=== PATIENT | female | born 1950 | race Caucasian/White ===

== ENCOUNTER 2016-07-08 08:53 | Emergency (ER) | payer MEDICARE, MEDICAID ==
[~2016-07-08] VITALS: Ht 167.6 cm; Wt 59.0 kg
[~2016-07-08 08:53] MED LIST: *ANUSOI PR; /LABE20TA OR; /LABE20TA PO; ACET65TA OR; ASPI325T OR; Avalide OR; CALCCHW12 OR; CIPR500T4 OR; CLON0.3T OR; COLA100C2 PO; CORICIDIN; CORICIDIN HBP PO; Cranberry PO; Echinacea PO; FISH1000 OR; LOSARTAN/HCTZ PO; MULTIVIT PO; PERC5TAB8 PO; Protonix OR; SENO8.6T5 PO; VERA180T9 OR; [UNRECOGNIZED DRUG - CODE] OR; [UNRECOGNIZED DRUG - OTHER]; metamucil OR
[2016-07-08 09:18] LABS: BASO % 0.6 % (0.0-1.0); EOS # 0.3 K/mm3 (0.0-0.50); LARGE UNSTAINED CELL # 0.2 K/mm3 (0.0-0.4); LARGE UNSTAINED CELL % 3.2 % (0.0-4.0); LYMPH # 1.3 K/mm3 (1.5-4.5); LYMPH % 22.5 % (24.0-44.0); MEAN CORPUSCULAR HEMOGLOBIN 30.1 pg (27.0-33.0); MEAN CORPUSCULAR HGB CONC 33.1 g/dl (32.0-36.5); MONO # 0.3 K/mm3 (0.0-0.8); MONO % 4.7 % (0.0-5.0); NEUTROPHILS # 3.6 K/mm3 (1.8-7.7); PLATELET COUNT, AUTOMATED 176 k/mm3 (150-450); RED CELL DISTRIBUTION WIDTH 12.8 % (11.5-14.5); WHITE BLOOD COUNT 5.7 K/mm3 (4.0-10.0)
[2016-07-08 09:22] LABS: INR 1.09
[2016-07-08] MEDS ORDERED: ONDANSETRON 4MG/2ML VIAL (J2405) As Ordered ONE (09:45)
[2016-07-08] MEDS ORDERED: MORPHINE 2 MG/ML 1ML SYRINGE As Ordered ONE (09:45)
[2016-07-08 09:59] LABS: CALCIUM LEVEL 8.7 MG/DL (8.8-10.2); CREATININE FOR GFR 1.05 MG/DL (0.55-1.02); GLOMERULAR FILTRATION RATE 55.8 (>45); POTASSIUM SERUM 4.5 MEQ/L (3.5-5.1)
[2016-07-08] MEDS ORDERED: ISOVUE-370 76% 100ML VIAL (Q9967) As Ordered ONE (10:10)
[2016-07-08] MEDS ORDERED: VERA180C PO (12:55)
[2016-07-08] MEDS ORDERED: CLON-412 PO (12:55)
[2016-07-08] MEDS ORDERED: LABE20TAB PO (12:55)
[2016-07-08] MEDS ORDERED: LOSA100T37 PO (12:55)
[2016-07-08] MEDS ORDERED: ATOR40TA PO (12:55)
[2016-07-08] MEDS ORDERED: CRAN400T3 PO (12:59)
[2016-07-08] MEDS ORDERED: HAIRTAB5 PO (12:59)
[2016-07-08] MEDS ORDERED: [UNRECOGNIZED DRUG - CODE] PO (12:59)
[2016-07-08] MEDS ORDERED: FISH1000 PO (12:59)
[2016-07-08] MEDS ORDERED: ECHI400C2 PO (12:59)
[2016-07-08] MEDS ORDERED: VITMTA PO (12:59)
[2016-07-08] MEDS ORDERED: FERR325T PO (12:59)
[2016-07-08] MEDS ORDERED: CALC600T10 PO (12:59)
[2016-07-08] MEDS ORDERED: ASPI325T PO (12:59)
[2016-07-08] MEDS ORDERED: DOCU100C PO (12:59)
[2016-07-08] MEDS ORDERED: VITA500046 PO (12:59)
[2016-07-08] MEDS ORDERED: HEPARIN 25,000 UNITS/250 ML D5W BAG (100 UNITS/ML) As Ordered ONE (13:16)
[2016-07-08] MEDS ORDERED: CLOPIDOGREL 300 MG TAB (PLAVIX) As Ordered ONE (13:16)
[2016-07-08] MEDS ORDERED: HEPARIN SOD (PORCINE) 5000 UNITS/ML VIAL As Ordered ONE (13:16)
--- NOTE | 2016-07-08 14:27 | EDDOCDS ---
Nurse's Notes [facility] Name: Cynthia Rebolledo Age: 65 yrs Sex: Female : 1950 Arrival Date: 07/08/2016 Time: 08:53 Bed 4 Private MD: Jayson Cox A. Diagnosis: Unstable angina Presentation: 07/08 08:58 Presenting complaint: Patient states: chest pain began at 0800 radiating down right kpj arm,cardiac history aortic aneurysm in 2004 with repair.2 NTG and 325mg ASA given by EMS enroute. 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 325 mg by EMS. Adult Sepsis Screening: The patient does not have new or worsening altered mentation. Patient's respiratory rate is less than 22. Systolic blood pressure is greater than 100. Patient has a qSOFA score of. Suicide/Homicide risk assessment- the patient denies having any suicidal and/or homicidal ideations and does not present with any other emotional, behavioral or mental health complaints. Status: Patient is not a technical services rep or dependent. Transition of care: patient was not received from another setting of care. Care prior to arrival: See EMS report. Medications administered prior to arrival: ASA, NTG, x2 Saline lock initiated. Glucose check. FSBS 134 mg/dl Oxygen administered by EMS. 20 gauge left hand. 08:58 Acuity: [place] Level 2 [facility] 08:58 Method Of Arrival: Ambulance [facility] Triage Assessment: 09:04 General: Appears comfortable, Behavior is appropriate for age, pleasant. Pain: kpj Location: mid-sternal area Pain currently is 4 out of 10 on a pain scale. Pain radiates to right arm Quality of pain is described as pressure, Pain began 1 hour ago. The patient is triaged at the bedside. See Assessment in Nurses Notes section of ED record. 09:18 Cardiovascular: Capillary refill < 3 seconds in bilateral fingers Edema is absent. kpj Pulses are all present. Rhythm is sinus rhythm No ectopy. Chest pain is described as Pain is 5 out of 10 on a pain scale. quality is pressure, radiates to right arm(s) episodes are continuous began 1 hour prior to arrival. Derm: Skin is dry, Skin is pale, Skin temperature is cool. Historical: - Allergies: Codeine Sulfate (Unknown); orange (Upset stomach); - Home Meds: 1. clonidine HCl 0.1 mg Oral tab 1 tab 3 times per day (Last dose: 07/08/2016 05:30) 2. verapamil 180 mg Oral C24P 1 cap nightly (Last dose: 07/07/2016) 3. labetalol 200 mg Oral tab 1 tab 2 times per day (Last dose: 07/08/2016 05:30) 4. losartan-hydrochlorothiazide 100-25 mg oral tab 1 tab once daily (Last dose: 07/08/2016 05:30) 5. atorvastatin 40 mg oral tab 1 tab every 2 days (Last dose: 07/06/2016) 6. docusate sodium 100 mg Oral cap 1 cap 2 times per day (Last dose: 07/08/2016 05:30) 7. aspirin 325 mg Oral tab 1 tab once daily (Last dose: 07/08/2016 05:30) 8. ferrous sulfate 325 mg (65 mg iron) Oral tab 325 mg daily (Last dose: 07/08/2016 05:30) 9. Vitamin D Oral 5000 unit twice a day (Last dose: 07/07/2016) 10. cranberry 400 mg oral cap daily (Last dose: 07/07/2016) 11. echinacea 400 mg oral cap daily (Last dose: 07/07/2016) 12. Fish Oil 1,000 mg Oral cap daily (Last dose: 07/07/2016) 13. multivitamin Oral tab 1 tablet daily (Last dose: 07/07/2016) 14. Hair,Skin and Nails oral tab daily (Last dose: 07/07/2016) 15. garlic oral cap twice a day (Last dose: 07/07/2016) 16. Calcium Gluconate Oral daily (Last dose: 07/07/2016) - PMHx: Hypertension; Hypercholesterolemia; aortic aneurysm; - PSHx: repair aortic aneurysm; removal tumor ear drum left; right elbow surgery; Tubal ligation; - Social history: Smoking status: Patient states former smoker of tobacco. No barriers to communication noted, The patient speaks fluent [place]alan. - Family history: Not pertinent. - : The pt / caregiver states he / she is not on anticoagulants. Home medication list is obtained from the patient. - Exposure Risk Screening:: None identified. Screenin:56 Screening information is obtained from the patient. Fall risk: No risks identified. dsf Assistance ADL's: requires no assistance with activities of daily living. Abuse/DV Screen: The patient / caregiver reports he/she is: not in a situation that causes fear, pain or injury. Nutritional screening: No deficits noted. Advance Directives: Currently, there is no health care proxy. home support is adequate. Assessment: 09:21 Adult Sepsis Screening: The patient does not have new or worsening altered mentation. dsf Patient's respiratory rate is less than 22. Systolic blood pressure is greater than 100. Patient has a qSOFA score of 0- Negative Sepsis Screen. General: Appears in no apparent distress, Behavior is appropriate for age, cooperative. Pain: Location: mid-sternal area Pain currently is 4 out of 10 on a pain scale. Pain radiates to right arm Quality of pain is described as pressure. Neurological: Level of Consciousness is awake, alert, Oriented to person, place, time. Cardiovascular: Capillary refill < 3 seconds Heart tones S1 S2 present. Respiratory: Airway is patent Respiratory effort is even, unlabored, Respiratory pattern is regular, symmetrical, Breath sounds are clear bilaterally. GI: Abdomen is non- distended Bowel sounds present X 4 quads. Abd is soft and non tender X 4 quads. Derm: Skin is dry, Skin is pale, Skin temperature is warm. 10:26 General: pt returned from CT. Pt reports pain 2/10. Respirations easy and unlabored dsf will continue to monitor . 10:44 General: Appears in no apparent distress, Behavior is appropriate for age, cooperative. dsf Pain: Location: mid-sternal area Pain currently is 1 out of 10 on a pain scale. Neurological: Level of Consciousness is awake, alert. Cardiovascular: Capillary refill < 3 seconds Heart tones S1 S2 present. Respiratory: Airway is patent Respiratory effort is even, unlabored, Respiratory pattern is regular, symmetrical. Derm: Skin is dry, Skin is pale, Skin temperature is warm. 11:15 Adult Sepsis Screening: The patient does not have new or worsening altered mentation. dsf Patient's respiratory rate is less than 22. Systolic blood pressure is greater than 100. Patient has a qSOFA score of 0- Negative Sepsis Screen. General: Appears in no apparent distress, Behavior is appropriate for age, cooperative. Pain: Location: mid-sternal area Pain currently is 1 out of 10 on a pain scale. Pain does not radiate. Neurological: Level of Consciousness is awake, alert, Oriented to person, place, time. Cardiovascular: Capillary refill < 3 seconds Heart tones S1 S2 present Rhythm is sinus rhythm No ectopy. Respiratory: Airway is patent Respiratory effort is even, unlabored, Respiratory pattern is regular, symmetrical, Breath sounds are clear bilaterally. GI: Abdomen is non- distended Bowel sounds present X 4 quads. Abd is soft and non tender X 4 quads. Derm: Skin is dry, Skin is pale, Skin temperature is warm. 12:15 General: Appears in no apparent distress, Behavior is appropriate for age, cooperative. dsf Pain: Denies pain. Neurological: Level of Consciousness is awake, alert, Oriented to person, place, time. Cardiovascular: Capillary refill < 3 seconds Heart tones S1 S2 present Rhythm is sinus rhythm No ectopy. Respiratory: Airway is patent Respiratory effort is even, unlabored, Respiratory pattern is regular, symmetrical, Breath sounds are clear bilaterally. GI: Abdomen is non- distended Bowel sounds present X 4 quads. Abd is soft and non tender X 4 quads. Derm: Skin is dry, Skin is pale, Skin temperature is warm. 13:15 Adult Sepsis Screening: The patient does not have new or worsening altered mentation. dsf Patient's respiratory rate is less than 22. Systolic blood pressure is greater than 100. Patient has a qSOFA score of. General: Appears in no apparent distress, Behavior is appropriate for age, cooperative. Pain: Denies pain. Neurological: Level of Consciousness is awake, alert. Cardiovascular: Capillary refill < 3 seconds Rhythm is sinus rhythm No ectopy. Respiratory: Airway is patent Respiratory effort is even, unlabored, Respiratory pattern is regular, symmetrical. Derm: Skin is dry, Skin is pale, Skin temperature is warm. 14:08 Adult Sepsis Screening: The patient does not have new or worsening altered mentation. dsf Patient's respiratory rate is less than 22. Systolic blood pressure is greater than 100. Patient has a qSOFA score of 0- Negative Sepsis Screen. General: Appears in no apparent distress, Behavior is appropriate for age, cooperative. Neurological: Level of Consciousness is awake, alert. Cardiovascular: Capillary refill < 3 seconds. Cardiovascular: Rhythm is sinus rhythm No ectopy. Respiratory: Airway is patent Respiratory effort is even, unlabored, Respiratory pattern is regular, symmetrical. 14:22 General: Appears in no apparent distress, Behavior is appropriate for age, cooperative. dsf Pain: Location: mid-sternal area Pain currently is 2 out of 10 on a pain scale. Neurological: Level of Consciousness is awake, alert. Cardiovascular: Capillary refill < 3 seconds Heart tones S1 S2 present Rhythm is sinus rhythm No ectopy. Respiratory: Airway is patent Respiratory effort is even, unlabored, Respiratory pattern is regular, symmetrical, Breath sounds are clear bilaterally. GI: Abdomen is non- distended Bowel sounds present X 4 quads. Abd is soft and non tender X 4 quads. Derm: Skin is dry, Skin is pale, Skin temperature is warm. Vital Signs: 09:02 BP 154 / 70 LA (auto/); dsf 09:03 Pulse 82 MON; Pulse Ox 96% ; dsf 09:04 BP 140 / 67 RA (auto/); dsf 09:05 BP 145 / 73 (auto/); dsf 09:05 Pulse 84 MON; Pulse Ox 95% ; dsf 09:06 BP 145 / 73; Pulse 70; Resp 18; Temp 97.1(O); Weight 58.97 kg (R); Height 5 ft. 6 in. ct3 (167.64 cm) (R); Pain 5/10; 09:06 Pulse 84 MON; Pulse Ox 95% ; dsf 09:20 BP 135 / 60 (auto/); dsf 09:21 Pulse 64 MON; Pulse Ox 100% ; dsf 09:35 BP 132 / 61 (auto/); dsf 09:36 Pulse 56 MON; Pulse Ox 100% ; dsf 09:50 BP 126 / 62 (auto/); dsf 09:51 Pulse 70 MON; Pulse Ox 100% ; dsf 10:05 BP 129 / 60 (auto/); dsf 10:06 Pulse 54 MON; Pulse Ox 100% ; dsf 10:25 BP 127 / 60 (auto/); dsf 10:25 Pulse 60 MON; Pulse Ox 98% ; dsf 10:27 Pain 2/10; dsf 10:50 BP 124 / 58 (auto/); dsf 10:51 Pulse 54 MON; Pulse Ox 100% ; dsf 11:05 BP 120 / 58 (auto/); dsf 11:06 Pulse 56 MON; Pulse Ox 100% ; dsf 11:20 BP 121 / 57 (auto/); dsf 11:21 Pulse 58 MON; Pulse Ox 100% ; dsf 11:35 BP 125 / 66 (auto/); dsf 11:36 Pulse 60 MON; Pulse Ox 99% ; dsf 11:50 BP 121 / 64 (auto/); dsf 11:51 Pulse 56 MON; Pulse Ox 100% ; dsf 12:05 BP 122 / 57 (auto/); dsf 12:06 Pulse 56 MON; Pulse Ox 100% ; dsf 12:16 BP 127 / 59 (auto/); dsf 12:17 Temp 97.1(O); ct3 12:17 Pulse 60 MON; Pulse Ox 100% ; dsf 12:20 BP 131 / 61 (auto/); dsf 12:21 Pulse 56 MON; Pulse Ox 100% ; dsf 12:35 BP 130 / 60 (auto/); dsf 12:36 Pulse 86 MON; Pulse Ox 100% ; dsf 12:50 Pulse 62 MON; Pulse Ox 100% ; dsf 12:50 BP 136 / 61 (auto/); dsf 12:51 Pulse 60 MON; Pulse Ox 100% ; dsf 13:05 BP 137 / 64 (auto/); dsf 13:05 Pulse 68 MON; Pulse Ox 99% ; dsf 13:20 BP 116 / 54 (auto/); dsf 13:21 Pulse 68 MON; Pulse Ox 93% ; dsf 13:52 BP 137 / 62 (auto/); dsf 13:52 Pulse 64 MON; Pulse Ox 96% ; dsf 13:57 BP 134 / 57 (auto/); dsf 13:57 Pulse 66 MON; Pulse Ox 96% ; dsf 14:07 BP 131 / 63 (auto/); dsf 14:08 Pulse 66 MON; Pulse Ox 95% ; dsf 14:21 BP 134 / 57; Pulse 67; Resp 18; Temp 98.2(O); Pulse Ox 95% on 4 lpm NC; Pain 2/10; dsf 09:06 Body Mass Index 20.98 (58.97 kg, 167.64 cm) ct3 Vitals: 09:04 Log In Time N/A - ambulance arrival. [facility] ED Course: 08:54 Patient visited by Bianka Baker Float Builder. lbd 08:54 Patient moved to Waiting lbd 08:55 Jayson Cox is Private Physician. lbd 08:55 Patient moved to 4 lbd 08:57 Mariam Barajas MD is Attending Physician. sd1 09:03 Patient visited by Mariam Barajas MD. sd1 09:03 Triage Initiated j 09:05 Patient visited by Vivek Fall. dem1 09:05 EKG done. (by ED staff). Reviewed by Mariam Barajas MD. dem1 09:07 Patient visited by Taya Sebastian PCA. ct3 09:07 Patient has correct armband on for positive identification. Placed in gown. Bed in low ct3 position. Call light in reach. Side rails up X2. physician credentialing specialist on. Pulse ox on. NIBP on. 09:10 Patient visited by Taya Sebastian PCA. ct3 09:22 Patient visited by Viki Mejia RN. dsf 09:22 Maintain field IV. Dressing intact. Good blood return noted. Site clean & dry. Gauge & dsf site: #20 gauge left hand . 09:22 O2 via nasal cannula \T\ 4L/min. dsf 09:57 Patient visited by Taya Sebastian PCA. ct3 10:27 Patient visited by Viki Mejia RN. dsf 10:45 Patient visited by Viki Mejia,MARY JO. dsf 11:16 Patient visited by Viki Mejia RN. dsf 11:41 Urine Culture Sent. dem1 11:41 UA Sent. dem1 12:14 Patient visited by Viki Mejia RN. dsf 12:18 Patient visited by Taya Sebastian PCA. ct3 12:48 Patient visited by Taya Sebastian PCA. ct3 13:56 No procedures done that require assistance. dsf 14:07 The patient / caregiver is instructed regarding the plan of care and ED course. dsf 14:09 Patient visited by Viki Mejia RN. dsf Administered Medications: 09:51 Drug: morphine 2 mg [morphine 2 mg/mL intravenous cartridge (1 mL)] Route: IVP; Site: dsf left hand; 10:27 Follow up: Pain 2/10 Adult; see trend VS dsf 09:51 Drug: Ondansetron 4 mg [ondansetron HCl 2 mg/mL intravenous solution (2 mL)] Route: dsf IVP; Site: left hand; 13:00 Drug: heparin (Thrombolytic Protocol, 60 units/kg)) 3538.2 units [heparin (porcine) dsf 5,000 unit/mL injection solution (0.707 mL)] {Co-Signature: deysi (Jhoana Cardoza RN).} Route: IVP; Site: left hand; 13:20 Drug: Plavix - Clopidogrel 300 mg [clopidogrel 75 mg tablet (4 tabs)] Route: PO; dsf 13:20 Drug: heparin (Thrombolytic Protocol, 12 units/kg/hr)) 73645 units [heparin (porcine) dsf 25,000 unit/250 mL (100 unit/mL) in dextrose 5 % IV] {Co-Signature: deysi (Jhoana Cardoza RN).} Route: IV; Rate: 12 units/kg/hr; Site: left hand; 14:24 Follow up: IV Status: Infusion continued on transport dsf Intake: Order Results: Lab Order: B-Type Natiuretic Peptide; SPEC'M 07/08/16 09:04 Test: BRAIN NATRIURETIC PEPTIDE; Value: 244; Range: <100; Abnormal: Above high normal; Units: PG/ML; Status: F Lab Order: Basic Metabolic Profile; SPEC'M 07/08/16 09:04 Test: GLUCOSE, FASTING; Value: 97; Range: 80-110; Units: MG/DL; Status: F Test: BLOOD UREA NITROGEN; Value: 19; Range: 7-18; Abnormal: Above high normal; Units: MG/DL; Status: F Test: CREATININE FOR GFR; Value: 1.05; Range: 0.55-1.02; Abnormal: Above high normal; Units: MG/DL; Status: F Test: GLOMERULAR FILTRATION RATE; Value: 55.8; Range: >45; Status: F Test: SODIUM LEVEL; Value: 143; Range: 136-145; Units: MEQ/L; Status: F Test: POTASSIUM SERUM; Value: 4.5; Range: 3.5-5.1; Units: MEQ/L; Status: F Test: CHLORIDE LEVEL; Value: 104; Range: 98-107; Units: MEQ/L; Status: F Test: CARBON DIOXIDE LEVEL; Value: 29; Range: 21-32; Units: MEQ/L; Status: F Test: ANION GAP; Value: 10; Range: 8-16; Units: MEQ/L; Status: F Test: CALCIUM LEVEL; Value: 8.7; Range: 8.8-10.2; Abnormal: Below low normal; Units: MG/DL; Status: F Test Note: ; Units are mL/min/1.73 m2 Chronic Kidney Disease Staging per NKF: Stage I & II GFR >=60 Normal to Mildly Decreased Stage III GFR 30-59 Moderately Decreased Stage IV GFR 15-29 Severely Decreased Stage V GFR <15 Very Little GFR Left ESRD GFR <15 on AUDIO VIDEO MECHANIC Lab Order: CBC with Diff; SPEC'M 07/08/16 09:04 Test: WHITE BLOOD COUNT; Value: 5.7; Range: 4.0-10.0; Units: K/mm3; Status: F Test: RED BLOOD COUNT; Value: 3.59; Range: 4.00-5.40; Abnormal: Below low normal; Units: M/mm3; Status: F Test: HEMOGLOBIN; Value: 10.8; Range: 12.0-16.0; Abnormal: Below low normal; Units: g/dl; Status: F Test: HEMATOCRIT; Value: 32.7; Range: 36.0-47.0; Abnormal: Below low normal; Units: %; Status: F Test: MEAN CORPUSCULAR VOLUME; Value: 91.0; Range: 80.0-96.0; Units: fl; Status: F Test: MEAN CORPUSCULAR HEMOGLOBIN; Value: 30.1; Range: 27.0-33.0; Units: pg; Status: F Test: MEAN CORPUSCULAR HGB CONC; Value: 33.1; Range: 32.0-36.5; Units: g/dl; Status: F Test: RED CELL DISTRIBUTION WIDTH; Value: 12.8; Range: 11.5-14.5; Units: %; Status: F Test: PLATELET COUNT, AUTOMATED; Value: 176; Range: 150-450; Units: k/mm3; Status: F Test: NEUTROPHILS %; Value: 63.0; Range: 36.0-66.0; Units: %; Status: F Test: LYMPH %; Value: 22.5; Range: 24.0-44.0; Abnormal: Below low normal; Units: %; Status: F Test: MONO %; Value: 4.7; Range: 0.0-5.0; Units: %; Status: F Test: EOS %; Value: 6.0; Range: 0.0-3.0; Abnormal: Above high normal; Units: %; Status: F Test: BASO %; Value: 0.6; Range: 0.0-1.0; Units: %; Status: F Test: LARGE UNSTAINED CELL %; Value: 3.2; Range: 0.0-4.0; Units: %; Status: F Test: NEUTROPHILS #; Value: 3.6; Range: 1.8-7.7; Units: K/mm3; Status: F Test: LYMPH #; Value: 1.3; Range: 1.5-4.5; Abnormal: Below low normal; Units: K/mm3; Status: F Test: MONO #; Value: 0.3; Range: 0.0-0.8; Units: K/mm3; Status: F Test: EOS #; Value: 0.3; Range: 0.0-0.50; Units: K/mm3; Status: F Test: BASO #; Value: 0.0; Range: 0.0-0.2; Units: K/mm3; Status: F Test: LARGE UNSTAINED CELL #; Value: 0.2; Range: 0.0-0.4; Units: K/mm3; Status: F Lab Order: Cardiac Injury Profile; SPEC'M 07/08/16 09:04 Test: CPK CREATINE PHOSPHOKINASE; Value: 86; Range: 26-192; Units: U/L; Status: F Test: CK-MB VALUE MASS; Value: 1.5; Range: 0.0-3.6; Units: NG/ML; Status: F Test: MB/CK RELATIVE INDEX; Value: 1.74; Range: < OR =4; Status: F Test Note: ; DIAGNOSIS CRITERIA MMB ng/ml Relative Index (RI) NON-AMI < or = 5 N/A BILLY ZONE > 5 < or = 4 AMI > 5 > 4 Lab Order: Prothrombin Time Profile\E\INR; SPEC'M 07/08/16 09:04 Test: PROTHROMBIN TIME; Value: 14.2; Range: 12.3-14.5; Units: SECONDS; Status: F Test: INR; Value: 1.09; Status: F Test Note: ; THERAPUTIC HUMAN INR VALUES INDICATIONS NORMAL RANGES PROPHYLAXIS/TREATMENT OF: VENOUS THROMBOSIS 2.0-3.0 PULMONARY EMBOLISM 2.0-3.0 PREVENTION OF SYSTEMIC EMBOLISM FROM: TISSUE HEART VALVES 2.0-3.0 ACUTE MYOCARDIAL INFARCTION 2.0-3.0 VALVULAR HEART DISEASE 2.0-3.0 ATRIAL FIBRILLATION 2.0-3.0 MECHANICAL VALVES(HIGH RISK) 2.5-3.5 RECURRENT MYOCARDIAL INFARCTION 2.5-3.5 Lab Order: Troponin; SPEC'M 07/08/16 09:04 Test: TROPONIN I; Value: 0.03; Range: < 0.10; Units: NG/ML; Status: F Test Note: ; Troponin I Reference Interval for [place] LOCI: 99th Percentile= 0.00-0.045 ng/ml Risk Stratification: <= 0.10 ng/ml Decreased Risk for Adverse Clinical Events. 0.10-1.50 ng/ml Increased Risk for Adverse Clinical Events. Evaluation of additional criterion and/or repeat testing in 2-6 hours is suggested to rule out myocardial damage. >= 1.50 ng/ml Indicative of Myocardial Injury. Lab Order: CARDIAC MARKER PANEL; SPEC07/08/16 11:28 Test: CPK CREATINE PHOSPHOKINASE; Value: 80; Range: 26-192; Units: U/L; Status: F Test: CK-MB VALUE MASS; Value: 1.7; Range: 0.0-3.6; Units: NG/ML; Status: F Test: MB/CK RELATIVE INDEX; Value: 2.12; Range: < OR =4; Status: F Test: TROPONIN I; Value: 0.25; Range: < 0.10; Abnormal: High; Units: NG/ML; Status: F Test Note: ; DIAGNOSIS CRITERIA MMB ng/ml Relative Index (RI) NON-AMI < or = 5 N/A BILLY ZONE > 5 < or = 4 AMI > 5 > 4 Lab Order: UA; SPEC'07/08/16 11:39 Test: APPEARANCE, URINE; Value: HAZY; Range: CLEAR; Status: F Test: COLOR, URINE; Value: YELLOW; Range: YELLOW; Status: F Test: PH,URINE; Value: 6.0; Range: 5.0-9.0; Units: UNITS; Status: F Test: SPECIFIC GRAVITY URINE AUTO; Value: 1.020; Range: 1.002-1.035; Status: F Test: PROTEIN, URINE AUTO; Value: NEGATIVE; Range: NEGATIVE; Units: mg/dL; Status: F Test: GLUCOSE, URINE (UA) AUTO; Value: NEGATIVE; Range: NEGATIVE; Units: mg/dL; Status: F Test: KETONE, URINE AUTO; Value: NEGATIVE; Range: NEGATIVE; Units: mg/dL; Status: F Test: UROBILINOGEN, URINE AUTO; Value: 0.2; Range: 0.0-2.0; Units: mg/dL; Status: F Test: BILIRUBIN, URINE AUTO; Value: NEGATIVE; Range: NEGATIVE; Status: F Test: NITRITE, URINE AUTO; Value: POSITIVE; Range: NEGATIVE; Status: F Test: LEUKOCYTE ESTERASE, URINE AUTO; Value: 1+; Range: NEGATIVE; Abnormal: Above high normal; Status: F Test: BLOOD, URINE BLOOD; Value: 1+; Range: NEGATIVE; Abnormal: Above high normal; Status: F Test: WBC, URINE AUTO; Value: 4; Range: 0-3; Abnormal: Above high normal; Units: /HPF; Status: F Test: RBC, URINE AUTO; Value: 2; Range: 0-3; Units: /HPF; Status: F Test: BACTERIA, URINE AUTO; Value: NEGATIVE; Range: NEGATIVE; Status: F Test: SQUAMOUS EPITHELIAL CELL UR AU; Value: 0; Range: 0-6; Units: /HPF; Status: F Test: MUCUS, URINE; Value: SMALL; Range: NEGATIVE; Status: F Test: HYALINE CAST, URINE AUTO; Value: 0; Range: 0-1; Units: /LPF; Status: F Outcome: 13:07 ER care complete, transfer ordered by Provider. sd1 13:51 Admission hand-off: Report called to Arturo Park RN. dsf 13:56 CT Study completed. dsf 14:22 Discharge Assessment: Patient awake, alert and oriented x 3. No cognitive and/or dsf functional deficits noted. Patient verbalized understanding of disposition instructions. patient administered narcotics - yes. Patient was admitted to the hospital or transferred to another facility. The following High Risk Discharge criteria are identified: None. Transferred to [facility]. by EMS ground report to accompanying personnel Jorge Huerta AENVP, David Santiago AENVP, Transfer form completed. x-rays sent w/ patient. Condition: stable. Property :Personal belongings accompany Pt. 14:25 Patient left the ED. dsf Signatures: Mariam Barajas MD MD sd1 Bianka Baker, Float Builder Unit lbd Jhoana Cardoza RN RN kpj Taya Sebastian, MONTESSORI PARAPROFESSIONAL MONTESS[place]I PARAPROFESSIONAL ct3 Viki Mejia RN RN dsf Vivek Fall dem1 Jhoana Cardoza RN, kp Corrections: (The following items were deleted from the chart) 09:10 09:06 Temp 97.1F Oral; ct3 ct3 13:57 13:56 No special radiology studies were completed dsf dsf MTDD
--- NOTE | 2016-07-08 14:27 | EDDOCDS ---
Physician Documentation [facility] Name: Cynthia Rebolledo Age: 65 yrs Sex: Female : 1950 Arrival Date: 07/08/2016 Time: 08:53 Bed 4 Private MD: Jayson Cox A. Disposition: 07/08/16 13:07 Transfer ordered to [facility]. Diagnosis is Unstable angina. - Reason for transfer: Higher level of care. - Accepting physician is Dr. Jackson. - Condition is Stable. - Problem is new. - Symptoms have improved. Historical: - Allergies: Codeine Sulfate (Unknown); orange (Upset stomach); - Home Meds: 1. clonidine HCl 0.1 mg Oral tab 1 tab 3 times per day (Last dose: 07/08/2016 05:30) 2. verapamil 180 mg Oral C24P 1 cap nightly (Last dose: 07/07/2016) 3. labetalol 200 mg Oral tab 1 tab 2 times per day (Last dose: 07/08/2016 05:30) 4. losartan-hydrochlorothiazide 100-25 mg oral tab 1 tab once daily (Last dose: 07/08/2016 05:30) 5. atorvastatin 40 mg oral tab 1 tab every 2 days (Last dose: 07/06/2016) 6. docusate sodium 100 mg Oral cap 1 cap 2 times per day (Last dose: 07/08/2016 05:30) 7. aspirin 325 mg Oral tab 1 tab once daily (Last dose: 07/08/2016 05:30) 8. ferrous sulfate 325 mg (65 mg iron) Oral tab 325 mg daily (Last dose: 07/08/2016 05:30) 9. Vitamin D Oral 5000 unit twice a day (Last dose: 07/07/2016) 10. cranberry 400 mg oral cap daily (Last dose: 07/07/2016) 11. echinacea 400 mg oral cap daily (Last dose: 07/07/2016) 12. Fish Oil 1,000 mg Oral cap daily (Last dose: 07/07/2016) 13. multivitamin Oral tab 1 tablet daily (Last dose: 07/07/2016) 14. Hair,Skin and Nails oral tab daily (Last dose: 07/07/2016) 15. garlic oral cap twice a day (Last dose: 07/07/2016) 16. Calcium Gluconate Oral daily (Last dose: 07/07/2016) - PMHx: Hypertension; Hypercholesterolemia; aortic aneurysm; - PSHx: repair aortic aneurysm; removal tumor ear drum left; right elbow surgery; Tubal ligation; - Social history: Smoking status: Patient states former smoker of tobacco. No barriers to communication noted, The patient speaks fluent Greek. - Family history: Not pertinent. - : The pt / caregiver states he / she is not on anticoagulants. Home medication list is obtained from the patient. - Exposure Risk Screening:: None identified. Vital Signs: 07/08 09:02 BP 154 / 70 LA (auto/); dsf 09:03 Pulse 82 MON; Pulse Ox 96% ; dsf 09:04 BP 140 / 67 RA (auto/); dsf 09:05 BP 145 / 73 (auto/); dsf 09:05 Pulse 84 MON; Pulse Ox 95% ; dsf 09:06 BP 145 / 73; Pulse 70; Resp 18; Temp 97.1(O); Weight 58.97 kg / 130.01 lbs (R); Height ct3 5 ft. 6 in. (167.64 cm) (R); Pain 5/10; 09:06 Pulse 84 MON; Pulse Ox 95% ; dsf 09:20 BP 135 / 60 (auto/); dsf 09:21 Pulse 64 MON; Pulse Ox 100% ; dsf 09:35 BP 132 / 61 (auto/); dsf 09:36 Pulse 56 MON; Pulse Ox 100% ; dsf 09:50 BP 126 / 62 (auto/); dsf 09:51 Pulse 70 MON; Pulse Ox 100% ; dsf 10:05 BP 129 / 60 (auto/); dsf 10:06 Pulse 54 MON; Pulse Ox 100% ; dsf 10:25 BP 127 / 60 (auto/); dsf 10:25 Pulse 60 MON; Pulse Ox 98% ; dsf 10:27 Pain 2/10; dsf 10:50 BP 124 / 58 (auto/); dsf 10:51 Pulse 54 MON; Pulse Ox 100% ; dsf 11:05 BP 120 / 58 (auto/); dsf 11:06 Pulse 56 MON; Pulse Ox 100% ; dsf 11:20 BP 121 / 57 (auto/); dsf 11:21 Pulse 58 MON; Pulse Ox 100% ; dsf 11:35 BP 125 / 66 (auto/); dsf 11:36 Pulse 60 MON; Pulse Ox 99% ; dsf 11:50 BP 121 / 64 (auto/); dsf 11:51 Pulse 56 MON; Pulse Ox 100% ; dsf 12:05 BP 122 / 57 (auto/); dsf 12:06 Pulse 56 MON; Pulse Ox 100% ; dsf 12:16 BP 127 / 59 (auto/); dsf 12:17 Temp 97.1(O); ct3 12:17 Pulse 60 MON; Pulse Ox 100% ; dsf 12:20 BP 131 / 61 (auto/); dsf 12:21 Pulse 56 MON; Pulse Ox 100% ; dsf 12:35 BP 130 / 60 (auto/); dsf 12:36 Pulse 86 MON; Pulse Ox 100% ; dsf 12:50 Pulse 62 MON; Pulse Ox 100% ; dsf 12:50 BP 136 / 61 (auto/); dsf 12:51 Pulse 60 MON; Pulse Ox 100% ; dsf 13:05 BP 137 / 64 (auto/); dsf 13:05 Pulse 68 MON; Pulse Ox 99% ; dsf 13:20 BP 116 / 54 (auto/); dsf 13:21 Pulse 68 MON; Pulse Ox 93% ; dsf 13:52 BP 137 / 62 (auto/); dsf 13:52 Pulse 64 MON; Pulse Ox 96% ; dsf 13:57 BP 134 / 57 (auto/); dsf 13:57 Pulse 66 MON; Pulse Ox 96% ; dsf 14:07 BP 131 / 63 (auto/); dsf 14:08 Pulse 66 MON; Pulse Ox 95% ; dsf 14:21 BP 134 / 57; Pulse 67; Resp 18; Temp 98.2(O); Pulse Ox 95% on 4 lpm NC; Pain 2/10; dsf 09:06 Body Mass Index 20.98 (58.97 kg, 167.64 cm) ct3 MDM: 08:57 ECG WITH READING ER PHYS+CARDIAG ordered. 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 sd1 09:09 IV Saline Lock ordered. sd1 09:09 Rhythm Strip to chart ordered. sd1 09:09 Undress patient appropriately for examination ordered. sd1 09:09 Misc. Nursing Order ordered. sd1 09:10 B-Type Natiuretic Peptide Ordered. EDMS 09:10 Basic Metabolic Profile Ordered. EDMS 09:10 CBC with Diff Ordered. EDMS 09:10 Cardiac Injury Profile Ordered. EDMS 09:10 Prothrombin Time Profile\E\INR Ordered. EDMS 09:10 Troponin Ordered. EDMS 09:10 portable chest Ordered. EDMS 09:42 B-Type Natiuretic Peptide Reviewed. sd1 09:42 CBC with Diff Reviewed. sd1 09:42 Prothrombin Time Profile\E\INR Reviewed. sd1 09:44 morphine 2 mg IVP every 15 minutes; Document pain score/vitals after each dose (Hold if sd1 SBP < 90mmHg) x3 ordered. 09:44 Ondansetron 4 mg IVP once ordered. sd1 09:44 CT Chest With Contrast Ordered. EDMS 10:12 Basic Metabolic Profile Reviewed. sd1 10:12 Cardiac Injury Profile Reviewed. sd1 10:12 Troponin Reviewed. sd1 10:13 Redraw CIP &Troponin (put time in details section) ordered. sd1 10:34 Redraw CIP &Troponin (put time in details section) complete. lbd 10:46 CARDIAC MARKER PANEL Ordered. EDMS 11:32 UA Ordered. EDMS 11:32 Urine Culture Ordered. EDMS 12:18 UA Reviewed. sd1 12:21 CARDIAC MARKER PANEL Reviewed. sd1 12:31 BED REQUEST+ADM ordered. EDMS 13:08 Plavix - Clopidogrel 300 mg PO once ordered. sd1 13:08 heparin (Thrombolytic Protocol, 60 units/kg)) 60 units/kg IVP once; 3400 units IV sd1 ordered. 13:08 heparin (Thrombolytic Protocol, 12 units/kg/hr)) 94192 units IV at 12 units/kg/hr once; sd1 690units/hr ordered. 13:41 Financial registration complete. lg Administered Medications: 09:51 Drug: morphine 2 mg [morphine 2 mg/mL intravenous cartridge (1 mL)] Route: IVP; Site: dsf left hand; 10:27 Follow up: Pain 2/10 Adult; see trend VS dsf 09:51 Drug: Ondansetron 4 mg [ondansetron HCl 2 mg/mL intravenous solution (2 mL)] Route: dsf IVP; Site: left hand; 13:00 Drug: heparin (Thrombolytic Protocol, 60 units/kg)) 3538.2 units [heparin (porcine) dsf 5,000 unit/mL injection solution (0.707 mL)] {Co-Signature: deysi (Jhoana Cardoza RN).} Route: IVP; Site: left hand; 13:20 Drug: Plavix - Clopidogrel 300 mg [clopidogrel 75 mg tablet (4 tabs)] Route: PO; dsf 13:20 Drug: heparin (Thrombolytic Protocol, 12 units/kg/hr)) 32703 units [heparin (porcine) dsf 25,000 unit/250 mL (100 unit/mL) in dextrose 5 % IV] {Co-Signature: deysi (Jhoana Cardoza RN).} Route: IV; Rate: 12 units/kg/hr; Site: left hand; 14:24 Follow up: IV Status: Infusion continued on transport dsf Signatures: Dispatcher [employer] Mariam Lazaro MD MD sd1 Bianka Baker, [employer] W[employer] Consultant Unit Jhoana Serna, RN RN kpj Ezequiel Kelly, Seferino Reg Viki Taylor,RN RN dsf Jhoana jo MTDD
--- NOTE | 2016-07-08 15:39 | REP ---
CHEST, ONE VIEW: HISTORY: Chest pain. COMPARISON: 06/13/2011. Increased density is present in the left lower lobe consistent with atelectasis or scar. The right lung is clear. The cardiac silhouette is enlarged. A thoracic aortic aneurysm is present that appears unchanged compared to the previous study. The pulmonary vasculature is normal in appearance. IMPRESSION: 1. Left lower lobe atelectasis or scar. 2. Cardiomegaly. 3. Thoracic aortic aneurysm, unchanged compared to the previous study. Signed by Vitaly Rodríguez MD 07/08/2016 03:39 P
--- NOTE | 2016-07-08 16:23 | REP ---
CT chest with IV contrast, 07/08/2016: Comparison: CT chest without contrast 06/26/2016, CTA chest 08/16/2010. Indication: Exclude aortic dissection. There is bibasilar fibrotic interstitial scarring and The patient has history of type A aortic dissection which is again noted. Dimension of the aortic root is 4.2 cm transverse dimension, distal to aortic valve and not significantly changed from prior studies. Dissection involves proximal aortic arch, distal aortic arch and descending thoracic aorta consistent with type A dissection. Large lateral false lumen is seen within the aortic arch and descending thoracic aorta. The maximal dimension of the aortic arch is 6 cm transverse dimension, previously 5.1 cm transverse dimension on 08/16/2010 and 4.8 cm transverse dimension 06/26/2016. There is no associated mediastinal hematoma external to the thoracic aorta. 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 The descending thoracic aorta measures 4.4 cm AP x 4.0 cm transverse diameter distally, and previously measured 4.0 AP x 4.4 cm transverse on 06/16 16, and measured 3.7 cm AP x 3.9 cm transverse on 08/16/2010. there is a large lateral false lumen. 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 SMA arises from true lumen of aorta. Abdominal aorta measures 3.3 cm AP x 3.2 cm transverse dimension at the origin of the celiac artery, previously 3 cm AP x 3.1 cm transverse dimension on 08/16/2010. There is no retroperitoneal hematoma identified. There are no pathologically enlarged mediastinal nodes. Bullous changes are noted bilaterally. Interstitial fibrotic scarring is seen with lower lobe predominance. Visualized portions of the liver, spleen, and pancreas are unremarkable. There are no visualized gallstones. The adrenals are normal. Moderate atrophic changes are seen within the left kidney with progression. Impression: Type A aortic dissection again identified with a large lateral false lumen. There has been minimal- mild increase in size when compared with prior studies dating back to 2010. Descending thoracic aorta measures 4.4 cm AP x 4.0 cm transverse diameter distally, and previously measured 4.0 AP x 4.4 cm transverse on 06/16 16, and measured 3.7 cm AP x 3.9 cm transverse on 08/16/2010. Dissections are also noted within the aberrant right subclavian artery, the left common carotid and left subclavian arteries. 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 Superior mesenteric artery arises from true lumen. Case discussed with Dr. Lambert in ED on 07/08/16 at 1120 am. Moderate atrophic changes within left kidney. No extraluminal hematoma is identified within the chest. Signed by Geri Merino MD 07/08/2016 08:06 P
--- NOTE | 2016-07-09 19:33 | ECGEPIP ---
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
--- NOTE | 2016-07-10 15:26 | EDDOCDS ---
Physician Documentation [facility] Name: Cynthia Rebolledo Age: 65 yrs Sex: Female : 1950 Arrival Date: 07/08/2016 Time: 08:53 Bed 4 Private MD: Jayson Cox A. Disposition: 07/08/16 13:07 Transfer ordered to [facility]. Diagnosis is Unstable angina. - Reason for transfer: Higher level of care. - Accepting physician is Dr. Jackson. - Condition is Stable. - Problem is new. - Symptoms have improved. Historical: - Allergies: Codeine Sulfate (Unknown); orange (Upset stomach); - Home Meds: 1. clonidine HCl 0.1 mg Oral tab 1 tab 3 times per day (Last dose: 07/08/2016 05:30) 2. verapamil 180 mg Oral C24P 1 cap nightly (Last dose: 07/07/2016) 3. labetalol 200 mg Oral tab 1 tab 2 times per day (Last dose: 07/08/2016 05:30) 4. losartan-hydrochlorothiazide 100-25 mg oral tab 1 tab once daily (Last dose: 07/08/2016 05:30) 5. atorvastatin 40 mg oral tab 1 tab every 2 days (Last dose: 07/06/2016) 6. docusate sodium 100 mg Oral cap 1 cap 2 times per day (Last dose: 07/08/2016 05:30) 7. aspirin 325 mg Oral tab 1 tab once daily (Last dose: 07/08/2016 05:30) 8. ferrous sulfate 325 mg (65 mg iron) Oral tab 325 mg daily (Last dose: 07/08/2016 05:30) 9. Vitamin D Oral 5000 unit twice a day (Last dose: 07/07/2016) 10. cranberry 400 mg oral cap daily (Last dose: 07/07/2016) 11. echinacea 400 mg oral cap daily (Last dose: 07/07/2016) 12. Fish Oil 1,000 mg Oral cap daily (Last dose: 07/07/2016) 13. multivitamin Oral tab 1 tablet daily (Last dose: 07/07/2016) 14. Hair,Skin and Nails oral tab daily (Last dose: 07/07/2016) 15. garlic oral cap twice a day (Last dose: 07/07/2016) 16. Calcium Gluconate Oral daily (Last dose: 07/07/2016) - PMHx: Hypertension; Hypercholesterolemia; aortic aneurysm; - PSHx: repair aortic aneurysm; removal tumor ear drum left; right elbow surgery; Tubal ligation; - Social history: Smoking status: Patient states former smoker of tobacco. No barriers to communication noted, The patient speaks fluent Pashto. - Family history: Not pertinent. - : The pt / caregiver states he / she is not on anticoagulants. Home medication list is obtained from the patient. - Exposure Risk Screening:: None identified. Vital Signs: 07/08 09:02 BP 154 / 70 LA (auto/); dsf 09:03 Pulse 82 MON; Pulse Ox 96% ; dsf 09:04 BP 140 / 67 RA (auto/); dsf 09:05 BP 145 / 73 (auto/); dsf 09:05 Pulse 84 MON; Pulse Ox 95% ; dsf 09:06 BP 145 / 73; Pulse 70; Resp 18; Temp 97.1(O); Weight 58.97 kg / 130.01 lbs (R); Height ct3 5 ft. 6 in. (167.64 cm) (R); Pain 5/10; 09:06 Pulse 84 MON; Pulse Ox 95% ; dsf 09:20 BP 135 / 60 (auto/); dsf 09:21 Pulse 64 MON; Pulse Ox 100% ; dsf 09:35 BP 132 / 61 (auto/); dsf 09:36 Pulse 56 MON; Pulse Ox 100% ; dsf 09:50 BP 126 / 62 (auto/); dsf 09:51 Pulse 70 MON; Pulse Ox 100% ; dsf 10:05 BP 129 / 60 (auto/); dsf 10:06 Pulse 54 MON; Pulse Ox 100% ; dsf 10:25 BP 127 / 60 (auto/); dsf 10:25 Pulse 60 MON; Pulse Ox 98% ; dsf 10:27 Pain 2/10; dsf 10:50 BP 124 / 58 (auto/); dsf 10:51 Pulse 54 MON; Pulse Ox 100% ; dsf 11:05 BP 120 / 58 (auto/); dsf 11:06 Pulse 56 MON; Pulse Ox 100% ; dsf 11:20 BP 121 / 57 (auto/); dsf 11:21 Pulse 58 MON; Pulse Ox 100% ; dsf 11:35 BP 125 / 66 (auto/); dsf 11:36 Pulse 60 MON; Pulse Ox 99% ; dsf 11:50 BP 121 / 64 (auto/); dsf 11:51 Pulse 56 MON; Pulse Ox 100% ; dsf 12:05 BP 122 / 57 (auto/); dsf 12:06 Pulse 56 MON; Pulse Ox 100% ; dsf 12:16 BP 127 / 59 (auto/); dsf 12:17 Temp 97.1(O); ct3 12:17 Pulse 60 MON; Pulse Ox 100% ; dsf 12:20 BP 131 / 61 (auto/); dsf 12:21 Pulse 56 MON; Pulse Ox 100% ; dsf 12:35 BP 130 / 60 (auto/); dsf 12:36 Pulse 86 MON; Pulse Ox 100% ; dsf 12:50 Pulse 62 MON; Pulse Ox 100% ; dsf 12:50 BP 136 / 61 (auto/); dsf 12:51 Pulse 60 MON; Pulse Ox 100% ; dsf 13:05 BP 137 / 64 (auto/); dsf 13:05 Pulse 68 MON; Pulse Ox 99% ; dsf 13:20 BP 116 / 54 (auto/); dsf 13:21 Pulse 68 MON; Pulse Ox 93% ; dsf 13:52 BP 137 / 62 (auto/); dsf 13:52 Pulse 64 MON; Pulse Ox 96% ; dsf 13:57 BP 134 / 57 (auto/); dsf 13:57 Pulse 66 MON; Pulse Ox 96% ; dsf 14:07 BP 131 / 63 (auto/); dsf 14:08 Pulse 66 MON; Pulse Ox 95% ; dsf 14:21 BP 134 / 57; Pulse 67; Resp 18; Temp 98.2(O); Pulse Ox 95% on 4 lpm NC; Pain 2/10; dsf 09:06 Body Mass Index 20.98 (58.97 kg, 167.64 cm) ct3 MDM: 08:57 ECG WITH READING ER PHYS+CARDIAG ordered. 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 sd1 09:09 IV Saline Lock ordered. sd1 09:09 Rhythm Strip to chart ordered. sd1 09:09 Undress patient appropriately for examination ordered. sd1 09:09 Misc. Nursing Order ordered. sd1 09:10 B-Type Natiuretic Peptide Ordered. EDMS 09:10 Basic Metabolic Profile Ordered. EDMS 09:10 CBC with Diff Ordered. EDMS 09:10 Cardiac Injury Profile Ordered. EDMS 09:10 Prothrombin Time Profile\E\INR Ordered. EDMS 09:10 Troponin Ordered. EDMS 09:10 portable chest Ordered. EDMS 09:42 B-Type Natiuretic Peptide Reviewed. sd1 09:42 CBC with Diff Reviewed. sd1 09:42 Prothrombin Time Profile\E\INR Reviewed. sd1 09:44 morphine 2 mg IVP every 15 minutes; Document pain score/vitals after each dose (Hold if sd1 SBP < 90mmHg) x3 ordered. 09:44 Ondansetron 4 mg IVP once ordered. sd1 09:44 CT Chest With Contrast Ordered. EDMS 10:12 Basic Metabolic Profile Reviewed. sd1 10:12 Cardiac Injury Profile Reviewed. sd1 10:12 Troponin Reviewed. sd1 10:13 Redraw CIP &Troponin (put time in details section) ordered. sd1 10:34 Redraw CIP &Troponin (put time in details section) complete. lbd 10:46 CARDIAC MARKER PANEL Ordered. EDMS 11:32 UA Ordered. EDMS 11:32 Urine Culture Ordered. EDMS 12:18 UA Reviewed. sd1 12:21 CARDIAC MARKER PANEL Reviewed. sd1 12:31 BED REQUEST+ADM ordered. EDMS 13:08 Plavix - Clopidogrel 300 mg PO once ordered. sd1 13:08 heparin (Thrombolytic Protocol, 60 units/kg)) 60 units/kg IVP once; 3400 units IV sd1 ordered. 13:08 heparin (Thrombolytic Protocol, 12 units/kg/hr)) 02715 units IV at 12 units/kg/hr once; sd1 690units/hr ordered. 13:41 Financial registration complete. lg 14:39 [facility] Payment Agreement was scanned into [employer] and attached to record. lg 07/09 09:39 T-Sheet-- Draft Copy was scanned into [employer] and attached to record. gb 09:39 ECG/EKG was scanned into [employer] and attached to record. gb 09:39 Radiology Report was scanned into [employer] and attached to record. gb Administered Medications: 07/08 09:51 Drug: morphine 2 mg [morphine 2 mg/mL intravenous cartridge (1 mL)] Route: IVP; Site: dsf left hand; 10:27 Follow up: Pain 2/10 Adult; see trend VS dsf 09:51 Drug: Ondansetron 4 mg [ondansetron HCl 2 mg/mL intravenous solution (2 mL)] Route: dsf IVP; Site: left hand; 13:00 Drug: heparin (Thrombolytic Protocol, 60 units/kg)) 3538.2 units [heparin (porcine) dsf 5,000 unit/mL injection solution (0.707 mL)] {Co-Signature: deysi (Jhoana Cardoza RN).} Route: IVP; Site: left hand; 13:20 Drug: Plavix - Clopidogrel 300 mg [clopidogrel 75 mg tablet (4 tabs)] Route: PO; dsf 13:20 Drug: heparin (Thrombolytic Protocol, 12 units/kg/hr)) 53602 units [heparin (porcine) dsf 25,000 unit/250 mL (100 unit/mL) in dextrose 5 % IV] {Co-Signature: deysi (Jhoana Cardoza RN).} Route: IV; Rate: 12 units/kg/hr; Site: left hand; 14:24 Follow up: IV Status: Infusion continued on transport dsf Signatures: Dispatcher [employer] Mariam Lazaro MD MD sd1 Bianka Baker, Detention Worker Unit lbd Jhoana Cardoza RN RN kpj Gris Oakley, Reg Reg gb Ezequiel Kelly, Reg Reg lg Viki MejiaRN RN dsf Jhoana jo The chart was reviewed and I authenticate all verbal orders and agree with the evaluation and treatment provided.Attachments: 14:39 [facility] Payment Agreement lg 07/09 09:39 T-Sheet-- Draft Copy gb 09:39 ECG/EKG gb Chart Complete MTDD
--- NOTE | 2016-07-10 15:26 | EDDOCDS ---
Nurse's Notes [facility] Name: Julissa Rebolledo Age: 65 yrs Sex: Female : 1950 Arrival Date: 07/08/2016 Time: 08:53 Bed 4 Private MD: Jayson Cox A. Diagnosis: Unstable angina Presentation: 07/08 08:58 Presenting complaint: Patient states: chest pain began at 0800 radiating down right kpj arm,cardiac history aortic aneurysm in 2004 with repair.2 NTG and 325mg ASA given by EMS enroute. Aspirin was taken [employer] G[employer]. 325 mg by EMS. Adult Sepsis Screening: The patient does not have new or worsening altered mentation. Patient's respiratory rate is less than 22. Systolic blood pressure is greater than 100. Patient has a qSOFA score of. Suicide/Homicide risk assessment- the patient denies having any suicidal and/or homicidal ideations and does not present with any other emotional, behavioral or mental health complaints. 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 Transition of care: patient was not received from another setting of care. Care prior to arrival: See EMS report. Medications administered prior to arrival: ASA, NTG, x2 Saline lock initiated. Glucose check. FSBS 134 mg/dl Oxygen administered by EMS. 20 gauge left hand. 08:58 Acuity: [place] Level 2 [facility] 08:58 Method Of Arrival: Ambulance [facility] Triage Assessment: 09:04 General: Appears comfortable, Behavior is appropriate for age, pleasant. Pain: kpj Location: mid-sternal area Pain currently is 4 out of 10 on a pain scale. Pain radiates to right arm Quality of pain is described as pressure, Pain began 1 hour ago. The patient is triaged at the bedside. See Assessment in Nurses Notes section of ED record. 09:18 Cardiovascular: Capillary refill < 3 seconds in bilateral fingers Edema is absent. kpj Pulses are all present. Rhythm is sinus rhythm No ectopy. Chest pain is described as Pain is 5 out of 10 on a pain scale. quality is pressure, radiates to right arm(s) episodes are continuous began 1 hour prior to arrival. Derm: Skin is dry, Skin is pale, Skin temperature is cool. Historical: - Allergies: Codeine Sulfate (Unknown); orange (Upset stomach); - Home Meds: 1. clonidine HCl 0.1 mg Oral tab 1 tab 3 times per day (Last dose: 07/08/2016 05:30) 2. verapamil 180 mg Oral C24P 1 cap nightly (Last dose: 07/07/2016) 3. labetalol 200 mg Oral tab 1 tab 2 times per day (Last dose: 07/08/2016 05:30) 4. losartan-hydrochlorothiazide 100-25 mg oral tab 1 tab once daily (Last dose: 07/08/2016 05:30) 5. atorvastatin 40 mg oral tab 1 tab every 2 days (Last dose: 07/06/2016) 6. docusate sodium 100 mg Oral cap 1 cap 2 times per day (Last dose: 07/08/2016 05:30) 7. aspirin 325 mg Oral tab 1 tab once daily (Last dose: 07/08/2016 05:30) 8. ferrous sulfate 325 mg (65 mg iron) Oral tab 325 mg daily (Last dose: 07/08/2016 05:30) 9. Vitamin D Oral 5000 unit twice a day (Last dose: 07/07/2016) 10. cranberry 400 mg oral cap daily (Last dose: 07/07/2016) 11. echinacea 400 mg oral cap daily (Last dose: 07/07/2016) 12. Fish Oil 1,000 mg Oral cap daily (Last dose: 07/07/2016) 13. multivitamin Oral tab 1 tablet daily (Last dose: 07/07/2016) 14. Hair,Skin and Nails oral tab daily (Last dose: 07/07/2016) 15. garlic oral cap twice a day (Last dose: 07/07/2016) 16. Calcium Gluconate Oral daily (Last dose: 07/07/2016) - PMHx: Hypertension; Hypercholesterolemia; aortic aneurysm; - PSHx: repair aortic aneurysm; removal tumor ear drum left; right elbow surgery; Tubal ligation; - Social history: Smoking status: Patient states former smoker of tobacco. No barriers to communication noted, The patient speaks fluent Macedonian. - Family history: Not pertinent. - : The pt / caregiver states he / she is not on anticoagulants. Home medication list is obtained from the patient. - Exposure Risk Screening:: None identified. Screenin:56 Screening information is obtained from the patient. Fall risk: No risks identified. dsf Assistance ADL's: requires no assistance with activities of daily living. Abuse/DV Screen: The patient / caregiver reports he/she is: not in a situation that causes fear, pain or injury. Nutritional screening: No deficits noted. Advance Directives: Currently, there is no health care proxy. home support is adequate. Assessment: 09:21 Adult Sepsis Screening: The patient does not have new or worsening altered mentation. dsf Patient's respiratory rate is less than 22. Systolic blood pressure is greater than 100. Patient has a qSOFA score of 0- Negative Sepsis Screen. General: Appears in no apparent distress, Behavior is appropriate for age, cooperative. Pain: Location: mid-sternal area Pain currently is 4 out of 10 on a pain scale. Pain radiates to right arm Quality of pain is described as pressure. Neurological: Level of Consciousness is awake, alert, Oriented to person, place, time. Cardiovascular: Capillary refill < 3 seconds Heart tones S1 S2 present. Respiratory: Airway is patent Respiratory effort is even, unlabored, Respiratory pattern is regular, symmetrical, Breath sounds are clear bilaterally. GI: Abdomen is non- distended Bowel sounds present X 4 quads. Abd is soft and non tender X 4 quads. Derm: Skin is dry, Skin is pale, Skin temperature is warm. 10:26 General: pt returned from CT. Pt reports pain 2/10. Respirations easy and unlabored dsf will continue to monitor . 10:44 General: Appears in no apparent distress, Behavior is appropriate for age, cooperative. dsf Pain: Location: mid-sternal area Pain currently is 1 out of 10 on a pain scale. Neurological: Level of Consciousness is awake, alert. Cardiovascular: Capillary refill < 3 seconds Heart tones S1 S2 present. Respiratory: Airway is patent Respiratory effort is even, unlabored, Respiratory pattern is regular, symmetrical. Derm: Skin is dry, Skin is pale, Skin temperature is warm. 11:15 Adult Sepsis Screening: The patient does not have new or worsening altered mentation. dsf Patient's respiratory rate is less than 22. Systolic blood pressure is greater than 100. Patient has a qSOFA score of 0- Negative Sepsis Screen. General: Appears in no apparent distress, Behavior is appropriate for age, cooperative. Pain: Location: mid-sternal area Pain currently is 1 out of 10 on a pain scale. Pain does not radiate. Neurological: Level of Consciousness is awake, alert, Oriented to person, place, time. Cardiovascular: Capillary refill < 3 seconds Heart tones S1 S2 present Rhythm is sinus rhythm No ectopy. Respiratory: Airway is patent Respiratory effort is even, unlabored, Respiratory pattern is regular, symmetrical, Breath sounds are clear bilaterally. GI: Abdomen is non- distended Bowel sounds present X 4 quads. Abd is soft and non tender X 4 quads. Derm: Skin is dry, Skin is pale, Skin temperature is warm. 12:15 General: Appears in no apparent distress, Behavior is appropriate for age, cooperative. dsf Pain: Denies pain. Neurological: Level of Consciousness is awake, alert, Oriented to person, place, time. Cardiovascular: Capillary refill < 3 seconds Heart tones S1 S2 present Rhythm is sinus rhythm No ectopy. Respiratory: Airway is patent Respiratory effort is even, unlabored, Respiratory pattern is regular, symmetrical, Breath sounds are clear bilaterally. GI: Abdomen is non- distended Bowel sounds present X 4 quads. Abd is soft and non tender X 4 quads. Derm: Skin is dry, Skin is pale, Skin temperature is warm. 13:15 Adult Sepsis Screening: The patient does not have new or worsening altered mentation. dsf Patient's respiratory rate is less than 22. Systolic blood pressure is greater than 100. Patient has a qSOFA score of. General: Appears in no apparent distress, Behavior is appropriate for age, cooperative. Pain: Denies pain. Neurological: Level of Consciousness is awake, alert. Cardiovascular: Capillary refill < 3 seconds Rhythm is sinus rhythm No ectopy. Respiratory: Airway is patent Respiratory effort is even, unlabored, Respiratory pattern is regular, symmetrical. Derm: Skin is dry, Skin is pale, Skin temperature is warm. 14:08 Adult Sepsis Screening: The patient does not have new or worsening altered mentation. dsf Patient's respiratory rate is less than 22. Systolic blood pressure is greater than 100. Patient has a qSOFA score of 0- Negative Sepsis Screen. General: Appears in no apparent distress, Behavior is appropriate for age, cooperative. Neurological: Level of Consciousness is awake, alert. Cardiovascular: Capillary refill < 3 seconds. Cardiovascular: Rhythm is sinus rhythm No ectopy. Respiratory: Airway is patent Respiratory effort is even, unlabored, Respiratory pattern is regular, symmetrical. 14:22 General: Appears in no apparent distress, Behavior is appropriate for age, cooperative. dsf Pain: Location: mid-sternal area Pain currently is 2 out of 10 on a pain scale. Neurological: Level of Consciousness is awake, alert. Cardiovascular: Capillary refill < 3 seconds Heart tones S1 S2 present Rhythm is sinus rhythm No ectopy. Respiratory: Airway is patent Respiratory effort is even, unlabored, Respiratory pattern is regular, symmetrical, Breath sounds are clear bilaterally. GI: Abdomen is non- distended Bowel sounds present X 4 quads. Abd is soft and non tender X 4 quads. Derm: Skin is dry, Skin is pale, Skin temperature is warm. Vital Signs: 09:02 BP 154 / 70 LA (auto/); dsf 09:03 Pulse 82 MON; Pulse Ox 96% ; dsf 09:04 BP 140 / 67 RA (auto/); dsf 09:05 BP 145 / 73 (auto/); dsf 09:05 Pulse 84 MON; Pulse Ox 95% ; dsf 09:06 BP 145 / 73; Pulse 70; Resp 18; Temp 97.1(O); Weight 58.97 kg (R); Height 5 ft. 6 in. ct3 (167.64 cm) (R); Pain 5/10; 09:06 Pulse 84 MON; Pulse Ox 95% ; dsf 09:20 BP 135 / 60 (auto/); dsf 09:21 Pulse 64 MON; Pulse Ox 100% ; dsf 09:35 BP 132 / 61 (auto/); dsf 09:36 Pulse 56 MON; Pulse Ox 100% ; dsf 09:50 BP 126 / 62 (auto/); dsf 09:51 Pulse 70 MON; Pulse Ox 100% ; dsf 10:05 BP 129 / 60 (auto/); dsf 10:06 Pulse 54 MON; Pulse Ox 100% ; dsf 10:25 BP 127 / 60 (auto/); dsf 10:25 Pulse 60 MON; Pulse Ox 98% ; dsf 10:27 Pain 2/10; dsf 10:50 BP 124 / 58 (auto/); dsf 10:51 Pulse 54 MON; Pulse Ox 100% ; dsf 11:05 BP 120 / 58 (auto/); dsf 11:06 Pulse 56 MON; Pulse Ox 100% ; dsf 11:20 BP 121 / 57 (auto/); dsf 11:21 Pulse 58 MON; Pulse Ox 100% ; dsf 11:35 BP 125 / 66 (auto/); dsf 11:36 Pulse 60 MON; Pulse Ox 99% ; dsf 11:50 BP 121 / 64 (auto/); dsf 11:51 Pulse 56 MON; Pulse Ox 100% ; dsf 12:05 BP 122 / 57 (auto/); dsf 12:06 Pulse 56 MON; Pulse Ox 100% ; dsf 12:16 BP 127 / 59 (auto/); dsf 12:17 Temp 97.1(O); ct3 12:17 Pulse 60 MON; Pulse Ox 100% ; dsf 12:20 BP 131 / 61 (auto/); dsf 12:21 Pulse 56 MON; Pulse Ox 100% ; dsf 12:35 BP 130 / 60 (auto/); dsf 12:36 Pulse 86 MON; Pulse Ox 100% ; dsf 12:50 Pulse 62 MON; Pulse Ox 100% ; dsf 12:50 BP 136 / 61 (auto/); dsf 12:51 Pulse 60 MON; Pulse Ox 100% ; dsf 13:05 BP 137 / 64 (auto/); dsf 13:05 Pulse 68 MON; Pulse Ox 99% ; dsf 13:20 BP 116 / 54 (auto/); dsf 13:21 Pulse 68 MON; Pulse Ox 93% ; dsf 13:52 BP 137 / 62 (auto/); dsf 13:52 Pulse 64 MON; Pulse Ox 96% ; dsf 13:57 BP 134 / 57 (auto/); dsf 13:57 Pulse 66 MON; Pulse Ox 96% ; dsf 14:07 BP 131 / 63 (auto/); dsf 14:08 Pulse 66 MON; Pulse Ox 95% ; dsf 14:21 BP 134 / 57; Pulse 67; Resp 18; Temp 98.2(O); Pulse Ox 95% on 4 lpm NC; Pain 2/10; dsf 09:06 Body Mass Index 20.98 (58.97 kg, 167.64 cm) ct3 Vitals: 09:04 Log In Time N/A - ambulance arrival. [facility] ED Course: 08:54 Patient visited by Bianka Baker Ironworker Apprentice. lbd 08:54 Patient moved to Waiting lbd 08:55 Jayson Cox is Private Physician. lbd 08:55 Patient moved to 4 lbd 08:57 Mariam Barajas MD is Attending Physician. sd1 09:03 Patient visited by Mariam Barajas MD. sd1 09:03 Triage Initiated kpj 09:05 Patient visited by Vivek Fall. dem1 09:05 EKG done. (by ED staff). Reviewed by Mariam Barajas MD. dem1 09:07 Patient visited by Taay Sebastian PCA. ct3 09:07 Patient has correct armband on for positive identification. Placed in gown. Bed in low ct3 position. Call light in reach. Side rails up X2. machine staker on. Pulse ox on. NIBP on. 09:10 Patient visited by Taya Sebastian PCA. ct3 09:22 Patient visited by Viki Mejia RN. dsf 09:22 Maintain field IV. Dressing intact. Good blood return noted. Site clean & dry. Gauge & dsf site: #20 gauge left hand . 09:22 O2 via nasal cannula \T\ 4L/min. dsf 09:57 Patient visited by Taya Sebastian PCA. ct3 10:27 Patient visited by Viki Mejia RN. dsf 10:45 Patient visited by Viki Mejia,MARY JO. dsf 11:16 Patient visited by Viki Mejia RN. dsf 11:41 Urine Culture Sent. dem1 11:41 UA Sent. dem1 12:14 Patient visited by Viki Mejia RN. dsf 12:18 Patient visited by Taya Sebastian PCA. ct3 12:48 Patient visited by Taya Sebastian PCA. ct3 13:56 No procedures done that require assistance. dsf 14:07 The patient / caregiver is instructed regarding the plan of care and ED course. dsf 14:09 Patient visited by Viki Mejia RN. dsf 14:39 [facility] Payment Agreement was scanned into [employer] and attached to record. lg 15:52 portable chest Returned. EDMS 16:37 CT Chest With Contrast Returned. EDMS 07/09 09:39 T-Sheet-- Draft Copy was scanned into [employer] and attached to record. gb 09:39 ECG/EKG was scanned into [employer] and attached to record. gb 09:39 Radiology Report was scanned into [employer] and attached to record. 20:04 EKG-ADULT Returned. EDMS Administered Medications: 07/08 09:51 Drug: morphine 2 mg [morphine 2 mg/mL intravenous cartridge (1 mL)] Route: IVP; Site: dsf left hand; 10:27 Follow up: Pain 2 Adult; see trend VS dsf 09:51 Drug: Ondansetron 4 mg [ondansetron HCl 2 mg/mL intravenous solution (2 mL)] Route: dsf IVP; Site: left hand; 13:00 Drug: heparin (Thrombolytic Protocol, 60 units/kg)) 3538.2 units [heparin (porcine) dsf 5,000 unit/mL injection solution (0.707 mL)] {Co-Signature: deysi (Jhoana Cardoza RN).} Route: IVP; Site: left hand; 13:20 Drug: Plavix - Clopidogrel 300 mg [clopidogrel 75 mg tablet (4 tabs)] Route: PO; dsf 13:20 Drug: heparin (Thrombolytic Protocol, 12 units/kg/hr)) 54012 units [heparin (porcine) dsf 25,000 unit/250 mL (100 unit/mL) in dextrose 5 % IV] {Co-Signature: deysi (Jhoana Cardoza RN).} Route: IV; Rate: 12 units/kg/hr; Site: left hand; 14:24 Follow up: IV Status: Infusion continued on transport dsf Intake: Order Results: Lab Order: B-Type Natiuretic Peptide; SPEC'M 07/08/16 09:04 Test: BRAIN NATRIURETIC PEPTIDE; Value: 244; Range: <100; Abnormal: Above high normal; Units: PG/ML; Status: F Lab Order: Basic Metabolic Profile; SPEC'M 07/08/16 09:04 Test: GLUCOSE, FASTING; Value: 97; Range: 80-110; Units: MG/DL; Status: F Test: BLOOD UREA NITROGEN; Value: 19; Range: 7-18; Abnormal: Above high normal; Units: MG/DL; Status: F Test: CREATININE FOR GFR; Value: 1.05; Range: 0.55-1.02; Abnormal: Above high normal; Units: MG/DL; Status: F Test: GLOMERULAR FILTRATION RATE; Value: 55.8; Range: >45; Status: F Test: SODIUM LEVEL; Value: 143; Range: 136-145; Units: MEQ/L; Status: F Test: POTASSIUM SERUM; Value: 4.5; Range: 3.5-5.1; Units: MEQ/L; Status: F Test: CHLORIDE LEVEL; Value: 104; Range: 98-107; Units: MEQ/L; Status: F Test: CARBON DIOXIDE LEVEL; Value: 29; Range: 21-32; Units: MEQ/L; Status: F Test: ANION GAP; Value: 10; Range: 8-16; Units: MEQ/L; Status: F Test: CALCIUM LEVEL; Value: 8.7; Range: 8.8-10.2; Abnormal: Below low normal; Units: MG/DL; Status: F Test Note: ; Units are mL/min/1.73 m2 Chronic Kidney Disease Staging per NKF: Stage I & II GFR >=60 Normal to Mildly Decreased Stage III GFR 30-59 Moderately Decreased Stage IV GFR 15-29 Severely Decreased Stage V GFR <15 Very Little GFR Left ESRD GFR <15 on KENNEL WORKER Lab Order: CBC with Diff; SPEC'M 07/08/16 09:04 Test: WHITE BLOOD COUNT; Value: 5.7; Range: 4.0-10.0; Units: K/mm3; Status: F Test: RED BLOOD COUNT; Value: 3.59; Range: 4.00-5.40; Abnormal: Below low normal; Units: M/mm3; Status: F Test: HEMOGLOBIN; Value: 10.8; Range: 12.0-16.0; Abnormal: Below low normal; Units: g/dl; Status: F Test: HEMATOCRIT; Value: 32.7; Range: 36.0-47.0; Abnormal: Below low normal; Units: %; Status: F Test: MEAN CORPUSCULAR VOLUME; Value: 91.0; Range: 80.0-96.0; Units: fl; Status: F Test: MEAN CORPUSCULAR HEMOGLOBIN; Value: 30.1; Range: 27.0-33.0; Units: pg; Status: F Test: MEAN CORPUSCULAR HGB CONC; Value: 33.1; Range: 32.0-36.5; Units: g/dl; Status: F Test: RED CELL DISTRIBUTION WIDTH; Value: 12.8; Range: 11.5-14.5; Units: %; Status: F Test: PLATELET COUNT, AUTOMATED; Value: 176; Range: 150-450; Units: k/mm3; Status: F Test: NEUTROPHILS %; Value: 63.0; Range: 36.0-66.0; Units: %; Status: F Test: LYMPH %; Value: 22.5; Range: 24.0-44.0; Abnormal: Below low normal; Units: %; Status: F Test: MONO %; Value: 4.7; Range: 0.0-5.0; Units: %; Status: F Test: EOS %; Value: 6.0; Range: 0.0-3.0; Abnormal: Above high normal; Units: %; Status: F Test: BASO %; Value: 0.6; Range: 0.0-1.0; Units: %; Status: F Test: LARGE UNSTAINED CELL %; Value: 3.2; Range: 0.0-4.0; Units: %; Status: F Test: NEUTROPHILS #; Value: 3.6; Range: 1.8-7.7; Units: K/mm3; Status: F Test: LYMPH #; Value: 1.3; Range: 1.5-4.5; Abnormal: Below low normal; Units: K/mm3; Status: F Test: MONO #; Value: 0.3; Range: 0.0-0.8; Units: K/mm3; Status: F Test: EOS #; Value: 0.3; Range: 0.0-0.50; Units: K/mm3; Status: F Test: BASO #; Value: 0.0; Range: 0.0-0.2; Units: K/mm3; Status: F Test: LARGE UNSTAINED CELL #; Value: 0.2; Range: 0.0-0.4; Units: K/mm3; Status: F Lab Order: Cardiac Injury Profile; SPEC'M 07/08/16 09:04 Test: CPK CREATINE PHOSPHOKINASE; Value: 86; Range: 26-192; Units: U/L; Status: F Test: CK-MB VALUE MASS; Value: 1.5; Range: 0.0-3.6; Units: NG/ML; Status: F Test: MB/CK RELATIVE INDEX; Value: 1.74; Range: < OR =4; Status: F Test Note: ; DIAGNOSIS CRITERIA MMB ng/ml Relative Index (RI) NON-AMI < or = 5 N/A BILLY ZONE > 5 < or = 4 AMI > 5 > 4 Lab Order: Prothrombin Time Profile\E\INR; SPEC'M 07/08/16 09:04 Test: PROTHROMBIN TIME; Value: 14.2; Range: 12.3-14.5; Units: SECONDS; Status: F Test: INR; Value: 1.09; Status: F Test Note: ; THERAPUTIC HUMAN INR VALUES INDICATIONS NORMAL RANGES PROPHYLAXIS/TREATMENT OF: VENOUS THROMBOSIS 2.0-3.0 PULMONARY EMBOLISM 2.0-3.0 PREVENTION OF SYSTEMIC EMBOLISM FROM: TISSUE HEART VALVES 2.0-3.0 ACUTE MYOCARDIAL INFARCTION 2.0-3.0 VALVULAR HEART DISEASE 2.0-3.0 ATRIAL FIBRILLATION 2.0-3.0 MECHANICAL VALVES(HIGH RISK) 2.5-3.5 RECURRENT MYOCARDIAL INFARCTION 2.5-3.5 Lab Order: Troponin; SPEC' 07/08/16 09:04 Test: TROPONIN I; Value: 0.03; Range: < 0.10; Units: NG/ML; Status: F Test Note: ; Troponin I Reference Interval for [employer] LOCI: 99th Percentile= 0.00-0.045 ng/ml Risk Stratification: <= 0.10 ng/ml Decreased Risk for Adverse Clinical Events. 0.10-1.50 ng/ml Increased Risk for Adverse Clinical Events. Evaluation of additional criterion and/or repeat testing in 2-6 hours is suggested to rule out myocardial damage. >= 1.50 ng/ml Indicative of Myocardial Injury. Lab Order: CARDIAC MARKER PANEL; SPEC'M 07/08/16 11:28 Test: CPK CREATINE PHOSPHOKINASE; Value: 80; Range: 26-192; Units: U/L; Status: F Test: CK-MB VALUE MASS; Value: 1.7; Range: 0.0-3.6; Units: NG/ML; Status: F Test: MB/CK RELATIVE INDEX; Value: 2.12; Range: < OR =4; Status: F Test: TROPONIN I; Value: 0.25; Range: < 0.10; Abnormal: High; Units: NG/ML; Status: F Test Note: ; DIAGNOSIS CRITERIA MMB ng/ml Relative Index (RI) NON-AMI < or = 5 N/A BILLY ZONE > 5 < or = 4 AMI > 5 > 4 Lab Order: UA; SPEC'M 07/08/16 11:39 Test: APPEARANCE, URINE; Value: HAZY; Range: CLEAR; Status: F Test: COLOR, URINE; Value: YELLOW; Range: YELLOW; Status: F Test: PH,URINE; Value: 6.0; Range: 5.0-9.0; Units: UNITS; Status: F Test: SPECIFIC GRAVITY URINE AUTO; Value: 1.020; Range: 1.002-1.035; Status: F Test: PROTEIN, URINE AUTO; Value: NEGATIVE; Range: NEGATIVE; Units: mg/dL; Status: F Test: GLUCOSE, URINE (UA) AUTO; Value: NEGATIVE; Range: NEGATIVE; Units: mg/dL; Status: F Test: KETONE, URINE AUTO; Value: NEGATIVE; Range: NEGATIVE; Units: mg/dL; Status: F Test: UROBILINOGEN, URINE AUTO; Value: 0.2; Range: 0.0-2.0; Units: mg/dL; Status: F Test: BILIRUBIN, URINE AUTO; Value: NEGATIVE; Range: NEGATIVE; Status: F Test: NITRITE, URINE AUTO; Value: POSITIVE; Range: NEGATIVE; Status: F Test: LEUKOCYTE ESTERASE, URINE AUTO; Value: 1+; Range: NEGATIVE; Abnormal: Above high normal; Status: F Test: BLOOD, URINE BLOOD; Value: 1+; Range: NEGATIVE; Abnormal: Above high normal; Status: F Test: WBC, URINE AUTO; Value: 4; Range: 0-3; Abnormal: Above high normal; Units: /HPF; Status: F Test: RBC, URINE AUTO; Value: 2; Range: 0-3; Units: /HPF; Status: F Test: BACTERIA, URINE AUTO; Value: NEGATIVE; Range: NEGATIVE; Status: F Test: SQUAMOUS EPITHELIAL CELL UR AU; Value: 0; Range: 0-6; Units: /HPF; Status: F Test: MUCUS, URINE; Value: SMALL; Range: NEGATIVE; Status: F Test: HYALINE CAST, URINE AUTO; Value: 0; Range: 0-1; Units: /LPF; Status: F Lab Order: Urine Culture; SPEC'M 07/08/16 11:39 Test: URINE CULTURE; Value: ORGANISM 1: KLEBSIELLA PNEUMONIAE; Status: F Test: URINE CULTURE; Value: KLEBSIELLA PNEUMONIAE; Status: F Test: URINE CULTURE; Value: COLONY COUNT CFU/ml >100,000; Status: F Test: URINE CULTURE; Value: GRAM NEG SENSI - VITEK 80; Status: F Test: URINE CULTURE; Value: Method: VIT2; Status: F Test: URINE CULTURE; Value: EXTD BRD SPCTRM BETA LACTAMASE -; Status: F Test: URINE CULTURE; Value: TRIMETHOPRIM/SULFAMETHOXAZOLE <=20 S; Status: F Test: URINE CULTURE; Value: AMPICILLIN 16 R; Status: F Test: URINE CULTURE; Value: GENTAMICIN <=1 S; Status: F Test: URINE CULTURE; Value: NITROFURANTOIN <=16 S; Status: F Test: URINE CULTURE; Value: CEFAZOLIN <=4 S; Status: F Test: URINE CULTURE; Value: LEVOFLOXACIN <=0.12 S; Status: F Test: URINE CULTURE; Value: TOBRAMYCIN <=1 S; Status: F Test: URINE CULTURE; Value: CEFTRIAXONE <=1 S; Status: F Test: URINE CULTURE; Value: CEFTAZIDIME <=1 S; Status: F Test: URINE CULTURE; Value: AMPICILLIN/SULBACTAM <=2 S; Status: F Test: URINE CULTURE; Value: PIPERACILLIN/TAZOBACTAM <=4 S; Status: F Test: URINE CULTURE; Value: AZTREONAM <=1 S; Status: F Test: URINE CULTURE; Value: ERTAPENEM <=0.5 S; Status: F Test: URINE CULTURE; Value: MEROPENEM <=0.25 S; Status: F Test: URINE CULTURE; Value: TIGECYCLINE <=0.5 S; Status: F Test: URINE CULTURE; Value: CEFEPIME <=1 S; Status: F Radiology Order: EKG-ADULT Test: EKG-ADULT REASON FOR EXAMINATION: Chest Pain; Stationary ECG Study; [facility] - ED; ; Test Date: 2016-07-08; Pat Name: JULISSA REBOLLEDO Department:; Room: -; Gender: F Electric Wirer: ct; : 1950 Requested By: Mariam Barajas; Order Number: [id number] Reading MD: Mariam Barajas; Measurements; Intervals [place]; Rate: 77 P: 32; DE: 258 QRS: -34; QRSD: 99 T: 21; QT: 366; QTc: 416; Interpretive Statements; SINUS RHYTHM WITH FIRST DEGREE AV BLOCK; MARKED LEFT AXIS DEVIATION; SEPTAL MYOCARDIAL INFARCTION, OF INDETERMINATE AGE; INFERIOR INFARCT, OLD; INCREASED RATE 07/13/12; Electronically Signed On 07-09-2016 19:33:05 EST by Mariam Barajas; Radiology Order: portable chest Test: portable chest REASON FOR EXAMINATION: Chest Pain; CHEST, ONE VIEW:; ; HISTORY: Chest pain.; ; COMPARISON: 06/13/2011.; ; Increased density is present in the left lower lobe consistent with atelectasis; or scar. The right lung is clear. The cardiac silhouette is enlarged. A thoracic; aortic aneurysm is present that appears unchanged compared to the previous study.; The pulmonary vasculature is normal in appearance.; ; IMPRESSION:; ; 1. Left lower lobe atelectasis or scar.; ; 2. Cardiomegaly.; ; 3. Thoracic aortic aneurysm, unchanged compared to the previous study.; ; ; Signed by; Vitaly Rodríguez MD 07/08/2016 03:39 P; Radiology Order: CT Chest With Contrast Test: CT Chest With Contrast REASON FOR EXAMINATION: R/O dissection; CT chest with IV contrast, 07/08/2016:; ; Comparison: CT chest without contrast 06/26/2016, CTA chest 08/16/2010.; ; Indication: Exclude aortic dissection.; ; There is bibasilar fibrotic interstitial scarring and The patient has history of; type A aortic dissection which is again noted.; ; Dimension of the aortic root is 4.2 cm transverse dimension, distal to aortic; valve and not significantly changed from prior studies.; ; Dissection involves proximal aortic arch, distal aortic arch and descending; thoracic aorta consistent with type A dissection. Large lateral false lumen is; seen within the aortic arch and descending thoracic aorta. 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 there is a large lateral; false lumen. 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 SMA arises from true lumen of aorta. Abdominal aorta; measures 3.3 cm AP x 3.2 cm transverse dimension at the origin of the celiac; artery, previously 3 cm AP x 3.1 cm transverse dimension on 08/16/2010. There is; no retroperitoneal hematoma identified.; ; There are no pathologically enlarged mediastinal nodes. Bullous changes are noted; bilaterally. Interstitial fibrotic scarring is seen with lower lobe; predominance.; ; Visualized portions of the liver, spleen, and pancreas are unremarkable. There; are no visualized gallstones. The adrenals are normal. Moderate atrophic changes; are seen within the left kidney with progression.; ; Impression:; ; Type A aortic dissection again identified with a large lateral false lumen. There; has been minimal- mild increase in size when compared with prior studies dating; back to 2010. 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 Superior mesenteric artery arises from true lumen.; ; Case discussed with Dr. Lambert in ED on 07/08/16 at 1120 am.; ; Moderate atrophic changes within left kidney.; ; No extraluminal hematoma is identified within the chest.; ; ; Signed by; Geri Merino MD 07/08/2016 08:06 P; Outcome: 13:07 ER care complete, transfer ordered by Provider. sd1 13:51 Admission hand-off: Report called to Filitsa Telonis RN. dsf 13:56 CT Study completed. dsf 14:22 Discharge Assessment: Patient awake, alert and oriented x 3. No cognitive and/or dsf functional deficits noted. Patient verbalized understanding of disposition instructions. patient administered narcotics - yes. Patient was admitted to the hospital or transferred to another facility. The following High Risk Discharge criteria are identified: None. Transferred to [facility]. by EMS ground report to accompanying personnel Jorge Huerta AEGAP, David Santiago AEGAP, Transfer form completed. x-rays sent w/ patient. Condition: stable. Property :Personal belongings accompany Pt. 14:25 Patient left the ED. dsf Signatures: Dispatcher [employer] EDMS Mariam Barajas MD MD sd1 Bianka Baker, [employer] lbd Jhoana Cardoza RN RN kpj Adin, Gris, Reg Reg gb Ganter, LoriLee, Reg Reg lg Sebastian, Taya, ACTIVE DIRECTORY ARCHITECT ACTIVE DIRECTORY ARCHITECT ct3 Viki Mejia,RN RN [facility] Vivek Fall dem1 Jhoana Cardoza RN kp Corrections: (The following items were deleted from the chart) 09:10 09:06 Temp 97.1F Oral; ct3 ct3 13:57 13:56 No special radiology studies were completed dsf dsf Chart Complete MTDD
--- NOTE | 2016-07-10 15:26 | EDDOCDS ---
Physician Documentation [facility] Name: Cynthia Rebolledo Age: 65 yrs Sex: Female : 1950 Arrival Date: 07/08/2016 Time: 08:53 Bed 4 Private MD: Jayson Cox A. Disposition: 07/08/16 13:07 Transfer ordered to [facility]. Diagnosis is Unstable angina. - Reason for transfer: Higher level of care. - Accepting physician is Dr. Jackson. - Condition is Stable. - Problem is new. - Symptoms have improved. Historical: - Allergies: Codeine Sulfate (Unknown); orange (Upset stomach); - Home Meds: 1. clonidine HCl 0.1 mg Oral tab 1 tab 3 times per day (Last dose: 07/08/2016 05:30) 2. verapamil 180 mg Oral C24P 1 cap nightly (Last dose: 07/07/2016) 3. labetalol 200 mg Oral tab 1 tab 2 times per day (Last dose: 07/08/2016 05:30) 4. losartan-hydrochlorothiazide 100-25 mg oral tab 1 tab once daily (Last dose: 07/08/2016 05:30) 5. atorvastatin 40 mg oral tab 1 tab every 2 days (Last dose: 07/06/2016) 6. docusate sodium 100 mg Oral cap 1 cap 2 times per day (Last dose: 07/08/2016 05:30) 7. aspirin 325 mg Oral tab 1 tab once daily (Last dose: 07/08/2016 05:30) 8. ferrous sulfate 325 mg (65 mg iron) Oral tab 325 mg daily (Last dose: 07/08/2016 05:30) 9. Vitamin D Oral 5000 unit twice a day (Last dose: 07/07/2016) 10. cranberry 400 mg oral cap daily (Last dose: 07/07/2016) 11. echinacea 400 mg oral cap daily (Last dose: 07/07/2016) 12. Fish Oil 1,000 mg Oral cap daily (Last dose: 07/07/2016) 13. multivitamin Oral tab 1 tablet daily (Last dose: 07/07/2016) 14. Hair,Skin and Nails oral tab daily (Last dose: 07/07/2016) 15. garlic oral cap twice a day (Last dose: 07/07/2016) 16. Calcium Gluconate Oral daily (Last dose: 07/07/2016) - PMHx: Hypertension; Hypercholesterolemia; aortic aneurysm; - PSHx: repair aortic aneurysm; removal tumor ear drum left; right elbow surgery; Tubal ligation; - Social history: Smoking status: Patient states former smoker of tobacco. No barriers to communication noted, The patient speaks fluent Albanian. - Family history: Not pertinent. - : The pt / caregiver states he / she is not on anticoagulants. Home medication list is obtained from the patient. - Exposure Risk Screening:: None identified. Vital Signs: 07/08 09:02 BP 154 / 70 LA (auto/); dsf 09:03 Pulse 82 MON; Pulse Ox 96% ; dsf 09:04 BP 140 / 67 RA (auto/); dsf 09:05 BP 145 / 73 (auto/); dsf 09:05 Pulse 84 MON; Pulse Ox 95% ; dsf 09:06 BP 145 / 73; Pulse 70; Resp 18; Temp 97.1(O); Weight 58.97 kg / 130.01 lbs (R); Height ct3 5 ft. 6 in. (167.64 cm) (R); Pain 5/10; 09:06 Pulse 84 MON; Pulse Ox 95% ; dsf 09:20 BP 135 / 60 (auto/); dsf 09:21 Pulse 64 MON; Pulse Ox 100% ; dsf 09:35 BP 132 / 61 (auto/); dsf 09:36 Pulse 56 MON; Pulse Ox 100% ; dsf 09:50 BP 126 / 62 (auto/); dsf 09:51 Pulse 70 MON; Pulse Ox 100% ; dsf 10:05 BP 129 / 60 (auto/); dsf 10:06 Pulse 54 MON; Pulse Ox 100% ; dsf 10:25 BP 127 / 60 (auto/); dsf 10:25 Pulse 60 MON; Pulse Ox 98% ; dsf 10:27 Pain 2/10; dsf 10:50 BP 124 / 58 (auto/); dsf 10:51 Pulse 54 MON; Pulse Ox 100% ; dsf 11:05 BP 120 / 58 (auto/); dsf 11:06 Pulse 56 MON; Pulse Ox 100% ; dsf 11:20 BP 121 / 57 (auto/); dsf 11:21 Pulse 58 MON; Pulse Ox 100% ; dsf 11:35 BP 125 / 66 (auto/); dsf 11:36 Pulse 60 MON; Pulse Ox 99% ; dsf 11:50 BP 121 / 64 (auto/); dsf 11:51 Pulse 56 MON; Pulse Ox 100% ; dsf 12:05 BP 122 / 57 (auto/); dsf 12:06 Pulse 56 MON; Pulse Ox 100% ; dsf 12:16 BP 127 / 59 (auto/); dsf 12:17 Temp 97.1(O); ct3 12:17 Pulse 60 MON; Pulse Ox 100% ; dsf 12:20 BP 131 / 61 (auto/); dsf 12:21 Pulse 56 MON; Pulse Ox 100% ; dsf 12:35 BP 130 / 60 (auto/); dsf 12:36 Pulse 86 MON; Pulse Ox 100% ; dsf 12:50 Pulse 62 MON; Pulse Ox 100% ; dsf 12:50 BP 136 / 61 (auto/); dsf 12:51 Pulse 60 MON; Pulse Ox 100% ; dsf 13:05 BP 137 / 64 (auto/); dsf 13:05 Pulse 68 MON; Pulse Ox 99% ; dsf 13:20 BP 116 / 54 (auto/); dsf 13:21 Pulse 68 MON; Pulse Ox 93% ; dsf 13:52 BP 137 / 62 (auto/); dsf 13:52 Pulse 64 MON; Pulse Ox 96% ; dsf 13:57 BP 134 / 57 (auto/); dsf 13:57 Pulse 66 MON; Pulse Ox 96% ; dsf 14:07 BP 131 / 63 (auto/); dsf 14:08 Pulse 66 MON; Pulse Ox 95% ; dsf 14:21 BP 134 / 57; Pulse 67; Resp 18; Temp 98.2(O); Pulse Ox 95% on 4 lpm NC; Pain 2/10; dsf 09:06 Body Mass Index 20.98 (58.97 kg, 167.64 cm) ct3 MDM: 08:57 ECG WITH READING ER PHYS+CARDIAG ordered. EDMS 09:09 Back Strip Machine Operator/Pulse Ox/q 30 min VS ordered. sd1 09:09 IV Saline Lock ordered. sd1 09:09 Rhythm Strip to chart ordered. sd1 09:09 Undress patient appropriately for examination ordered. sd1 09:09 Misc. Nursing Order ordered. sd1 09:10 B-Type Natiuretic Peptide Ordered. EDMS 09:10 Basic Metabolic Profile Ordered. EDMS 09:10 CBC with Diff Ordered. EDMS 09:10 Cardiac Injury Profile Ordered. EDMS 09:10 Prothrombin Time Profile\E\INR Ordered. EDMS 09:10 Troponin Ordered. EDMS 09:10 portable chest Ordered. EDMS 09:42 B-Type Natiuretic Peptide Reviewed. sd1 09:42 CBC with Diff Reviewed. sd1 09:42 Prothrombin Time Profile\E\INR Reviewed. sd1 09:44 morphine 2 mg IVP every 15 minutes; Document pain score/vitals after each dose (Hold if sd1 SBP < 90mmHg) x3 ordered. 09:44 Ondansetron 4 mg IVP once ordered. sd1 09:44 CT Chest With Contrast Ordered. EDMS 10:12 Basic Metabolic Profile Reviewed. sd1 10:12 Cardiac Injury Profile Reviewed. sd1 10:12 Troponin Reviewed. sd1 10:13 Redraw CIP &Troponin (put time in details section) ordered. sd1 10:34 Redraw CIP &Troponin (put time in details section) complete. lbd 10:46 CARDIAC MARKER PANEL Ordered. EDMS 11:32 UA Ordered. EDMS 11:32 Urine Culture Ordered. EDMS 12:18 UA Reviewed. sd1 12:21 CARDIAC MARKER PANEL Reviewed. sd1 12:31 BED REQUEST+ADM ordered. EDMS 13:08 Plavix - Clopidogrel 300 mg PO once ordered. sd1 13:08 heparin (Thrombolytic Protocol, 60 units/kg)) 60 units/kg IVP once; 3400 units IV sd1 ordered. 13:08 heparin (Thrombolytic Protocol, 12 units/kg/hr)) 47888 units IV at 12 units/kg/hr once; sd1 690units/hr ordered. 13:41 Financial registration complete. lg 14:39 [facility] [place] was scanned into [employer] and attached to record. lg 07/09 09:39 T-Sheet-- Draft Copy was scanned into [employer] and attached to record. gb 09:39 ECG/EKG was scanned into [employer] and attached to record. gb 09:39 Radiology Report was scanned into [employer] and attached to record. gb Administered Medications: 07/08 09:51 Drug: morphine 2 mg [morphine 2 mg/mL intravenous cartridge (1 mL)] Route: IVP; Site: dsf left hand; 10:27 Follow up: Pain 2/10 Adult; see trend VS dsf 09:51 Drug: Ondansetron 4 mg [ondansetron HCl 2 mg/mL intravenous solution (2 mL)] Route: dsf IVP; Site: left hand; 13:00 Drug: heparin (Thrombolytic Protocol, 60 units/kg)) 3538.2 units [heparin (porcine) dsf 5,000 unit/mL injection solution (0.707 mL)] {Co-Signature: deysi (Jhoana Cardoza RN).} Route: IVP; Site: left hand; 13:20 Drug: Plavix - Clopidogrel 300 mg [clopidogrel 75 mg tablet (4 tabs)] Route: PO; dsf 13:20 Drug: heparin (Thrombolytic Protocol, 12 units/kg/hr)) 94202 units [heparin (porcine) dsf 25,000 unit/250 mL (100 unit/mL) in dextrose 5 % IV] {Co-Signature: deysi (Jhoana Cardoza RN).} Route: IV; Rate: 12 units/kg/hr; Site: left hand; 14:24 Follow up: IV Status: Infusion continued on transport dsf Signatures: Dispatcher [employer] Mariam Lazaro MD MD sd1 Bianka Baker, [employer] lbd Jhoana Cardoza RN RN kpj Gris Oakley, Reg Reg gb Ezequiel Kelly, Reg Reg lg Viki MejiaRN RN dsf Jhoana jo The chart was reviewed and I authenticate all verbal orders and agree with the evaluation and treatment provided.Attachments: 14:39 [facility] Payment Agreement lg 07/09 09:39 T-Sheet-- Draft Copy gb 09:39 ECG/EKG gb Chart Complete MTDD
--- NOTE | 2016-07-10 16:28 | EDDOCDS ---
Nurse's Notes [facility] Name: Julissa Rebolledo Age: 65 yrs Sex: Female : 1950 Arrival Date: 07/08/2016 Time: 08:53 Bed 4 Private MD: Jayson Cox A. Diagnosis: Unstable angina Presentation: 07/08 08:58 Presenting complaint: Patient states: chest pain began at 0800 radiating down right kpj arm,cardiac history aortic aneurysm in 2004 with repair.2 NTG and 325mg ASA given by EMS enroute. 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 Adult Sepsis Screening: The patient does not have new or worsening altered mentation. Patient's respiratory rate is less than 22. Systolic blood pressure is greater than 100. Patient has a qSOFA score of. Suicide/Homicide risk assessment- the patient denies having any suicidal and/or homicidal ideations and does not present with any other emotional, behavioral or mental health complaints. 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 Transition of care: patient was not received from another setting of care. Care prior to arrival: See EMS report. Medications administered prior to arrival: ASA, NTG, x2 Saline lock initiated. Glucose check. FSBS 134 mg/dl Oxygen administered by EMS. 20 gauge left hand. 08:58 Acuity: [place] Level 2 [facility] 08:58 Method Of Arrival: Ambulance [facility] Triage Assessment: 09:04 General: Appears comfortable, Behavior is appropriate for age, pleasant. Pain: kpj Location: mid-sternal area Pain currently is 4 out of 10 on a pain scale. Pain radiates to right arm Quality of pain is described as pressure, Pain began 1 hour ago. The patient is triaged at the bedside. See Assessment in Nurses Notes section of ED record. 09:18 Cardiovascular: Capillary refill < 3 seconds in bilateral fingers Edema is absent. kpj Pulses are all present. Rhythm is sinus rhythm No ectopy. Chest pain is described as Pain is 5 out of 10 on a pain scale. quality is pressure, radiates to right arm(s) episodes are continuous began 1 hour prior to arrival. Derm: Skin is dry, Skin is pale, Skin temperature is cool. Historical: - Allergies: Codeine Sulfate (Unknown); orange (Upset stomach); - Home Meds: 1. clonidine HCl 0.1 mg Oral tab 1 tab 3 times per day (Last dose: 07/08/2016 05:30) 2. verapamil 180 mg Oral C24P 1 cap nightly (Last dose: 07/07/2016) 3. labetalol 200 mg Oral tab 1 tab 2 times per day (Last dose: 07/08/2016 05:30) 4. losartan-hydrochlorothiazide 100-25 mg oral tab 1 tab once daily (Last dose: 07/08/2016 05:30) 5. atorvastatin 40 mg oral tab 1 tab every 2 days (Last dose: 07/06/2016) 6. docusate sodium 100 mg Oral cap 1 cap 2 times per day (Last dose: 07/08/2016 05:30) 7. aspirin 325 mg Oral tab 1 tab once daily (Last dose: 07/08/2016 05:30) 8. ferrous sulfate 325 mg (65 mg iron) Oral tab 325 mg daily (Last dose: 07/08/2016 05:30) 9. Vitamin D Oral 5000 unit twice a day (Last dose: 07/07/2016) 10. cranberry 400 mg oral cap daily (Last dose: 07/07/2016) 11. echinacea 400 mg oral cap daily (Last dose: 07/07/2016) 12. Fish Oil 1,000 mg Oral cap daily (Last dose: 07/07/2016) 13. multivitamin Oral tab 1 tablet daily (Last dose: 07/07/2016) 14. Hair,Skin and Nails oral tab daily (Last dose: 07/07/2016) 15. garlic oral cap twice a day (Last dose: 07/07/2016) 16. Calcium Gluconate Oral daily (Last dose: 07/07/2016) - PMHx: Hypertension; Hypercholesterolemia; aortic aneurysm; - PSHx: repair aortic aneurysm; removal tumor ear drum left; right elbow surgery; Tubal ligation; - Social history: Smoking status: Patient states former smoker of tobacco. No barriers to communication noted, The patient speaks fluent Turkish. - Family history: Not pertinent. - : The pt / caregiver states he / she is not on anticoagulants. Home medication list is obtained from the patient. - Exposure Risk Screening:: None identified. Screenin:56 Screening information is obtained from the patient. Fall risk: No risks identified. dsf Assistance ADL's: requires no assistance with activities of daily living. Abuse/DV Screen: The patient / caregiver reports he/she is: not in a situation that causes fear, pain or injury. Nutritional screening: No deficits noted. Advance Directives: Currently, there is no health care proxy. home support is adequate. Assessment: 09:21 Adult Sepsis Screening: The patient does not have new or worsening altered mentation. dsf Patient's respiratory rate is less than 22. Systolic blood pressure is greater than 100. Patient has a qSOFA score of 0- Negative Sepsis Screen. General: Appears in no apparent distress, Behavior is appropriate for age, cooperative. Pain: Location: mid-sternal area Pain currently is 4 out of 10 on a pain scale. Pain radiates to right arm Quality of pain is described as pressure. Neurological: Level of Consciousness is awake, alert, Oriented to person, place, time. Cardiovascular: Capillary refill < 3 seconds Heart tones S1 S2 present. Respiratory: Airway is patent Respiratory effort is even, unlabored, Respiratory pattern is regular, symmetrical, Breath sounds are clear bilaterally. GI: Abdomen is non- distended Bowel sounds present X 4 quads. Abd is soft and non tender X 4 quads. Derm: Skin is dry, Skin is pale, Skin temperature is warm. 10:26 General: pt returned from CT. Pt reports pain 2/10. Respirations easy and unlabored dsf will continue to monitor . 10:44 General: Appears in no apparent distress, Behavior is appropriate for age, cooperative. dsf Pain: Location: mid-sternal area Pain currently is 1 out of 10 on a pain scale. Neurological: Level of Consciousness is awake, alert. Cardiovascular: Capillary refill < 3 seconds Heart tones S1 S2 present. Respiratory: Airway is patent Respiratory effort is even, unlabored, Respiratory pattern is regular, symmetrical. Derm: Skin is dry, Skin is pale, Skin temperature is warm. 11:15 Adult Sepsis Screening: The patient does not have new or worsening altered mentation. dsf Patient's respiratory rate is less than 22. Systolic blood pressure is greater than 100. Patient has a qSOFA score of 0- Negative Sepsis Screen. General: Appears in no apparent distress, Behavior is appropriate for age, cooperative. Pain: Location: mid-sternal area Pain currently is 1 out of 10 on a pain scale. Pain does not radiate. Neurological: Level of Consciousness is awake, alert, Oriented to person, place, time. Cardiovascular: Capillary refill < 3 seconds Heart tones S1 S2 present Rhythm is sinus rhythm No ectopy. Respiratory: Airway is patent Respiratory effort is even, unlabored, Respiratory pattern is regular, symmetrical, Breath sounds are clear bilaterally. GI: Abdomen is non- distended Bowel sounds present X 4 quads. Abd is soft and non tender X 4 quads. Derm: Skin is dry, Skin is pale, Skin temperature is warm. 12:15 General: Appears in no apparent distress, Behavior is appropriate for age, cooperative. dsf Pain: Denies pain. Neurological: Level of Consciousness is awake, alert, Oriented to person, place, time. Cardiovascular: Capillary refill < 3 seconds Heart tones S1 S2 present Rhythm is sinus rhythm No ectopy. Respiratory: Airway is patent Respiratory effort is even, unlabored, Respiratory pattern is regular, symmetrical, Breath sounds are clear bilaterally. GI: Abdomen is non- distended Bowel sounds present X 4 quads. Abd is soft and non tender X 4 quads. Derm: Skin is dry, Skin is pale, Skin temperature is warm. 13:15 Adult Sepsis Screening: The patient does not have new or worsening altered mentation. dsf Patient's respiratory rate is less than 22. Systolic blood pressure is greater than 100. Patient has a qSOFA score of. General: Appears in no apparent distress, Behavior is appropriate for age, cooperative. Pain: Denies pain. Neurological: Level of Consciousness is awake, alert. Cardiovascular: Capillary refill < 3 seconds Rhythm is sinus rhythm No ectopy. Respiratory: Airway is patent Respiratory effort is even, unlabored, Respiratory pattern is regular, symmetrical. Derm: Skin is dry, Skin is pale, Skin temperature is warm. 14:08 Adult Sepsis Screening: The patient does not have new or worsening altered mentation. dsf Patient's respiratory rate is less than 22. Systolic blood pressure is greater than 100. Patient has a qSOFA score of 0- Negative Sepsis Screen. General: Appears in no apparent distress, Behavior is appropriate for age, cooperative. Neurological: Level of Consciousness is awake, alert. Cardiovascular: Capillary refill < 3 seconds. Cardiovascular: Rhythm is sinus rhythm No ectopy. Respiratory: Airway is patent Respiratory effort is even, unlabored, Respiratory pattern is regular, symmetrical. 14:22 General: Appears in no apparent distress, Behavior is appropriate for age, cooperative. dsf Pain: Location: mid-sternal area Pain currently is 2 out of 10 on a pain scale. Neurological: Level of Consciousness is awake, alert. Cardiovascular: Capillary refill < 3 seconds Heart tones S1 S2 present Rhythm is sinus rhythm No ectopy. Respiratory: Airway is patent Respiratory effort is even, unlabored, Respiratory pattern is regular, symmetrical, Breath sounds are clear bilaterally. GI: Abdomen is non- distended Bowel sounds present X 4 quads. Abd is soft and non tender X 4 quads. Derm: Skin is dry, Skin is pale, Skin temperature is warm. Vital Signs: 09:02 BP 154 / 70 LA (auto/); dsf 09:03 Pulse 82 MON; Pulse Ox 96% ; dsf 09:04 BP 140 / 67 RA (auto/); dsf 09:05 BP 145 / 73 (auto/); dsf 09:05 Pulse 84 MON; Pulse Ox 95% ; dsf 09:06 BP 145 / 73; Pulse 70; Resp 18; Temp 97.1(O); Weight 58.97 kg (R); Height 5 ft. 6 in. ct3 (167.64 cm) (R); Pain 5/10; 09:06 Pulse 84 MON; Pulse Ox 95% ; dsf 09:20 BP 135 / 60 (auto/); dsf 09:21 Pulse 64 MON; Pulse Ox 100% ; dsf 09:35 BP 132 / 61 (auto/); dsf 09:36 Pulse 56 MON; Pulse Ox 100% ; dsf 09:50 BP 126 / 62 (auto/); dsf 09:51 Pulse 70 MON; Pulse Ox 100% ; dsf 10:05 BP 129 / 60 (auto/); dsf 10:06 Pulse 54 MON; Pulse Ox 100% ; dsf 10:25 BP 127 / 60 (auto/); dsf 10:25 Pulse 60 MON; Pulse Ox 98% ; dsf 10:27 Pain 2/10; dsf 10:50 BP 124 / 58 (auto/); dsf 10:51 Pulse 54 MON; Pulse Ox 100% ; dsf 11:05 BP 120 / 58 (auto/); dsf 11:06 Pulse 56 MON; Pulse Ox 100% ; dsf 11:20 BP 121 / 57 (auto/); dsf 11:21 Pulse 58 MON; Pulse Ox 100% ; dsf 11:35 BP 125 / 66 (auto/); dsf 11:36 Pulse 60 MON; Pulse Ox 99% ; dsf 11:50 BP 121 / 64 (auto/); dsf 11:51 Pulse 56 MON; Pulse Ox 100% ; dsf 12:05 BP 122 / 57 (auto/); dsf 12:06 Pulse 56 MON; Pulse Ox 100% ; dsf 12:16 BP 127 / 59 (auto/); dsf 12:17 Temp 97.1(O); ct3 12:17 Pulse 60 MON; Pulse Ox 100% ; dsf 12:20 BP 131 / 61 (auto/); dsf 12:21 Pulse 56 MON; Pulse Ox 100% ; dsf 12:35 BP 130 / 60 (auto/); dsf 12:36 Pulse 86 MON; Pulse Ox 100% ; dsf 12:50 Pulse 62 MON; Pulse Ox 100% ; dsf 12:50 BP 136 / 61 (auto/); dsf 12:51 Pulse 60 MON; Pulse Ox 100% ; dsf 13:05 BP 137 / 64 (auto/); dsf 13:05 Pulse 68 MON; Pulse Ox 99% ; dsf 13:20 BP 116 / 54 (auto/); dsf 13:21 Pulse 68 MON; Pulse Ox 93% ; dsf 13:52 BP 137 / 62 (auto/); dsf 13:52 Pulse 64 MON; Pulse Ox 96% ; dsf 13:57 BP 134 / 57 (auto/); dsf 13:57 Pulse 66 MON; Pulse Ox 96% ; dsf 14:07 BP 131 / 63 (auto/); dsf 14:08 Pulse 66 MON; Pulse Ox 95% ; dsf 14:21 BP 134 / 57; Pulse 67; Resp 18; Temp 98.2(O); Pulse Ox 95% on 4 lpm NC; Pain 2/10; dsf 09:06 Body Mass Index 20.98 (58.97 kg, 167.64 cm) ct3 Vitals: 09:04 Log In Time N/A - ambulance arrival. [facility] ED Course: 08:54 Patient visited by Bianka Baker Animal Shelter Manager. lbd 08:54 Patient moved to Waiting lbd 08:55 Jayson Cox is Private Physician. lbd 08:55 Patient moved to 4 lbd 08:57 Mariam Barajas MD is Attending Physician. sd1 09:03 Patient visited by Mariam Barajas MD. sd1 09:03 Triage Initiated kpj 09:05 Patient visited by Vivek Fall. dem1 09:05 EKG done. (by ED staff). Reviewed by Mariam Barajas MD. dem1 09:07 Patient visited by Taya Sebastian PCA. ct3 09:07 Patient has correct armband on for positive identification. Placed in gown. Bed in low ct3 position. Call light in reach. Side rails up X2. secured entrance monitor on. Pulse ox on. NIBP on. 09:10 Patient visited by Taya Sebastian PCA. ct3 09:22 Patient visited by Viki Mejia RN. dsf 09:22 Maintain field IV. Dressing intact. Good blood return noted. Site clean & dry. Gauge & dsf site: #20 gauge left hand . 09:22 O2 via nasal cannula \T\ 4L/min. dsf 09:57 Patient visited by Taya Sebastian PCA. ct3 10:27 Patient visited by Viki Mejia RN. dsf 10:45 Patient visited by Viki Mejia,MARY JO. dsf 11:16 Patient visited by Viki Mejia RN. dsf 11:41 Urine Culture Sent. dem1 11:41 UA Sent. dem1 12:14 Patient visited by Viki Mejia RN. dsf 12:18 Patient visited by Taya Sebastian PCA. ct3 12:48 Patient visited by Taya Sebastian PCA. ct3 13:56 No procedures done that require assistance. dsf 14:07 The patient / caregiver is instructed regarding the plan of care and ED course. dsf 14:09 Patient visited by Viki Mejia RN. dsf 14:39 [facility] [place] Payment Agreement was scanned into [employer] and attached to record. lg 15:52 portable chest Returned. EDMS 16:37 CT Chest With Contrast Returned. EDMS 07/09 09:39 T-Sheet-- Draft Copy was scanned into [employer] and attached to record. gb 09:39 ECG/EKG was scanned into [employer] and attached to record. gb 09:39 Radiology Report was scanned into [employer] and attached to record. 20:04 EKG-ADULT Returned. EDMS Administered Medications: 07/08 09:51 Drug: morphine 2 mg [morphine 2 mg/mL intravenous cartridge (1 mL)] Route: IVP; Site: dsf left hand; 10:27 Follow up: Pain 2 Adult; see trend VS dsf 09:51 Drug: Ondansetron 4 mg [ondansetron HCl 2 mg/mL intravenous solution (2 mL)] Route: dsf IVP; Site: left hand; 13:00 Drug: heparin (Thrombolytic Protocol, 60 units/kg)) 3538.2 units [heparin (porcine) dsf 5,000 unit/mL injection solution (0.707 mL)] {Co-Signature: deysi (Jhoana Cardoza RN).} Route: IVP; Site: left hand; 13:20 Drug: Plavix - Clopidogrel 300 mg [clopidogrel 75 mg tablet (4 tabs)] Route: PO; dsf 13:20 Drug: heparin (Thrombolytic Protocol, 12 units/kg/hr)) 56340 units [heparin (porcine) dsf 25,000 unit/250 mL (100 unit/mL) in dextrose 5 % IV] {Co-Signature: deysi (Jhoana Cardoza RN).} Route: IV; Rate: 12 units/kg/hr; Site: left hand; 14:24 Follow up: IV Status: Infusion continued on transport dsf Intake: Order Results: Lab Order: B-Type Natiuretic Peptide; SPEC'M 07/08/16 09:04 Test: BRAIN NATRIURETIC PEPTIDE; Value: 244; Range: <100; Abnormal: Above high normal; Units: PG/ML; Status: F Lab Order: Basic Metabolic Profile; SPEC'M 07/08/16 09:04 Test: GLUCOSE, FASTING; Value: 97; Range: 80-110; Units: MG/DL; Status: F Test: BLOOD UREA NITROGEN; Value: 19; Range: 7-18; Abnormal: Above high normal; Units: MG/DL; Status: F Test: CREATININE FOR GFR; Value: 1.05; Range: 0.55-1.02; Abnormal: Above high normal; Units: MG/DL; Status: F Test: GLOMERULAR FILTRATION RATE; Value: 55.8; Range: >45; Status: F Test: SODIUM LEVEL; Value: 143; Range: 136-145; Units: MEQ/L; Status: F Test: POTASSIUM SERUM; Value: 4.5; Range: 3.5-5.1; Units: MEQ/L; Status: F Test: CHLORIDE LEVEL; Value: 104; Range: 98-107; Units: MEQ/L; Status: F Test: CARBON DIOXIDE LEVEL; Value: 29; Range: 21-32; Units: MEQ/L; Status: F Test: ANION GAP; Value: 10; Range: 8-16; Units: MEQ/L; Status: F Test: CALCIUM LEVEL; Value: 8.7; Range: 8.8-10.2; Abnormal: Below low normal; Units: MG/DL; Status: F Test Note: ; Units are mL/min/1.73 m2 Chronic Kidney Disease Staging per NKF: Stage I & II GFR >=60 Normal to Mildly Decreased Stage III GFR 30-59 Moderately Decreased Stage IV GFR 15-29 Severely Decreased Stage V GFR <15 Very Little GFR Left ESRD GFR <15 on HEARINGS REPORTER Lab Order: CBC with Diff; SPEC'M 07/08/16 09:04 Test: WHITE BLOOD COUNT; Value: 5.7; Range: 4.0-10.0; Units: K/mm3; Status: F Test: RED BLOOD COUNT; Value: 3.59; Range: 4.00-5.40; Abnormal: Below low normal; Units: M/mm3; Status: F Test: HEMOGLOBIN; Value: 10.8; Range: 12.0-16.0; Abnormal: Below low normal; Units: g/dl; Status: F Test: HEMATOCRIT; Value: 32.7; Range: 36.0-47.0; Abnormal: Below low normal; Units: %; Status: F Test: MEAN CORPUSCULAR VOLUME; Value: 91.0; Range: 80.0-96.0; Units: fl; Status: F Test: MEAN CORPUSCULAR HEMOGLOBIN; Value: 30.1; Range: 27.0-33.0; Units: pg; Status: F Test: MEAN CORPUSCULAR HGB CONC; Value: 33.1; Range: 32.0-36.5; Units: g/dl; Status: F Test: RED CELL DISTRIBUTION WIDTH; Value: 12.8; Range: 11.5-14.5; Units: %; Status: F Test: PLATELET COUNT, AUTOMATED; Value: 176; Range: 150-450; Units: k/mm3; Status: F Test: NEUTROPHILS %; Value: 63.0; Range: 36.0-66.0; Units: %; Status: F Test: LYMPH %; Value: 22.5; Range: 24.0-44.0; Abnormal: Below low normal; Units: %; Status: F Test: MONO %; Value: 4.7; Range: 0.0-5.0; Units: %; Status: F Test: EOS %; Value: 6.0; Range: 0.0-3.0; Abnormal: Above high normal; Units: %; Status: F Test: BASO %; Value: 0.6; Range: 0.0-1.0; Units: %; Status: F Test: LARGE UNSTAINED CELL %; Value: 3.2; Range: 0.0-4.0; Units: %; Status: F Test: NEUTROPHILS #; Value: 3.6; Range: 1.8-7.7; Units: K/mm3; Status: F Test: LYMPH #; Value: 1.3; Range: 1.5-4.5; Abnormal: Below low normal; Units: K/mm3; Status: F Test: MONO #; Value: 0.3; Range: 0.0-0.8; Units: K/mm3; Status: F Test: EOS #; Value: 0.3; Range: 0.0-0.50; Units: K/mm3; Status: F Test: BASO #; Value: 0.0; Range: 0.0-0.2; Units: K/mm3; Status: F Test: LARGE UNSTAINED CELL #; Value: 0.2; Range: 0.0-0.4; Units: K/mm3; Status: F Lab Order: Cardiac Injury Profile; SPEC'M 07/08/16 09:04 Test: CPK CREATINE PHOSPHOKINASE; Value: 86; Range: 26-192; Units: U/L; Status: F Test: CK-MB VALUE MASS; Value: 1.5; Range: 0.0-3.6; Units: NG/ML; Status: F Test: MB/CK RELATIVE INDEX; Value: 1.74; Range: < OR =4; Status: F Test Note: ; DIAGNOSIS CRITERIA MMB ng/ml Relative Index (RI) NON-AMI < or = 5 N/A BILLY ZONE > 5 < or = 4 AMI > 5 > 4 Lab Order: Prothrombin Time Profile\E\INR; SPEC'M 07/08/16 09:04 Test: PROTHROMBIN TIME; Value: 14.2; Range: 12.3-14.5; Units: SECONDS; Status: F Test: INR; Value: 1.09; Status: F Test Note: ; THERAPUTIC HUMAN INR VALUES INDICATIONS NORMAL RANGES PROPHYLAXIS/TREATMENT OF: VENOUS THROMBOSIS 2.0-3.0 PULMONARY EMBOLISM 2.0-3.0 PREVENTION OF SYSTEMIC EMBOLISM FROM: TISSUE HEART VALVES 2.0-3.0 ACUTE MYOCARDIAL INFARCTION 2.0-3.0 VALVULAR HEART DISEASE 2.0-3.0 ATRIAL FIBRILLATION 2.0-3.0 MECHANICAL VALVES(HIGH RISK) 2.5-3.5 RECURRENT MYOCARDIAL INFARCTION 2.5-3.5 Lab Order: Troponin; SPEC' 07/08/16 09:04 Test: TROPONIN I; Value: 0.03; Range: < 0.10; Units: NG/ML; Status: F Test Note: ; Troponin I Reference Interval for [employer] LOCI: 99th Percentile= 0.00-0.045 ng/ml Risk Stratification: <= 0.10 ng/ml Decreased Risk for Adverse Clinical Events. 0.10-1.50 ng/ml Increased Risk for Adverse Clinical Events. Evaluation of additional criterion and/or repeat testing in 2-6 hours is suggested to rule out myocardial damage. >= 1.50 ng/ml Indicative of Myocardial Injury. Lab Order: CARDIAC MARKER PANEL; SPEC'M 07/08/16 11:28 Test: CPK CREATINE PHOSPHOKINASE; Value: 80; Range: 26-192; Units: U/L; Status: F Test: CK-MB VALUE MASS; Value: 1.7; Range: 0.0-3.6; Units: NG/ML; Status: F Test: MB/CK RELATIVE INDEX; Value: 2.12; Range: < OR =4; Status: F Test: TROPONIN I; Value: 0.25; Range: < 0.10; Abnormal: High; Units: NG/ML; Status: F Test Note: ; DIAGNOSIS CRITERIA MMB ng/ml Relative Index (RI) NON-AMI < or = 5 N/A BILLY ZONE > 5 < or = 4 AMI > 5 > 4 Lab Order: UA; SPEC'M 07/08/16 11:39 Test: APPEARANCE, URINE; Value: HAZY; Range: CLEAR; Status: F Test: COLOR, URINE; Value: YELLOW; Range: YELLOW; Status: F Test: PH,URINE; Value: 6.0; Range: 5.0-9.0; Units: UNITS; Status: F Test: SPECIFIC GRAVITY URINE AUTO; Value: 1.020; Range: 1.002-1.035; Status: F Test: PROTEIN, URINE AUTO; Value: NEGATIVE; Range: NEGATIVE; Units: mg/dL; Status: F Test: GLUCOSE, URINE (UA) AUTO; Value: NEGATIVE; Range: NEGATIVE; Units: mg/dL; Status: F Test: KETONE, URINE AUTO; Value: NEGATIVE; Range: NEGATIVE; Units: mg/dL; Status: F Test: UROBILINOGEN, URINE AUTO; Value: 0.2; Range: 0.0-2.0; Units: mg/dL; Status: F Test: BILIRUBIN, URINE AUTO; Value: NEGATIVE; Range: NEGATIVE; Status: F Test: NITRITE, URINE AUTO; Value: POSITIVE; Range: NEGATIVE; Status: F Test: LEUKOCYTE ESTERASE, URINE AUTO; Value: 1+; Range: NEGATIVE; Abnormal: Above high normal; Status: F Test: BLOOD, URINE BLOOD; Value: 1+; Range: NEGATIVE; Abnormal: Above high normal; Status: F Test: WBC, URINE AUTO; Value: 4; Range: 0-3; Abnormal: Above high normal; Units: /HPF; Status: F Test: RBC, URINE AUTO; Value: 2; Range: 0-3; Units: /HPF; Status: F Test: BACTERIA, URINE AUTO; Value: NEGATIVE; Range: NEGATIVE; Status: F Test: SQUAMOUS EPITHELIAL CELL UR AU; Value: 0; Range: 0-6; Units: /HPF; Status: F Test: MUCUS, URINE; Value: SMALL; Range: NEGATIVE; Status: F Test: HYALINE CAST, URINE AUTO; Value: 0; Range: 0-1; Units: /LPF; Status: F Lab Order: Urine Culture; SPEC'M 07/08/16 11:39 Test: URINE CULTURE; Value: ORGANISM 1: KLEBSIELLA PNEUMONIAE; Status: F Test: URINE CULTURE; Value: KLEBSIELLA PNEUMONIAE; Status: F Test: URINE CULTURE; Value: COLONY COUNT CFU/ml >100,000; Status: F Test: URINE CULTURE; Value: GRAM NEG SENSI - VITEK 80; Status: F Test: URINE CULTURE; Value: Method: VIT2; Status: F Test: URINE CULTURE; Value: EXTD BRD SPCTRM BETA LACTAMASE -; Status: F Test: URINE CULTURE; Value: TRIMETHOPRIM/SULFAMETHOXAZOLE <=20 S; Status: F Test: URINE CULTURE; Value: AMPICILLIN 16 R; Status: F Test: URINE CULTURE; Value: GENTAMICIN <=1 S; Status: F Test: URINE CULTURE; Value: NITROFURANTOIN <=16 S; Status: F Test: URINE CULTURE; Value: CEFAZOLIN <=4 S; Status: F Test: URINE CULTURE; Value: LEVOFLOXACIN <=0.12 S; Status: F Test: URINE CULTURE; Value: TOBRAMYCIN <=1 S; Status: F Test: URINE CULTURE; Value: CEFTRIAXONE <=1 S; Status: F Test: URINE CULTURE; Value: CEFTAZIDIME <=1 S; Status: F Test: URINE CULTURE; Value: AMPICILLIN/SULBACTAM <=2 S; Status: F Test: URINE CULTURE; Value: PIPERACILLIN/TAZOBACTAM <=4 S; Status: F Test: URINE CULTURE; Value: AZTREONAM <=1 S; Status: F Test: URINE CULTURE; Value: ERTAPENEM <=0.5 S; Status: F Test: URINE CULTURE; Value: MEROPENEM <=0.25 S; Status: F Test: URINE CULTURE; Value: TIGECYCLINE <=0.5 S; Status: F Test: URINE CULTURE; Value: CEFEPIME <=1 S; Status: F Radiology Order: EKG-ADULT Test: EKG-ADULT REASON FOR EXAMINATION: Chest Pain; Stationary ECG Study; [facility] - ED; ; Test Date: 2016-07-08; Pat Name: JULISSA REBOLLEDO Department:; Room: -; Gender: F 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: ct; : 1950 Requested By: Mariam Barajas; Order Number: [id number] Reading MD: Mariam Barajas; Measurements; Intervals [place]; Rate: 77 P: 32; NV: 258 QRS: -34; QRSD: 99 T: 21; QT: 366; QTc: 416; Interpretive Statements; SINUS RHYTHM WITH FIRST DEGREE AV BLOCK; MARKED LEFT AXIS DEVIATION; SEPTAL MYOCARDIAL INFARCTION, OF INDETERMINATE AGE; INFERIOR INFARCT, OLD; INCREASED RATE 07/13/12; Electronically Signed On 07-09-2016 19:33:05 EST by Mariam Barajas; Radiology Order: portable chest Test: portable chest REASON FOR EXAMINATION: Chest Pain; CHEST, ONE VIEW:; ; HISTORY: Chest pain.; ; COMPARISON: 06/13/2011.; ; Increased density is present in the left lower lobe consistent with atelectasis; or scar. The right lung is clear. The cardiac silhouette is enlarged. A thoracic; aortic aneurysm is present that appears unchanged compared to the previous study.; The pulmonary vasculature is normal in appearance.; ; IMPRESSION:; ; 1. Left lower lobe atelectasis or scar.; ; 2. Cardiomegaly.; ; 3. Thoracic aortic aneurysm, unchanged compared to the previous study.; ; ; Signed by; Vitaly Rodríguez MD 07/08/2016 03:39 P; Radiology Order: CT Chest With Contrast Test: CT Chest With Contrast REASON FOR EXAMINATION: R/O dissection; CT chest with IV contrast, 07/08/2016:; ; Comparison: CT chest without contrast 06/26/2016, CTA chest 08/16/2010.; ; Indication: Exclude aortic dissection.; ; There is bibasilar fibrotic interstitial scarring and The patient has history of; type A aortic dissection which is again noted.; ; Dimension of the aortic root is 4.2 cm transverse dimension, distal to aortic; valve and not significantly changed from prior studies.; ; Dissection involves proximal aortic arch, distal aortic arch and descending; thoracic aorta consistent with type A dissection. Large lateral false lumen is; seen within the aortic arch and descending thoracic aorta. 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 there is a large lateral; false lumen. 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 SMA arises from true lumen of aorta. Abdominal aorta; measures 3.3 cm AP x 3.2 cm transverse dimension at the origin of the celiac; artery, previously 3 cm AP x 3.1 cm transverse dimension on 08/16/2010. There is; no retroperitoneal hematoma identified.; ; There are no pathologically enlarged mediastinal nodes. Bullous changes are noted; bilaterally. Interstitial fibrotic scarring is seen with lower lobe; predominance.; ; Visualized portions of the liver, spleen, and pancreas are unremarkable. There; are no visualized gallstones. The adrenals are normal. Moderate atrophic changes; are seen within the left kidney with progression.; ; Impression:; ; Type A aortic dissection again identified with a large lateral false lumen. There; has been minimal- mild increase in size when compared with prior studies dating; back to 2010. 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 Superior mesenteric artery arises from true lumen.; ; Case discussed with Dr. Lambert in ED on 07/08/16 at 1120 am.; ; Moderate atrophic changes within left kidney.; ; No extraluminal hematoma is identified within the chest.; ; ; Signed by; Geri Merino MD 07/08/2016 08:06 P; Outcome: 13:07 ER care complete, transfer ordered by Provider. sd1 13:51 Admission hand-off: Report called to Filitsa Telonis RN. dsf 13:56 CT Study completed. dsf 14:22 Discharge Assessment: Patient awake, alert and oriented x 3. No cognitive and/or dsf functional deficits noted. Patient verbalized understanding of disposition instructions. patient administered narcotics - yes. Patient was admitted to the hospital or transferred to another facility. The following High Risk Discharge criteria are identified: None. Transferred to [facility]. by EMS ground report to accompanying personnel Jorge Huerta AEKYP, David Santiago AEKYP, Transfer form completed. x-rays sent w/ patient. Condition: stable. Property :Personal belongings accompany Pt. 14:25 Patient left the ED. dsf Addendum: 07/10/2016 16:27 Narrative: Urine culture results faxed to [facility] where pt was transferred.[facility] Signatures: Dispatcher [employer] EDMS Mariam Barajas MD MD sd1 Bianka Baker, Animal Shelter Manager Unit lbd Jhoana Cardoza RN RN Skylar Law RN RN [facility] Gris Oakley, Reg Reg gb Ganter, LoriLee, Reg Reg lg Sebastian, Taya, SALON COORDINATOR SALON COORDINATOR ct3 Viki MejiaRN RN [facility] Vivek Fall1 Jhoana Cardoza RN [facility] Corrections: (The following items were deleted from the chart) 07/08 09:10 09:06 Temp 97.1F Oral; ct3 ct3 13:57 13:56 No special radiology studies were completed dsf dsf MTDD
--- NOTE | 2016-07-10 16:28 | EDDOCDS ---
Physician Documentation [facility] Name: Cynthia Rebolledo Age: 65 yrs Sex: Female : 1950 Arrival Date: 07/08/2016 Time: 08:53 Bed 4 Private MD: Jayson Cox A. Disposition: 07/08/16 13:07 Transfer ordered to [facility]. Diagnosis is Unstable angina. - Reason for transfer: Higher level of care. - Accepting physician is Dr. Jackson. - Condition is Stable. - Problem is new. - Symptoms have improved. Historical: - Allergies: Codeine Sulfate (Unknown); orange (Upset stomach); - Home Meds: 1. clonidine HCl 0.1 mg Oral tab 1 tab 3 times per day (Last dose: 07/08/2016 05:30) 2. verapamil 180 mg Oral C24P 1 cap nightly (Last dose: 07/07/2016) 3. labetalol 200 mg Oral tab 1 tab 2 times per day (Last dose: 07/08/2016 05:30) 4. losartan-hydrochlorothiazide 100-25 mg oral tab 1 tab once daily (Last dose: 07/08/2016 05:30) 5. atorvastatin 40 mg oral tab 1 tab every 2 days (Last dose: 07/06/2016) 6. docusate sodium 100 mg Oral cap 1 cap 2 times per day (Last dose: 07/08/2016 05:30) 7. aspirin 325 mg Oral tab 1 tab once daily (Last dose: 07/08/2016 05:30) 8. ferrous sulfate 325 mg (65 mg iron) Oral tab 325 mg daily (Last dose: 07/08/2016 05:30) 9. Vitamin D Oral 5000 unit twice a day (Last dose: 07/07/2016) 10. cranberry 400 mg oral cap daily (Last dose: 07/07/2016) 11. echinacea 400 mg oral cap daily (Last dose: 07/07/2016) 12. Fish Oil 1,000 mg Oral cap daily (Last dose: 07/07/2016) 13. multivitamin Oral tab 1 tablet daily (Last dose: 07/07/2016) 14. Hair,Skin and Nails oral tab daily (Last dose: 07/07/2016) 15. garlic oral cap twice a day (Last dose: 07/07/2016) 16. Calcium Gluconate Oral daily (Last dose: 07/07/2016) - PMHx: Hypertension; Hypercholesterolemia; aortic aneurysm; - PSHx: repair aortic aneurysm; removal tumor ear drum left; right elbow surgery; Tubal ligation; - Social history: Smoking status: Patient states former smoker of tobacco. No barriers to communication noted, The patient speaks fluent Mohawk. - Family history: Not pertinent. - : The pt / caregiver states he / she is not on anticoagulants. Home medication list is obtained from the patient. - Exposure Risk Screening:: None identified. Vital Signs: 07/08 09:02 BP 154 / 70 LA (auto/); dsf 09:03 Pulse 82 MON; Pulse Ox 96% ; dsf 09:04 BP 140 / 67 RA (auto/); dsf 09:05 BP 145 / 73 (auto/); dsf 09:05 Pulse 84 MON; Pulse Ox 95% ; dsf 09:06 BP 145 / 73; Pulse 70; Resp 18; Temp 97.1(O); Weight 58.97 kg / 130.01 lbs (R); Height ct3 5 ft. 6 in. (167.64 cm) (R); Pain 5/10; 09:06 Pulse 84 MON; Pulse Ox 95% ; dsf 09:20 BP 135 / 60 (auto/); dsf 09:21 Pulse 64 MON; Pulse Ox 100% ; dsf 09:35 BP 132 / 61 (auto/); dsf 09:36 Pulse 56 MON; Pulse Ox 100% ; dsf 09:50 BP 126 / 62 (auto/); dsf 09:51 Pulse 70 MON; Pulse Ox 100% ; dsf 10:05 BP 129 / 60 (auto/); dsf 10:06 Pulse 54 MON; Pulse Ox 100% ; dsf 10:25 BP 127 / 60 (auto/); dsf 10:25 Pulse 60 MON; Pulse Ox 98% ; dsf 10:27 Pain 2/10; dsf 10:50 BP 124 / 58 (auto/); dsf 10:51 Pulse 54 MON; Pulse Ox 100% ; dsf 11:05 BP 120 / 58 (auto/); dsf 11:06 Pulse 56 MON; Pulse Ox 100% ; dsf 11:20 BP 121 / 57 (auto/); dsf 11:21 Pulse 58 MON; Pulse Ox 100% ; dsf 11:35 BP 125 / 66 (auto/); dsf 11:36 Pulse 60 MON; Pulse Ox 99% ; dsf 11:50 BP 121 / 64 (auto/); dsf 11:51 Pulse 56 MON; Pulse Ox 100% ; dsf 12:05 BP 122 / 57 (auto/); dsf 12:06 Pulse 56 MON; Pulse Ox 100% ; dsf 12:16 BP 127 / 59 (auto/); dsf 12:17 Temp 97.1(O); ct3 12:17 Pulse 60 MON; Pulse Ox 100% ; dsf 12:20 BP 131 / 61 (auto/); dsf 12:21 Pulse 56 MON; Pulse Ox 100% ; dsf 12:35 BP 130 / 60 (auto/); dsf 12:36 Pulse 86 MON; Pulse Ox 100% ; dsf 12:50 Pulse 62 MON; Pulse Ox 100% ; dsf 12:50 BP 136 / 61 (auto/); dsf 12:51 Pulse 60 MON; Pulse Ox 100% ; dsf 13:05 BP 137 / 64 (auto/); dsf 13:05 Pulse 68 MON; Pulse Ox 99% ; dsf 13:20 BP 116 / 54 (auto/); dsf 13:21 Pulse 68 MON; Pulse Ox 93% ; dsf 13:52 BP 137 / 62 (auto/); dsf 13:52 Pulse 64 MON; Pulse Ox 96% ; dsf 13:57 BP 134 / 57 (auto/); dsf 13:57 Pulse 66 MON; Pulse Ox 96% ; dsf 14:07 BP 131 / 63 (auto/); dsf 14:08 Pulse 66 MON; Pulse Ox 95% ; dsf 14:21 BP 134 / 57; Pulse 67; Resp 18; Temp 98.2(O); Pulse Ox 95% on 4 lpm NC; Pain 2/10; dsf 09:06 Body Mass Index 20.98 (58.97 kg, 167.64 cm) ct3 MDM: 08:57 ECG WITH READING ER PHYS+CARDIAG ordered. EDMS 09:09 Lactation Coordinator/Pulse Ox/q 30 min VS ordered. sd1 09:09 IV Saline Lock ordered. sd1 09:09 Rhythm Strip to chart ordered. sd1 09:09 Undress patient appropriately for examination ordered. sd1 09:09 Misc. Nursing Order ordered. sd1 09:10 B-Type Natiuretic Peptide Ordered. EDMS 09:10 Basic Metabolic Profile Ordered. EDMS 09:10 CBC with Diff Ordered. EDMS 09:10 Cardiac Injury Profile Ordered. EDMS 09:10 Prothrombin Time Profile\E\INR Ordered. EDMS 09:10 Troponin Ordered. EDMS 09:10 portable chest Ordered. EDMS 09:42 B-Type Natiuretic Peptide Reviewed. sd1 09:42 CBC with Diff Reviewed. sd1 09:42 Prothrombin Time Profile\E\INR Reviewed. sd1 09:44 morphine 2 mg IVP every 15 minutes; Document pain score/vitals after each dose (Hold if sd1 SBP < 90mmHg) x3 ordered. 09:44 Ondansetron 4 mg IVP once ordered. sd1 09:44 CT Chest With Contrast Ordered. EDMS 10:12 Basic Metabolic Profile Reviewed. sd1 10:12 Cardiac Injury Profile Reviewed. sd1 10:12 Troponin Reviewed. sd1 10:13 Redraw CIP &Troponin (put time in details section) ordered. sd1 10:34 Redraw CIP &Troponin (put time in details section) complete. lbd 10:46 CARDIAC MARKER PANEL Ordered. EDMS 11:32 UA Ordered. EDMS 11:32 Urine Culture Ordered. EDMS 12:18 UA Reviewed. sd1 12:21 CARDIAC MARKER PANEL Reviewed. sd1 12:31 BED REQUEST+ADM ordered. EDMS 13:08 Plavix - Clopidogrel 300 mg PO once ordered. sd1 13:08 heparin (Thrombolytic Protocol, 60 units/kg)) 60 units/kg IVP once; 3400 units IV sd1 ordered. 13:08 heparin (Thrombolytic Protocol, 12 units/kg/hr)) 39179 units IV at 12 units/kg/hr once; sd1 690units/hr ordered. 13:41 Financial registration complete. lg 14:39 [facility] [place] Agreement was scanned into [employer] and attached to record. lg 07/09 09:39 T-Sheet-- Draft Copy was scanned into [employer] and attached to record. gb 09:39 ECG/EKG was scanned into [employer] and attached to record. gb 09:39 Radiology Report was scanned into [employer] and attached to record. gb Administered Medications: 07/08 09:51 Drug: morphine 2 mg [morphine 2 mg/mL intravenous cartridge (1 mL)] Route: IVP; Site: dsf left hand; 10:27 Follow up: Pain 2/10 Adult; see trend VS dsf 09:51 Drug: Ondansetron 4 mg [ondansetron HCl 2 mg/mL intravenous solution (2 mL)] Route: dsf IVP; Site: left hand; 13:00 Drug: heparin (Thrombolytic Protocol, 60 units/kg)) 3538.2 units [heparin (porcine) dsf 5,000 unit/mL injection solution (0.707 mL)] {Co-Signature: deysi (Jhoana Cardoza RN).} Route: IVP; Site: left hand; 13:20 Drug: Plavix - Clopidogrel 300 mg [clopidogrel 75 mg tablet (4 tabs)] Route: PO; dsf 13:20 Drug: heparin (Thrombolytic Protocol, 12 units/kg/hr)) 75626 units [heparin (porcine) dsf 25,000 unit/250 mL (100 unit/mL) in dextrose 5 % IV] {Co-Signature: deysi (Jhoana Cardoza RN).} Route: IV; Rate: 12 units/kg/hr; Site: left hand; 14:24 Follow up: IV Status: Infusion continued on transport dsf Signatures: Dispatcher [employer] Mariam Lazaro MD MD sd1 Bianka Baker, Ironworker Foreman Unit lbd Jhoana Cardoza RN RN kpj Gris Oakley, Reg Reg gb Ezequiel Kelly, Reg Reg lg Viki MejiaRN RN dsf Jhoana jo The chart was reviewed and I authenticate all verbal orders and agree with the evaluation and treatment provided.Attachments: 14:39 [facility] Payment Agreement lg 07/09 09:39 T-Sheet-- Draft Copy gb 09:39 ECG/EKG gb MTDD
--- NOTE | 2016-07-10 16:28 | EDDOCDS ---
Physician Documentation [facility] Name: Cynthia Rebolledo Age: 65 yrs Sex: Female : 1950 Arrival Date: 07/08/2016 Time: 08:53 Bed 4 Private MD: Jayson Cox A. Disposition: 07/08/16 13:07 Transfer ordered to [facility]. Diagnosis is Unstable angina. - Reason for transfer: Higher level of care. - Accepting physician is Dr. Jackson. - Condition is Stable. - Problem is new. - Symptoms have improved. Historical: - Allergies: Codeine Sulfate (Unknown); orange (Upset stomach); - Home Meds: 1. clonidine HCl 0.1 mg Oral tab 1 tab 3 times per day (Last dose: 07/08/2016 05:30) 2. verapamil 180 mg Oral C24P 1 cap nightly (Last dose: 07/07/2016) 3. labetalol 200 mg Oral tab 1 tab 2 times per day (Last dose: 07/08/2016 05:30) 4. losartan-hydrochlorothiazide 100-25 mg oral tab 1 tab once daily (Last dose: 07/08/2016 05:30) 5. atorvastatin 40 mg oral tab 1 tab every 2 days (Last dose: 07/06/2016) 6. docusate sodium 100 mg Oral cap 1 cap 2 times per day (Last dose: 07/08/2016 05:30) 7. aspirin 325 mg Oral tab 1 tab once daily (Last dose: 07/08/2016 05:30) 8. ferrous sulfate 325 mg (65 mg iron) Oral tab 325 mg daily (Last dose: 07/08/2016 05:30) 9. Vitamin D Oral 5000 unit twice a day (Last dose: 07/07/2016) 10. cranberry 400 mg oral cap daily (Last dose: 07/07/2016) 11. echinacea 400 mg oral cap daily (Last dose: 07/07/2016) 12. Fish Oil 1,000 mg Oral cap daily (Last dose: 07/07/2016) 13. multivitamin Oral tab 1 tablet daily (Last dose: 07/07/2016) 14. Hair,Skin and Nails oral tab daily (Last dose: 07/07/2016) 15. garlic oral cap twice a day (Last dose: 07/07/2016) 16. Calcium Gluconate Oral daily (Last dose: 07/07/2016) - PMHx: Hypertension; Hypercholesterolemia; aortic aneurysm; - PSHx: repair aortic aneurysm; removal tumor ear drum left; right elbow surgery; Tubal ligation; - Social history: Smoking status: Patient states former smoker of tobacco. No barriers to communication noted, The patient speaks fluent Telugu. - Family history: Not pertinent. - : The pt / caregiver states he / she is not on anticoagulants. Home medication list is obtained from the patient. - Exposure Risk Screening:: None identified. Vital Signs: 07/08 09:02 BP 154 / 70 LA (auto/); dsf 09:03 Pulse 82 MON; Pulse Ox 96% ; dsf 09:04 BP 140 / 67 RA (auto/); dsf 09:05 BP 145 / 73 (auto/); dsf 09:05 Pulse 84 MON; Pulse Ox 95% ; dsf 09:06 BP 145 / 73; Pulse 70; Resp 18; Temp 97.1(O); Weight 58.97 kg / 130.01 lbs (R); Height ct3 5 ft. 6 in. (167.64 cm) (R); Pain 5/10; 09:06 Pulse 84 MON; Pulse Ox 95% ; dsf 09:20 BP 135 / 60 (auto/); dsf 09:21 Pulse 64 MON; Pulse Ox 100% ; dsf 09:35 BP 132 / 61 (auto/); dsf 09:36 Pulse 56 MON; Pulse Ox 100% ; dsf 09:50 BP 126 / 62 (auto/); dsf 09:51 Pulse 70 MON; Pulse Ox 100% ; dsf 10:05 BP 129 / 60 (auto/); dsf 10:06 Pulse 54 MON; Pulse Ox 100% ; dsf 10:25 BP 127 / 60 (auto/); dsf 10:25 Pulse 60 MON; Pulse Ox 98% ; dsf 10:27 Pain 2/10; dsf 10:50 BP 124 / 58 (auto/); dsf 10:51 Pulse 54 MON; Pulse Ox 100% ; dsf 11:05 BP 120 / 58 (auto/); dsf 11:06 Pulse 56 MON; Pulse Ox 100% ; dsf 11:20 BP 121 / 57 (auto/); dsf 11:21 Pulse 58 MON; Pulse Ox 100% ; dsf 11:35 BP 125 / 66 (auto/); dsf 11:36 Pulse 60 MON; Pulse Ox 99% ; dsf 11:50 BP 121 / 64 (auto/); dsf 11:51 Pulse 56 MON; Pulse Ox 100% ; dsf 12:05 BP 122 / 57 (auto/); dsf 12:06 Pulse 56 MON; Pulse Ox 100% ; dsf 12:16 BP 127 / 59 (auto/); dsf 12:17 Temp 97.1(O); ct3 12:17 Pulse 60 MON; Pulse Ox 100% ; dsf 12:20 BP 131 / 61 (auto/); dsf 12:21 Pulse 56 MON; Pulse Ox 100% ; dsf 12:35 BP 130 / 60 (auto/); dsf 12:36 Pulse 86 MON; Pulse Ox 100% ; dsf 12:50 Pulse 62 MON; Pulse Ox 100% ; dsf 12:50 BP 136 / 61 (auto/); dsf 12:51 Pulse 60 MON; Pulse Ox 100% ; dsf 13:05 BP 137 / 64 (auto/); dsf 13:05 Pulse 68 MON; Pulse Ox 99% ; dsf 13:20 BP 116 / 54 (auto/); dsf 13:21 Pulse 68 MON; Pulse Ox 93% ; dsf 13:52 BP 137 / 62 (auto/); dsf 13:52 Pulse 64 MON; Pulse Ox 96% ; dsf 13:57 BP 134 / 57 (auto/); dsf 13:57 Pulse 66 MON; Pulse Ox 96% ; dsf 14:07 BP 131 / 63 (auto/); dsf 14:08 Pulse 66 MON; Pulse Ox 95% ; dsf 14:21 BP 134 / 57; Pulse 67; Resp 18; Temp 98.2(O); Pulse Ox 95% on 4 lpm NC; Pain 2/10; dsf 09:06 Body Mass Index 20.98 (58.97 kg, 167.64 cm) ct3 MDM: 08:57 ECG WITH READING ER PHYS+CARDIAG ordered. EDMS 09:09 Welding Machine Feeder/Pulse Ox/q 30 min VS ordered. sd1 09:09 IV Saline Lock ordered. sd1 09:09 Rhythm Strip to chart ordered. sd1 09:09 Undress patient appropriately for examination ordered. sd1 09:09 Misc. Nursing Order ordered. sd1 09:10 B-Type Natiuretic Peptide Ordered. EDMS 09:10 Basic Metabolic Profile Ordered. EDMS 09:10 CBC with Diff Ordered. EDMS 09:10 Cardiac Injury Profile Ordered. EDMS 09:10 Prothrombin Time Profile\E\INR Ordered. EDMS 09:10 Troponin Ordered. EDMS 09:10 portable chest Ordered. EDMS 09:42 B-Type Natiuretic Peptide Reviewed. sd1 09:42 CBC with Diff Reviewed. sd1 09:42 Prothrombin Time Profile\E\INR Reviewed. sd1 09:44 morphine 2 mg IVP every 15 minutes; Document pain score/vitals after each dose (Hold if sd1 SBP < 90mmHg) x3 ordered. 09:44 Ondansetron 4 mg IVP once ordered. sd1 09:44 CT Chest With Contrast Ordered. EDMS 10:12 Basic Metabolic Profile Reviewed. sd1 10:12 Cardiac Injury Profile Reviewed. sd1 10:12 Troponin Reviewed. sd1 10:13 Redraw CIP &Troponin (put time in details section) ordered. sd1 10:34 Redraw CIP &Troponin (put time in details section) complete. lbd 10:46 CARDIAC MARKER PANEL Ordered. EDMS 11:32 UA Ordered. EDMS 11:32 Urine Culture Ordered. EDMS 12:18 UA Reviewed. sd1 12:21 CARDIAC MARKER PANEL Reviewed. sd1 12:31 BED REQUEST+ADM ordered. EDMS 13:08 Plavix - Clopidogrel 300 mg PO once ordered. sd1 13:08 heparin (Thrombolytic Protocol, 60 units/kg)) 60 units/kg IVP once; 3400 units IV sd1 ordered. 13:08 heparin (Thrombolytic Protocol, 12 units/kg/hr)) 48143 units IV at 12 units/kg/hr once; sd1 690units/hr ordered. 13:41 Financial registration complete. lg 14:39 [facility] [place] was scanned into [employer] and attached to record. lg 07/09 09:39 T-Sheet-- Draft Copy was scanned into [employer] and attached to record. gb 09:39 ECG/EKG was scanned into [employer] and attached to record. gb 09:39 Radiology Report was scanned into [employer] and attached to record. gb Administered Medications: 07/08 09:51 Drug: morphine 2 mg [morphine 2 mg/mL intravenous cartridge (1 mL)] Route: IVP; Site: dsf left hand; 10:27 Follow up: Pain 2/10 Adult; see trend VS dsf 09:51 Drug: Ondansetron 4 mg [ondansetron HCl 2 mg/mL intravenous solution (2 mL)] Route: dsf IVP; Site: left hand; 13:00 Drug: heparin (Thrombolytic Protocol, 60 units/kg)) 3538.2 units [heparin (porcine) dsf 5,000 unit/mL injection solution (0.707 mL)] {Co-Signature: deysi (Jhoana Cardoza RN).} Route: IVP; Site: left hand; 13:20 Drug: Plavix - Clopidogrel 300 mg [clopidogrel 75 mg tablet (4 tabs)] Route: PO; dsf 13:20 Drug: heparin (Thrombolytic Protocol, 12 units/kg/hr)) 59556 units [heparin (porcine) dsf 25,000 unit/250 mL (100 unit/mL) in dextrose 5 % IV] {Co-Signature: deysi (Jhoana Cardoza RN).} Route: IV; Rate: 12 units/kg/hr; Site: left hand; 14:24 Follow up: IV Status: Infusion continued on transport dsf Signatures: Dispatcher [employer] Mariam Lazaro MD MD sd1 Bianka Baker, Care Center Manager Unit lbd Jhoana Cardoza RN RN kpj Gris Oakley, Reg Reg gb Ezequiel Kelly, Reg Reg lg Viki MejiaRN RN dsf Jhoana jo The chart was reviewed and I authenticate all verbal orders and agree with the evaluation and treatment provided.Attachments: 14:39 [facility] Payment Agreement lg 07/09 09:39 T-Sheet-- Draft Copy gb 09:39 ECG/EKG gb MTDD
--- NOTE | 2016-07-10 16:30 | EDDOCDS ---
Physician Documentation [facility] Name: Cynthia Rebolledo Age: 65 yrs Sex: Female : 1950 Arrival Date: 07/08/2016 Time: 08:53 Bed 4 Private MD: Jayson Cox A. Disposition: 07/08/16 13:07 Transfer ordered to [facility]. Diagnosis is Unstable angina. - Reason for transfer: Higher level of care. - Accepting physician is Dr. Jackson. - Condition is Stable. - Problem is new. - Symptoms have improved. Historical: - Allergies: Codeine Sulfate (Unknown); orange (Upset stomach); - Home Meds: 1. clonidine HCl 0.1 mg Oral tab 1 tab 3 times per day (Last dose: 07/08/2016 05:30) 2. verapamil 180 mg Oral C24P 1 cap nightly (Last dose: 07/07/2016) 3. labetalol 200 mg Oral tab 1 tab 2 times per day (Last dose: 07/08/2016 05:30) 4. losartan-hydrochlorothiazide 100-25 mg oral tab 1 tab once daily (Last dose: 07/08/2016 05:30) 5. atorvastatin 40 mg oral tab 1 tab every 2 days (Last dose: 07/06/2016) 6. docusate sodium 100 mg Oral cap 1 cap 2 times per day (Last dose: 07/08/2016 05:30) 7. aspirin 325 mg Oral tab 1 tab once daily (Last dose: 07/08/2016 05:30) 8. ferrous sulfate 325 mg (65 mg iron) Oral tab 325 mg daily (Last dose: 07/08/2016 05:30) 9. Vitamin D Oral 5000 unit twice a day (Last dose: 07/07/2016) 10. cranberry 400 mg oral cap daily (Last dose: 07/07/2016) 11. echinacea 400 mg oral cap daily (Last dose: 07/07/2016) 12. Fish Oil 1,000 mg Oral cap daily (Last dose: 07/07/2016) 13. multivitamin Oral tab 1 tablet daily (Last dose: 07/07/2016) 14. Hair,Skin and Nails oral tab daily (Last dose: 07/07/2016) 15. garlic oral cap twice a day (Last dose: 07/07/2016) 16. Calcium Gluconate Oral daily (Last dose: 07/07/2016) - PMHx: Hypertension; Hypercholesterolemia; aortic aneurysm; - PSHx: repair aortic aneurysm; removal tumor ear drum left; right elbow surgery; Tubal ligation; - Social history: Smoking status: Patient states former smoker of tobacco. No barriers to communication noted, The patient speaks fluent Syriac. - Family history: Not pertinent. - : The pt / caregiver states he / she is not on anticoagulants. Home medication list is obtained from the patient. - Exposure Risk Screening:: None identified. Vital Signs: 07/08 09:02 BP 154 / 70 LA (auto/); dsf 09:03 Pulse 82 MON; Pulse Ox 96% ; dsf 09:04 BP 140 / 67 RA (auto/); dsf 09:05 BP 145 / 73 (auto/); dsf 09:05 Pulse 84 MON; Pulse Ox 95% ; dsf 09:06 BP 145 / 73; Pulse 70; Resp 18; Temp 97.1(O); Weight 58.97 kg / 130.01 lbs (R); Height ct3 5 ft. 6 in. (167.64 cm) (R); Pain 5/10; 09:06 Pulse 84 MON; Pulse Ox 95% ; dsf 09:20 BP 135 / 60 (auto/); dsf 09:21 Pulse 64 MON; Pulse Ox 100% ; dsf 09:35 BP 132 / 61 (auto/); dsf 09:36 Pulse 56 MON; Pulse Ox 100% ; dsf 09:50 BP 126 / 62 (auto/); dsf 09:51 Pulse 70 MON; Pulse Ox 100% ; dsf 10:05 BP 129 / 60 (auto/); dsf 10:06 Pulse 54 MON; Pulse Ox 100% ; dsf 10:25 BP 127 / 60 (auto/); dsf 10:25 Pulse 60 MON; Pulse Ox 98% ; dsf 10:27 Pain 2/10; dsf 10:50 BP 124 / 58 (auto/); dsf 10:51 Pulse 54 MON; Pulse Ox 100% ; dsf 11:05 BP 120 / 58 (auto/); dsf 11:06 Pulse 56 MON; Pulse Ox 100% ; dsf 11:20 BP 121 / 57 (auto/); dsf 11:21 Pulse 58 MON; Pulse Ox 100% ; dsf 11:35 BP 125 / 66 (auto/); dsf 11:36 Pulse 60 MON; Pulse Ox 99% ; dsf 11:50 BP 121 / 64 (auto/); dsf 11:51 Pulse 56 MON; Pulse Ox 100% ; dsf 12:05 BP 122 / 57 (auto/); dsf 12:06 Pulse 56 MON; Pulse Ox 100% ; dsf 12:16 BP 127 / 59 (auto/); dsf 12:17 Temp 97.1(O); ct3 12:17 Pulse 60 MON; Pulse Ox 100% ; dsf 12:20 BP 131 / 61 (auto/); dsf 12:21 Pulse 56 MON; Pulse Ox 100% ; dsf 12:35 BP 130 / 60 (auto/); dsf 12:36 Pulse 86 MON; Pulse Ox 100% ; dsf 12:50 Pulse 62 MON; Pulse Ox 100% ; dsf 12:50 BP 136 / 61 (auto/); dsf 12:51 Pulse 60 MON; Pulse Ox 100% ; dsf 13:05 BP 137 / 64 (auto/); dsf 13:05 Pulse 68 MON; Pulse Ox 99% ; dsf 13:20 BP 116 / 54 (auto/); dsf 13:21 Pulse 68 MON; Pulse Ox 93% ; dsf 13:52 BP 137 / 62 (auto/); dsf 13:52 Pulse 64 MON; Pulse Ox 96% ; dsf 13:57 BP 134 / 57 (auto/); dsf 13:57 Pulse 66 MON; Pulse Ox 96% ; dsf 14:07 BP 131 / 63 (auto/); dsf 14:08 Pulse 66 MON; Pulse Ox 95% ; dsf 14:21 BP 134 / 57; Pulse 67; Resp 18; Temp 98.2(O); Pulse Ox 95% on 4 lpm NC; Pain 2/10; dsf 09:06 Body Mass Index 20.98 (58.97 kg, 167.64 cm) ct3 MDM: 08:57 ECG WITH READING ER PHYS+CARDIAG ordered. EDMS 09:09 Payroll Professional/Pulse Ox/q 30 min VS ordered. sd1 09:09 IV Saline Lock ordered. sd1 09:09 Rhythm Strip to chart ordered. sd1 09:09 Undress patient appropriately for examination ordered. sd1 09:09 Misc. Nursing Order ordered. sd1 09:10 B-Type Natiuretic Peptide Ordered. EDMS 09:10 Basic Metabolic Profile Ordered. EDMS 09:10 CBC with Diff Ordered. EDMS 09:10 Cardiac Injury Profile Ordered. EDMS 09:10 Prothrombin Time Profile\E\INR Ordered. EDMS 09:10 Troponin Ordered. EDMS 09:10 portable chest Ordered. EDMS 09:42 B-Type Natiuretic Peptide Reviewed. sd1 09:42 CBC with Diff Reviewed. sd1 09:42 Prothrombin Time Profile\E\INR Reviewed. sd1 09:44 morphine 2 mg IVP every 15 minutes; Document pain score/vitals after each dose (Hold if sd1 SBP < 90mmHg) x3 ordered. 09:44 Ondansetron 4 mg IVP once ordered. sd1 09:44 CT Chest With Contrast Ordered. EDMS 10:12 Basic Metabolic Profile Reviewed. sd1 10:12 Cardiac Injury Profile Reviewed. sd1 10:12 Troponin Reviewed. sd1 10:13 Redraw CIP &Troponin (put time in details section) ordered. sd1 10:34 Redraw CIP &Troponin (put time in details section) complete. lbd 10:46 CARDIAC MARKER PANEL Ordered. EDMS 11:32 UA Ordered. EDMS 11:32 Urine Culture Ordered. EDMS 12:18 UA Reviewed. sd1 12:21 CARDIAC MARKER PANEL Reviewed. sd1 12:31 BED REQUEST+ADM ordered. EDMS 13:08 Plavix - Clopidogrel 300 mg PO once ordered. sd1 13:08 heparin (Thrombolytic Protocol, 60 units/kg)) 60 units/kg IVP once; 3400 units IV sd1 ordered. 13:08 heparin (Thrombolytic Protocol, 12 units/kg/hr)) 68623 units IV at 12 units/kg/hr once; sd1 690units/hr ordered. 13:41 Financial registration complete. lg 14:39 [facility] Payment Agreement was scanned into cashcloud and attached to record. lg 07/09 09:39 T-Sheet-- Draft Copy was scanned into cashcloud and attached to record. gb 09:39 ECG/EKG was scanned into cashcloud and attached to record. gb 09:39 Radiology Report was scanned into cashcloud and attached to record. gb Administered Medications: 07/08 09:51 Drug: morphine 2 mg [morphine 2 mg/mL intravenous cartridge (1 mL)] Route: IVP; Site: dsf left hand; 10:27 Follow up: Pain 2/10 Adult; see trend VS dsf 09:51 Drug: Ondansetron 4 mg [ondansetron HCl 2 mg/mL intravenous solution (2 mL)] Route: dsf IVP; Site: left hand; 13:00 Drug: heparin (Thrombolytic Protocol, 60 units/kg)) 3538.2 units [heparin (porcine) dsf 5,000 unit/mL injection solution (0.707 mL)] {Co-Signature: deysi (Jhoana Cardoza RN).} Route: IVP; Site: left hand; 13:20 Drug: Plavix - Clopidogrel 300 mg [clopidogrel 75 mg tablet (4 tabs)] Route: PO; dsf 13:20 Drug: heparin (Thrombolytic Protocol, 12 units/kg/hr)) 18401 units [heparin (porcine) dsf 25,000 unit/250 mL (100 unit/mL) in dextrose 5 % IV] {Co-Signature: deysi (Jhoana Cardoza RN).} Route: IV; Rate: 12 units/kg/hr; Site: left hand; 14:24 Follow up: IV Status: Infusion continued on transport dsf Signatures: Dispatcher [employer] Mariam Lazaro MD MD sd1 Bianka Baker, Grinding [employer] Unit lbd Jhoana Cardoza RN RN kpj Gris Oakley, Reg Reg gb Ezequiel Kelly, Reg Reg lg Viki MejiaRN RN dsf Jhoana jo The chart was reviewed and I authenticate all verbal orders and agree with the evaluation and treatment provided.Attachments: 14:39 [facility] Payment Agreement lg 07/09 09:39 T-Sheet-- Draft Copy gb 09:39 ECG/EKG gb Chart Complete MTDD
--- NOTE | 2016-07-10 16:30 | EDDOCDS ---
Nurse's Notes [facility] Name: Julissa Rebolledo Age: 65 yrs Sex: Female : 1950 Arrival Date: 07/08/2016 Time: 08:53 Bed 4 Private MD: Jayson Cox A. Diagnosis: Unstable angina Presentation: 07/08 08:58 Presenting complaint: Patient states: chest pain began at 0800 radiating down right kpj arm,cardiac history aortic aneurysm in 2004 with repair.2 NTG and 325mg ASA given by EMS enroute. 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 325 mg by EMS. Adult Sepsis Screening: The patient does not have new or worsening altered mentation. Patient's respiratory rate is less than 22. Systolic blood pressure is greater than 100. Patient has a qSOFA score of. Suicide/Homicide risk assessment- the patient denies having any suicidal and/or homicidal ideations and does not present with any other emotional, behavioral or mental health complaints. 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 Transition of care: patient was not received from another setting of care. Care prior to arrival: See EMS report. Medications administered prior to arrival: ASA, NTG, x2 Saline lock initiated. Glucose check. FSBS 134 mg/dl Oxygen administered by EMS. 20 gauge left hand. 08:58 Acuity: [place] Level 2 [facility] 08:58 Method Of Arrival: Ambulance [facility] Triage Assessment: 09:04 General: Appears comfortable, Behavior is appropriate for age, pleasant. Pain: kpj Location: mid-sternal area Pain currently is 4 out of 10 on a pain scale. Pain radiates to right arm Quality of pain is described as pressure, Pain began 1 hour ago. The patient is triaged at the bedside. See Assessment in Nurses Notes section of ED record. 09:18 Cardiovascular: Capillary refill < 3 seconds in bilateral fingers Edema is absent. kpj Pulses are all present. Rhythm is sinus rhythm No ectopy. Chest pain is described as Pain is 5 out of 10 on a pain scale. quality is pressure, radiates to right arm(s) episodes are continuous began 1 hour prior to arrival. Derm: Skin is dry, Skin is pale, Skin temperature is cool. Historical: - Allergies: Codeine Sulfate (Unknown); orange (Upset stomach); - Home Meds: 1. clonidine HCl 0.1 mg Oral tab 1 tab 3 times per day (Last dose: 07/08/2016 05:30) 2. verapamil 180 mg Oral C24P 1 cap nightly (Last dose: 07/07/2016) 3. labetalol 200 mg Oral tab 1 tab 2 times per day (Last dose: 07/08/2016 05:30) 4. losartan-hydrochlorothiazide 100-25 mg oral tab 1 tab once daily (Last dose: 07/08/2016 05:30) 5. atorvastatin 40 mg oral tab 1 tab every 2 days (Last dose: 07/06/2016) 6. docusate sodium 100 mg Oral cap 1 cap 2 times per day (Last dose: 07/08/2016 05:30) 7. aspirin 325 mg Oral tab 1 tab once daily (Last dose: 07/08/2016 05:30) 8. ferrous sulfate 325 mg (65 mg iron) Oral tab 325 mg daily (Last dose: 07/08/2016 05:30) 9. Vitamin D Oral 5000 unit twice a day (Last dose: 07/07/2016) 10. cranberry 400 mg oral cap daily (Last dose: 07/07/2016) 11. echinacea 400 mg oral cap daily (Last dose: 07/07/2016) 12. Fish Oil 1,000 mg Oral cap daily (Last dose: 07/07/2016) 13. multivitamin Oral tab 1 tablet daily (Last dose: 07/07/2016) 14. Hair,Skin and Nails oral tab daily (Last dose: 07/07/2016) 15. garlic oral cap twice a day (Last dose: 07/07/2016) 16. Calcium Gluconate Oral daily (Last dose: 07/07/2016) - PMHx: Hypertension; Hypercholesterolemia; aortic aneurysm; - PSHx: repair aortic aneurysm; removal tumor ear drum left; right elbow surgery; Tubal ligation; - Social history: Smoking status: Patient states former smoker of tobacco. No barriers to communication noted, The patient speaks fluent Occitan. - Family history: Not pertinent. - : The pt / caregiver states he / she is not on anticoagulants. Home medication list is obtained from the patient. - Exposure Risk Screening:: None identified. Screenin:56 Screening information is obtained from the patient. Fall risk: No risks identified. dsf Assistance ADL's: requires no assistance with activities of daily living. Abuse/DV Screen: The patient / caregiver reports he/she is: not in a situation that causes fear, pain or injury. Nutritional screening: No deficits noted. Advance Directives: Currently, there is no health care proxy. home support is adequate. Assessment: 09:21 Adult Sepsis Screening: The patient does not have new or worsening altered mentation. dsf Patient's respiratory rate is less than 22. Systolic blood pressure is greater than 100. Patient has a qSOFA score of 0- Negative Sepsis Screen. General: Appears in no apparent distress, Behavior is appropriate for age, cooperative. Pain: Location: mid-sternal area Pain currently is 4 out of 10 on a pain scale. Pain radiates to right arm Quality of pain is described as pressure. Neurological: Level of Consciousness is awake, alert, Oriented to person, place, time. Cardiovascular: Capillary refill < 3 seconds Heart tones S1 S2 present. Respiratory: Airway is patent Respiratory effort is even, unlabored, Respiratory pattern is regular, symmetrical, Breath sounds are clear bilaterally. GI: Abdomen is non- distended Bowel sounds present X 4 quads. Abd is soft and non tender X 4 quads. Derm: Skin is dry, Skin is pale, Skin temperature is warm. 10:26 General: pt returned from CT. Pt reports pain 2/10. Respirations easy and unlabored dsf will continue to monitor . 10:44 General: Appears in no apparent distress, Behavior is appropriate for age, cooperative. dsf Pain: Location: mid-sternal area Pain currently is 1 out of 10 on a pain scale. Neurological: Level of Consciousness is awake, alert. Cardiovascular: Capillary refill < 3 seconds Heart tones S1 S2 present. Respiratory: Airway is patent Respiratory effort is even, unlabored, Respiratory pattern is regular, symmetrical. Derm: Skin is dry, Skin is pale, Skin temperature is warm. 11:15 Adult Sepsis Screening: The patient does not have new or worsening altered mentation. dsf Patient's respiratory rate is less than 22. Systolic blood pressure is greater than 100. Patient has a qSOFA score of 0- Negative Sepsis Screen. General: Appears in no apparent distress, Behavior is appropriate for age, cooperative. Pain: Location: mid-sternal area Pain currently is 1 out of 10 on a pain scale. Pain does not radiate. Neurological: Level of Consciousness is awake, alert, Oriented to person, place, time. Cardiovascular: Capillary refill < 3 seconds Heart tones S1 S2 present Rhythm is sinus rhythm No ectopy. Respiratory: Airway is patent Respiratory effort is even, unlabored, Respiratory pattern is regular, symmetrical, Breath sounds are clear bilaterally. GI: Abdomen is non- distended Bowel sounds present X 4 quads. Abd is soft and non tender X 4 quads. Derm: Skin is dry, Skin is pale, Skin temperature is warm. 12:15 General: Appears in no apparent distress, Behavior is appropriate for age, cooperative. dsf Pain: Denies pain. Neurological: Level of Consciousness is awake, alert, Oriented to person, place, time. Cardiovascular: Capillary refill < 3 seconds Heart tones S1 S2 present Rhythm is sinus rhythm No ectopy. Respiratory: Airway is patent Respiratory effort is even, unlabored, Respiratory pattern is regular, symmetrical, Breath sounds are clear bilaterally. GI: Abdomen is non- distended Bowel sounds present X 4 quads. Abd is soft and non tender X 4 quads. Derm: Skin is dry, Skin is pale, Skin temperature is warm. 13:15 Adult Sepsis Screening: The patient does not have new or worsening altered mentation. dsf Patient's respiratory rate is less than 22. Systolic blood pressure is greater than 100. Patient has a qSOFA score of. General: Appears in no apparent distress, Behavior is appropriate for age, cooperative. Pain: Denies pain. Neurological: Level of Consciousness is awake, alert. Cardiovascular: Capillary refill < 3 seconds Rhythm is sinus rhythm No ectopy. Respiratory: Airway is patent Respiratory effort is even, unlabored, Respiratory pattern is regular, symmetrical. Derm: Skin is dry, Skin is pale, Skin temperature is warm. 14:08 Adult Sepsis Screening: The patient does not have new or worsening altered mentation. dsf Patient's respiratory rate is less than 22. Systolic blood pressure is greater than 100. Patient has a qSOFA score of 0- Negative Sepsis Screen. General: Appears in no apparent distress, Behavior is appropriate for age, cooperative. Neurological: Level of Consciousness is awake, alert. Cardiovascular: Capillary refill < 3 seconds. Cardiovascular: Rhythm is sinus rhythm No ectopy. Respiratory: Airway is patent Respiratory effort is even, unlabored, Respiratory pattern is regular, symmetrical. 14:22 General: Appears in no apparent distress, Behavior is appropriate for age, cooperative. dsf Pain: Location: mid-sternal area Pain currently is 2 out of 10 on a pain scale. Neurological: Level of Consciousness is awake, alert. Cardiovascular: Capillary refill < 3 seconds Heart tones S1 S2 present Rhythm is sinus rhythm No ectopy. Respiratory: Airway is patent Respiratory effort is even, unlabored, Respiratory pattern is regular, symmetrical, Breath sounds are clear bilaterally. GI: Abdomen is non- distended Bowel sounds present X 4 quads. Abd is soft and non tender X 4 quads. Derm: Skin is dry, Skin is pale, Skin temperature is warm. Vital Signs: 09:02 BP 154 / 70 LA (auto/); dsf 09:03 Pulse 82 MON; Pulse Ox 96% ; dsf 09:04 BP 140 / 67 RA (auto/); dsf 09:05 BP 145 / 73 (auto/); dsf 09:05 Pulse 84 MON; Pulse Ox 95% ; dsf 09:06 BP 145 / 73; Pulse 70; Resp 18; Temp 97.1(O); Weight 58.97 kg (R); Height 5 ft. 6 in. ct3 (167.64 cm) (R); Pain 5/10; 09:06 Pulse 84 MON; Pulse Ox 95% ; dsf 09:20 BP 135 / 60 (auto/); dsf 09:21 Pulse 64 MON; Pulse Ox 100% ; dsf 09:35 BP 132 / 61 (auto/); dsf 09:36 Pulse 56 MON; Pulse Ox 100% ; dsf 09:50 BP 126 / 62 (auto/); dsf 09:51 Pulse 70 MON; Pulse Ox 100% ; dsf 10:05 BP 129 / 60 (auto/); dsf 10:06 Pulse 54 MON; Pulse Ox 100% ; dsf 10:25 BP 127 / 60 (auto/); dsf 10:25 Pulse 60 MON; Pulse Ox 98% ; dsf 10:27 Pain 2/10; dsf 10:50 BP 124 / 58 (auto/); dsf 10:51 Pulse 54 MON; Pulse Ox 100% ; dsf 11:05 BP 120 / 58 (auto/); dsf 11:06 Pulse 56 MON; Pulse Ox 100% ; dsf 11:20 BP 121 / 57 (auto/); dsf 11:21 Pulse 58 MON; Pulse Ox 100% ; dsf 11:35 BP 125 / 66 (auto/); dsf 11:36 Pulse 60 MON; Pulse Ox 99% ; dsf 11:50 BP 121 / 64 (auto/); dsf 11:51 Pulse 56 MON; Pulse Ox 100% ; dsf 12:05 BP 122 / 57 (auto/); dsf 12:06 Pulse 56 MON; Pulse Ox 100% ; dsf 12:16 BP 127 / 59 (auto/); dsf 12:17 Temp 97.1(O); ct3 12:17 Pulse 60 MON; Pulse Ox 100% ; dsf 12:20 BP 131 / 61 (auto/); dsf 12:21 Pulse 56 MON; Pulse Ox 100% ; dsf 12:35 BP 130 / 60 (auto/); dsf 12:36 Pulse 86 MON; Pulse Ox 100% ; dsf 12:50 Pulse 62 MON; Pulse Ox 100% ; dsf 12:50 BP 136 / 61 (auto/); dsf 12:51 Pulse 60 MON; Pulse Ox 100% ; dsf 13:05 BP 137 / 64 (auto/); dsf 13:05 Pulse 68 MON; Pulse Ox 99% ; dsf 13:20 BP 116 / 54 (auto/); dsf 13:21 Pulse 68 MON; Pulse Ox 93% ; dsf 13:52 BP 137 / 62 (auto/); dsf 13:52 Pulse 64 MON; Pulse Ox 96% ; dsf 13:57 BP 134 / 57 (auto/); dsf 13:57 Pulse 66 MON; Pulse Ox 96% ; dsf 14:07 BP 131 / 63 (auto/); dsf 14:08 Pulse 66 MON; Pulse Ox 95% ; dsf 14:21 BP 134 / 57; Pulse 67; Resp 18; Temp 98.2(O); Pulse Ox 95% on 4 lpm NC; Pain 2/10; dsf 09:06 Body Mass Index 20.98 (58.97 kg, 167.64 cm) ct3 Vitals: 09:04 Log In Time N/A - ambulance arrival. [facility] ED Course: 08:54 Patient visited by Bianka Baker Motor And Generator Assembler. lbd 08:54 Patient moved to Waiting lbd 08:55 Jayson Cox is Private Physician. lbd 08:55 Patient moved to 4 lbd 08:57 Mariam Barajas MD is Attending Physician. sd1 09:03 Patient visited by Mariam Barajas MD. sd1 09:03 Triage Initiated kpj 09:05 Patient visited by Vivek Fall. dem1 09:05 EKG done. (by ED staff). Reviewed by Mariam Barajas MD. dem1 09:07 Patient visited by Taya Sebastian PCA. ct3 09:07 Patient has correct armband on for positive identification. Placed in gown. Bed in low ct3 position. Call light in reach. Side rails up X2. gandy dancer on. Pulse ox on. NIBP on. 09:10 Patient visited by Taya Sebastian PCA. ct3 09:22 Patient visited by Viki Mejia RN. dsf 09:22 Maintain field IV. Dressing intact. Good blood return noted. Site clean & dry. Gauge & dsf site: #20 gauge left hand . 09:22 O2 via nasal cannula \T\ 4L/min. dsf 09:57 Patient visited by Taya Sebastian PCA. ct3 10:27 Patient visited by Viki Mejia RN. dsf 10:45 Patient visited by Viki Mejia,MARY JO. dsf 11:16 Patient visited by Viki Mejia RN. dsf 11:41 Urine Culture Sent. dem1 11:41 UA Sent. dem1 12:14 Patient visited by Viki Mejia RN. dsf 12:18 Patient visited by Taya Sebastian PCA. ct3 12:48 Patient visited by Taya Sebastian PCA. ct3 13:56 No procedures done that require assistance. dsf 14:07 The patient / caregiver is instructed regarding the plan of care and ED course. dsf 14:09 Patient visited by Viki Mejia RN. dsf 14:39 [facility] [place] was scanned into [employer] and attached to record. lg 15:52 portable chest Returned. EDMS 16:37 CT Chest With Contrast Returned. EDMS 07/09 09:39 T-Sheet-- Draft Copy was scanned into [employer] and attached to record. gb 09:39 ECG/EKG was scanned into [employer] and attached to record. gb 09:39 Radiology Report was scanned into [employer] and attached to record. 20:04 EKG-ADULT Returned. EDMS Administered Medications: 07/08 09:51 Drug: morphine 2 mg [morphine 2 mg/mL intravenous cartridge (1 mL)] Route: IVP; Site: dsf left hand; 10:27 Follow up: Pain 2 Adult; see trend VS dsf 09:51 Drug: Ondansetron 4 mg [ondansetron HCl 2 mg/mL intravenous solution (2 mL)] Route: dsf IVP; Site: left hand; 13:00 Drug: heparin (Thrombolytic Protocol, 60 units/kg)) 3538.2 units [heparin (porcine) dsf 5,000 unit/mL injection solution (0.707 mL)] {Co-Signature: deysi (Jhoana Cardoza RN).} Route: IVP; Site: left hand; 13:20 Drug: Plavix - Clopidogrel 300 mg [clopidogrel 75 mg tablet (4 tabs)] Route: PO; dsf 13:20 Drug: heparin (Thrombolytic Protocol, 12 units/kg/hr)) 52443 units [heparin (porcine) dsf 25,000 unit/250 mL (100 unit/mL) in dextrose 5 % IV] {Co-Signature: deysi (Jhoana Cardoza RN).} Route: IV; Rate: 12 units/kg/hr; Site: left hand; 14:24 Follow up: IV Status: Infusion continued on transport dsf Intake: Order Results: Lab Order: B-Type Natiuretic Peptide; SPEC'M 07/08/16 09:04 Test: BRAIN NATRIURETIC PEPTIDE; Value: 244; Range: <100; Abnormal: Above high normal; Units: PG/ML; Status: F Lab Order: Basic Metabolic Profile; SPEC'M 07/08/16 09:04 Test: GLUCOSE, FASTING; Value: 97; Range: 80-110; Units: MG/DL; Status: F Test: BLOOD UREA NITROGEN; Value: 19; Range: 7-18; Abnormal: Above high normal; Units: MG/DL; Status: F Test: CREATININE FOR GFR; Value: 1.05; Range: 0.55-1.02; Abnormal: Above high normal; Units: MG/DL; Status: F Test: GLOMERULAR FILTRATION RATE; Value: 55.8; Range: >45; Status: F Test: SODIUM LEVEL; Value: 143; Range: 136-145; Units: MEQ/L; Status: F Test: POTASSIUM SERUM; Value: 4.5; Range: 3.5-5.1; Units: MEQ/L; Status: F Test: CHLORIDE LEVEL; Value: 104; Range: 98-107; Units: MEQ/L; Status: F Test: CARBON DIOXIDE LEVEL; Value: 29; Range: 21-32; Units: MEQ/L; Status: F Test: ANION GAP; Value: 10; Range: 8-16; Units: MEQ/L; Status: F Test: CALCIUM LEVEL; Value: 8.7; Range: 8.8-10.2; Abnormal: Below low normal; Units: MG/DL; Status: F Test Note: ; Units are mL/min/1.73 m2 Chronic Kidney Disease Staging per NKF: Stage I & II GFR >=60 Normal to Mildly Decreased Stage III GFR 30-59 Moderately Decreased Stage IV GFR 15-29 Severely Decreased Stage V GFR <15 Very Little GFR Left ESRD GFR <15 on GAS DESULFURIZER Lab Order: CBC with Diff; SPEC'M 07/08/16 09:04 Test: WHITE BLOOD COUNT; Value: 5.7; Range: 4.0-10.0; Units: K/mm3; Status: F Test: RED BLOOD COUNT; Value: 3.59; Range: 4.00-5.40; Abnormal: Below low normal; Units: M/mm3; Status: F Test: HEMOGLOBIN; Value: 10.8; Range: 12.0-16.0; Abnormal: Below low normal; Units: g/dl; Status: F Test: HEMATOCRIT; Value: 32.7; Range: 36.0-47.0; Abnormal: Below low normal; Units: %; Status: F Test: MEAN CORPUSCULAR VOLUME; Value: 91.0; Range: 80.0-96.0; Units: fl; Status: F Test: MEAN CORPUSCULAR HEMOGLOBIN; Value: 30.1; Range: 27.0-33.0; Units: pg; Status: F Test: MEAN CORPUSCULAR HGB CONC; Value: 33.1; Range: 32.0-36.5; Units: g/dl; Status: F Test: RED CELL DISTRIBUTION WIDTH; Value: 12.8; Range: 11.5-14.5; Units: %; Status: F Test: PLATELET COUNT, AUTOMATED; Value: 176; Range: 150-450; Units: k/mm3; Status: F Test: NEUTROPHILS %; Value: 63.0; Range: 36.0-66.0; Units: %; Status: F Test: LYMPH %; Value: 22.5; Range: 24.0-44.0; Abnormal: Below low normal; Units: %; Status: F Test: MONO %; Value: 4.7; Range: 0.0-5.0; Units: %; Status: F Test: EOS %; Value: 6.0; Range: 0.0-3.0; Abnormal: Above high normal; Units: %; Status: F Test: BASO %; Value: 0.6; Range: 0.0-1.0; Units: %; Status: F Test: LARGE UNSTAINED CELL %; Value: 3.2; Range: 0.0-4.0; Units: %; Status: F Test: NEUTROPHILS #; Value: 3.6; Range: 1.8-7.7; Units: K/mm3; Status: F Test: LYMPH #; Value: 1.3; Range: 1.5-4.5; Abnormal: Below low normal; Units: K/mm3; Status: F Test: MONO #; Value: 0.3; Range: 0.0-0.8; Units: K/mm3; Status: F Test: EOS #; Value: 0.3; Range: 0.0-0.50; Units: K/mm3; Status: F Test: BASO #; Value: 0.0; Range: 0.0-0.2; Units: K/mm3; Status: F Test: LARGE UNSTAINED CELL #; Value: 0.2; Range: 0.0-0.4; Units: K/mm3; Status: F Lab Order: Cardiac Injury Profile; SPEC'M 07/08/16 09:04 Test: CPK CREATINE PHOSPHOKINASE; Value: 86; Range: 26-192; Units: U/L; Status: F Test: CK-MB VALUE MASS; Value: 1.5; Range: 0.0-3.6; Units: NG/ML; Status: F Test: MB/CK RELATIVE INDEX; Value: 1.74; Range: < OR =4; Status: F Test Note: ; DIAGNOSIS CRITERIA MMB ng/ml Relative Index (RI) NON-AMI < or = 5 N/A BILLY ZONE > 5 < or = 4 AMI > 5 > 4 Lab Order: Prothrombin Time Profile\E\INR; SPEC'M 07/08/16 09:04 Test: PROTHROMBIN TIME; Value: 14.2; Range: 12.3-14.5; Units: SECONDS; Status: F Test: INR; Value: 1.09; Status: F Test Note: ; THERAPUTIC HUMAN INR VALUES INDICATIONS NORMAL RANGES PROPHYLAXIS/TREATMENT OF: VENOUS THROMBOSIS 2.0-3.0 PULMONARY EMBOLISM 2.0-3.0 PREVENTION OF SYSTEMIC EMBOLISM FROM: TISSUE HEART VALVES 2.0-3.0 ACUTE MYOCARDIAL INFARCTION 2.0-3.0 VALVULAR HEART DISEASE 2.0-3.0 ATRIAL FIBRILLATION 2.0-3.0 MECHANICAL VALVES(HIGH RISK) 2.5-3.5 RECURRENT MYOCARDIAL INFARCTION 2.5-3.5 Lab Order: Troponin; SPEC' 07/08/16 09:04 Test: TROPONIN I; Value: 0.03; Range: < 0.10; Units: NG/ML; Status: F Test Note: ; Troponin I Reference Interval for [employer] LOCI: 99th Percentile= 0.00-0.045 ng/ml Risk Stratification: <= 0.10 ng/ml Decreased Risk for Adverse Clinical Events. 0.10-1.50 ng/ml Increased Risk for Adverse Clinical Events. Evaluation of additional criterion and/or repeat testing in 2-6 hours is suggested to rule out myocardial damage. >= 1.50 ng/ml Indicative of Myocardial Injury. Lab Order: CARDIAC MARKER PANEL; SPEC'M 07/08/16 11:28 Test: CPK CREATINE PHOSPHOKINASE; Value: 80; Range: 26-192; Units: U/L; Status: F Test: CK-MB VALUE MASS; Value: 1.7; Range: 0.0-3.6; Units: NG/ML; Status: F Test: MB/CK RELATIVE INDEX; Value: 2.12; Range: < OR =4; Status: F Test: TROPONIN I; Value: 0.25; Range: < 0.10; Abnormal: High; Units: NG/ML; Status: F Test Note: ; DIAGNOSIS CRITERIA MMB ng/ml Relative Index (RI) NON-AMI < or = 5 N/A BILLY ZONE > 5 < or = 4 AMI > 5 > 4 Lab Order: UA; SPEC'M 07/08/16 11:39 Test: APPEARANCE, URINE; Value: HAZY; Range: CLEAR; Status: F Test: COLOR, URINE; Value: YELLOW; Range: YELLOW; Status: F Test: PH,URINE; Value: 6.0; Range: 5.0-9.0; Units: UNITS; Status: F Test: SPECIFIC GRAVITY URINE AUTO; Value: 1.020; Range: 1.002-1.035; Status: F Test: PROTEIN, URINE AUTO; Value: NEGATIVE; Range: NEGATIVE; Units: mg/dL; Status: F Test: GLUCOSE, URINE (UA) AUTO; Value: NEGATIVE; Range: NEGATIVE; Units: mg/dL; Status: F Test: KETONE, URINE AUTO; Value: NEGATIVE; Range: NEGATIVE; Units: mg/dL; Status: F Test: UROBILINOGEN, URINE AUTO; Value: 0.2; Range: 0.0-2.0; Units: mg/dL; Status: F Test: BILIRUBIN, URINE AUTO; Value: NEGATIVE; Range: NEGATIVE; Status: F Test: NITRITE, URINE AUTO; Value: POSITIVE; Range: NEGATIVE; Status: F Test: LEUKOCYTE ESTERASE, URINE AUTO; Value: 1+; Range: NEGATIVE; Abnormal: Above high normal; Status: F Test: BLOOD, URINE BLOOD; Value: 1+; Range: NEGATIVE; Abnormal: Above high normal; Status: F Test: WBC, URINE AUTO; Value: 4; Range: 0-3; Abnormal: Above high normal; Units: /HPF; Status: F Test: RBC, URINE AUTO; Value: 2; Range: 0-3; Units: /HPF; Status: F Test: BACTERIA, URINE AUTO; Value: NEGATIVE; Range: NEGATIVE; Status: F Test: SQUAMOUS EPITHELIAL CELL UR AU; Value: 0; Range: 0-6; Units: /HPF; Status: F Test: MUCUS, URINE; Value: SMALL; Range: NEGATIVE; Status: F Test: HYALINE CAST, URINE AUTO; Value: 0; Range: 0-1; Units: /LPF; Status: F Lab Order: Urine Culture; SPEC'M 07/08/16 11:39 Test: URINE CULTURE; Value: ORGANISM 1: KLEBSIELLA PNEUMONIAE; Status: F Test: URINE CULTURE; Value: KLEBSIELLA PNEUMONIAE; Status: F Test: URINE CULTURE; Value: COLONY COUNT CFU/ml >100,000; Status: F Test: URINE CULTURE; Value: GRAM NEG SENSI - VITEK 80; Status: F Test: URINE CULTURE; Value: Method: VIT2; Status: F Test: URINE CULTURE; Value: EXTD BRD SPCTRM BETA LACTAMASE -; Status: F Test: URINE CULTURE; Value: TRIMETHOPRIM/SULFAMETHOXAZOLE <=20 S; Status: F Test: URINE CULTURE; Value: AMPICILLIN 16 R; Status: F Test: URINE CULTURE; Value: GENTAMICIN <=1 S; Status: F Test: URINE CULTURE; Value: NITROFURANTOIN <=16 S; Status: F Test: URINE CULTURE; Value: CEFAZOLIN <=4 S; Status: F Test: URINE CULTURE; Value: LEVOFLOXACIN <=0.12 S; Status: F Test: URINE CULTURE; Value: TOBRAMYCIN <=1 S; Status: F Test: URINE CULTURE; Value: CEFTRIAXONE <=1 S; Status: F Test: URINE CULTURE; Value: CEFTAZIDIME <=1 S; Status: F Test: URINE CULTURE; Value: AMPICILLIN/SULBACTAM <=2 S; Status: F Test: URINE CULTURE; Value: PIPERACILLIN/TAZOBACTAM <=4 S; Status: F Test: URINE CULTURE; Value: AZTREONAM <=1 S; Status: F Test: URINE CULTURE; Value: ERTAPENEM <=0.5 S; Status: F Test: URINE CULTURE; Value: MEROPENEM <=0.25 S; Status: F Test: URINE CULTURE; Value: TIGECYCLINE <=0.5 S; Status: F Test: URINE CULTURE; Value: CEFEPIME <=1 S; Status: F Radiology Order: EKG-ADULT Test: EKG-ADULT REASON FOR EXAMINATION: Chest Pain; Stationary ECG Study; [facility] - ED; ; Test Date: 2016-07-08; Pat Name: JULISSA REBOLLEDO Department:; Room: -; Gender: F Locate Technician: ct; : 1950 Requested By: Mariam Barajas; Order Number: [id number] Reading MD: Mariam Barajas; Measurements; Intervals [place]; Rate: 77 P: 32; NH: 258 QRS: -34; QRSD: 99 T: 21; QT: 366; QTc: 416; Interpretive Statements; SINUS RHYTHM WITH FIRST DEGREE AV BLOCK; MARKED LEFT AXIS DEVIATION; SEPTAL MYOCARDIAL INFARCTION, OF INDETERMINATE AGE; INFERIOR INFARCT, OLD; INCREASED RATE 07/13/12; Electronically Signed On 07-09-2016 19:33:05 EST by Mariam Barajas; Radiology Order: portable chest Test: portable chest REASON FOR EXAMINATION: Chest Pain; CHEST, ONE VIEW:; ; HISTORY: Chest pain.; ; COMPARISON: 06/13/2011.; ; Increased density is present in the left lower lobe consistent with atelectasis; or scar. The right lung is clear. The cardiac silhouette is enlarged. A thoracic; aortic aneurysm is present that appears unchanged compared to the previous study.; The pulmonary vasculature is normal in appearance.; ; IMPRESSION:; ; 1. Left lower lobe atelectasis or scar.; ; 2. Cardiomegaly.; ; 3. Thoracic aortic aneurysm, unchanged compared to the previous study.; ; ; Signed by; Vitaly Rodríguez MD 07/08/2016 03:39 P; Radiology Order: CT Chest With Contrast Test: CT Chest With Contrast REASON FOR EXAMINATION: R/O dissection; CT chest with IV contrast, 07/08/2016:; ; Comparison: CT chest without contrast 06/26/2016, CTA chest 08/16/2010.; ; Indication: Exclude aortic dissection.; ; There is bibasilar fibrotic interstitial scarring and The patient has history of; type A aortic dissection which is again noted.; ; Dimension of the aortic root is 4.2 cm transverse dimension, distal to aortic; valve and not significantly changed from prior studies.; ; Dissection involves proximal aortic arch, distal aortic arch and descending; thoracic aorta consistent with type A dissection. Large lateral false lumen is; seen within the aortic arch and descending thoracic aorta. 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 there is a large lateral; false lumen. 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 SMA arises from true lumen of aorta. Abdominal aorta; measures 3.3 cm AP x 3.2 cm transverse dimension at the origin of the celiac; artery, previously 3 cm AP x 3.1 cm transverse dimension on 08/16/2010. There is; no retroperitoneal hematoma identified.; ; There are no pathologically enlarged mediastinal nodes. Bullous changes are noted; bilaterally. Interstitial fibrotic scarring is seen with lower lobe; predominance.; ; Visualized portions of the liver, spleen, and pancreas are unremarkable. There; are no visualized gallstones. The adrenals are normal. Moderate atrophic changes; are seen within the left kidney with progression.; ; Impression:; ; Type A aortic dissection again identified with a large lateral false lumen. There; has been minimal- mild increase in size when compared with prior studies dating; back to 2010. 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 Superior mesenteric artery arises from true lumen.; ; Case discussed with Dr. Lambert in ED on 07/08/16 at 1120 am.; ; Moderate atrophic changes within left kidney.; ; No extraluminal hematoma is identified within the chest.; ; ; Signed by; Geri Merino MD 07/08/2016 08:06 P; Outcome: 13:07 ER care complete, transfer ordered by Provider. sd1 13:51 Admission hand-off: Report called to Filitsa Telonis RN. dsf 13:56 CT Study completed. dsf 14:22 Discharge Assessment: Patient awake, alert and oriented x 3. No cognitive and/or dsf functional deficits noted. Patient verbalized understanding of disposition instructions. patient administered narcotics - yes. Patient was admitted to the hospital or transferred to another facility. The following High Risk Discharge criteria are identified: None. Transferred to [facility]. by EMS ground report to accompanying personnel Jorge Huerta AEMAP, David Santiago AEMAP, Transfer form completed. x-rays sent w/ patient. Condition: stable. Property :Personal belongings accompany Pt. 14:25 Patient left the ED. dsf Addendum: 07/10/2016 16:27 Narrative: Urine culture results faxed to [facility] where pt was transferred.[facility] Signatures: Dispatcher [employer] EDMS Mariam Barajas MD MD sd1 Bianka Baker, Motor And Generator Assembler Unit lbd Jhoana Cardoza RN RN Skylar Law RN RN [facility] Gris Oakley, Reg Reg gb Ganter, LoriLee, Reg Reg lg Sebastian, Taya, BRINE PLANT OPERATOR BRINE PLANT OPERATOR ct3 Viki MejiaRN RN [facility] Vivek Fall1 Jhoana Cardoza RN [facility] Corrections: (The following items were deleted from the chart) 07/08 09:10 09:06 Temp 97.1F Oral; ct3 ct3 13:57 13:56 No special radiology studies were completed dsf dsf Chart Complete MTDD
--- NOTE | 2016-07-10 16:30 | EDDOCDS ---
Physician Documentation [facility] Name: Cynthia Rebolledo Age: 65 yrs Sex: Female : 1950 Arrival Date: 07/08/2016 Time: 08:53 Bed 4 Private MD: Jayson Cox A. Disposition: 07/08/16 13:07 Transfer ordered to [facility]. Diagnosis is Unstable angina. - Reason for transfer: Higher level of care. - Accepting physician is Dr. Jackson. - Condition is Stable. - Problem is new. - Symptoms have improved. Historical: - Allergies: Codeine Sulfate (Unknown); orange (Upset stomach); - Home Meds: 1. clonidine HCl 0.1 mg Oral tab 1 tab 3 times per day (Last dose: 07/08/2016 05:30) 2. verapamil 180 mg Oral C24P 1 cap nightly (Last dose: 07/07/2016) 3. labetalol 200 mg Oral tab 1 tab 2 times per day (Last dose: 07/08/2016 05:30) 4. losartan-hydrochlorothiazide 100-25 mg oral tab 1 tab once daily (Last dose: 07/08/2016 05:30) 5. atorvastatin 40 mg oral tab 1 tab every 2 days (Last dose: 07/06/2016) 6. docusate sodium 100 mg Oral cap 1 cap 2 times per day (Last dose: 07/08/2016 05:30) 7. aspirin 325 mg Oral tab 1 tab once daily (Last dose: 07/08/2016 05:30) 8. ferrous sulfate 325 mg (65 mg iron) Oral tab 325 mg daily (Last dose: 07/08/2016 05:30) 9. Vitamin D Oral 5000 unit twice a day (Last dose: 07/07/2016) 10. cranberry 400 mg oral cap daily (Last dose: 07/07/2016) 11. echinacea 400 mg oral cap daily (Last dose: 07/07/2016) 12. Fish Oil 1,000 mg Oral cap daily (Last dose: 07/07/2016) 13. multivitamin Oral tab 1 tablet daily (Last dose: 07/07/2016) 14. Hair,Skin and Nails oral tab daily (Last dose: 07/07/2016) 15. garlic oral cap twice a day (Last dose: 07/07/2016) 16. Calcium Gluconate Oral daily (Last dose: 07/07/2016) - PMHx: Hypertension; Hypercholesterolemia; aortic aneurysm; - PSHx: repair aortic aneurysm; removal tumor ear drum left; right elbow surgery; Tubal ligation; - Social history: Smoking status: Patient states former smoker of tobacco. No barriers to communication noted, The patient speaks fluent Amharic. - Family history: Not pertinent. - : The pt / caregiver states he / she is not on anticoagulants. Home medication list is obtained from the patient. - Exposure Risk Screening:: None identified. Vital Signs: 07/08 09:02 BP 154 / 70 LA (auto/); dsf 09:03 Pulse 82 MON; Pulse Ox 96% ; dsf 09:04 BP 140 / 67 RA (auto/); dsf 09:05 BP 145 / 73 (auto/); dsf 09:05 Pulse 84 MON; Pulse Ox 95% ; dsf 09:06 BP 145 / 73; Pulse 70; Resp 18; Temp 97.1(O); Weight 58.97 kg / 130.01 lbs (R); Height ct3 5 ft. 6 in. (167.64 cm) (R); Pain 5/10; 09:06 Pulse 84 MON; Pulse Ox 95% ; dsf 09:20 BP 135 / 60 (auto/); dsf 09:21 Pulse 64 MON; Pulse Ox 100% ; dsf 09:35 BP 132 / 61 (auto/); dsf 09:36 Pulse 56 MON; Pulse Ox 100% ; dsf 09:50 BP 126 / 62 (auto/); dsf 09:51 Pulse 70 MON; Pulse Ox 100% ; dsf 10:05 BP 129 / 60 (auto/); dsf 10:06 Pulse 54 MON; Pulse Ox 100% ; dsf 10:25 BP 127 / 60 (auto/); dsf 10:25 Pulse 60 MON; Pulse Ox 98% ; dsf 10:27 Pain 2/10; dsf 10:50 BP 124 / 58 (auto/); dsf 10:51 Pulse 54 MON; Pulse Ox 100% ; dsf 11:05 BP 120 / 58 (auto/); dsf 11:06 Pulse 56 MON; Pulse Ox 100% ; dsf 11:20 BP 121 / 57 (auto/); dsf 11:21 Pulse 58 MON; Pulse Ox 100% ; dsf 11:35 BP 125 / 66 (auto/); dsf 11:36 Pulse 60 MON; Pulse Ox 99% ; dsf 11:50 BP 121 / 64 (auto/); dsf 11:51 Pulse 56 MON; Pulse Ox 100% ; dsf 12:05 BP 122 / 57 (auto/); dsf 12:06 Pulse 56 MON; Pulse Ox 100% ; dsf 12:16 BP 127 / 59 (auto/); dsf 12:17 Temp 97.1(O); ct3 12:17 Pulse 60 MON; Pulse Ox 100% ; dsf 12:20 BP 131 / 61 (auto/); dsf 12:21 Pulse 56 MON; Pulse Ox 100% ; dsf 12:35 BP 130 / 60 (auto/); dsf 12:36 Pulse 86 MON; Pulse Ox 100% ; dsf 12:50 Pulse 62 MON; Pulse Ox 100% ; dsf 12:50 BP 136 / 61 (auto/); dsf 12:51 Pulse 60 MON; Pulse Ox 100% ; dsf 13:05 BP 137 / 64 (auto/); dsf 13:05 Pulse 68 MON; Pulse Ox 99% ; dsf 13:20 BP 116 / 54 (auto/); dsf 13:21 Pulse 68 MON; Pulse Ox 93% ; dsf 13:52 BP 137 / 62 (auto/); dsf 13:52 Pulse 64 MON; Pulse Ox 96% ; dsf 13:57 BP 134 / 57 (auto/); dsf 13:57 Pulse 66 MON; Pulse Ox 96% ; dsf 14:07 BP 131 / 63 (auto/); dsf 14:08 Pulse 66 MON; Pulse Ox 95% ; dsf 14:21 BP 134 / 57; Pulse 67; Resp 18; Temp 98.2(O); Pulse Ox 95% on 4 lpm NC; Pain 2/10; dsf 09:06 Body Mass Index 20.98 (58.97 kg, 167.64 cm) ct3 MDM: 08:57 ECG WITH READING ER PHYS+CARDIAG ordered. EDMS 09:09 Catalytic Converter Operator/Pulse Ox/q 30 min VS ordered. sd1 09:09 IV Saline Lock ordered. sd1 09:09 Rhythm Strip to chart ordered. sd1 09:09 Undress patient appropriately for examination ordered. sd1 09:09 Misc. Nursing Order ordered. sd1 09:10 B-Type Natiuretic Peptide Ordered. EDMS 09:10 Basic Metabolic Profile Ordered. EDMS 09:10 CBC with Diff Ordered. EDMS 09:10 Cardiac Injury Profile Ordered. EDMS 09:10 Prothrombin Time Profile\E\INR Ordered. EDMS 09:10 Troponin Ordered. EDMS 09:10 portable chest Ordered. EDMS 09:42 B-Type Natiuretic Peptide Reviewed. sd1 09:42 CBC with Diff Reviewed. sd1 09:42 Prothrombin Time Profile\E\INR Reviewed. sd1 09:44 morphine 2 mg IVP every 15 minutes; Document pain score/vitals after each dose (Hold if sd1 SBP < 90mmHg) x3 ordered. 09:44 Ondansetron 4 mg IVP once ordered. sd1 09:44 CT Chest With Contrast Ordered. EDMS 10:12 Basic Metabolic Profile Reviewed. sd1 10:12 Cardiac Injury Profile Reviewed. sd1 10:12 Troponin Reviewed. sd1 10:13 Redraw CIP &Troponin (put time in details section) ordered. sd1 10:34 Redraw CIP &Troponin (put time in details section) complete. lbd 10:46 CARDIAC MARKER PANEL Ordered. EDMS 11:32 UA Ordered. EDMS 11:32 Urine Culture Ordered. EDMS 12:18 UA Reviewed. sd1 12:21 CARDIAC MARKER PANEL Reviewed. sd1 12:31 BED REQUEST+ADM ordered. EDMS 13:08 Plavix - Clopidogrel 300 mg PO once ordered. sd1 13:08 heparin (Thrombolytic Protocol, 60 units/kg)) 60 units/kg IVP once; 3400 units IV sd1 ordered. 13:08 heparin (Thrombolytic Protocol, 12 units/kg/hr)) 39646 units IV at 12 units/kg/hr once; sd1 690units/hr ordered. 13:41 Financial registration complete. lg 14:39 [facility] Payment Agreement was scanned into [employer] and attached to record. lg 07/09 09:39 T-Sheet-- Draft Copy was scanned into [employer] and attached to record. gb 09:39 ECG/EKG was scanned into [employer] and attached to record. gb 09:39 Radiology Report was scanned into [employer] and attached to record. gb Administered Medications: 07/08 09:51 Drug: morphine 2 mg [morphine 2 mg/mL intravenous cartridge (1 mL)] Route: IVP; Site: dsf left hand; 10:27 Follow up: Pain 2/10 Adult; see trend VS dsf 09:51 Drug: Ondansetron 4 mg [ondansetron HCl 2 mg/mL intravenous solution (2 mL)] Route: dsf IVP; Site: left hand; 13:00 Drug: heparin (Thrombolytic Protocol, 60 units/kg)) 3538.2 units [heparin (porcine) dsf 5,000 unit/mL injection solution (0.707 mL)] {Co-Signature: deysi (Jhoana Cardoza RN).} Route: IVP; Site: left hand; 13:20 Drug: Plavix - Clopidogrel 300 mg [clopidogrel 75 mg tablet (4 tabs)] Route: PO; dsf 13:20 Drug: heparin (Thrombolytic Protocol, 12 units/kg/hr)) 20925 units [heparin (porcine) dsf 25,000 unit/250 mL (100 unit/mL) in dextrose 5 % IV] {Co-Signature: deysi (Jhoana Cardoza RN).} Route: IV; Rate: 12 units/kg/hr; Site: left hand; 14:24 Follow up: IV Status: Infusion continued on transport dsf Signatures: Dispatcher [employer] Mariam Lazaro MD MD sd1 Bianka Baker, Salesperson Handbags Unit lbd Jhoana Cardoza RN RN kpj Gris Oakley, Reg Reg gb Ezequiel Kelly, Reg Reg lg Viki MejiaRN RN dsf Jhoana jo The chart was reviewed and I authenticate all verbal orders and agree with the evaluation and treatment provided.Attachments: 14:39 [facility] Payment Agreement lg 07/09 09:39 T-Sheet-- Draft Copy gb 09:39 ECG/EKG gb Chart Complete MTDD
--- NOTE | 2016-07-10 16:36 | EDDOCDS ---
Physician Documentation [facility] Name: Cynthia Rebolledo Age: 65 yrs Sex: Female : 1950 Arrival Date: 07/08/2016 Time: 08:53 Bed 4 Private MD: Jayson Cox A. Disposition: 07/08/16 13:07 Transfer ordered to [facility]. Diagnosis is Unstable angina. - Reason for transfer: Higher level of care. - Accepting physician is Dr. Jackson. - Condition is Stable. - Problem is new. - Symptoms have improved. Historical: - Allergies: Codeine Sulfate (Unknown); orange (Upset stomach); - Home Meds: 1. clonidine HCl 0.1 mg Oral tab 1 tab 3 times per day (Last dose: 07/08/2016 05:30) 2. verapamil 180 mg Oral C24P 1 cap nightly (Last dose: 07/07/2016) 3. labetalol 200 mg Oral tab 1 tab 2 times per day (Last dose: 07/08/2016 05:30) 4. losartan-hydrochlorothiazide 100-25 mg oral tab 1 tab once daily (Last dose: 07/08/2016 05:30) 5. atorvastatin 40 mg oral tab 1 tab every 2 days (Last dose: 07/06/2016) 6. docusate sodium 100 mg Oral cap 1 cap 2 times per day (Last dose: 07/08/2016 05:30) 7. aspirin 325 mg Oral tab 1 tab once daily (Last dose: 07/08/2016 05:30) 8. ferrous sulfate 325 mg (65 mg iron) Oral tab 325 mg daily (Last dose: 07/08/2016 05:30) 9. Vitamin D Oral 5000 unit twice a day (Last dose: 07/07/2016) 10. cranberry 400 mg oral cap daily (Last dose: 07/07/2016) 11. echinacea 400 mg oral cap daily (Last dose: 07/07/2016) 12. Fish Oil 1,000 mg Oral cap daily (Last dose: 07/07/2016) 13. multivitamin Oral tab 1 tablet daily (Last dose: 07/07/2016) 14. Hair,Skin and Nails oral tab daily (Last dose: 07/07/2016) 15. garlic oral cap twice a day (Last dose: 07/07/2016) 16. Calcium Gluconate Oral daily (Last dose: 07/07/2016) - PMHx: Hypertension; Hypercholesterolemia; aortic aneurysm; - PSHx: repair aortic aneurysm; removal tumor ear drum left; right elbow surgery; Tubal ligation; - Social history: Smoking status: Patient states former smoker of tobacco. No barriers to communication noted, The patient speaks fluent French. - Family history: Not pertinent. - : The pt / caregiver states he / she is not on anticoagulants. Home medication list is obtained from the patient. - Exposure Risk Screening:: None identified. Vital Signs: 07/08 09:02 BP 154 / 70 LA (auto/); dsf 09:03 Pulse 82 MON; Pulse Ox 96% ; dsf 09:04 BP 140 / 67 RA (auto/); dsf 09:05 BP 145 / 73 (auto/); dsf 09:05 Pulse 84 MON; Pulse Ox 95% ; dsf 09:06 BP 145 / 73; Pulse 70; Resp 18; Temp 97.1(O); Weight 58.97 kg / 130.01 lbs (R); Height ct3 5 ft. 6 in. (167.64 cm) (R); Pain 5/10; 09:06 Pulse 84 MON; Pulse Ox 95% ; dsf 09:20 BP 135 / 60 (auto/); dsf 09:21 Pulse 64 MON; Pulse Ox 100% ; dsf 09:35 BP 132 / 61 (auto/); dsf 09:36 Pulse 56 MON; Pulse Ox 100% ; dsf 09:50 BP 126 / 62 (auto/); dsf 09:51 Pulse 70 MON; Pulse Ox 100% ; dsf 10:05 BP 129 / 60 (auto/); dsf 10:06 Pulse 54 MON; Pulse Ox 100% ; dsf 10:25 BP 127 / 60 (auto/); dsf 10:25 Pulse 60 MON; Pulse Ox 98% ; dsf 10:27 Pain 2/10; dsf 10:50 BP 124 / 58 (auto/); dsf 10:51 Pulse 54 MON; Pulse Ox 100% ; dsf 11:05 BP 120 / 58 (auto/); dsf 11:06 Pulse 56 MON; Pulse Ox 100% ; dsf 11:20 BP 121 / 57 (auto/); dsf 11:21 Pulse 58 MON; Pulse Ox 100% ; dsf 11:35 BP 125 / 66 (auto/); dsf 11:36 Pulse 60 MON; Pulse Ox 99% ; dsf 11:50 BP 121 / 64 (auto/); dsf 11:51 Pulse 56 MON; Pulse Ox 100% ; dsf 12:05 BP 122 / 57 (auto/); dsf 12:06 Pulse 56 MON; Pulse Ox 100% ; dsf 12:16 BP 127 / 59 (auto/); dsf 12:17 Temp 97.1(O); ct3 12:17 Pulse 60 MON; Pulse Ox 100% ; dsf 12:20 BP 131 / 61 (auto/); dsf 12:21 Pulse 56 MON; Pulse Ox 100% ; dsf 12:35 BP 130 / 60 (auto/); dsf 12:36 Pulse 86 MON; Pulse Ox 100% ; dsf 12:50 Pulse 62 MON; Pulse Ox 100% ; dsf 12:50 BP 136 / 61 (auto/); dsf 12:51 Pulse 60 MON; Pulse Ox 100% ; dsf 13:05 BP 137 / 64 (auto/); dsf 13:05 Pulse 68 MON; Pulse Ox 99% ; dsf 13:20 BP 116 / 54 (auto/); dsf 13:21 Pulse 68 MON; Pulse Ox 93% ; dsf 13:52 BP 137 / 62 (auto/); dsf 13:52 Pulse 64 MON; Pulse Ox 96% ; dsf 13:57 BP 134 / 57 (auto/); dsf 13:57 Pulse 66 MON; Pulse Ox 96% ; dsf 14:07 BP 131 / 63 (auto/); dsf 14:08 Pulse 66 MON; Pulse Ox 95% ; dsf 14:21 BP 134 / 57; Pulse 67; Resp 18; Temp 98.2(O); Pulse Ox 95% on 4 lpm NC; Pain 2/10; dsf 09:06 Body Mass Index 20.98 (58.97 kg, 167.64 cm) ct3 MDM: 08:57 ECG WITH READING ER PHYS+CARDIAG ordered. EDMS 09:09 Retail Merchandising Coordinator/Pulse Ox/q 30 min VS ordered. sd1 09:09 IV Saline Lock ordered. sd1 09:09 Rhythm Strip to chart ordered. sd1 09:09 Undress patient appropriately for examination ordered. sd1 09:09 Misc. Nursing Order ordered. sd1 09:10 B-Type Natiuretic Peptide Ordered. EDMS 09:10 Basic Metabolic Profile Ordered. EDMS 09:10 CBC with Diff Ordered. EDMS 09:10 Cardiac Injury Profile Ordered. EDMS 09:10 Prothrombin Time Profile\E\INR Ordered. EDMS 09:10 Troponin Ordered. EDMS 09:10 portable chest Ordered. EDMS 09:42 B-Type Natiuretic Peptide Reviewed. sd1 09:42 CBC with Diff Reviewed. sd1 09:42 Prothrombin Time Profile\E\INR Reviewed. sd1 09:44 morphine 2 mg IVP every 15 minutes; Document pain score/vitals after each dose (Hold if sd1 SBP < 90mmHg) x3 ordered. 09:44 Ondansetron 4 mg IVP once ordered. sd1 09:44 CT Chest With Contrast Ordered. EDMS 10:12 Basic Metabolic Profile Reviewed. sd1 10:12 Cardiac Injury Profile Reviewed. sd1 10:12 Troponin Reviewed. sd1 10:13 Redraw CIP &Troponin (put time in details section) ordered. sd1 10:34 Redraw CIP &Troponin (put time in details section) complete. lbd 10:46 CARDIAC MARKER PANEL Ordered. EDMS 11:32 UA Ordered. EDMS 11:32 Urine Culture Ordered. EDMS 12:18 UA Reviewed. sd1 12:21 CARDIAC MARKER PANEL Reviewed. sd1 12:31 BED REQUEST+ADM ordered. EDMS 13:08 Plavix - Clopidogrel 300 mg PO once ordered. sd1 13:08 heparin (Thrombolytic Protocol, 60 units/kg)) 60 units/kg IVP once; 3400 units IV sd1 ordered. 13:08 heparin (Thrombolytic Protocol, 12 units/kg/hr)) 74561 units IV at 12 units/kg/hr once; sd1 690units/hr ordered. 13:41 Financial registration complete. lg 14:39 [facility] [place] Agreement was scanned into [employer] and attached to record. lg 07/09 09:39 T-Sheet-- Draft Copy was scanned into [employer] and attached to record. gb 09:39 ECG/EKG was scanned into [employer] and attached to record. gb 09:39 Radiology Report was scanned into [employer] and attached to record. gb Administered Medications: 07/08 09:51 Drug: morphine 2 mg [morphine 2 mg/mL intravenous cartridge (1 mL)] Route: IVP; Site: dsf left hand; 10:27 Follow up: Pain 2/10 Adult; see trend VS dsf 09:51 Drug: Ondansetron 4 mg [ondansetron HCl 2 mg/mL intravenous solution (2 mL)] Route: dsf IVP; Site: left hand; 13:00 Drug: heparin (Thrombolytic Protocol, 60 units/kg)) 3538.2 units [heparin (porcine) dsf 5,000 unit/mL injection solution (0.707 mL)] {Co-Signature: deysi (Jhoana Cardoza RN).} Route: IVP; Site: left hand; 13:20 Drug: Plavix - Clopidogrel 300 mg [clopidogrel 75 mg tablet (4 tabs)] Route: PO; dsf 13:20 Drug: heparin (Thrombolytic Protocol, 12 units/kg/hr)) 42024 units [heparin (porcine) dsf 25,000 unit/250 mL (100 unit/mL) in dextrose 5 % IV] {Co-Signature: deysi (Jhoana Cardoza RN).} Route: IV; Rate: 12 units/kg/hr; Site: left hand; 14:24 Follow up: IV Status: Infusion continued on transport dsf Signatures: Dispatcher [employer] Mariam Lazaro MD MD sd1 Bianka Baker, Equity Director Unit lbd Jhoana Cardoza RN RN kpj Gris Oakley, Reg Reg gb Ezequiel Kelly, Reg Reg lg Viki MejiaRN RN dsf Jhoana jo The chart was reviewed and I authenticate all verbal orders and agree with the evaluation and treatment provided.Attachments: 14:39 [facility] Payment Agreement lg 07/09 09:39 T-Sheet-- Draft Copy gb 09:39 ECG/EKG gb Chart Complete MTDD
--- NOTE | 2016-07-10 16:36 | EDDOCDS ---
Physician Documentation [facility] Name: Cynthia Rebolledo Age: 65 yrs Sex: Female : 1950 Arrival Date: 07/08/2016 Time: 08:53 Bed 4 Private MD: Jayson Cox A. Disposition: 07/08/16 13:07 Transfer ordered to [facility]. Diagnosis is Unstable angina. - Reason for transfer: Higher level of care. - Accepting physician is Dr. Jackson. - Condition is Stable. - Problem is new. - Symptoms have improved. Historical: - Allergies: Codeine Sulfate (Unknown); orange (Upset stomach); - Home Meds: 1. clonidine HCl 0.1 mg Oral tab 1 tab 3 times per day (Last dose: 07/08/2016 05:30) 2. verapamil 180 mg Oral C24P 1 cap nightly (Last dose: 07/07/2016) 3. labetalol 200 mg Oral tab 1 tab 2 times per day (Last dose: 07/08/2016 05:30) 4. losartan-hydrochlorothiazide 100-25 mg oral tab 1 tab once daily (Last dose: 07/08/2016 05:30) 5. atorvastatin 40 mg oral tab 1 tab every 2 days (Last dose: 07/06/2016) 6. docusate sodium 100 mg Oral cap 1 cap 2 times per day (Last dose: 07/08/2016 05:30) 7. aspirin 325 mg Oral tab 1 tab once daily (Last dose: 07/08/2016 05:30) 8. ferrous sulfate 325 mg (65 mg iron) Oral tab 325 mg daily (Last dose: 07/08/2016 05:30) 9. Vitamin D Oral 5000 unit twice a day (Last dose: 07/07/2016) 10. cranberry 400 mg oral cap daily (Last dose: 07/07/2016) 11. echinacea 400 mg oral cap daily (Last dose: 07/07/2016) 12. Fish Oil 1,000 mg Oral cap daily (Last dose: 07/07/2016) 13. multivitamin Oral tab 1 tablet daily (Last dose: 07/07/2016) 14. Hair,Skin and Nails oral tab daily (Last dose: 07/07/2016) 15. garlic oral cap twice a day (Last dose: 07/07/2016) 16. Calcium Gluconate Oral daily (Last dose: 07/07/2016) - PMHx: Hypertension; Hypercholesterolemia; aortic aneurysm; - PSHx: repair aortic aneurysm; removal tumor ear drum left; right elbow surgery; Tubal ligation; - Social history: Smoking status: Patient states former smoker of tobacco. No barriers to communication noted, The patient speaks fluent Estonian. - Family history: Not pertinent. - : The pt / caregiver states he / she is not on anticoagulants. Home medication list is obtained from the patient. - Exposure Risk Screening:: None identified. Vital Signs: 07/08 09:02 BP 154 / 70 LA (auto/); dsf 09:03 Pulse 82 MON; Pulse Ox 96% ; dsf 09:04 BP 140 / 67 RA (auto/); dsf 09:05 BP 145 / 73 (auto/); dsf 09:05 Pulse 84 MON; Pulse Ox 95% ; dsf 09:06 BP 145 / 73; Pulse 70; Resp 18; Temp 97.1(O); Weight 58.97 kg / 130.01 lbs (R); Height ct3 5 ft. 6 in. (167.64 cm) (R); Pain 5/10; 09:06 Pulse 84 MON; Pulse Ox 95% ; dsf 09:20 BP 135 / 60 (auto/); dsf 09:21 Pulse 64 MON; Pulse Ox 100% ; dsf 09:35 BP 132 / 61 (auto/); dsf 09:36 Pulse 56 MON; Pulse Ox 100% ; dsf 09:50 BP 126 / 62 (auto/); dsf 09:51 Pulse 70 MON; Pulse Ox 100% ; dsf 10:05 BP 129 / 60 (auto/); dsf 10:06 Pulse 54 MON; Pulse Ox 100% ; dsf 10:25 BP 127 / 60 (auto/); dsf 10:25 Pulse 60 MON; Pulse Ox 98% ; dsf 10:27 Pain 2/10; dsf 10:50 BP 124 / 58 (auto/); dsf 10:51 Pulse 54 MON; Pulse Ox 100% ; dsf 11:05 BP 120 / 58 (auto/); dsf 11:06 Pulse 56 MON; Pulse Ox 100% ; dsf 11:20 BP 121 / 57 (auto/); dsf 11:21 Pulse 58 MON; Pulse Ox 100% ; dsf 11:35 BP 125 / 66 (auto/); dsf 11:36 Pulse 60 MON; Pulse Ox 99% ; dsf 11:50 BP 121 / 64 (auto/); dsf 11:51 Pulse 56 MON; Pulse Ox 100% ; dsf 12:05 BP 122 / 57 (auto/); dsf 12:06 Pulse 56 MON; Pulse Ox 100% ; dsf 12:16 BP 127 / 59 (auto/); dsf 12:17 Temp 97.1(O); ct3 12:17 Pulse 60 MON; Pulse Ox 100% ; dsf 12:20 BP 131 / 61 (auto/); dsf 12:21 Pulse 56 MON; Pulse Ox 100% ; dsf 12:35 BP 130 / 60 (auto/); dsf 12:36 Pulse 86 MON; Pulse Ox 100% ; dsf 12:50 Pulse 62 MON; Pulse Ox 100% ; dsf 12:50 BP 136 / 61 (auto/); dsf 12:51 Pulse 60 MON; Pulse Ox 100% ; dsf 13:05 BP 137 / 64 (auto/); dsf 13:05 Pulse 68 MON; Pulse Ox 99% ; dsf 13:20 BP 116 / 54 (auto/); dsf 13:21 Pulse 68 MON; Pulse Ox 93% ; dsf 13:52 BP 137 / 62 (auto/); dsf 13:52 Pulse 64 MON; Pulse Ox 96% ; dsf 13:57 BP 134 / 57 (auto/); dsf 13:57 Pulse 66 MON; Pulse Ox 96% ; dsf 14:07 BP 131 / 63 (auto/); dsf 14:08 Pulse 66 MON; Pulse Ox 95% ; dsf 14:21 BP 134 / 57; Pulse 67; Resp 18; Temp 98.2(O); Pulse Ox 95% on 4 lpm NC; Pain 2/10; dsf 09:06 Body Mass Index 20.98 (58.97 kg, 167.64 cm) ct3 MDM: 08:57 ECG WITH READING ER PHYS+CARDIAG ordered. EDMS 09:09 Finished Yarn Examiner/Pulse Ox/q 30 min VS ordered. sd1 09:09 IV Saline Lock ordered. sd1 09:09 Rhythm Strip to chart ordered. sd1 09:09 Undress patient appropriately for examination ordered. sd1 09:09 Misc. Nursing Order ordered. sd1 09:10 B-Type Natiuretic Peptide Ordered. EDMS 09:10 Basic Metabolic Profile Ordered. EDMS 09:10 CBC with Diff Ordered. EDMS 09:10 Cardiac Injury Profile Ordered. EDMS 09:10 Prothrombin Time Profile\E\INR Ordered. EDMS 09:10 Troponin Ordered. EDMS 09:10 portable chest Ordered. EDMS 09:42 B-Type Natiuretic Peptide Reviewed. sd1 09:42 CBC with Diff Reviewed. sd1 09:42 Prothrombin Time Profile\E\INR Reviewed. sd1 09:44 morphine 2 mg IVP every 15 minutes; Document pain score/vitals after each dose (Hold if sd1 SBP < 90mmHg) x3 ordered. 09:44 Ondansetron 4 mg IVP once ordered. sd1 09:44 CT Chest With Contrast Ordered. EDMS 10:12 Basic Metabolic Profile Reviewed. sd1 10:12 Cardiac Injury Profile Reviewed. sd1 10:12 Troponin Reviewed. sd1 10:13 Redraw CIP &Troponin (put time in details section) ordered. sd1 10:34 Redraw CIP &Troponin (put time in details section) complete. lbd 10:46 CARDIAC MARKER PANEL Ordered. EDMS 11:32 UA Ordered. EDMS 11:32 Urine Culture Ordered. EDMS 12:18 UA Reviewed. sd1 12:21 CARDIAC MARKER PANEL Reviewed. sd1 12:31 BED REQUEST+ADM ordered. EDMS 13:08 Plavix - Clopidogrel 300 mg PO once ordered. sd1 13:08 heparin (Thrombolytic Protocol, 60 units/kg)) 60 units/kg IVP once; 3400 units IV sd1 ordered. 13:08 heparin (Thrombolytic Protocol, 12 units/kg/hr)) 71058 units IV at 12 units/kg/hr once; sd1 690units/hr ordered. 13:41 Financial registration complete. lg 14:39 [facility] [place] into [employer] and attached to record. lg 07/09 09:39 T-Sheet-- Draft Copy was scanned into [employer] and attached to record. gb 09:39 ECG/EKG was scanned into [employer] and attached to record. gb 09:39 Radiology Report was scanned into [employer] and attached to record. gb Administered Medications: 07/08 09:51 Drug: morphine 2 mg [morphine 2 mg/mL intravenous cartridge (1 mL)] Route: IVP; Site: dsf left hand; 10:27 Follow up: Pain 2/10 Adult; see trend VS dsf 09:51 Drug: Ondansetron 4 mg [ondansetron HCl 2 mg/mL intravenous solution (2 mL)] Route: dsf IVP; Site: left hand; 13:00 Drug: heparin (Thrombolytic Protocol, 60 units/kg)) 3538.2 units [heparin (porcine) dsf 5,000 unit/mL injection solution (0.707 mL)] {Co-Signature: deysi (Jhoana Cardoza RN).} Route: IVP; Site: left hand; 13:20 Drug: Plavix - Clopidogrel 300 mg [clopidogrel 75 mg tablet (4 tabs)] Route: PO; dsf 13:20 Drug: heparin (Thrombolytic Protocol, 12 units/kg/hr)) 97280 units [heparin (porcine) dsf 25,000 unit/250 mL (100 unit/mL) in dextrose 5 % IV] {Co-Signature: deysi (Jhoana Cardoza RN).} Route: IV; Rate: 12 units/kg/hr; Site: left hand; 14:24 Follow up: IV Status: Infusion continued on transport dsf Signatures: Dispatcher [employer] Mariam Lazaro MD MD sd1 Bianka Baker, Supervisor Costuming Unit lbd Jhoana Cardoza RN RN kpj Gris Oakley, Reg Reg gb Ezequiel Kelly, Reg Reg lg Viki MejiaRN RN dsf Jhoana jo The chart was reviewed and I authenticate all verbal orders and agree with the evaluation and treatment provided.Attachments: 14:39 [facility] Payment Agreement lg 07/09 09:39 T-Sheet-- Draft Copy gb 09:39 ECG/EKG gb Chart Complete MTDD
--- NOTE | 2016-07-10 16:36 | EDDOCDS ---
Nurse's Notes [facility] Name: Julissa Rebolledo Age: 65 yrs Sex: Female : 1950 Arrival Date: 07/08/2016 Time: 08:53 Bed 4 Private MD: Jayson Cox A. Diagnosis: Unstable angina Presentation: 07/08 08:58 Presenting complaint: Patient states: chest pain began at 0800 radiating down right kpj arm,cardiac history aortic aneurysm in 2004 with repair.2 NTG and 325mg ASA given by EMS enroute. 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 325 mg by EMS. Adult Sepsis Screening: The patient does not have new or worsening altered mentation. Patient's respiratory rate is less than 22. Systolic blood pressure is greater than 100. Patient has a qSOFA score of. Suicide/Homicide risk assessment- the patient denies having any suicidal and/or homicidal ideations and does not present with any other emotional, behavioral or mental health complaints. 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 Transition of care: patient was not received from another setting of care. Care prior to arrival: See EMS report. Medications administered prior to arrival: ASA, NTG, x2 Saline lock initiated. Glucose check. FSBS 134 mg/dl Oxygen administered by EMS. 20 gauge left hand. 08:58 Acuity: [place] Level 2 [facility] 08:58 Method Of Arrival: Ambulance [facility] Triage Assessment: 09:04 General: Appears comfortable, Behavior is appropriate for age, pleasant. Pain: kpj Location: mid-sternal area Pain currently is 4 out of 10 on a pain scale. Pain radiates to right arm Quality of pain is described as pressure, Pain began 1 hour ago. The patient is triaged at the bedside. See Assessment in Nurses Notes section of ED record. 09:18 Cardiovascular: Capillary refill < 3 seconds in bilateral fingers Edema is absent. kpj Pulses are all present. Rhythm is sinus rhythm No ectopy. Chest pain is described as Pain is 5 out of 10 on a pain scale. quality is pressure, radiates to right arm(s) episodes are continuous began 1 hour prior to arrival. Derm: Skin is dry, Skin is pale, Skin temperature is cool. Historical: - Allergies: Codeine Sulfate (Unknown); orange (Upset stomach); - Home Meds: 1. clonidine HCl 0.1 mg Oral tab 1 tab 3 times per day (Last dose: 07/08/2016 05:30) 2. verapamil 180 mg Oral C24P 1 cap nightly (Last dose: 07/07/2016) 3. labetalol 200 mg Oral tab 1 tab 2 times per day (Last dose: 07/08/2016 05:30) 4. losartan-hydrochlorothiazide 100-25 mg oral tab 1 tab once daily (Last dose: 07/08/2016 05:30) 5. atorvastatin 40 mg oral tab 1 tab every 2 days (Last dose: 07/06/2016) 6. docusate sodium 100 mg Oral cap 1 cap 2 times per day (Last dose: 07/08/2016 05:30) 7. aspirin 325 mg Oral tab 1 tab once daily (Last dose: 07/08/2016 05:30) 8. ferrous sulfate 325 mg (65 mg iron) Oral tab 325 mg daily (Last dose: 07/08/2016 05:30) 9. Vitamin D Oral 5000 unit twice a day (Last dose: 07/07/2016) 10. cranberry 400 mg oral cap daily (Last dose: 07/07/2016) 11. echinacea 400 mg oral cap daily (Last dose: 07/07/2016) 12. Fish Oil 1,000 mg Oral cap daily (Last dose: 07/07/2016) 13. multivitamin Oral tab 1 tablet daily (Last dose: 07/07/2016) 14. Hair,Skin and Nails oral tab daily (Last dose: 07/07/2016) 15. garlic oral cap twice a day (Last dose: 07/07/2016) 16. Calcium Gluconate Oral daily (Last dose: 07/07/2016) - PMHx: Hypertension; Hypercholesterolemia; aortic aneurysm; - PSHx: repair aortic aneurysm; removal tumor ear drum left; right elbow surgery; Tubal ligation; - Social history: Smoking status: Patient states former smoker of tobacco. No barriers to communication noted, The patient speaks fluent Yakut. - Family history: Not pertinent. - : The pt / caregiver states he / she is not on anticoagulants. Home medication list is obtained from the patient. - Exposure Risk Screening:: None identified. Screenin:56 Screening information is obtained from the patient. Fall risk: No risks identified. dsf Assistance ADL's: requires no assistance with activities of daily living. Abuse/DV Screen: The patient / caregiver reports he/she is: not in a situation that causes fear, pain or injury. Nutritional screening: No deficits noted. Advance Directives: Currently, there is no health care proxy. home support is adequate. Assessment: 09:21 Adult Sepsis Screening: The patient does not have new or worsening altered mentation. dsf Patient's respiratory rate is less than 22. Systolic blood pressure is greater than 100. Patient has a qSOFA score of 0- Negative Sepsis Screen. General: Appears in no apparent distress, Behavior is appropriate for age, cooperative. Pain: Location: mid-sternal area Pain currently is 4 out of 10 on a pain scale. Pain radiates to right arm Quality of pain is described as pressure. Neurological: Level of Consciousness is awake, alert, Oriented to person, place, time. Cardiovascular: Capillary refill < 3 seconds Heart tones S1 S2 present. Respiratory: Airway is patent Respiratory effort is even, unlabored, Respiratory pattern is regular, symmetrical, Breath sounds are clear bilaterally. GI: Abdomen is non- distended Bowel sounds present X 4 quads. Abd is soft and non tender X 4 quads. Derm: Skin is dry, Skin is pale, Skin temperature is warm. 10:26 General: pt returned from CT. Pt reports pain 2/10. Respirations easy and unlabored dsf will continue to monitor . 10:44 General: Appears in no apparent distress, Behavior is appropriate for age, cooperative. dsf Pain: Location: mid-sternal area Pain currently is 1 out of 10 on a pain scale. Neurological: Level of Consciousness is awake, alert. Cardiovascular: Capillary refill < 3 seconds Heart tones S1 S2 present. Respiratory: Airway is patent Respiratory effort is even, unlabored, Respiratory pattern is regular, symmetrical. Derm: Skin is dry, Skin is pale, Skin temperature is warm. 11:15 Adult Sepsis Screening: The patient does not have new or worsening altered mentation. dsf Patient's respiratory rate is less than 22. Systolic blood pressure is greater than 100. Patient has a qSOFA score of 0- Negative Sepsis Screen. General: Appears in no apparent distress, Behavior is appropriate for age, cooperative. Pain: Location: mid-sternal area Pain currently is 1 out of 10 on a pain scale. Pain does not radiate. Neurological: Level of Consciousness is awake, alert, Oriented to person, place, time. Cardiovascular: Capillary refill < 3 seconds Heart tones S1 S2 present Rhythm is sinus rhythm No ectopy. Respiratory: Airway is patent Respiratory effort is even, unlabored, Respiratory pattern is regular, symmetrical, Breath sounds are clear bilaterally. GI: Abdomen is non- distended Bowel sounds present X 4 quads. Abd is soft and non tender X 4 quads. Derm: Skin is dry, Skin is pale, Skin temperature is warm. 12:15 General: Appears in no apparent distress, Behavior is appropriate for age, cooperative. dsf Pain: Denies pain. Neurological: Level of Consciousness is awake, alert, Oriented to person, place, time. Cardiovascular: Capillary refill < 3 seconds Heart tones S1 S2 present Rhythm is sinus rhythm No ectopy. Respiratory: Airway is patent Respiratory effort is even, unlabored, Respiratory pattern is regular, symmetrical, Breath sounds are clear bilaterally. GI: Abdomen is non- distended Bowel sounds present X 4 quads. Abd is soft and non tender X 4 quads. Derm: Skin is dry, Skin is pale, Skin temperature is warm. 13:15 Adult Sepsis Screening: The patient does not have new or worsening altered mentation. dsf Patient's respiratory rate is less than 22. Systolic blood pressure is greater than 100. Patient has a qSOFA score of. General: Appears in no apparent distress, Behavior is appropriate for age, cooperative. Pain: Denies pain. Neurological: Level of Consciousness is awake, alert. Cardiovascular: Capillary refill < 3 seconds Rhythm is sinus rhythm No ectopy. Respiratory: Airway is patent Respiratory effort is even, unlabored, Respiratory pattern is regular, symmetrical. Derm: Skin is dry, Skin is pale, Skin temperature is warm. 14:08 Adult Sepsis Screening: The patient does not have new or worsening altered mentation. dsf Patient's respiratory rate is less than 22. Systolic blood pressure is greater than 100. Patient has a qSOFA score of 0- Negative Sepsis Screen. General: Appears in no apparent distress, Behavior is appropriate for age, cooperative. Neurological: Level of Consciousness is awake, alert. Cardiovascular: Capillary refill < 3 seconds. Cardiovascular: Rhythm is sinus rhythm No ectopy. Respiratory: Airway is patent Respiratory effort is even, unlabored, Respiratory pattern is regular, symmetrical. 14:22 General: Appears in no apparent distress, Behavior is appropriate for age, cooperative. dsf Pain: Location: mid-sternal area Pain currently is 2 out of 10 on a pain scale. Neurological: Level of Consciousness is awake, alert. Cardiovascular: Capillary refill < 3 seconds Heart tones S1 S2 present Rhythm is sinus rhythm No ectopy. Respiratory: Airway is patent Respiratory effort is even, unlabored, Respiratory pattern is regular, symmetrical, Breath sounds are clear bilaterally. GI: Abdomen is non- distended Bowel sounds present X 4 quads. Abd is soft and non tender X 4 quads. Derm: Skin is dry, Skin is pale, Skin temperature is warm. Vital Signs: 09:02 BP 154 / 70 LA (auto/); dsf 09:03 Pulse 82 MON; Pulse Ox 96% ; dsf 09:04 BP 140 / 67 RA (auto/); dsf 09:05 BP 145 / 73 (auto/); dsf 09:05 Pulse 84 MON; Pulse Ox 95% ; dsf 09:06 BP 145 / 73; Pulse 70; Resp 18; Temp 97.1(O); Weight 58.97 kg (R); Height 5 ft. 6 in. ct3 (167.64 cm) (R); Pain 5/10; 09:06 Pulse 84 MON; Pulse Ox 95% ; dsf 09:20 BP 135 / 60 (auto/); dsf 09:21 Pulse 64 MON; Pulse Ox 100% ; dsf 09:35 BP 132 / 61 (auto/); dsf 09:36 Pulse 56 MON; Pulse Ox 100% ; dsf 09:50 BP 126 / 62 (auto/); dsf 09:51 Pulse 70 MON; Pulse Ox 100% ; dsf 10:05 BP 129 / 60 (auto/); dsf 10:06 Pulse 54 MON; Pulse Ox 100% ; dsf 10:25 BP 127 / 60 (auto/); dsf 10:25 Pulse 60 MON; Pulse Ox 98% ; dsf 10:27 Pain 2/10; dsf 10:50 BP 124 / 58 (auto/); dsf 10:51 Pulse 54 MON; Pulse Ox 100% ; dsf 11:05 BP 120 / 58 (auto/); dsf 11:06 Pulse 56 MON; Pulse Ox 100% ; dsf 11:20 BP 121 / 57 (auto/); dsf 11:21 Pulse 58 MON; Pulse Ox 100% ; dsf 11:35 BP 125 / 66 (auto/); dsf 11:36 Pulse 60 MON; Pulse Ox 99% ; dsf 11:50 BP 121 / 64 (auto/); dsf 11:51 Pulse 56 MON; Pulse Ox 100% ; dsf 12:05 BP 122 / 57 (auto/); dsf 12:06 Pulse 56 MON; Pulse Ox 100% ; dsf 12:16 BP 127 / 59 (auto/); dsf 12:17 Temp 97.1(O); ct3 12:17 Pulse 60 MON; Pulse Ox 100% ; dsf 12:20 BP 131 / 61 (auto/); dsf 12:21 Pulse 56 MON; Pulse Ox 100% ; dsf 12:35 BP 130 / 60 (auto/); dsf 12:36 Pulse 86 MON; Pulse Ox 100% ; dsf 12:50 Pulse 62 MON; Pulse Ox 100% ; dsf 12:50 BP 136 / 61 (auto/); dsf 12:51 Pulse 60 MON; Pulse Ox 100% ; dsf 13:05 BP 137 / 64 (auto/); dsf 13:05 Pulse 68 MON; Pulse Ox 99% ; dsf 13:20 BP 116 / 54 (auto/); dsf 13:21 Pulse 68 MON; Pulse Ox 93% ; dsf 13:52 BP 137 / 62 (auto/); dsf 13:52 Pulse 64 MON; Pulse Ox 96% ; dsf 13:57 BP 134 / 57 (auto/); dsf 13:57 Pulse 66 MON; Pulse Ox 96% ; dsf 14:07 BP 131 / 63 (auto/); dsf 14:08 Pulse 66 MON; Pulse Ox 95% ; dsf 14:21 BP 134 / 57; Pulse 67; Resp 18; Temp 98.2(O); Pulse Ox 95% on 4 lpm NC; Pain 2/10; dsf 09:06 Body Mass Index 20.98 (58.97 kg, 167.64 cm) ct3 Vitals: 09:04 Log In Time N/A - ambulance arrival. [facility] ED Course: 08:54 Patient visited by Bianka Baker Supervisor Power Reactor. lbd 08:54 Patient moved to Waiting lbd 08:55 Jayson Cox is Private Physician. lbd 08:55 Patient moved to 4 lbd 08:57 Mariam Barajas MD is Attending Physician. sd1 09:03 Patient visited by Mariam Barajas MD. sd1 09:03 Triage Initiated kpj 09:05 Patient visited by Vivek Fall. dem1 09:05 EKG done. (by ED staff). Reviewed by Mariam Barajas MD. dem1 09:07 Patient visited by Taya Sebastian PCA. ct3 09:07 Patient has correct armband on for positive identification. Placed in gown. Bed in low ct3 position. Call light in reach. Side rails up X2. monitoring engineer on. Pulse ox on. NIBP on. 09:10 Patient visited by Taya Sebastian PCA. ct3 09:22 Patient visited by Viki Mejia RN. dsf 09:22 Maintain field IV. Dressing intact. Good blood return noted. Site clean & dry. Gauge & dsf site: #20 gauge left hand . 09:22 O2 via nasal cannula \T\ 4L/min. dsf 09:57 Patient visited by Taya Sebastian PCA. ct3 10:27 Patient visited by Viki Mejia RN. dsf 10:45 Patient visited by Viki Mejia,MARY JO. dsf 11:16 Patient visited by Viki Mejia RN. dsf 11:41 Urine Culture Sent. dem1 11:41 UA Sent. dem1 12:14 Patient visited by Viki Mejia RN. dsf 12:18 Patient visited by Taya Sebastian PCA. ct3 12:48 Patient visited by Taya Sebastian PCA. ct3 13:56 No procedures done that require assistance. dsf 14:07 The patient / caregiver is instructed regarding the plan of care and ED course. dsf 14:09 Patient visited by Viki Mejia RN. dsf 14:39 [facility] Payment Agreement was scanned into [employer] and attached to record. lg 15:52 portable chest Returned. EDMS 16:37 CT Chest With Contrast Returned. EDMS 07/09 09:39 T-Sheet-- Draft Copy was scanned into [employer] and attached to record. gb 09:39 ECG/EKG was scanned into [employer] and attached to record. gb 09:39 Radiology Report was scanned into [employer] and attached to record. 20:04 EKG-ADULT Returned. EDMS Administered Medications: 07/08 09:51 Drug: morphine 2 mg [morphine 2 mg/mL intravenous cartridge (1 mL)] Route: IVP; Site: dsf left hand; 10:27 Follow up: Pain 2 Adult; see trend VS dsf 09:51 Drug: Ondansetron 4 mg [ondansetron HCl 2 mg/mL intravenous solution (2 mL)] Route: dsf IVP; Site: left hand; 13:00 Drug: heparin (Thrombolytic Protocol, 60 units/kg)) 3538.2 units [heparin (porcine) dsf 5,000 unit/mL injection solution (0.707 mL)] {Co-Signature: deysi (Jhoana Cardoza RN).} Route: IVP; Site: left hand; 13:20 Drug: Plavix - Clopidogrel 300 mg [clopidogrel 75 mg tablet (4 tabs)] Route: PO; dsf 13:20 Drug: heparin (Thrombolytic Protocol, 12 units/kg/hr)) 77548 units [heparin (porcine) dsf 25,000 unit/250 mL (100 unit/mL) in dextrose 5 % IV] {Co-Signature: deysi (Jhoana Cardoza RN).} Route: IV; Rate: 12 units/kg/hr; Site: left hand; 14:24 Follow up: IV Status: Infusion continued on transport dsf Intake: Order Results: Lab Order: B-Type Natiuretic Peptide; SPEC'M 07/08/16 09:04 Test: BRAIN NATRIURETIC PEPTIDE; Value: 244; Range: <100; Abnormal: Above high normal; Units: PG/ML; Status: F Lab Order: Basic Metabolic Profile; SPEC'M 07/08/16 09:04 Test: GLUCOSE, FASTING; Value: 97; Range: 80-110; Units: MG/DL; Status: F Test: BLOOD UREA NITROGEN; Value: 19; Range: 7-18; Abnormal: Above high normal; Units: MG/DL; Status: F Test: CREATININE FOR GFR; Value: 1.05; Range: 0.55-1.02; Abnormal: Above high normal; Units: MG/DL; Status: F Test: GLOMERULAR FILTRATION RATE; Value: 55.8; Range: >45; Status: F Test: SODIUM LEVEL; Value: 143; Range: 136-145; Units: MEQ/L; Status: F Test: POTASSIUM SERUM; Value: 4.5; Range: 3.5-5.1; Units: MEQ/L; Status: F Test: CHLORIDE LEVEL; Value: 104; Range: 98-107; Units: MEQ/L; Status: F Test: CARBON DIOXIDE LEVEL; Value: 29; Range: 21-32; Units: MEQ/L; Status: F Test: ANION GAP; Value: 10; Range: 8-16; Units: MEQ/L; Status: F Test: CALCIUM LEVEL; Value: 8.7; Range: 8.8-10.2; Abnormal: Below low normal; Units: MG/DL; Status: F Test Note: ; Units are mL/min/1.73 m2 Chronic Kidney Disease Staging per NKF: Stage I & II GFR >=60 Normal to Mildly Decreased Stage III GFR 30-59 Moderately Decreased Stage IV GFR 15-29 Severely Decreased Stage V GFR <15 Very Little GFR Left ESRD GFR <15 on MACHINE COIL ASSEMBLER Lab Order: CBC with Diff; SPEC'M 07/08/16 09:04 Test: WHITE BLOOD COUNT; Value: 5.7; Range: 4.0-10.0; Units: K/mm3; Status: F Test: RED BLOOD COUNT; Value: 3.59; Range: 4.00-5.40; Abnormal: Below low normal; Units: M/mm3; Status: F Test: HEMOGLOBIN; Value: 10.8; Range: 12.0-16.0; Abnormal: Below low normal; Units: g/dl; Status: F Test: HEMATOCRIT; Value: 32.7; Range: 36.0-47.0; Abnormal: Below low normal; Units: %; Status: F Test: MEAN CORPUSCULAR VOLUME; Value: 91.0; Range: 80.0-96.0; Units: fl; Status: F Test: MEAN CORPUSCULAR HEMOGLOBIN; Value: 30.1; Range: 27.0-33.0; Units: pg; Status: F Test: MEAN CORPUSCULAR HGB CONC; Value: 33.1; Range: 32.0-36.5; Units: g/dl; Status: F Test: RED CELL DISTRIBUTION WIDTH; Value: 12.8; Range: 11.5-14.5; Units: %; Status: F Test: PLATELET COUNT, AUTOMATED; Value: 176; Range: 150-450; Units: k/mm3; Status: F Test: NEUTROPHILS %; Value: 63.0; Range: 36.0-66.0; Units: %; Status: F Test: LYMPH %; Value: 22.5; Range: 24.0-44.0; Abnormal: Below low normal; Units: %; Status: F Test: MONO %; Value: 4.7; Range: 0.0-5.0; Units: %; Status: F Test: EOS %; Value: 6.0; Range: 0.0-3.0; Abnormal: Above high normal; Units: %; Status: F Test: BASO %; Value: 0.6; Range: 0.0-1.0; Units: %; Status: F Test: LARGE UNSTAINED CELL %; Value: 3.2; Range: 0.0-4.0; Units: %; Status: F Test: NEUTROPHILS #; Value: 3.6; Range: 1.8-7.7; Units: K/mm3; Status: F Test: LYMPH #; Value: 1.3; Range: 1.5-4.5; Abnormal: Below low normal; Units: K/mm3; Status: F Test: MONO #; Value: 0.3; Range: 0.0-0.8; Units: K/mm3; Status: F Test: EOS #; Value: 0.3; Range: 0.0-0.50; Units: K/mm3; Status: F Test: BASO #; Value: 0.0; Range: 0.0-0.2; Units: K/mm3; Status: F Test: LARGE UNSTAINED CELL #; Value: 0.2; Range: 0.0-0.4; Units: K/mm3; Status: F Lab Order: Cardiac Injury Profile; SPEC'M 07/08/16 09:04 Test: CPK CREATINE PHOSPHOKINASE; Value: 86; Range: 26-192; Units: U/L; Status: F Test: CK-MB VALUE MASS; Value: 1.5; Range: 0.0-3.6; Units: NG/ML; Status: F Test: MB/CK RELATIVE INDEX; Value: 1.74; Range: < OR =4; Status: F Test Note: ; DIAGNOSIS CRITERIA MMB ng/ml Relative Index (RI) NON-AMI < or = 5 N/A BILLY ZONE > 5 < or = 4 AMI > 5 > 4 Lab Order: Prothrombin Time Profile\E\INR; SPEC'M 07/08/16 09:04 Test: PROTHROMBIN TIME; Value: 14.2; Range: 12.3-14.5; Units: SECONDS; Status: F Test: INR; Value: 1.09; Status: F Test Note: ; THERAPUTIC HUMAN INR VALUES INDICATIONS NORMAL RANGES PROPHYLAXIS/TREATMENT OF: VENOUS THROMBOSIS 2.0-3.0 PULMONARY EMBOLISM 2.0-3.0 PREVENTION OF SYSTEMIC EMBOLISM FROM: TISSUE HEART VALVES 2.0-3.0 ACUTE MYOCARDIAL INFARCTION 2.0-3.0 VALVULAR HEART DISEASE 2.0-3.0 ATRIAL FIBRILLATION 2.0-3.0 MECHANICAL VALVES(HIGH RISK) 2.5-3.5 RECURRENT MYOCARDIAL INFARCTION 2.5-3.5 Lab Order: Troponin; SPEC' 07/08/16 09:04 Test: TROPONIN I; Value: 0.03; Range: < 0.10; Units: NG/ML; Status: F Test Note: ; Troponin I Reference Interval for [employer] LOCI: 99th Percentile= 0.00-0.045 ng/ml Risk Stratification: <= 0.10 ng/ml Decreased Risk for Adverse Clinical Events. 0.10-1.50 ng/ml Increased Risk for Adverse Clinical Events. Evaluation of additional criterion and/or repeat testing in 2-6 hours is suggested to rule out myocardial damage. >= 1.50 ng/ml Indicative of Myocardial Injury. Lab Order: CARDIAC MARKER PANEL; SPEC'M 07/08/16 11:28 Test: CPK CREATINE PHOSPHOKINASE; Value: 80; Range: 26-192; Units: U/L; Status: F Test: CK-MB VALUE MASS; Value: 1.7; Range: 0.0-3.6; Units: NG/ML; Status: F Test: MB/CK RELATIVE INDEX; Value: 2.12; Range: < OR =4; Status: F Test: TROPONIN I; Value: 0.25; Range: < 0.10; Abnormal: High; Units: NG/ML; Status: F Test Note: ; DIAGNOSIS CRITERIA MMB ng/ml Relative Index (RI) NON-AMI < or = 5 N/A BILLY ZONE > 5 < or = 4 AMI > 5 > 4 Lab Order: UA; SPEC'M 07/08/16 11:39 Test: APPEARANCE, URINE; Value: HAZY; Range: CLEAR; Status: F Test: COLOR, URINE; Value: YELLOW; Range: YELLOW; Status: F Test: PH,URINE; Value: 6.0; Range: 5.0-9.0; Units: UNITS; Status: F Test: SPECIFIC GRAVITY URINE AUTO; Value: 1.020; Range: 1.002-1.035; Status: F Test: PROTEIN, URINE AUTO; Value: NEGATIVE; Range: NEGATIVE; Units: mg/dL; Status: F Test: GLUCOSE, URINE (UA) AUTO; Value: NEGATIVE; Range: NEGATIVE; Units: mg/dL; Status: F Test: KETONE, URINE AUTO; Value: NEGATIVE; Range: NEGATIVE; Units: mg/dL; Status: F Test: UROBILINOGEN, URINE AUTO; Value: 0.2; Range: 0.0-2.0; Units: mg/dL; Status: F Test: BILIRUBIN, URINE AUTO; Value: NEGATIVE; Range: NEGATIVE; Status: F Test: NITRITE, URINE AUTO; Value: POSITIVE; Range: NEGATIVE; Status: F Test: LEUKOCYTE ESTERASE, URINE AUTO; Value: 1+; Range: NEGATIVE; Abnormal: Above high normal; Status: F Test: BLOOD, URINE BLOOD; Value: 1+; Range: NEGATIVE; Abnormal: Above high normal; Status: F Test: WBC, URINE AUTO; Value: 4; Range: 0-3; Abnormal: Above high normal; Units: /HPF; Status: F Test: RBC, URINE AUTO; Value: 2; Range: 0-3; Units: /HPF; Status: F Test: BACTERIA, URINE AUTO; Value: NEGATIVE; Range: NEGATIVE; Status: F Test: SQUAMOUS EPITHELIAL CELL UR AU; Value: 0; Range: 0-6; Units: /HPF; Status: F Test: MUCUS, URINE; Value: SMALL; Range: NEGATIVE; Status: F Test: HYALINE CAST, URINE AUTO; Value: 0; Range: 0-1; Units: /LPF; Status: F Lab Order: Urine Culture; SPEC'M 07/08/16 11:39 Test: URINE CULTURE; Value: ORGANISM 1: KLEBSIELLA PNEUMONIAE; Status: F Test: URINE CULTURE; Value: KLEBSIELLA PNEUMONIAE; Status: F Test: URINE CULTURE; Value: COLONY COUNT CFU/ml >100,000; Status: F Test: URINE CULTURE; Value: GRAM NEG SENSI - VITEK 80; Status: F Test: URINE CULTURE; Value: Method: VIT2; Status: F Test: URINE CULTURE; Value: EXTD BRD SPCTRM BETA LACTAMASE -; Status: F Test: URINE CULTURE; Value: TRIMETHOPRIM/SULFAMETHOXAZOLE <=20 S; Status: F Test: URINE CULTURE; Value: AMPICILLIN 16 R; Status: F Test: URINE CULTURE; Value: GENTAMICIN <=1 S; Status: F Test: URINE CULTURE; Value: NITROFURANTOIN <=16 S; Status: F Test: URINE CULTURE; Value: CEFAZOLIN <=4 S; Status: F Test: URINE CULTURE; Value: LEVOFLOXACIN <=0.12 S; Status: F Test: URINE CULTURE; Value: TOBRAMYCIN <=1 S; Status: F Test: URINE CULTURE; Value: CEFTRIAXONE <=1 S; Status: F Test: URINE CULTURE; Value: CEFTAZIDIME <=1 S; Status: F Test: URINE CULTURE; Value: AMPICILLIN/SULBACTAM <=2 S; Status: F Test: URINE CULTURE; Value: PIPERACILLIN/TAZOBACTAM <=4 S; Status: F Test: URINE CULTURE; Value: AZTREONAM <=1 S; Status: F Test: URINE CULTURE; Value: ERTAPENEM <=0.5 S; Status: F Test: URINE CULTURE; Value: MEROPENEM <=0.25 S; Status: F Test: URINE CULTURE; Value: TIGECYCLINE <=0.5 S; Status: F Test: URINE CULTURE; Value: CEFEPIME <=1 S; Status: F Radiology Order: EKG-ADULT Test: EKG-ADULT REASON FOR EXAMINATION: Chest Pain; Stationary ECG Study; [facility] - ED; ; Test Date: 2016-07-08; Pat Name: JULISSA REBOLLEDO Department:; Room: -; Gender: F 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; : 1950 Requested By: Mariam Barajas; Order Number: [id number] Reading MD: Mariam Barajas; Measurements; Intervals [place]; Rate: 77 P: 32; AL: 258 QRS: -34; QRSD: 99 T: 21; QT: 366; QTc: 416; Interpretive Statements; SINUS RHYTHM WITH FIRST DEGREE AV BLOCK; MARKED LEFT AXIS DEVIATION; SEPTAL MYOCARDIAL INFARCTION, OF INDETERMINATE AGE; INFERIOR INFARCT, OLD; INCREASED RATE 07/13/12; Electronically Signed On 07-09-2016 19:33:05 EST by Mariam Barajas; Radiology Order: portable chest Test: portable chest REASON FOR EXAMINATION: Chest Pain; CHEST, ONE VIEW:; ; HISTORY: Chest pain.; ; COMPARISON: 06/13/2011.; ; Increased density is present in the left lower lobe consistent with atelectasis; or scar. The right lung is clear. The cardiac silhouette is enlarged. A thoracic; aortic aneurysm is present that appears unchanged compared to the previous study.; The pulmonary vasculature is normal in appearance.; ; IMPRESSION:; ; 1. Left lower lobe atelectasis or scar.; ; 2. Cardiomegaly.; ; 3. Thoracic aortic aneurysm, unchanged compared to the previous study.; ; ; Signed by; Vitaly Rodríguez MD 07/08/2016 03:39 P; Radiology Order: CT Chest With Contrast Test: CT Chest With Contrast REASON FOR EXAMINATION: R/O dissection; CT chest with IV contrast, 07/08/2016:; ; Comparison: CT chest without contrast 06/26/2016, CTA chest 08/16/2010.; ; Indication: Exclude aortic dissection.; ; There is bibasilar fibrotic interstitial scarring and The patient has history of; type A aortic dissection which is again noted.; ; Dimension of the aortic root is 4.2 cm transverse dimension, distal to aortic; valve and not significantly changed from prior studies.; ; Dissection involves proximal aortic arch, distal aortic arch and descending; thoracic aorta consistent with type A dissection. Large lateral false lumen is; seen within the aortic arch and descending thoracic aorta. 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 there is a large lateral; false lumen. 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 SMA arises from true lumen of aorta. Abdominal aorta; measures 3.3 cm AP x 3.2 cm transverse dimension at the origin of the celiac; artery, previously 3 cm AP x 3.1 cm transverse dimension on 08/16/2010. There is; no retroperitoneal hematoma identified.; ; There are no pathologically enlarged mediastinal nodes. Bullous changes are noted; bilaterally. Interstitial fibrotic scarring is seen with lower lobe; predominance.; ; Visualized portions of the liver, spleen, and pancreas are unremarkable. There; are no visualized gallstones. The adrenals are normal. Moderate atrophic changes; are seen within the left kidney with progression.; ; Impression:; ; Type A aortic dissection again identified with a large lateral false lumen. There; has been minimal- mild increase in size when compared with prior studies dating; back to 2010. 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 Superior mesenteric artery arises from true lumen.; ; Case discussed with Dr. Lambert in ED on 07/08/16 at 1120 am.; ; Moderate atrophic changes within left kidney.; ; No extraluminal hematoma is identified within the chest.; ; ; Signed by; Geri Merino MD 07/08/2016 08:06 P; Outcome: 13:07 ER care complete, transfer ordered by Provider. sd1 13:51 Admission hand-off: Report called to Filitsa Telonis RN. dsf 13:56 CT Study completed. dsf 14:22 Discharge Assessment: Patient awake, alert and oriented x 3. No cognitive and/or dsf functional deficits noted. Patient verbalized understanding of disposition instructions. patient administered narcotics - yes. Patient was admitted to the hospital or transferred to another facility. The following High Risk Discharge criteria are identified: None. Transferred to [facility]. by EMS ground report to accompanying personnel Jorge Huerta AEIAP, David Santiago AEIAP, Transfer form completed. x-rays sent w/ patient. Condition: stable. Property :Personal belongings accompany Pt. 14:25 Patient left the ED. dsf Addendum: 07/10/2016 16:27 Narrative: Urine culture results faxed to [facility] where pt was transferred.[facility] Signatures: Dispatcher MedHost EDMS Mariam Barajas MD MD sd1 Bianka Baker, Supervisor Power Reactor Unit lbd Jhoana Cardoza RN RN Skylar Law RN RN [facility] Gris Oakley, Reg Reg gb Ganter, LoriLee, Reg Reg lg Sebastian, Taya, TEACHER AIDE TEACHER AIDE ct3 Viki MejiaRN RN [facility] Vivek Fall1 Jhoana Cardoza RN [facility] Corrections: (The following items were deleted from the chart) 07/08 09:10 09:06 Temp 97.1F Oral; ct3 ct3 13:57 13:56 No special radiology studies were completed dsf dsf Chart Complete MTDD
== END 2016-07-08 14:25 | disposition short-term general hospital (02) ==
LOC: M ED 08:53
DX: I20.0 Unstable angina (principal); I10 Essential (primary) hypertension; E78.00 Pure hypercholesterolemia, unspecified; I71.4 Abdominal aortic aneurysm, without rupture; Z87.891 Personal history of nicotine dependence; Z79.82 Long term (current) use of aspirin; Z79.899 Other long term (current) drug therapy; Z88.8 Allergy status to other drugs, medicaments and biological substances; Z91.018 Allergy to other foods
CPT/HCPCS: 71010; 71260; 80048; 81001; 82550; 82553; 83880; 84484; 85025; 85610; 87088; 87186; 93005; 93041; 96365; 96375; 96376; 99285; J2405; Q9967

== ENCOUNTER 2016-08-15 18:11 | Emergency (ER) | payer MEDICARE, MEDICAID ==
[~2016-08-15 18:11] MED LIST changes: +ASPI325T PO; +ATOR40TA PO; +CALC600T10 PO; +CLON-412 PO; +CRAN400T3 PO; +DOCU100C PO; +ECHI400C2 PO; +FERR325T PO; +FISH1000 PO; +HAIRTAB5 PO; +LABE20TAB PO; +LOSA100T37 PO; +VERA180C PO; +VITA500046 PO; +VITMTA PO; +[UNRECOGNIZED DRUG - CODE] PO
[2016-08-15] MEDS ORDERED: ACETAMINOPHEN 325 MG TAB As Ordered ONE (18:46)
[2016-08-15] MEDS ORDERED: IPRATROPIUM 0.5MG/ALBUTEROL 2.5MG INH SOL UD 3ML (DUONEB)(J7620) As Ordered ONE (18:47)
[2016-08-15] MEDS ORDERED: ALBUTEROL SULFATE 2.5 MG/0.5 ML INH NEB SOLN As Ordered ONE (18:47)
[2016-08-15 19:06] LABS: BASO % 0.2 % (0.0-1.0); EOS # 0.1 K/mm3 (0.0-0.50); EOS % 1.6 % (0.0-3.0); LARGE UNSTAINED CELL # 0.2 K/mm3 (0.0-0.4); LYMPH % 9.8 % (24.0-44.0); MEAN CORPUSCULAR HEMOGLOBIN 29.9 pg (27.0-33.0); MEAN CORPUSCULAR HGB CONC 32.9 g/dl (32.0-36.5); MEAN CORPUSCULAR VOLUME 90.8 fl (80.0-96.0); MONO # 0.5 K/mm3 (0.0-0.8); MONO % 6.2 % (0.0-5.0); NEUTROPHILS # 6.7 K/mm3 (1.8-7.7); NEUTROPHILS % 80.3 % (36.0-66.0); PLATELET COUNT, AUTOMATED 187 k/mm3 (150-450); RED CELL DISTRIBUTION WIDTH 13.1 % (11.5-14.5); WHITE BLOOD COUNT 8.3 K/mm3 (4.0-10.0)
[2016-08-15 19:29] LABS: ANION GAP 8 MEQ/L (8-16); BLOOD UREA NITROGEN 19 MG/DL (7-18); CALCIUM LEVEL 8.6 MG/DL (8.8-10.2); CARBON DIOXIDE LEVEL 28 MEQ/L (21-32); CHLORIDE LEVEL 103 MEQ/L (98-107); CREATININE FOR GFR 0.93 MG/DL (0.55-1.02); GLOMERULAR FILTRATION RATE > 60.0 (>45); GLUCOSE, FASTING 98 MG/DL (80-110); SODIUM LEVEL 139 MEQ/L (136-145)
[2016-08-15] MEDS ORDERED: AZITHROMYCIN 250 MG TAB As Ordered ONE (21:39)
--- NOTE | 2016-08-15 21:40 | ECGEPIP ---
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
[2016-08-15] MEDS ORDERED: BENZONATATE 100 MG CAP As Ordered ONE (21:42)
--- NOTE | 2016-08-15 22:02 | EDDOCDS ---
Physician Documentation [facility] Name: Cynthia Rebolledo Age: 65 yrs Sex: Female : 1950 Arrival Date: 08/15/2016 Time: 18:11 Bed 19 Private MD: Jayson Cox A. Disposition: 08/15/16 20:51 Discharged to Home/Self Care. Impression: Acute bronchitis. - Condition is Stable. - Discharge Instructions: Acute Bronchitis. - Prescriptions for Zithromax Z- Nasir 250 mg Oral Tablet - take 1 tablet by ORAL route as directed for 5 days Day 1- take two tablets once. Day 2, 3, 4 , 5 take one tablet once daily.; 6 tablet. benzonatate 200 mg Oral Capsule - take 1 capsule by ORAL route 3 times per day As needed; 30 capsule. Albuterol Sulfate 90 mcg/actuation Inhalation HFA Aerosol Inhaler - inhale 2 puff by INHALATION route every 4 hours As needed; 1 Inhaler. - Medication Reconciliation, Local Pharmacy Hours form. - Follow up: Jayson Cox; When: 2 - 3 days; Reason: Recheck today's complaints, Continuance of care. - Problem is an ongoing problem. - Symptoms are unchanged. Historical: - Allergies: Codeine Sulfate (Unknown); orange (Upset stomach); - Home Meds: 1. Plavix 75 mg Oral tab 1 tab once daily 2. aspirin 325 mg Oral tab 1 tab once daily 3. nitroglycerin 0.4 mg SL subl 4. atorvastatin 40 mg oral tab 1 tab every 2 days 5. labetalol 200 mg Oral tab 1 tab 2 times per day 6. clonidine HCl 0.1 mg Oral tab 1 tab 3 times per day 7. cranberry 400 mg oral cap daily 8. docusate sodium 100 mg Oral cap 1 cap 2 times per day 9. echinacea 400 mg oral cap daily 10. Fish Oil 1,000 mg Oral cap daily 11. garlic oral oral 2 mg 12. losartan-hydrochlorothiazide 100-25 mg oral tab 1 tab once daily 13. multivitamin Oral tab 1 tab daily 14. verapamil 180 mg Oral C24P 1 cap nightly 15. ferrous sulfate 325 mg (65 mg iron) Oral tab 325 mg daily 16. Vitamin D Oral 5000 unit twice a day - PMHx: Aortic Aneurysm; Hypercholesterolemia; Hypertension; nstemi; afib; - PSHx: repair aortic aneurysm; removal tumor ear drum left; right elbow surgery; Tubal ligation; - Social history: No barriers to communication noted, The patient speaks fluent Georgian, Smoking status: Patient states former smoker of tobacco. - Family history: No immediate family members are acutely ill. - : The pt / caregiver states he / she is on anticoagulants: Plavix. Home medication list is obtained from the patient. - Exposure Risk Screening:: None identified. Vital Signs: 08/15 18:26 BP 199 / 76; Pulse 83; Resp 18; Temp 99.9(TE); Pulse Ox 96% on 2 lpm NC; Weight 57.15 ct3 kg / 125.99 lbs (R); Height 5 ft. 6 in. (167.64 cm) (R); 18:29 BP 153 / 70 (auto/); mb9 18:29 BP 156 / 78; Pulse 85; Resp 17; Pulse Ox 95% on R/A; mb9 18:30 Pulse 84 MON; Pulse Ox 97% ; mb9 21:29 BP 149 / 66 (auto/); mb9 21:29 Pulse 74 MON; Resp 18; Temp 96.4(O); Pulse Ox 97% ; mb9 18:26 Body Mass Index 20.34 (57.15 kg, 167.64 cm) ct3 MDM: 18:42 -Blood Culture (Adults Only), peripheral from different site, or from device/port/PICC ke etc. if present ordered. 18:42 Tailings Man/Pulse Ox/q 15 min VS ordered. ke 18:42 IV Saline Lock ordered. ke 18:42 Oxygen at 4L/Min NC or Home dosage ordered. ke 18:42 Rhythm Strip to chart ordered. ke 18:42 Acetaminophen Tablet 975 mg PO once ordered. ke 18:42 Albuterol 5 mg Nebulizer once ordered. ke 18:42 Albuterol-Ipratropium 3 ml Inhalation once ordered. ke 18:42 Call Respiratory ordered. ke 18:43 B-Type Natiuretic Peptide Ordered. EDMS 18:43 Basic Metabolic Profile Ordered. EDMS 18:43 CBC with Diff Ordered. EDMS 18:43 -Blood Culture Ordered. EDMS 18:43 Call Respiratory complete. mb9 18:44 Chest, 2 View (pa\E\lat) Ordered. EDMS 18:44 ECG WITH READING ER PHYS+CARDIAG ordered. EDMS 18:51 -Blood Culture (Adults Only), peripheral from different site, or from device/port/PICC jlm etc. if present complete. 18:53 BLOOD CULTURES Ordered. EDMS 19:48 Financial registration complete. zo 20:28 B-Type Natiuretic Peptide Reviewed. ke 20:28 Basic Metabolic Profile Reviewed. ke 20:28 CBC with Diff Reviewed. ke 20:34 [facility] Payment Agreement was scanned into Dreamscape [employer] and attached to record. zo 20:49 Tessalon 200 mg PO once ordered. ke 20:49 azithromycin 500 mg PO once ordered. ke Administered Medications: 18:52 Drug: Albuterol 5 mg [albuterol sulfate 2.5 mg/0.5 mL solution for nebulization (1 mL)] cs15 Route: Nebulizer; 18:52 Drug: Albuterol-Ipratropium 3 ml [ipratropium-albuterol 0.5 mg-3 mg(2.5 mg base)/3 mL cs15 nebulization soln (3 mL)] Route: Inhalation; 18:56 Drug: Acetaminophen 975 mg [acetaminophen 325 mg tablet (3 tabs)] Route: PO; mb9 21:56 Drug: Tessalon 200 mg Route: PO; mb9 21:56 Drug: azithromycin 500 mg [azithromycin 250 mg tablet (2 tabs)] Route: PO; mb9 Signatures: Dispatcher MedHost EDMS Dajuan Hernandez, RANDY AIRLINE MECHANICXin Harvey Jessie, Outdoor Adventure Instructor Unit jlScott Richards RN RN mb9 Chung Aranda RT cs15 The chart was reviewed and I authenticate all verbal orders and agree with the evaluation and treatment provided.Attachments: 20:34 [facility] Payment Agreement zo MTDD
--- NOTE | 2016-08-15 22:02 | EDDOCDS ---
Nurse's Notes [facility] Name: Cynthia Rebolledo Age: 65 yrs Sex: Female : 1950 Arrival Date: 08/15/2016 Time: 18:11 Bed 19 Private MD: Jayson Cox A. Diagnosis: Acute bronchitis Presentation: 08/15 18:19 Presenting complaint:. mb9 18:22 Presenting complaint: Patient states: "My sinuses have been bothering me and my throat mb9 has been bothering. Then the nurse from [facility] came and checked my temperature and listened to my heart and she didn't like what she heard". Suicide/Homicide risk assessment- the patient denies having any suicidal and/or homicidal ideations and does not present with any other emotional, behavioral or mental health complaints. Status: Patient is not a card services specialist or dependent. Transition of care: patient was not received from another setting of care. Care prior to arrival: See EMS report. 18:22 Acuity: RICHMOND Level 3 9 18:22 Method Of Arrival: Ambulance [facility] 18:33 Adult Sepsis Screening: The patient does not have new or worsening altered mentation. mb9 Patient's respiratory rate is less than 22. Systolic blood pressure is greater than 100. Patient has a qSOFA score of 0- Negative Sepsis Screen. Triage Assessment: 18:33 General: Appears in no apparent distress. Pain: Denies pain. The patient is triaged at 9 the bedside. See Assessment in Nurses Notes section of ED record. Neurological: Level of Consciousness is awake, alert, Oriented to person, place. Cardiovascular: Heart tones S1 S2 present Rhythm is sinus rhythm with unifocal PVCs Chest pain is denied. Respiratory: Airway is patent Respiratory effort is even, unlabored, Breath sounds are clear bilaterally. Reports cough that is non-productive. Historical: - Allergies: Codeine Sulfate (Unknown); orange (Upset stomach); - Home Meds: 1. Plavix 75 mg Oral tab 1 tab once daily 2. aspirin 325 mg Oral tab 1 tab once daily 3. nitroglycerin 0.4 mg SL subl 4. atorvastatin 40 mg oral tab 1 tab every 2 days 5. labetalol 200 mg Oral tab 1 tab 2 times per day 6. clonidine HCl 0.1 mg Oral tab 1 tab 3 times per day 7. cranberry 400 mg oral cap daily 8. docusate sodium 100 mg Oral cap 1 cap 2 times per day 9. echinacea 400 mg oral cap daily 10. Fish Oil 1,000 mg Oral cap daily 11. garlic oral oral 2 mg 12. losartan-hydrochlorothiazide 100-25 mg oral tab 1 tab once daily 13. multivitamin Oral tab 1 tab daily 14. verapamil 180 mg Oral C24P 1 cap nightly 15. ferrous sulfate 325 mg (65 mg iron) Oral tab 325 mg daily 16. Vitamin D Oral 5000 unit twice a day - PMHx: Aortic Aneurysm; Hypercholesterolemia; Hypertension; nstemi; afib; - PSHx: repair aortic aneurysm; removal tumor ear drum left; right elbow surgery; Tubal ligation; - Social history: No barriers to communication noted, The patient speaks fluent Botswanan, Smoking status: Patient states former smoker of tobacco. - Family history: No immediate family members are acutely ill. - : The pt / caregiver states he / she is on anticoagulants: Plavix. Home medication list is obtained from the patient. - Exposure Risk Screening:: None identified. Screenin:29 Screening information is obtained from the patient. Fall risk: No risks identified. mb9 Assistance ADL's: requires no assistance with activities of daily living. Abuse/DV Screen: The patient / caregiver reports he/she is: not in a situation that causes fear, pain or injury. Nutritional screening: No deficits noted. Advance Directives: There is no active DNR order. home support is adequate. Assessment: 20:01 Reassessment: Patient appears in no apparent distress at this time. Patient states mb9 feeling better. Patient states symptoms have improved. Adult Sepsis Screening: The patient does not have new or worsening altered mentation. Patient's respiratory rate is less than 22. Systolic blood pressure is greater than 100. Patient has a qSOFA score of 0- Negative Sepsis Screen. General: Appears in no apparent distress, Behavior is appropriate for age, cooperative. Respiratory: Airway is patent Respiratory effort is even, unlabored, Breath sounds are clear bilaterally. Reports cough that is. 21:58 Reassessment: Patient appears in no apparent distress at this time. Adult Sepsis mb9 Screening: The patient does not have new or worsening altered mentation. Patient's respiratory rate is less than 22. Systolic blood pressure is greater than 100. Patient has a qSOFA score of 0- Negative Sepsis Screen. General: Appears in no apparent distress, Behavior is appropriate for age, cooperative. Respiratory: Airway is patent Respiratory effort is even, unlabored. Vital Signs: 18:26 BP 199 / 76; Pulse 83; Resp 18; Temp 99.9(TE); Pulse Ox 96% on 2 lpm NC; Weight 57.15 ct3 kg (R); Height 5 ft. 6 in. (167.64 cm) (R); 18:29 BP 153 / 70 (auto/); mb9 18:29 BP 156 / 78; Pulse 85; Resp 17; Pulse Ox 95% on R/A; mb9 18:30 Pulse 84 MON; Pulse Ox 97% ; mb9 21:29 BP 149 / 66 (auto/); mb9 21:29 Pulse 74 MON; Resp 18; Temp 96.4(O); Pulse Ox 97% ; mb9 18:26 Body Mass Index 20.34 (57.15 kg, 167.64 cm) ct3 Vitals: 18:26 Log In Time N/A - ambulance arrival. ct3 ED Course: 18:13 Patient visited by Bianka Baker, Environmental Engineering Professor. lbd 18:13 Jayson Cox is Private Physician. lbd 18:13 Patient moved to Waiting lbd 18:13 Patient moved to 19 lbd 18:25 Triage Initiated mb9 18:27 Patient visited by Taya Sebastian PCA. ct3 18:28 Dajuan Hernandez FNP is [facility]. ke 18:28 Patient visited by Dajuan Hernandez FNP. ke 18:28 Patient visited by Dajuan Hernandez FNP. ke 18:56 -Blood Culture Sent. mb9 18:56 B-Type Natiuretic Peptide Sent. mb9 18:56 Basic Metabolic Profile Sent. mb9 18:56 CBC with Diff Sent. mb9 18:57 Maintain field IV. Dressing intact. Good blood return noted. Site clean & dry. Gauge & mb9 site: 18 gauge left hand. 18:59 Patient visited by Dajuan Hernandez FNP. ke 19:20 EKG done. (by ED staff). Reviewed by Dajuan PADILLA. jmv 19:21 Patient visited by Parth Olvera PCA. jmv 19:44 Patient visited by Dajuan Hernandez FNP. ke 20:13 Patient visited by Dajuan Hernandez FNP. ke 20:34 [facility] Payment Agreement was scanned into Astrid and attached to record. zo 20:42 Patient visited by Dajuan Hernandez FNP. ke 20:50 Jayson Cox is Referral Physician. ke 21:29 The patient / caregiver is instructed regarding the plan of care and ED course. mb9 21:29 Discontinued IV lock intact, bleeding controlled, pressure dressing applied, No mb9 redness/swelling at site. No procedures done that require assistance. Administered Medications: 18:52 Drug: Albuterol 5 mg [albuterol sulfate 2.5 mg/0.5 mL solution for nebulization (1 mL)] cs15 Route: Nebulizer; 18:52 Drug: Albuterol-Ipratropium 3 ml [ipratropium-albuterol 0.5 mg-3 mg(2.5 mg base)/3 mL cs15 nebulization soln (3 mL)] Route: Inhalation; 18:56 Drug: Acetaminophen 975 mg [acetaminophen 325 mg tablet (3 tabs)] Route: PO; mb9 21:56 Drug: Tessalon 200 mg Route: PO; mb9 21:56 Drug: azithromycin 500 mg [azithromycin 250 mg tablet (2 tabs)] Route: PO; mb9 RT: 18:52 Initial Med Neb Given as ordered. O2 via nasal cannula \\T\\ 2L/min. Respiratory: cs15 Respiratory effort is unlabored, Respiratory pattern is regular Breath sounds are coarse bilaterally. 19:06 Respiratory: Breath sounds with crackles bilaterally. in left posterior lower lobe and cs15 right posterior lower lobe. Order Results: Lab Order: B-Type Natiuretic Peptide; SPEC'M 08/15/16 18:53 Test: BRAIN NATRIURETIC PEPTIDE; Value: 221; Range: <100; Abnormal: Above high normal; Units: PG/ML; Status: F Lab Order: Basic Metabolic Profile; SPEC'M 08/15/16 18:53 Test: GLUCOSE, FASTING; Value: 98; Range: 80-110; Units: MG/DL; Status: F Test: BLOOD UREA NITROGEN; Value: 19; Range: 7-18; Abnormal: Above high normal; Units: MG/DL; Status: F Test: CREATININE FOR GFR; Value: 0.93; Range: 0.55-1.02; Units: MG/DL; Status: F Test: GLOMERULAR FILTRATION RATE; Value: > 60.0; Range: >45; Status: F Test: SODIUM LEVEL; Value: 139; Range: 136-145; Units: MEQ/L; Status: F Test: POTASSIUM SERUM; Value: 4.0; Range: 3.5-5.1; Units: MEQ/L; Status: F Test: CHLORIDE LEVEL; Value: 103; Range: 98-107; Units: MEQ/L; Status: F Test: CARBON DIOXIDE LEVEL; Value: 28; Range: 21-32; Units: MEQ/L; Status: F Test: ANION GAP; Value: 8; Range: 8-16; Units: MEQ/L; Status: F Test: CALCIUM LEVEL; Value: 8.6; Range: 8.8-10.2; Abnormal: Below low normal; Units: MG/DL; Status: F Test Note: ; Units are mL/min/1.73 m2 Chronic Kidney Disease Staging per NKF: Stage I & II GFR >=60 Normal to Mildly Decreased Stage III GFR 30-59 Moderately Decreased Stage IV GFR 15-29 Severely Decreased Stage V GFR <15 Very Little GFR Left ESRD GFR <15 on SEMICONDUCTOR PROCESSOR Lab Order: CBC with Diff; SPEC'M 08/15/16 18:53 Test: WHITE BLOOD COUNT; Value: 8.3; Range: 4.0-10.0; Units: K/mm3; Status: F Test: RED BLOOD COUNT; Value: 3.38; Range: 4.00-5.40; Abnormal: Below low normal; Units: M/mm3; Status: F Test: HEMOGLOBIN; Value: 10.1; Range: 12.0-16.0; Abnormal: Below low normal; Units: g/dl; Status: F Test: HEMATOCRIT; Value: 30.7; Range: 36.0-47.0; Abnormal: Below low normal; Units: %; Status: F Test: MEAN CORPUSCULAR VOLUME; Value: 90.8; Range: 80.0-96.0; Units: fl; Status: F Test: MEAN CORPUSCULAR HEMOGLOBIN; Value: 29.9; Range: 27.0-33.0; Units: pg; Status: F Test: MEAN CORPUSCULAR HGB CONC; Value: 32.9; Range: 32.0-36.5; Units: g/dl; Status: F Test: RED CELL DISTRIBUTION WIDTH; Value: 13.1; Range: 11.5-14.5; Units: %; Status: F Test: PLATELET COUNT, AUTOMATED; Value: 187; Range: 150-450; Units: k/mm3; Status: F Test: NEUTROPHILS %; Value: 80.3; Range: 36.0-66.0; Abnormal: Above high normal; Units: %; Status: F Test: LYMPH %; Value: 9.8; Range: 24.0-44.0; Abnormal: Below low normal; Units: %; Status: F Test: MONO %; Value: 6.2; Range: 0.0-5.0; Abnormal: Above high normal; Units: %; Status: F Test: EOS %; Value: 1.6; Range: 0.0-3.0; Units: %; Status: F Test: BASO %; Value: 0.2; Range: 0.0-1.0; Units: %; Status: F Test: LARGE UNSTAINED CELL %; Value: 2.0; Range: 0.0-4.0; Units: %; Status: F Test: NEUTROPHILS #; Value: 6.7; Range: 1.8-7.7; Units: K/mm3; Status: F Test: LYMPH #; Value: 1.0; Range: 1.5-4.5; Abnormal: Below low normal; Units: K/mm3; Status: F Test: MONO #; Value: 0.5; Range: 0.0-0.8; Units: K/mm3; Status: F Test: EOS #; Value: 0.1; Range: 0.0-0.50; Units: K/mm3; Status: F Test: BASO #; Value: 0.0; Range: 0.0-0.2; Units: K/mm3; Status: F Test: LARGE UNSTAINED CELL #; Value: 0.2; Range: 0.0-0.4; Units: K/mm3; Status: F Outcome: 20:51 Discharge ordered by Provider. ke 21:29 Discharge Assessment: Patient awake, alert and oriented x 3. No cognitive and/or mb9 functional deficits noted. Patient verbalized understanding of disposition instructions. patient administered narcotics - no. The following High Risk Discharge criteria are identified: None. Discharged to home ambulatory. Condition: good Condition: stable Condition: improved. Discharge instructions given to patient, Instructed on discharge instructions, follow up and referral plans. medication usage, Demonstrated understanding of instructions, medications, Pt was receptive of discharge instructions/ teaching. Prescriptions given X 3. No special radiology studies were completed. Property :Personal belongings accompany Pt. 22:00 Patient left the ED. mb9 Signatures: Bianka Baker, Environmental Engineering Professor Unit lbd Dajuan Hernandez FNP FNP ke Olin, Zoeann zo Taveras, Consuelo, LIBERAL ARTS TEACHER LIBERAL ARTS TEACHER ct3 Scott Crain,RN RN mb9 Chung Aranda,RT RT cs15 Parth Olvera, LIBERAL ARTS TEACHER LIBERAL ARTS TEACHER jmv MTDD
--- NOTE | 2016-08-16 09:40 | REP ---
CHEST PA AND LATERAL: 08/15/2016. Comparison CT chest 07/08/2016, portable chest 07/08/2016. Sternotomy wires and clips from CABG again seen. There are is an aortic aneurysm with prominent aneurysmal dilatation at the aortic arch and unchanged from previous study. There is basilar fibrotic changes. There is no effusion, acute infiltrate, atelectasis or mass. Heart mildly prominent. There is no vascular redistribution or edema. Airway intact bony thorax shows demineralization without acute compression deformity. Impression: 1. Thoracic aortic aneurysm with most prominent rounded aneurysmal dilatation of the saccular variety is in the arch. Appearance unchanged from the portable chest last month. No effusion or acute infiltrate, but some bibasilar fibrotic change, appears stable. Signed by Owen Jeronimo MD 08/16/2016 07:26 P
--- NOTE | 2016-08-17 23:02 | EDDOCDS ---
Nurse's Notes [facility] Name: Julissa Rebolledo Age: 65 yrs Sex: Female : 1950 Arrival Date: 08/15/2016 Time: 18:11 Bed 19 Private MD: Jayson Cox A. Diagnosis: Acute bronchitis Presentation: 08/15 18:19 Presenting complaint:. mb9 18:22 Presenting complaint: Patient states: "My sinuses have been bothering me and my throat mb9 has been bothering. Then the nurse from [facility] came and checked my temperature and listened to my heart and she didn't like what she heard". Suicide/Homicide risk assessment- the patient denies having any suicidal and/or homicidal ideations and does not present with any other emotional, behavioral or mental health complaints. Status: Patient is not a private branch exchange service adviser or dependent. Transition of care: patient was not received from another setting of care. Care prior to arrival: See EMS report. 18:22 Acuity: RICHMOND Level 3 9 18:22 Method Of Arrival: Ambulance [facility] 18:33 Adult Sepsis Screening: The patient does not have new or worsening altered mentation. mb9 Patient's respiratory rate is less than 22. Systolic blood pressure is greater than 100. Patient has a qSOFA score of 0- Negative Sepsis Screen. Triage Assessment: 18:33 General: Appears in no apparent distress. Pain: Denies pain. The patient is triaged at 9 the bedside. See Assessment in Nurses Notes section of ED record. Neurological: Level of Consciousness is awake, alert, Oriented to person, place. Cardiovascular: Heart tones S1 S2 present Rhythm is sinus rhythm with unifocal PVCs Chest pain is denied. Respiratory: Airway is patent Respiratory effort is even, unlabored, Breath sounds are clear bilaterally. Reports cough that is non-productive. Historical: - Allergies: Codeine Sulfate (Unknown); orange (Upset stomach); - Home Meds: 1. Plavix 75 mg Oral tab 1 tab once daily 2. aspirin 325 mg Oral tab 1 tab once daily 3. nitroglycerin 0.4 mg SL subl 4. atorvastatin 40 mg oral tab 1 tab every 2 days 5. labetalol 200 mg Oral tab 1 tab 2 times per day 6. clonidine HCl 0.1 mg Oral tab 1 tab 3 times per day 7. cranberry 400 mg oral cap daily 8. docusate sodium 100 mg Oral cap 1 cap 2 times per day 9. echinacea 400 mg oral cap daily 10. Fish Oil 1,000 mg Oral cap daily 11. garlic oral oral 2 mg 12. losartan-hydrochlorothiazide 100-25 mg oral tab 1 tab once daily 13. multivitamin Oral tab 1 tab daily 14. verapamil 180 mg Oral C24P 1 cap nightly 15. ferrous sulfate 325 mg (65 mg iron) Oral tab 325 mg daily 16. Vitamin D Oral 5000 unit twice a day - PMHx: Aortic Aneurysm; Hypercholesterolemia; Hypertension; nstemi; afib; - PSHx: repair aortic aneurysm; removal tumor ear drum left; right elbow surgery; Tubal ligation; - Social history: No barriers to communication noted, The patient speaks fluent Bolivian, Smoking status: Patient states former smoker of tobacco. - Family history: No immediate family members are acutely ill. - : The pt / caregiver states he / she is on anticoagulants: Plavix. Home medication list is obtained from the patient. - Exposure Risk Screening:: None identified. Screenin:29 Screening information is obtained from the patient. Fall risk: No risks identified. mb9 Assistance ADL's: requires no assistance with activities of daily living. Abuse/DV Screen: The patient / caregiver reports he/she is: not in a situation that causes fear, pain or injury. Nutritional screening: No deficits noted. Advance Directives: There is no active DNR order. home support is adequate. Assessment: 20:01 Reassessment: Patient appears in no apparent distress at this time. Patient states mb9 feeling better. Patient states symptoms have improved. Adult Sepsis Screening: The patient does not have new or worsening altered mentation. Patient's respiratory rate is less than 22. Systolic blood pressure is greater than 100. Patient has a qSOFA score of 0- Negative Sepsis Screen. General: Appears in no apparent distress, Behavior is appropriate for age, cooperative. Respiratory: Airway is patent Respiratory effort is even, unlabored, Breath sounds are clear bilaterally. Reports cough that is. 21:58 Reassessment: Patient appears in no apparent distress at this time. Adult Sepsis mb9 Screening: The patient does not have new or worsening altered mentation. Patient's respiratory rate is less than 22. Systolic blood pressure is greater than 100. Patient has a qSOFA score of 0- Negative Sepsis Screen. General: Appears in no apparent distress, Behavior is appropriate for age, cooperative. Respiratory: Airway is patent Respiratory effort is even, unlabored. Vital Signs: 18:26 BP 199 / 76; Pulse 83; Resp 18; Temp 99.9(TE); Pulse Ox 96% on 2 lpm NC; Weight 57.15 ct3 kg (R); Height 5 ft. 6 in. (167.64 cm) (R); 18:29 BP 153 / 70 (auto/); mb9 18:29 BP 156 / 78; Pulse 85; Resp 17; Pulse Ox 95% on R/A; mb9 18:30 Pulse 84 MON; Pulse Ox 97% ; mb9 21:29 BP 149 / 66 (auto/); mb9 21:29 Pulse 74 MON; Resp 18; Temp 96.4(O); Pulse Ox 97% ; mb9 18:26 Body Mass Index 20.34 (57.15 kg, 167.64 cm) ct3 Vitals: 18:26 Log In Time N/A - ambulance arrival. ct3 ED Course: 18:13 Patient visited by Bianka Baker, Binding End Stitcher. lbd 18:13 Jayson Cox is Private Physician. lbd 18:13 Patient moved to Waiting lbd 18:13 Patient moved to 19 lbd 18:25 Triage Initiated mb9 18:27 Patient visited by Taya Sebastian PCA. ct3 18:28 [facility] ke 18:28 Patient visited by Dajuan Hernandez FNP. ke 18:28 Patient visited by Dajuan Hernandez FNP. ke 18:56 -Blood Culture Sent. mb9 18:56 B-Type Natiuretic Peptide Sent. mb9 18:56 Basic Metabolic Profile Sent. mb9 18:56 CBC with Diff Sent. mb9 18:57 Maintain field IV. Dressing intact. Good blood return noted. Site clean & dry. Gauge & mb9 site: 18 gauge left hand. 18:59 Patient visited by Dajuan Hernandez FNP. ke 19:20 EKG done. (by ED staff). Reviewed by Dajuan PADILLA. jmv 19:21 Patient visited by Parth Olvera PCA. jmv 19:44 Patient visited by Dajuan Hernandez FNP. ke 20:13 Patient visited by Dajuan Hernandez FNP. ke 20:34 [facility] Payment Agreement was scanned into [employer] and attached to record. zo 20:42 Patient visited by Dajuan Hernandez FNP. ke 20:50 Jayson Cox is Referral Physician. ke 21:29 The patient / caregiver is instructed regarding the plan of care and ED course. mb9 21:29 Discontinued IV lock intact, bleeding controlled, pressure dressing applied, No mb9 redness/swelling at site. No procedures done that require assistance. 22:17 EKG-ADULT Returned. EDMS 02 10:01 Chest, 2 View (pa\\E\\lat) Returned. EDMS 10:28 T-Sheet-- Draft Copy was scanned into [employer] and attached to record. gb 15:38 T-Sheet-- Draft Copy was scanned into [employer] and attached to record. gb Administered Medications: 08/15 18:52 Drug: Albuterol 5 mg [albuterol sulfate 2.5 mg/0.5 mL solution for nebulization (1 mL)] cs15 Route: Nebulizer; 18:52 Drug: Albuterol-Ipratropium 3 ml [ipratropium-albuterol 0.5 mg-3 mg(2.5 mg base)/3 mL cs15 nebulization soln (3 mL)] Route: Inhalation; 18:56 Drug: Acetaminophen 975 mg [acetaminophen 325 mg tablet (3 tabs)] Route: PO; mb9 21:56 Drug: Tessalon 200 mg Route: PO; mb9 21:56 Drug: azithromycin 500 mg [azithromycin 250 mg tablet (2 tabs)] Route: PO; mb9 RT: 18:52 Initial Med Neb Given as ordered. O2 via nasal cannula \\T\\ 2L/min. Respiratory: cs15 Respiratory effort is unlabored, Respiratory pattern is regular Breath sounds are coarse bilaterally. 19:06 Respiratory: Breath sounds with crackles bilaterally. in left posterior lower lobe and cs15 right posterior lower lobe. Order Results: Lab Order: -Blood Culture; SPEC'M 08/15/16 18:53 Test: BLOOD CULTURE; Value: DATE POSITIVE DETECTED 08/17/16; Status: F Test: BLOOD CULTURE; Value: EXTERNAL GS (REQUIRED!!!) GRAM POSITIVE COCCI IN CLUSTERS; Status: F Test: BLOOD CULTURE; Value: GRAM STAIN CALLED BY PEGGY; Status: F Test: BLOOD CULTURE; Value: GRAM STAIN CALLED TO RB; Status: F Test: BLOOD CULTURE; Value: DATE GRAM STAIN CALLED 08/17/16; Status: F Test: BLOOD CULTURE; Value: TIME GRAM STAIN CALLED 05; Status: F Lab Order: B-Type Natiuretic Peptide; [facility] 08/15/16 18:53 Test: BRAIN NATRIURETIC PEPTIDE; Value: 221; Range: <100; Abnormal: Above high normal; Units: PG/ML; Status: F Lab Order: Basic Metabolic Profile; [facility] 08/15/16 18:53 Test: GLUCOSE, FASTING; Value: 98; Range: 80-110; Units: MG/DL; Status: F Test: BLOOD UREA NITROGEN; Value: 19; Range: 7-18; Abnormal: Above high normal; Units: MG/DL; Status: F Test: CREATININE FOR GFR; Value: 0.93; Range: 0.55-1.02; Units: MG/DL; Status: F Test: GLOMERULAR FILTRATION RATE; Value: > 60.0; Range: >45; Status: F Test: SODIUM LEVEL; Value: 139; Range: 136-145; Units: MEQ/L; Status: F Test: POTASSIUM SERUM; Value: 4.0; Range: 3.5-5.1; Units: MEQ/L; Status: F Test: CHLORIDE LEVEL; Value: 103; Range: 98-107; Units: MEQ/L; Status: F Test: CARBON DIOXIDE LEVEL; Value: 28; Range: 21-32; Units: MEQ/L; Status: F Test: ANION GAP; Value: 8; Range: 8-16; Units: MEQ/L; Status: F Test: CALCIUM LEVEL; Value: 8.6; Range: 8.8-10.2; Abnormal: Below low normal; Units: MG/DL; Status: F Test Note: ; Units are mL/min/1.73 m2 Chronic Kidney Disease Staging per NKF: Stage I & II GFR >=60 Normal to Mildly Decreased Stage III GFR 30-59 Moderately Decreased Stage IV GFR 15-29 Severely Decreased Stage V GFR <15 Very Little GFR Left ESRD GFR <15 on ORNAMENTAL PLASTERER HELPER Lab Order: CBC with Diff; SPEC' 08/15/16 18:53 Test: WHITE BLOOD COUNT; Value: 8.3; Range: 4.0-10.0; Units: K/mm3; Status: F Test: RED BLOOD COUNT; Value: 3.38; Range: 4.00-5.40; Abnormal: Below low normal; Units: M/mm3; Status: F Test: HEMOGLOBIN; Value: 10.1; Range: 12.0-16.0; Abnormal: Below low normal; Units: g/dl; Status: F Test: HEMATOCRIT; Value: 30.7; Range: 36.0-47.0; Abnormal: Below low normal; Units: %; Status: F Test: MEAN CORPUSCULAR VOLUME; Value: 90.8; Range: 80.0-96.0; Units: fl; Status: F Test: MEAN CORPUSCULAR HEMOGLOBIN; Value: 29.9; Range: 27.0-33.0; Units: pg; Status: F Test: MEAN CORPUSCULAR HGB CONC; Value: 32.9; Range: 32.0-36.5; Units: g/dl; Status: F Test: RED CELL DISTRIBUTION WIDTH; Value: 13.1; Range: 11.5-14.5; Units: %; Status: F Test: PLATELET COUNT, AUTOMATED; Value: 187; Range: 150-450; Units: k/mm3; Status: F Test: NEUTROPHILS %; Value: 80.3; Range: 36.0-66.0; Abnormal: Above high normal; Units: %; Status: F Test: LYMPH %; Value: 9.8; Range: 24.0-44.0; Abnormal: Below low normal; Units: %; Status: F Test: MONO %; Value: 6.2; Range: 0.0-5.0; Abnormal: Above high normal; Units: %; Status: F Test: EOS %; Value: 1.6; Range: 0.0-3.0; Units: %; Status: F Test: BASO %; Value: 0.2; Range: 0.0-1.0; Units: %; Status: F Test: LARGE UNSTAINED CELL %; Value: 2.0; Range: 0.0-4.0; Units: %; Status: F Test: NEUTROPHILS #; Value: 6.7; Range: 1.8-7.7; Units: K/mm3; Status: F Test: LYMPH #; Value: 1.0; Range: 1.5-4.5; Abnormal: Below low normal; Units: K/mm3; Status: F Test: MONO #; Value: 0.5; Range: 0.0-0.8; Units: K/mm3; Status: F Test: EOS #; Value: 0.1; Range: 0.0-0.50; Units: K/mm3; Status: F Test: BASO #; Value: 0.0; Range: 0.0-0.2; Units: K/mm3; Status: F Test: LARGE UNSTAINED CELL #; Value: 0.2; Range: 0.0-0.4; Units: K/mm3; Status: F Lab Order: BLOOD CULTURES; SPEC'M 08/15/16 19:01 Test: BLOOD CULTURE; Value: No growth after 24 hours . All specimens observed; Status: F Test: BLOOD CULTURE; Value: for 5 days. Results final at that time.; Status: F Test: BLOOD CULTURE; Value: No Growth after 48 hours. All Specimens observed; Status: F Test: BLOOD CULTURE; Value: for 7 days. Results final at that time.; Status: F Radiology Order: Chest, 2 View (pa\\E\\lat) Test: Chest, 2 View (pa\\E\\lat) REASON FOR EXAMINATION: Cough; CHEST PA AND LATERAL: 08/15/2016.; ; Comparison CT chest 07/08/2016, portable chest 07/08/2016.; ; Sternotomy wires and clips from CABG again seen. There are is an aortic; aneurysm with prominent aneurysmal dilatation at the aortic arch and unchanged; from previous study. There is basilar fibrotic changes. There is no effusion,; acute infiltrate, atelectasis or mass. Heart mildly prominent. There is no; vascular redistribution or edema. Airway intact bony thorax shows; demineralization without acute compression deformity.; ; Impression:; ; 1. Thoracic aortic aneurysm with most prominent rounded aneurysmal dilatation of; the saccular variety is in the arch. Appearance unchanged from the portable; chest last month. 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 ke 21:29 Discharge Assessment: Patient awake, alert and oriented x 3. No cognitive and/or mb9 functional deficits noted. Patient verbalized understanding of disposition instructions. patient administered narcotics - no. The following High Risk Discharge criteria are identified: None. Discharged to home ambulatory. Condition: good Condition: stable Condition: improved. Discharge instructions given to patient, Instructed on discharge instructions, follow up and referral plans. medication usage, Demonstrated understanding of instructions, medications, Pt was receptive of discharge instructions/ teaching. Prescriptions given X 3. No special radiology studies were completed. Property :Personal belongings accompany Pt. 22:00 Patient left the ED. [email or web address] Signatures: Dispatcher [employer] EDMS Bianka Baker, Binding End Stitcher Unit lbd Gris Oakley, Reg Reg Dajuan Sewell, Xin Breen Consuelo, ROUTING EQUIPMENT TENDER ROUTING EQUIPMENT TENDER ct3 Scott Crain,RN RN mb9 Chung Aranda,RT RT cs15 Parth Olvera, ROUTING EQUIPMENT TENDER ROUTING EQUIPMENT TENDER jmv Chart Complete MTDD
--- NOTE | 2016-08-17 23:02 | EDDOCDS ---
Physician Documentation [facility] Name: Cynthia Rebolledo Age: 65 yrs Sex: Female : 1950 Arrival Date: 08/15/2016 Time: 18:11 Bed 19 Private MD: Jayson Wolf A. Disposition: 08/15/16 20:51 Discharged to Home/Self Care. Impression: Acute bronchitis. - Condition is Stable. - Discharge Instructions: Acute Bronchitis. - Prescriptions for Zithromax Z- Nasir 250 mg Oral Tablet - take 1 tablet by ORAL route as directed for 5 days Day 1- take two tablets once. Day 2, 3, 4 , 5 take one tablet once daily.; 6 tablet. benzonatate 200 mg Oral Capsule - take 1 capsule by ORAL route 3 times per day As needed; 30 capsule. Albuterol Sulfate 90 mcg/actuation Inhalation HFA Aerosol Inhaler - inhale 2 puff by INHALATION route every 4 hours As needed; 1 Inhaler. - Medication Reconciliation, Local Pharmacy Hours form. - Follow up: Jayson Wolf; When: 2 - 3 days; Reason: Recheck today's complaints, Continuance of care. - Problem is an ongoing problem. - Symptoms are unchanged. Historical: - Allergies: Codeine Sulfate (Unknown); orange (Upset stomach); - Home Meds: 1. Plavix 75 mg Oral tab 1 tab once daily 2. aspirin 325 mg Oral tab 1 tab once daily 3. nitroglycerin 0.4 mg SL subl 4. atorvastatin 40 mg oral tab 1 tab every 2 days 5. labetalol 200 mg Oral tab 1 tab 2 times per day 6. clonidine HCl 0.1 mg Oral tab 1 tab 3 times per day 7. cranberry 400 mg oral cap daily 8. docusate sodium 100 mg Oral cap 1 cap 2 times per day 9. echinacea 400 mg oral cap daily 10. Fish Oil 1,000 mg Oral cap daily 11. garlic oral oral 2 mg 12. losartan-hydrochlorothiazide 100-25 mg oral tab 1 tab once daily 13. multivitamin Oral tab 1 tab daily 14. verapamil 180 mg Oral C24P 1 cap nightly 15. ferrous sulfate 325 mg (65 mg iron) Oral tab 325 mg daily 16. Vitamin D Oral 5000 unit twice a day - PMHx: Aortic Aneurysm; Hypercholesterolemia; Hypertension; nstemi; afib; - PSHx: repair aortic aneurysm; removal tumor ear drum left; right elbow surgery; Tubal ligation; - Social history: No barriers to communication noted, The patient speaks fluent Czech, Smoking status: Patient states former smoker of tobacco. - Family history: No immediate family members are acutely ill. - : The pt / caregiver states he / she is on anticoagulants: Plavix. Home medication list is obtained from the patient. - Exposure Risk Screening:: None identified. Vital Signs: 08/15 18:26 BP 199 / 76; Pulse 83; Resp 18; Temp 99.9(TE); Pulse Ox 96% on 2 lpm NC; Weight 57.15 ct3 kg / 125.99 lbs (R); Height 5 ft. 6 in. (167.64 cm) (R); 18:29 BP 153 / 70 (auto/); mb9 18:29 BP 156 / 78; Pulse 85; Resp 17; Pulse Ox 95% on R/A; mb9 18:30 Pulse 84 MON; Pulse Ox 97% ; mb9 21:29 BP 149 / 66 (auto/); mb9 21:29 Pulse 74 MON; Resp 18; Temp 96.4(O); Pulse Ox 97% ; mb9 18:26 Body Mass Index 20.34 (57.15 kg, 167.64 cm) ct3 MDM: 18:42 -Blood Culture (Adults Only), peripheral from different site, or from device/port/PICC ke etc. if present ordered. 18:42 Public Speaking Coach/Pulse Ox/q 15 min VS ordered. ke 18:42 IV Saline Lock ordered. ke 18:42 Oxygen at 4L/Min NC or Home dosage ordered. ke 18:42 Rhythm Strip to chart ordered. ke 18:42 Acetaminophen Tablet 975 mg PO once ordered. ke 18:42 Albuterol 5 mg Nebulizer once ordered. ke 18:42 Albuterol-Ipratropium 3 ml Inhalation once ordered. ke 18:42 Call Respiratory ordered. ke 18:43 B-Type Natiuretic Peptide Ordered. EDMS 18:43 Basic Metabolic Profile Ordered. EDMS 18:43 CBC with Diff Ordered. EDMS 18:43 -Blood Culture Ordered. EDMS 18:43 Call Respiratory complete. mb9 18:44 Chest, 2 View (pa\E\lat) Ordered. EDMS 18:44 ECG WITH READING ER PHYS+CARDIAG ordered. EDMS 18:51 -Blood Culture (Adults Only), peripheral from different site, or from device/port/PICC jlm etc. if present complete. 18:53 BLOOD CULTURES Ordered. EDMS 19:48 Financial registration complete. zo 20:28 B-Type Natiuretic Peptide Reviewed. ke 20:28 Basic Metabolic Profile Reviewed. ke 20:28 CBC with Diff Reviewed. ke 20:34 [facility] Payment Agreement was scanned into [employer] and attached to record. zo 20:49 Tessalon 200 mg PO once ordered. ke 20:49 azithromycin 500 mg PO once ordered. ke 08/16 10:28 T-Sheet-- Draft Copy was scanned into [employer] and attached to record. gb 15:38 T-Sheet-- Draft Copy was scanned into [employer] and attached to record. gb 08/17 08:10 ED course: dr wolf faxed formal report of cxr for fu mlg. ml Administered Medications: 08/15 18:52 Drug: Albuterol 5 mg [albuterol sulfate 2.5 mg/0.5 mL solution for nebulization (1 mL)] cs15 Route: Nebulizer; 18:52 Drug: Albuterol-Ipratropium 3 ml [ipratropium-albuterol 0.5 mg-3 mg(2.5 mg base)/3 mL cs15 nebulization soln (3 mL)] Route: Inhalation; 18:56 Drug: Acetaminophen 975 mg [acetaminophen 325 mg tablet (3 tabs)] Route: PO; mb9 21:56 Drug: Tessalon 200 mg Route: PO; mb9 21:56 Drug: azithromycin 500 mg [azithromycin 250 mg tablet (2 tabs)] Route: PO; mb9 Signatures: Dispatcher [employer] EDMS Scotty Meadows MD MD ml Gris Oakley, Reg Reg gb Dajuan Hernandez, SALES RECRUITMENT SPECIALIST SALES RECRUITMENT SPECIALIST Xin Mcdonnell Jessie, Teacher Resource Unit jlm Scott Crain RN RN mb9 Chung Aranda RT cs15 The chart was reviewed and I authenticate all verbal orders and agree with the evaluation and treatment provided.Attachments: 20:34 [facility] Payment Agreement zo 08/16 10:28 T-Sheet-- Draft Copy gb 15:38 T-Sheet-- Draft Copy gb Chart Complete MTDD
--- NOTE | 2016-08-17 23:02 | EDDOCDS ---
Physician Documentation [facility] Name: Cynthia Rebolledo Age: 65 yrs Sex: Female : 1950 Arrival Date: 08/15/2016 Time: 18:11 Bed 19 Private MD: Jayson Wolf A. Disposition: 08/15/16 20:51 Discharged to Home/Self Care. Impression: Acute bronchitis. - Condition is Stable. - Discharge Instructions: Acute Bronchitis. - Prescriptions for Zithromax Z- Nasir 250 mg Oral Tablet - take 1 tablet by ORAL route as directed for 5 days Day 1- take two tablets once. Day 2, 3, 4 , 5 take one tablet once daily.; 6 tablet. benzonatate 200 mg Oral Capsule - take 1 capsule by ORAL route 3 times per day As needed; 30 capsule. Albuterol Sulfate 90 mcg/actuation Inhalation HFA Aerosol Inhaler - inhale 2 puff by INHALATION route every 4 hours As needed; 1 Inhaler. - Medication Reconciliation, Local Pharmacy Hours form. - Follow up: Jayson Wolf; When: 2 - 3 days; Reason: Recheck today's complaints, Continuance of care. - Problem is an ongoing problem. - Symptoms are unchanged. Historical: - Allergies: Codeine Sulfate (Unknown); orange (Upset stomach); - Home Meds: 1. Plavix 75 mg Oral tab 1 tab once daily 2. aspirin 325 mg Oral tab 1 tab once daily 3. nitroglycerin 0.4 mg SL subl 4. atorvastatin 40 mg oral tab 1 tab every 2 days 5. labetalol 200 mg Oral tab 1 tab 2 times per day 6. clonidine HCl 0.1 mg Oral tab 1 tab 3 times per day 7. cranberry 400 mg oral cap daily 8. docusate sodium 100 mg Oral cap 1 cap 2 times per day 9. echinacea 400 mg oral cap daily 10. Fish Oil 1,000 mg Oral cap daily 11. garlic oral oral 2 mg 12. losartan-hydrochlorothiazide 100-25 mg oral tab 1 tab once daily 13. multivitamin Oral tab 1 tab daily 14. verapamil 180 mg Oral C24P 1 cap nightly 15. ferrous sulfate 325 mg (65 mg iron) Oral tab 325 mg daily 16. Vitamin D Oral 5000 unit twice a day - PMHx: Aortic Aneurysm; Hypercholesterolemia; Hypertension; nstemi; afib; - PSHx: repair aortic aneurysm; removal tumor ear drum left; right elbow surgery; Tubal ligation; - Social history: No barriers to communication noted, The patient speaks fluent Portuguese, Smoking status: Patient states former smoker of tobacco. - Family history: No immediate family members are acutely ill. - : The pt / caregiver states he / she is on anticoagulants: Plavix. Home medication list is obtained from the patient. - Exposure Risk Screening:: None identified. Vital Signs: 08/15 18:26 BP 199 / 76; Pulse 83; Resp 18; Temp 99.9(TE); Pulse Ox 96% on 2 lpm NC; Weight 57.15 ct3 kg / 125.99 lbs (R); Height 5 ft. 6 in. (167.64 cm) (R); 18:29 BP 153 / 70 (auto/); mb9 18:29 BP 156 / 78; Pulse 85; Resp 17; Pulse Ox 95% on R/A; mb9 18:30 Pulse 84 MON; Pulse Ox 97% ; mb9 21:29 BP 149 / 66 (auto/); mb9 21:29 Pulse 74 MON; Resp 18; Temp 96.4(O); Pulse Ox 97% ; mb9 18:26 Body Mass Index 20.34 (57.15 kg, 167.64 cm) ct3 MDM: 18:42 -Blood Culture (Adults Only), peripheral from different site, or from device/port/PICC ke etc. if present ordered. 18:42 Edge Glue Machine Tender/Pulse Ox/q 15 min VS ordered. ke 18:42 IV Saline Lock ordered. ke 18:42 Oxygen at 4L/Min NC or Home dosage ordered. ke 18:42 Rhythm Strip to chart ordered. ke 18:42 Acetaminophen Tablet 975 mg PO once ordered. ke 18:42 Albuterol 5 mg Nebulizer once ordered. ke 18:42 Albuterol-Ipratropium 3 ml Inhalation once ordered. ke 18:42 Call Respiratory ordered. ke 18:43 B-Type Natiuretic Peptide Ordered. EDMS 18:43 Basic Metabolic Profile Ordered. EDMS 18:43 CBC with Diff Ordered. EDMS 18:43 -Blood Culture Ordered. EDMS 18:43 Call Respiratory complete. mb9 18:44 Chest, 2 View (pa\E\lat) Ordered. EDMS 18:44 ECG WITH READING ER PHYS+CARDIAG ordered. EDMS 18:51 -Blood Culture (Adults Only), peripheral from different site, or from device/port/PICC jlm etc. if present complete. 18:53 BLOOD CULTURES Ordered. EDMS 19:48 Financial registration complete. zo 20:28 B-Type Natiuretic Peptide Reviewed. ke 20:28 Basic Metabolic Profile Reviewed. ke 20:28 CBC with Diff Reviewed. ke 20:34 [facility] Payment Agreement was scanned into [employer] and attached to record. zo 20:49 Tessalon 200 mg PO once ordered. ke 20:49 azithromycin 500 mg PO once ordered. ke 08/16 10:28 T-Sheet-- Draft Copy was scanned into [employer] and attached to record. gb 15:38 T-Sheet-- Draft Copy was scanned into [employer] and attached to record. gb 08/17 08:10 ED course: dr wolf faxed formal report of cxr for fu mlg. ml Administered Medications: 08/15 18:52 Drug: Albuterol 5 mg [albuterol sulfate 2.5 mg/0.5 mL solution for nebulization (1 mL)] cs15 Route: Nebulizer; 18:52 Drug: Albuterol-Ipratropium 3 ml [ipratropium-albuterol 0.5 mg-3 mg(2.5 mg base)/3 mL cs15 nebulization soln (3 mL)] Route: Inhalation; 18:56 Drug: Acetaminophen 975 mg [acetaminophen 325 mg tablet (3 tabs)] Route: PO; mb9 21:56 Drug: Tessalon 200 mg Route: PO; mb9 21:56 Drug: azithromycin 500 mg [azithromycin 250 mg tablet (2 tabs)] Route: PO; mb9 Signatures: Dispatcher [employer] EDMS Scotty Meadows MD MD ml Gris Oakley, Reg Reg gb Dajuan Hernandez, [facility] Xin Mcdonnell Jessie, Emergency Services Dispatcher Unit jlm Scott Crain RN RN mb9 Chung Aranda RT cs15 The chart was reviewed and I authenticate all verbal orders and agree with the evaluation and treatment provided.Attachments: 20:34 [facility] Payment Agreement zo 08/16 10:28 T-Sheet-- Draft Copy gb 15:38 T-Sheet-- Draft Copy gb Chart Complete MTDD
--- NOTE | 2016-08-22 16:33 | EDDOCDS ---
Physician Documentation [facility] Name: Cynthia Rebolledo Age: 65 yrs Sex: Female : 1950 Arrival Date: 08/15/2016 Time: 18:11 Bed 19 Private MD: Jayson Wolf A. Disposition: 08/15/16 20:51 Discharged to Home/Self Care. Impression: Acute bronchitis. - Condition is Stable. - Discharge Instructions: Acute Bronchitis. - Prescriptions for Zithromax Z- Nasir 250 mg Oral Tablet - take 1 tablet by ORAL route as directed for 5 days Day 1- take two tablets once. Day 2, 3, 4 , 5 take one tablet once daily.; 6 tablet. benzonatate 200 mg Oral Capsule - take 1 capsule by ORAL route 3 times per day As needed; 30 capsule. Albuterol Sulfate 90 mcg/actuation Inhalation HFA Aerosol Inhaler - inhale 2 puff by INHALATION route every 4 hours As needed; 1 Inhaler. - Medication Reconciliation, Local Pharmacy Hours form. - Follow up: Jayson Wolf; When: 2 - 3 days; Reason: Recheck today's complaints, Continuance of care. - Problem is an ongoing problem. - Symptoms are unchanged. Historical: - Allergies: Codeine Sulfate (Unknown); orange (Upset stomach); - Home Meds: 1. Plavix 75 mg Oral tab 1 tab once daily 2. aspirin 325 mg Oral tab 1 tab once daily 3. nitroglycerin 0.4 mg SL subl 4. atorvastatin 40 mg oral tab 1 tab every 2 days 5. labetalol 200 mg Oral tab 1 tab 2 times per day 6. clonidine HCl 0.1 mg Oral tab 1 tab 3 times per day 7. cranberry 400 mg oral cap daily 8. docusate sodium 100 mg Oral cap 1 cap 2 times per day 9. echinacea 400 mg oral cap daily 10. Fish Oil 1,000 mg Oral cap daily 11. garlic oral oral 2 mg 12. losartan-hydrochlorothiazide 100-25 mg oral tab 1 tab once daily 13. multivitamin Oral tab 1 tab daily 14. verapamil 180 mg Oral C24P 1 cap nightly 15. ferrous sulfate 325 mg (65 mg iron) Oral tab 325 mg daily 16. Vitamin D Oral 5000 unit twice a day - PMHx: Aortic Aneurysm; Hypercholesterolemia; Hypertension; nstemi; afib; - PSHx: repair aortic aneurysm; removal tumor ear drum left; right elbow surgery; Tubal ligation; - Social history: No barriers to communication noted, The patient speaks fluent Syriac, Smoking status: Patient states former smoker of tobacco. - Family history: No immediate family members are acutely ill. - : The pt / caregiver states he / she is on anticoagulants: Plavix. Home medication list is obtained from the patient. - Exposure Risk Screening:: None identified. Vital Signs: 08/15 18:26 BP 199 / 76; Pulse 83; Resp 18; Temp 99.9(TE); Pulse Ox 96% on 2 lpm NC; Weight 57.15 ct3 kg / 125.99 lbs (R); Height 5 ft. 6 in. (167.64 cm) (R); 18:29 BP 153 / 70 (auto/); mb9 18:29 BP 156 / 78; Pulse 85; Resp 17; Pulse Ox 95% on R/A; mb9 18:30 Pulse 84 MON; Pulse Ox 97% ; mb9 21:29 BP 149 / 66 (auto/); mb9 21:29 Pulse 74 MON; Resp 18; Temp 96.4(O); Pulse Ox 97% ; mb9 18:26 Body Mass Index 20.34 (57.15 kg, 167.64 cm) ct3 MDM: 18:42 -Blood Culture (Adults Only), peripheral from different site, or from device/port/PICC ke etc. if present ordered. 18:42 Boat Canvas Maker And Installer/Pulse Ox/q 15 min VS ordered. ke 18:42 IV Saline Lock ordered. ke 18:42 Oxygen at 4L/Min NC or Home dosage ordered. ke 18:42 Rhythm Strip to chart ordered. ke 18:42 Acetaminophen Tablet 975 mg PO once ordered. ke 18:42 Albuterol 5 mg Nebulizer once ordered. ke 18:42 Albuterol-Ipratropium 3 ml Inhalation once ordered. ke 18:42 Call Respiratory ordered. ke 18:43 B-Type Natiuretic Peptide Ordered. EDMS 18:43 Basic Metabolic Profile Ordered. EDMS 18:43 CBC with Diff Ordered. EDMS 18:43 -Blood Culture Ordered. EDMS 18:43 Call Respiratory complete. mb9 18:44 Chest, 2 View (pa\E\lat) Ordered. EDMS 18:44 ECG WITH READING ER PHYS+CARDIAG ordered. EDMS 18:51 -Blood Culture (Adults Only), peripheral from different site, or from device/port/PICC jlm etc. if present complete. 18:53 BLOOD CULTURES Ordered. EDMS 19:48 Financial registration complete. zo 20:28 B-Type Natiuretic Peptide Reviewed. ke 20:28 Basic Metabolic Profile Reviewed. ke 20:28 CBC with Diff Reviewed. ke 20:34 [facility] Payment Agreement was scanned into [employer] and attached to record. zo 20:49 Tessalon 200 mg PO once ordered. ke 20:49 azithromycin 500 mg PO once ordered. ke 08/16 10:28 T-Sheet-- Draft Copy was scanned into [employer] and attached to record. gb 15:38 T-Sheet-- Draft Copy was scanned into [employer] and attached to record. gb 08/17 08:10 ED course: dr wolf faxed formal report of cxr for fu mlg. ml Administered Medications: 08/15 18:52 Drug: Albuterol 5 mg [albuterol sulfate 2.5 mg/0.5 mL solution for nebulization (1 mL)] cs15 Route: Nebulizer; 18:52 Drug: Albuterol-Ipratropium 3 ml [ipratropium-albuterol 0.5 mg-3 mg(2.5 mg base)/3 mL cs15 nebulization soln (3 mL)] Route: Inhalation; 18:56 Drug: Acetaminophen 975 mg [acetaminophen 325 mg tablet (3 tabs)] Route: PO; mb9 21:56 Drug: Tessalon 200 mg Route: PO; mb9 21:56 Drug: azithromycin 500 mg [azithromycin 250 mg tablet (2 tabs)] Route: PO; mb9 Signatures: Dispatcher [employer] EDMS Scotty Meadows MD MD ml Gris Oakley, Reg Reg gb Dajuan Hernandez, PROPERTY MANAGEMENT COORDINATOR PROPERTY MANAGEMENT COORDINATOR Xin Mcdonnell Jessie, Gasoline Engine Assembler Unit jlm Scott Crain RN RN mb9 Chung Aranda RT cs15 The chart was reviewed and I authenticate all verbal orders and agree with the evaluation and treatment provided.Attachments: 20:34 [facility] Payment Agreement zo 08/16 10:28 T-Sheet-- Draft Copy gb 15:38 T-Sheet-- Draft Copy gb Chart Complete MTDD
--- NOTE | 2016-08-22 16:33 | EDDOCDS ---
Nurse's Notes [facility] Name: Julissa Rebolledo Age: 65 yrs Sex: Female : 1950 Arrival Date: 08/15/2016 Time: 18:11 Bed 19 Private MD: Jayson Cox A. Diagnosis: Acute bronchitis Presentation: 08/15 18:19 Presenting complaint:. mb9 18:22 Presenting complaint: Patient states: "My sinuses have been bothering me and my throat mb9 has been bothering. Then the nurse from [facility] came and checked my temperature and listened to my heart and she didn't like what she heard". Suicide/Homicide risk assessment- the patient denies having any suicidal and/or homicidal ideations and does not present with any other emotional, behavioral or mental health complaints. Status: Patient is not a litigation services manager or dependent. Transition of care: patient was not received from another setting of care. Care prior to arrival: See EMS report. 18:22 Acuity: RICHMOND Level 3 9 18:22 Method Of Arrival: Ambulance [facility] 18:33 Adult Sepsis Screening: The patient does not have new or worsening altered mentation. mb9 Patient's respiratory rate is less than 22. Systolic blood pressure is greater than 100. Patient has a qSOFA score of 0- Negative Sepsis Screen. Triage Assessment: 18:33 General: Appears in no apparent distress. Pain: Denies pain. The patient is triaged at 9 the bedside. See Assessment in Nurses Notes section of ED record. Neurological: Level of Consciousness is awake, alert, Oriented to person, place. Cardiovascular: Heart tones S1 S2 present Rhythm is sinus rhythm with unifocal PVCs Chest pain is denied. Respiratory: Airway is patent Respiratory effort is even, unlabored, Breath sounds are clear bilaterally. Reports cough that is non-productive. Historical: - Allergies: Codeine Sulfate (Unknown); orange (Upset stomach); - Home Meds: 1. Plavix 75 mg Oral tab 1 tab once daily 2. aspirin 325 mg Oral tab 1 tab once daily 3. nitroglycerin 0.4 mg SL subl 4. atorvastatin 40 mg oral tab 1 tab every 2 days 5. labetalol 200 mg Oral tab 1 tab 2 times per day 6. clonidine HCl 0.1 mg Oral tab 1 tab 3 times per day 7. cranberry 400 mg oral cap daily 8. docusate sodium 100 mg Oral cap 1 cap 2 times per day 9. echinacea 400 mg oral cap daily 10. Fish Oil 1,000 mg Oral cap daily 11. garlic oral oral 2 mg 12. losartan-hydrochlorothiazide 100-25 mg oral tab 1 tab once daily 13. multivitamin Oral tab 1 tab daily 14. verapamil 180 mg Oral C24P 1 cap nightly 15. ferrous sulfate 325 mg (65 mg iron) Oral tab 325 mg daily 16. Vitamin D Oral 5000 unit twice a day - PMHx: Aortic Aneurysm; Hypercholesterolemia; Hypertension; nstemi; afib; - PSHx: repair aortic aneurysm; removal tumor ear drum left; right elbow surgery; Tubal ligation; - Social history: No barriers to communication noted, The patient speaks fluent [place], Smoking status: Patient states former smoker of tobacco. - Family history: No immediate family members are acutely ill. - : The pt / caregiver states he / she is on anticoagulants: Plavix. Home medication list is obtained from the patient. - Exposure Risk Screening:: None identified. Screenin:29 Screening information is obtained from the patient. Fall risk: No risks identified. mb9 Assistance ADL's: requires no assistance with activities of daily living. Abuse/DV Screen: The patient / caregiver reports he/she is: not in a situation that causes fear, pain or injury. Nutritional screening: No deficits noted. Advance Directives: There is no active DNR order. home support is adequate. Assessment: 20:01 Reassessment: Patient appears in no apparent distress at this time. Patient states mb9 feeling better. Patient states symptoms have improved. Adult Sepsis Screening: The patient does not have new or worsening altered mentation. Patient's respiratory rate is less than 22. Systolic blood pressure is greater than 100. Patient has a qSOFA score of 0- Negative Sepsis Screen. General: Appears in no apparent distress, Behavior is appropriate for age, cooperative. Respiratory: Airway is patent Respiratory effort is even, unlabored, Breath sounds are clear bilaterally. Reports cough that is. 21:58 Reassessment: Patient appears in no apparent distress at this time. Adult Sepsis mb9 Screening: The patient does not have new or worsening altered mentation. Patient's respiratory rate is less than 22. Systolic blood pressure is greater than 100. Patient has a qSOFA score of 0- Negative Sepsis Screen. General: Appears in no apparent distress, Behavior is appropriate for age, cooperative. Respiratory: Airway is patent Respiratory effort is even, unlabored. Vital Signs: 18:26 BP 199 / 76; Pulse 83; Resp 18; Temp 99.9(TE); Pulse Ox 96% on 2 lpm NC; Weight 57.15 ct3 kg (R); Height 5 ft. 6 in. (167.64 cm) (R); 18:29 BP 153 / 70 (auto/); mb9 18:29 BP 156 / 78; Pulse 85; Resp 17; Pulse Ox 95% on R/A; mb9 18:30 Pulse 84 MON; Pulse Ox 97% ; mb9 21:29 BP 149 / 66 (auto/); mb9 21:29 Pulse 74 MON; Resp 18; Temp 96.4(O); Pulse Ox 97% ; mb9 18:26 Body Mass Index 20.34 (57.15 kg, 167.64 cm) ct3 Vitals: 18:26 Log In Time N/A - ambulance arrival. ct3 ED Course: 18:13 Patient visited by Bianka Baker, Catalyst Recovery Operator. lbd 18:13 Jayson Cox is Private Physician. lbd 18:13 Patient moved to Waiting lbd 18:13 Patient moved to 19 lbd 18:25 Triage Initiated mb9 18:27 Patient visited by Taya Sebastian PCA. ct3 18:28 [facility] ke 18:28 Patient visited by Dajuan Hernandez FNP. ke 18:28 Patient visited by Dajuan Hernandez FNP. ke 18:56 -Blood Culture Sent. mb9 18:56 B-Type Natiuretic Peptide Sent. mb9 18:56 Basic Metabolic Profile Sent. mb9 18:56 CBC with Diff Sent. mb9 18:57 Maintain field IV. Dressing intact. Good blood return noted. Site clean & dry. Gauge & mb9 site: 18 gauge left hand. 18:59 Patient visited by Dajuan Hernandez FNP. ke 19:20 EKG done. (by ED staff). Reviewed by Dajuan PADILLA. jmv 19:21 Patient visited by Parth Olvera PCA. jmv 19:44 Patient visited by Dajuan Hernandez FNP. ke 20:13 Patient visited by Dajuan Hernandez FNP. ke 20:34 [facility] Payment Agreement was scanned into [employer] and attached to record. zo 20:42 Patient visited by Dajuan Hernandez FNP. ke 20:50 Jayson Cox is Referral Physician. ke 21:29 The patient / caregiver is instructed regarding the plan of care and ED course. mb9 21:29 Discontinued IV lock intact, bleeding controlled, pressure dressing applied, No mb9 redness/swelling at site. No procedures done that require assistance. 22:17 EKG-ADULT Returned. EDMS 02 10:01 Chest, 2 View (pa\\E\\lat) Returned. EDMS 10:28 T-Sheet-- Draft Copy was scanned into [employer] and attached to record. gb 15:38 T-Sheet-- Draft Copy was scanned into [employer] and attached to record. gb Administered Medications: 08/15 18:52 Drug: Albuterol 5 mg [albuterol sulfate 2.5 mg/0.5 mL solution for nebulization (1 mL)] cs15 Route: Nebulizer; 18:52 Drug: Albuterol-Ipratropium 3 ml [ipratropium-albuterol 0.5 mg-3 mg(2.5 mg base)/3 mL cs15 nebulization soln (3 mL)] Route: Inhalation; 18:56 Drug: Acetaminophen 975 mg [acetaminophen 325 mg tablet (3 tabs)] Route: PO; mb9 21:56 Drug: Tessalon 200 mg Route: PO; mb9 21:56 Drug: azithromycin 500 mg [azithromycin 250 mg tablet (2 tabs)] Route: PO; mb9 RT: 18:52 Initial Med Neb Given as ordered. O2 via nasal cannula \\T\\ 2L/min. Respiratory: cs15 Respiratory effort is unlabored, Respiratory pattern is regular Breath sounds are coarse bilaterally. 19:06 Respiratory: Breath sounds with crackles bilaterally. in left posterior lower lobe and cs15 right posterior lower lobe. Order Results: Lab Order: -Blood Culture; SPEC'M 08/15/16 18:53 Test: BLOOD CULTURE; Value: DATE POSITIVE DETECTED 08/17/16; Status: F Test: BLOOD CULTURE; Value: EXTERNAL GS (REQUIRED!!!) GRAM POSITIVE COCCI IN CLUSTERS; Status: F Test: BLOOD CULTURE; Value: GRAM STAIN CALLED BY PEGGY; Status: F Test: BLOOD CULTURE; Value: GRAM STAIN CALLED TO RB; Status: F Test: BLOOD CULTURE; Value: DATE GRAM STAIN CALLED 08/17/16; Status: F Test: BLOOD CULTURE; Value: TIME GRAM STAIN CALLED 0541; Status: F Test: BLOOD CULTURE; Value: ORGANISM 1: MICROCOCCUS LUTEUS; Status: F Test: BLOOD CULTURE; Value: MICROCOCCUS LUTEUS; Status: F Test: BLOOD CULTURE; Value: Micrococcus line 1 Micrococci are widespread in nature and; Status: F Test: BLOOD CULTURE; Value: Micrococcus line 2 commonly found on the skin. Micrococci appear to be; Status: F Test: BLOOD CULTURE; Value: Micrococcus line 3 susceptible to most antibiotics. Successful treatment; Status: F Test: BLOOD CULTURE; Value: Micrococcus line 4 has occurred with the use of vancomycin, penicillin,; Status: F Test: BLOOD CULTURE; Value: Micrococcus line 5 gentamicin, clindamycin or a combination of these; Status: F Test: BLOOD CULTURE; Value: Micrococcus line 6 antibiotics.; Status: F Lab Order: B-Type Natiuretic Peptide; SPEC'M 08/15/16 18:53 Test: BRAIN NATRIURETIC PEPTIDE; Value: 221; Range: <100; Abnormal: Above high normal; Units: PG/ML; Status: F Lab Order: Basic Metabolic Profile; SPEC'M 08/15/16 18:53 Test: GLUCOSE, FASTING; Value: 98; Range: 80-110; Units: MG/DL; Status: F Test: BLOOD UREA NITROGEN; Value: 19; Range: 7-18; Abnormal: Above high normal; Units: MG/DL; Status: F Test: CREATININE FOR GFR; Value: 0.93; Range: 0.55-1.02; Units: MG/DL; Status: F Test: GLOMERULAR FILTRATION RATE; Value: > 60.0; Range: >45; Status: F Test: SODIUM LEVEL; Value: 139; Range: 136-145; Units: MEQ/L; Status: F Test: POTASSIUM SERUM; Value: 4.0; Range: 3.5-5.1; Units: MEQ/L; Status: F Test: CHLORIDE LEVEL; Value: 103; Range: 98-107; Units: MEQ/L; Status: F Test: CARBON DIOXIDE LEVEL; Value: 28; Range: 21-32; Units: MEQ/L; Status: F Test: ANION GAP; Value: 8; Range: 8-16; Units: MEQ/L; Status: F Test: CALCIUM LEVEL; Value: 8.6; Range: 8.8-10.2; Abnormal: Below low normal; Units: MG/DL; Status: F Test Note: ; Units are mL/min/1.73 m2 Chronic Kidney Disease Staging per NKF: Stage I & II GFR >=60 Normal to Mildly Decreased Stage III GFR 30-59 Moderately Decreased Stage IV GFR 15-29 Severely Decreased Stage V GFR <15 Very Little GFR Left ESRD GFR <15 on WEATHER TEACHER Lab Order: CBC with Diff; SPEC'M 08/15/16 18:53 Test: WHITE BLOOD COUNT; Value: 8.3; Range: 4.0-10.0; Units: K/mm3; Status: F Test: RED BLOOD COUNT; Value: 3.38; Range: 4.00-5.40; Abnormal: Below low normal; Units: M/mm3; Status: F Test: HEMOGLOBIN; Value: 10.1; Range: 12.0-16.0; Abnormal: Below low normal; Units: g/dl; Status: F Test: HEMATOCRIT; Value: 30.7; Range: 36.0-47.0; Abnormal: Below low normal; Units: %; Status: F Test: MEAN CORPUSCULAR VOLUME; Value: 90.8; Range: 80.0-96.0; Units: fl; Status: F Test: MEAN CORPUSCULAR HEMOGLOBIN; Value: 29.9; Range: 27.0-33.0; Units: pg; Status: F Test: MEAN CORPUSCULAR HGB CONC; Value: 32.9; Range: 32.0-36.5; Units: g/dl; Status: F Test: RED CELL DISTRIBUTION WIDTH; Value: 13.1; Range: 11.5-14.5; Units: %; Status: F Test: PLATELET COUNT, AUTOMATED; Value: 187; Range: 150-450; Units: k/mm3; Status: F Test: NEUTROPHILS %; Value: 80.3; Range: 36.0-66.0; Abnormal: Above high normal; Units: %; Status: F Test: LYMPH %; Value: 9.8; Range: 24.0-44.0; Abnormal: Below low normal; Units: %; Status: F Test: MONO %; Value: 6.2; Range: 0.0-5.0; Abnormal: Above high normal; Units: %; Status: F Test: EOS %; Value: 1.6; Range: 0.0-3.0; Units: %; Status: F Test: BASO %; Value: 0.2; Range: 0.0-1.0; Units: %; Status: F Test: LARGE UNSTAINED CELL %; Value: 2.0; Range: 0.0-4.0; Units: %; Status: F Test: NEUTROPHILS #; Value: 6.7; Range: 1.8-7.7; Units: K/mm3; Status: F Test: LYMPH #; Value: 1.0; Range: 1.5-4.5; Abnormal: Below low normal; Units: K/mm3; Status: F Test: MONO #; Value: 0.5; Range: 0.0-0.8; Units: K/mm3; Status: F Test: EOS #; Value: 0.1; Range: 0.0-0.50; Units: K/mm3; Status: F Test: BASO #; Value: 0.0; Range: 0.0-0.2; Units: K/mm3; Status: F Test: LARGE UNSTAINED CELL #; Value: 0.2; Range: 0.0-0.4; Units: K/mm3; Status: F Lab Order: BLOOD CULTURES; SPEC'M 08/15/16 19:01 Test: BLOOD CULTURE; Value: No growth after 72 hours . All specimens observed; Status: F Test: BLOOD CULTURE; Value: for 5 days. Results final at that time.; Status: F Test: BLOOD CULTURE; Status: F Test: BLOOD CULTURE; Value: No growth after 48 hours . All specimens observed; Status: F Test: BLOOD CULTURE; Value: for 5 days. Results final at that time.; Status: F Test: BLOOD CULTURE; Status: F Test: BLOOD CULTURE; Value: No growth after 24 hours . All specimens observed; Status: F Test: BLOOD CULTURE; Value: for 5 days. Results final at that time.; Status: F Test: BLOOD CULTURE; Value: NO GROWTH AFTER 5 DAYS; Status: F Radiology Order: Chest, 2 View (pa\\E\\lat) Test: Chest, 2 View (pa\\E\\lat) REASON FOR EXAMINATION: Cough; CHEST PA AND LATERAL: 08/15/2016.; ; Comparison CT chest 07/08/2016, portable chest 07/08/2016.; ; Sternotomy wires and clips from CABG again seen. There are is an aortic; aneurysm with prominent aneurysmal dilatation at the aortic arch and unchanged; from previous study. There is basilar fibrotic changes. There is no effusion,; acute infiltrate, atelectasis or mass. Heart mildly prominent. There is no; vascular redistribution or edema. Airway intact bony thorax shows; demineralization without acute compression deformity.; ; Impression:; ; 1. Thoracic aortic aneurysm with most prominent rounded aneurysmal dilatation of; the saccular variety is in the arch. Appearance unchanged from the portable; chest last month. No effusion or acute infiltrate, but some bibasilar fibrotic; change, appears stable.; ; ; Signed by; Owen Jeronimo MD 08/16/2016 07:26 P; Radiology Order: EKG-ADULT Test: EKG-ADULT REASON FOR EXAMINATION: Shortness of Breath; Stationary ECG Study; [facility] - ED; ; Test Date: 2016-08-15; Pat Name: JULISSA REBOLLEDO Department:; Room: -; Gender: F Qa Test Analyst: mick; : 1950 Requested By: DAJUAN PADILLA; Order Number: [id number] Reading MD: Mariam Barajas; Measurements; Intervals [place]; Rate: 90 P: 9; LA: 185 QRS: -31; QRSD: 93 T: 59; QT: 352; QTc: 432; Interpretive Statements; SINUS RHYTHM; MARKED LEFT AXIS DEVIATION; LEFT VENTRICULAR HYPERTROPHY AND ST-T CHANGE VS ISCHEMIA; POSSIBLE SEPTAL MYOCARDIAL INFARCTION, OF INDETERMINATE AGE; INCREASED RATE 07/08/16; Electronically Signed On 08-15-2016 21:39:58 EST by Mariam Barajas; Outcome: 20:51 Discharge ordered by Provider. ke 21:29 Discharge Assessment: Patient awake, alert and oriented x 3. No cognitive and/or mb9 functional deficits noted. Patient verbalized understanding of disposition instructions. patient administered narcotics - no. The following High Risk Discharge criteria are identified: None. Discharged to home ambulatory. Condition: good Condition: stable Condition: improved. Discharge instructions given to patient, Instructed on discharge instructions, follow up and referral plans. medication usage, Demonstrated understanding of instructions, medications, Pt was receptive of discharge instructions/ teaching. Prescriptions given X 3. No special radiology studies were completed. Property :Personal belongings accompany Pt. 22:00 Patient left the ED. mb9 Signatures: Dispatcher [employer] EDMS Bianka Baker, Catalyst Recovery Operator Unit lbd Gris Oakley, Reg Reg gb Daujan Hernandez, SAP FICO BUSINESS ANALYST SAP [employer]ICO BUSINESS ANALYST Xin Mcdonnell Consuelo, PACKAGE CENTER SUPERVISOR PACKAGE CENTER SUPERVISOR ct3 Scott Crain,RN RN mb9 Chung Aranda,RT RT cs15 Parth Olvera, PACKAGE CENTER SUPERVISOR PACKAGE CENTER SUPERVISOR jmv Chart Complete MTDAndrea
--- NOTE | 2016-08-22 16:33 | EDDOCDS ---
Physician Documentation [facility] Name: Cynthia Rebolledo Age: 65 yrs Sex: Female : 1950 Arrival Date: 08/15/2016 Time: 18:11 Bed 19 Private MD: Jayson Wolf A. Disposition: 08/15/16 20:51 Discharged to Home/Self Care. Impression: Acute bronchitis. - Condition is Stable. - Discharge Instructions: Acute Bronchitis. - Prescriptions for Zithromax Z- Nasir 250 mg Oral Tablet - take 1 tablet by ORAL route as directed for 5 days Day 1- take two tablets once. Day 2, 3, 4 , 5 take one tablet once daily.; 6 tablet. benzonatate 200 mg Oral Capsule - take 1 capsule by ORAL route 3 times per day As needed; 30 capsule. Albuterol Sulfate 90 mcg/actuation Inhalation HFA Aerosol Inhaler - inhale 2 puff by INHALATION route every 4 hours As needed; 1 Inhaler. - Medication Reconciliation, Local Pharmacy Hours form. - Follow up: Jayson Wolf; When: 2 - 3 days; Reason: Recheck today's complaints, Continuance of care. - Problem is an ongoing problem. - Symptoms are unchanged. Historical: - Allergies: Codeine Sulfate (Unknown); orange (Upset stomach); - Home Meds: 1. Plavix 75 mg Oral tab 1 tab once daily 2. aspirin 325 mg Oral tab 1 tab once daily 3. nitroglycerin 0.4 mg SL subl 4. atorvastatin 40 mg oral tab 1 tab every 2 days 5. labetalol 200 mg Oral tab 1 tab 2 times per day 6. clonidine HCl 0.1 mg Oral tab 1 tab 3 times per day 7. cranberry 400 mg oral cap daily 8. docusate sodium 100 mg Oral cap 1 cap 2 times per day 9. echinacea 400 mg oral cap daily 10. Fish Oil 1,000 mg Oral cap daily 11. garlic oral oral 2 mg 12. losartan-hydrochlorothiazide 100-25 mg oral tab 1 tab once daily 13. multivitamin Oral tab 1 tab daily 14. verapamil 180 mg Oral C24P 1 cap nightly 15. ferrous sulfate 325 mg (65 mg iron) Oral tab 325 mg daily 16. Vitamin D Oral 5000 unit twice a day - PMHx: Aortic Aneurysm; Hypercholesterolemia; Hypertension; nstemi; afib; - PSHx: repair aortic aneurysm; removal tumor ear drum left; right elbow surgery; Tubal ligation; - Social history: No barriers to communication noted, The patient speaks fluent Occitan, Smoking status: Patient states former smoker of tobacco. - Family history: No immediate family members are acutely ill. - : The pt / caregiver states he / she is on anticoagulants: Plavix. Home medication list is obtained from the patient. - Exposure Risk Screening:: None identified. Vital Signs: 08/15 18:26 BP 199 / 76; Pulse 83; Resp 18; Temp 99.9(TE); Pulse Ox 96% on 2 lpm NC; Weight 57.15 ct3 kg / 125.99 lbs (R); Height 5 ft. 6 in. (167.64 cm) (R); 18:29 BP 153 / 70 (auto/); mb9 18:29 BP 156 / 78; Pulse 85; Resp 17; Pulse Ox 95% on R/A; mb9 18:30 Pulse 84 MON; Pulse Ox 97% ; mb9 21:29 BP 149 / 66 (auto/); mb9 21:29 Pulse 74 MON; Resp 18; Temp 96.4(O); Pulse Ox 97% ; mb9 18:26 Body Mass Index 20.34 (57.15 kg, 167.64 cm) ct3 MDM: 18:42 -Blood Culture (Adults Only), peripheral from different site, or from device/port/PICC ke etc. if present ordered. 18:42 Anodizer/Pulse Ox/q 15 min VS ordered. ke 18:42 IV Saline Lock ordered. ke 18:42 Oxygen at 4L/Min NC or Home dosage ordered. ke 18:42 Rhythm Strip to chart ordered. ke 18:42 Acetaminophen Tablet 975 mg PO once ordered. ke 18:42 Albuterol 5 mg Nebulizer once ordered. ke 18:42 Albuterol-Ipratropium 3 ml Inhalation once ordered. ke 18:42 Call Respiratory ordered. ke 18:43 B-Type Natiuretic Peptide Ordered. EDMS 18:43 Basic Metabolic Profile Ordered. EDMS 18:43 CBC with Diff Ordered. EDMS 18:43 -Blood Culture Ordered. EDMS 18:43 Call Respiratory complete. mb9 18:44 Chest, 2 View (pa\E\lat) Ordered. EDMS 18:44 ECG WITH READING ER PHYS+CARDIAG ordered. EDMS 18:51 -Blood Culture (Adults Only), peripheral from different site, or from device/port/PICC jlm etc. if present complete. 18:53 BLOOD CULTURES Ordered. EDMS 19:48 Financial registration complete. zo 20:28 B-Type Natiuretic Peptide Reviewed. ke 20:28 Basic Metabolic Profile Reviewed. ke 20:28 CBC with Diff Reviewed. ke 20:34 [facility] Payment Agreement was scanned into [employer] and attached to record. zo 20:49 Tessalon 200 mg PO once ordered. ke 20:49 azithromycin 500 mg PO once ordered. ke 08/16 10:28 T-Sheet-- Draft Copy was scanned into [employer] and attached to record. gb 15:38 T-Sheet-- Draft Copy was scanned into [employer] and attached to record. gb 08/17 08:10 ED course: dr wolf faxed formal report of cxr for fu mlg. ml Administered Medications: 08/15 18:52 Drug: Albuterol 5 mg [albuterol sulfate 2.5 mg/0.5 mL solution for nebulization (1 mL)] cs15 Route: Nebulizer; 18:52 Drug: Albuterol-Ipratropium 3 ml [ipratropium-albuterol 0.5 mg-3 mg(2.5 mg base)/3 mL cs15 nebulization soln (3 mL)] Route: Inhalation; 18:56 Drug: Acetaminophen 975 mg [acetaminophen 325 mg tablet (3 tabs)] Route: PO; mb9 21:56 Drug: Tessalon 200 mg Route: PO; mb9 21:56 Drug: azithromycin 500 mg [azithromycin 250 mg tablet (2 tabs)] Route: PO; mb9 Signatures: Dispatcher [employer] EDMS Scotty Meadows MD MD ml Gris Oakley, Reg Reg gb Dajuan Hernandez, DIRECTOR BIOSTATISTICS DIRECTOR BIOSTATISTICS Xin Mcdonnell Jessie, Corrections Cadet Unit jlm Scott Crain RN RN mb9 Chung Aranda RT cs15 The chart was reviewed and I authenticate all verbal orders and agree with the evaluation and treatment provided.Attachments: 20:34 [facility] Payment Agreement zo 08/16 10:28 T-Sheet-- Draft Copy gb 15:38 T-Sheet-- Draft Copy gb Chart Complete MTDD
== END 2016-08-15 22:00 | disposition home or self-care (01) ==
LOC: M ED 18:11
DX: J20.9 Acute bronchitis, unspecified (principal); E78.00 Pure hypercholesterolemia, unspecified; I10 Essential (primary) hypertension; I48.91 Unspecified atrial fibrillation; I25.2 Old myocardial infarction; Z87.891 Personal history of nicotine dependence; Z79.02 Long term (current) use of antithrombotics/antiplatelets; Z79.82 Long term (current) use of aspirin; Z79.899 Other long term (current) drug therapy; Z88.5 Allergy status to narcotic agent; Z91.018 Allergy to other foods

== ENCOUNTER → 2017-08-04 | Outpatient (CLI) | payer MEDICARE, MEDICAID | LOC: M RAD 12:23 | DX: I71.01 Dissection of thoracic aorta (principal) | CPT/HCPCS: 71250 ==

== ENCOUNTER 2017-08-12 20:10 | Inpatient (IN) | payer MEDICARE, MEDICAID ==
[2017-08-12] MEDS: NS 500 ML IV (20:54)
[2017-08-12 20:59] LABS: BASO % 0.1 % (0.0-1.0); EOS # 0.2 10^3/uL (0.0-0.50); EOS % 2.2 % (0.0-3.0); HEMATOCRIT 14.2 % (36.0-47.0); IMMATURE GRANULOCYTE % 0.2 % (0-3.0); LYMPH # 1.8 10^3/uL (1.5-4.5); LYMPH % 19.8 % (24.0-44.0); MEAN CORPUSCULAR HEMOGLOBIN 30.6 pg (27.0-33.0); MEAN CORPUSCULAR HGB CONC 31.7 g/dl (32.0-36.5); MEAN CORPUSCULAR VOLUME 96.6 fl (80.0-96.0); MONO # 0.6 10^3/uL (0.0-0.8); MONO % 6.8 % (0.0-5.0); NEUTROPHILS # 6.4 10^3/uL (1.8-7.7); NEUTROPHILS % 70.9 % (36.0-66.0); PLATELET COUNT, AUTOMATED 166 10^3/uL (150-450); RED BLOOD COUNT 1.47 10^6/uL (4.00-5.40); RED CELL DISTRIBUTION WIDTH 15.5 % (11.5-14.5); WHITE BLOOD COUNT 9.1 10^3/uL (4.0-10.0)
[2017-08-12 21:10] LABS: HEMOGLOBIN 4.5 g/dl (12.0-16.0)
[2017-08-12 21:12] LABS: VENOUS BASE EXCESS -5.6 (-2.0-2.0); VENOUS HCO3 19.8 MEQ/L (23.0-27.0); VENOUS O2 SATURATION 70.3 % (60.0-80.0); VENOUS PARTIAL PRESSURE CO2 38.6 mmHg (38.0-50.0); VENOUS PARTIAL PRESSURE O2 40.8 mmHg (30.0-50.0); VENOUS PH 7.328 UNITS (7.330-7.430); VENOUS STANDARD HCO3 19.5 MEQ/L
[2017-08-12 21:24] LABS: ANION GAP 11 MEQ/L (8-16); BLOOD UREA NITROGEN 69 MG/DL (7-18); CALCIUM LEVEL 8.3 MG/DL (8.8-10.2); CARBON DIOXIDE LEVEL 23 MEQ/L (21-32); CHLORIDE LEVEL 112 MEQ/L (98-107); CK-MB VALUE MASS 1.9 NG/ML (0.0-3.6); CPK CREATINE PHOSPHOKINASE 54 U/L (26-192); CREATININE FOR GFR 1.23 MG/DL (0.55-1.30); GLOMERULAR FILTRATION RATE 46.4 (>45); GLUCOSE, FASTING 101 MG/DL (70-100); MB/CK RELATIVE INDEX 3.51 (< OR =4); POTASSIUM SERUM 3.4 MEQ/L (3.5-5.1); SODIUM LEVEL 146 MEQ/L (136-145); TROPONIN I < 0.02 NG/ML (< 0.10)
[2017-08-12 21:26] LABS: INFLUENZA A AMPLIFICATION NEGATIVE (NEGATIVE); INFLUENZA B AMPLIFICATION NEGATIVE (NEGATIVE)
[2017-08-12 21:31] LABS: ALBUMIN 3.1 GM/DL (3.2-5.2); ALBUMIN/GLOBULIN RATIO 1.24 (1.00-1.93); ALKALINE PHOSPHATASE 62 U/L (45-117); ALT/SGPT 16 U/L (12-78); AST/SGOT 13 U/L (7-37); BILIRUBIN,DIRECT < 0.1 MG/DL (0.0-0.2); BILIRUBIN,TOTAL 0.2 MG/DL (0.2-1.0); TOTAL PROTEIN 5.6 GM/DL (6.4-8.2)
[2017-08-12 22:22] LABS: FERRITIN 152 NG/ML (8-252); IRON (FE) 36 UG/DL (50-170); PERCENT SATURATION 17.1 % (13.2-45.0); TOTAL IRON BINDING CAPACITY 210 UG/DL (250-450)
[2017-08-12 22:25] LABS: VITAMIN B12 LEVEL 417 PG/ML (247-911)
[2017-08-12 22:26] LABS: FOLATE > 24.0 NG/ML (>5.4)
[2017-08-12] MEDS: POTASSIUM CHLORIDE 10 MEQ SR TABLET PO (22:29)
[2017-08-12 23:27] LABS: RETIC HEMOGLOBIN EQUIVALENT 33.9 pg (24-36); RETICULOCYTE # 93.3 10^9/L (17-77); RETICULOCYTE % 6.3 % (0.5-1.5)
[2017-08-13 01:44] LABS: IMMEDIATE SPIN CROSSMATCH 1 2
[2017-08-13] MEDS: NS 1,000 ML IV ×2 (05:12→08:32)
[2017-08-13 05:35] LABS: HEMATOCRIT 22.8 % (36.0-47.0)
[2017-08-13 05:58] LABS: TROPONIN I 0.02 NG/ML (< 0.10)
[2017-08-13] MEDS ORDERED: HEPARIN SOD (PORCINE) 5000 UNITS/ML VIAL SC (06:00)
[2017-08-13] MEDS: LABETALOL 200 MG TAB PO ×2 (08:59→20:44)
[2017-08-13] MEDS: POLYVINYL ALCOHOL OPHTH SOLN 15 ML(LIQUITEARS) OU ×4 (08:59→21:00)
[2017-08-13] MEDS: FERROUS SULFATE 325MG TAB PO (09:00)
[2017-08-13] MEDS: PANTOPRAZOLE 40MG INJ (PROTONIX) (C9113) IV ×2 (09:00→20:44)
[2017-08-13 09:22] LABS: MEAN CORPUSCULAR HEMOGLOBIN 28.9 pg (27.0-33.0); MEAN CORPUSCULAR HGB CONC 31.7 g/dl (32.0-36.5); MEAN CORPUSCULAR VOLUME 90.9 fl (80.0-96.0); PLATELET COUNT, AUTOMATED 151 10^3/uL (150-450); RED BLOOD COUNT 2.53 10^6/uL (4.00-5.40); WHITE BLOOD COUNT 7.9 10^3/uL (4.0-10.0)
[2017-08-13 09:26] LABS: ANION GAP 9 MEQ/L (8-16); BLOOD UREA NITROGEN 59 MG/DL (7-18); CARBON DIOXIDE LEVEL 22 MEQ/L (21-32); CHLORIDE LEVEL 116 MEQ/L (98-107); CREATININE FOR GFR 1.05 MG/DL (0.55-1.30); GLOMERULAR FILTRATION RATE 55.7 (>45); GLUCOSE, FASTING 86 MG/DL (70-100); POTASSIUM SERUM 3.6 MEQ/L (3.5-5.1); SODIUM LEVEL 147 MEQ/L (136-145)
[2017-08-13 09:41] LABS: HEMOGLOBIN 7.3 g/dl (12.0-16.0)
[2017-08-13 10:08] LABS: HEMATOCRIT 21.3 % (36.0-47.0)
[2017-08-13 14:40] LABS: TROPONIN I 0.03 NG/ML (< 0.10)
[2017-08-13] MEDS: ATORVASTATIN 20 MG TAB PO (17:14)
[2017-08-13] MEDS: cloNIDine 0.1 MG TAB PO ×3 (17:14→20:45)
[2017-08-13 17:52] LABS: FERRITIN 141 NG/ML (8-252); IRON (FE) 85 UG/DL (50-170); PERCENT SATURATION 42.3 % (13.2-45.0); TOTAL IRON BINDING CAPACITY 201 UG/DL (250-450); TOTAL PROTEIN 5.2 GM/DL (6.4-8.2)
[2017-08-13 18:22] LABS: IMMEDIATE SPIN CROSSMATCH 1 2
[2017-08-13 22:39] LABS: HEMATOCRIT 26.1 % (36.0-47.0); HEMOGLOBIN 8.5 g/dl (12.0-16.0); MEAN CORPUSCULAR HEMOGLOBIN 29.6 pg (27.0-33.0); MEAN CORPUSCULAR HGB CONC 32.6 g/dl (32.0-36.5); MEAN CORPUSCULAR VOLUME 90.9 fl (80.0-96.0); PLATELET COUNT, AUTOMATED 115 10^3/uL (150-450); RED BLOOD COUNT 2.87 10^6/uL (4.00-5.40); RED CELL DISTRIBUTION WIDTH 16.4 % (11.5-14.5); WHITE BLOOD COUNT 8.1 10^3/uL (4.0-10.0)
[2017-08-14 06:32] LABS: BASO % 0.1 % (0.0-1.0); EOS # 0.4 10^3/uL (0.0-0.50); EOS % 5.3 % (0.0-3.0); HEMATOCRIT 26.4 % (36.0-47.0); HEMOGLOBIN 8.7 g/dl (12.0-16.0); IMMATURE GRANULOCYTE % 0.4 % (0-3.0); LYMPH # 1.4 10^3/uL (1.5-4.5); LYMPH % 17.6 % (24.0-44.0); MONO # 0.6 10^3/uL (0.0-0.8); MONO % 7.9 % (0.0-5.0); NEUTROPHILS # 5.5 10^3/uL (1.8-7.7); NEUTROPHILS % 68.7 % (36.0-66.0); PLATELET COUNT, AUTOMATED 120 10^3/uL (150-450); RED CELL DISTRIBUTION WIDTH 16.6 % (11.5-14.5); WHITE BLOOD COUNT 8.1 10^3/uL (4.0-10.0)
[2017-08-14 06:56] LABS: ANION GAP 7 MEQ/L (8-16); BLOOD UREA NITROGEN 50 MG/DL (7-18); CALCIUM LEVEL 7.9 MG/DL (8.8-10.2); CARBON DIOXIDE LEVEL 22 MEQ/L (21-32); CHLORIDE LEVEL 119 MEQ/L (98-107); CREATININE FOR GFR 0.96 MG/DL (0.55-1.30); GLOMERULAR FILTRATION RATE > 60.0 (>45); GLUCOSE, FASTING 89 MG/DL (70-100); POTASSIUM SERUM 3.9 MEQ/L (3.5-5.1); SODIUM LEVEL 148 MEQ/L (136-145)
[2017-08-14] MEDS: PANTOPRAZOLE 40MG INJ (PROTONIX) (C9113) IV ×2 (08:06→21:22)
[2017-08-14] MEDS: cloNIDine 0.1 MG TAB PO ×3 (08:07→21:24)
[2017-08-14] MEDS: ATORVASTATIN 20 MG TAB PO (08:07)
[2017-08-14] MEDS: FERROUS SULFATE 325MG TAB PO (08:07)
[2017-08-14] MEDS: LABETALOL 200 MG TAB PO ×2 (08:08→21:24)
[2017-08-14] MEDS: POLYVINYL ALCOHOL OPHTH SOLN 15 ML(LIQUITEARS) OU ×4 (08:09→21:00)
[2017-08-14] MEDS: GASTROGRAFIN SOLUTION 30ML PO ×2 (09:24)
[2017-08-14] MEDS: D5W IV (09:24)
[2017-08-14] MEDS: SODIUM CHLORIDE IV (09:24)
[2017-08-14 17:49] LABS: HEMOGLOBIN 9.1 g/dl (12.0-16.0)
[2017-08-15 05:58] LABS: BASO % 0.2 % (0.0-1.0); EOS # 0.5 10^3/uL (0.0-0.50); HEMATOCRIT 24.7 % (36.0-47.0); IMMATURE GRANULOCYTE % 0.3 % (0-3.0); LYMPH # 1.5 10^3/uL (1.5-4.5); LYMPH % 15.4 % (24.0-44.0); MEAN CORPUSCULAR HEMOGLOBIN 29.4 pg (27.0-33.0); MEAN CORPUSCULAR HGB CONC 32.4 g/dl (32.0-36.5); MEAN CORPUSCULAR VOLUME 90.8 fl (80.0-96.0); MONO # 0.7 10^3/uL (0.0-0.8); MONO % 6.9 % (0.0-5.0); NEUTROPHILS # 6.9 10^3/uL (1.8-7.7); NEUTROPHILS % 72.2 % (36.0-66.0); PLATELET COUNT, AUTOMATED 133 10^3/uL (150-450); RED BLOOD COUNT 2.72 10^6/uL (4.00-5.40); RED CELL DISTRIBUTION WIDTH 17.3 % (11.5-14.5); WHITE BLOOD COUNT 9.6 10^3/uL (4.0-10.0)
[2017-08-15 06:17] LABS: ANION GAP 6 MEQ/L (8-16); BLOOD UREA NITROGEN 45 MG/DL (7-18); CALCIUM LEVEL 8.2 MG/DL (8.8-10.2); CARBON DIOXIDE LEVEL 22 MEQ/L (21-32); CHLORIDE LEVEL 118 MEQ/L (98-107); CREATININE FOR GFR 0.84 MG/DL (0.55-1.30); GLOMERULAR FILTRATION RATE > 60.0 (>45); GLUCOSE, FASTING 89 MG/DL (70-100); POTASSIUM SERUM 3.6 MEQ/L (3.5-5.1); SODIUM LEVEL 146 MEQ/L (136-145)
[2017-08-15] MEDS: POLYVINYL ALCOHOL OPHTH SOLN 15 ML(LIQUITEARS) OU ×4 (09:00→20:58)
[2017-08-15] MEDS: PANTOPRAZOLE 40MG INJ (PROTONIX) (C9113) IV ×2 (11:01→20:57)
[2017-08-15] MEDS: ACETAMINOPHEN TAB 650MG DOSE (2X325MG) PO (11:02)
[2017-08-15] MEDS: ASPIRIN 81 MG ENTERIC TAB PO (11:02)
[2017-08-15] MEDS: ATORVASTATIN 20 MG TAB PO (11:02)
[2017-08-15] MEDS: cloNIDine 0.1 MG TAB PO ×3 (11:03→20:57)
[2017-08-15] MEDS: LABETALOL 200 MG TAB PO ×2 (11:04→20:57)
[2017-08-15 12:53] LABS: HEMOGLOBIN 7.5 g/dl (12.0-16.0)
[2017-08-15 16:57] LABS: IMMEDIATE SPIN CROSSMATCH 1 1
[2017-08-15 23:13] LABS: HEMATOCRIT 24.8 % (36.0-47.0)
[2017-08-16 06:08] LABS: BASO % 0.1 % (0.0-1.0); EOS # 0.5 10^3/uL (0.0-0.50); EOS % 5.4 % (0.0-3.0); HEMATOCRIT 24.8 % (36.0-47.0); HEMOGLOBIN 8.1 g/dl (12.0-16.0); IMMATURE GRANULOCYTE % 0.3 % (0-3.0); LYMPH # 1.3 10^3/uL (1.5-4.5); LYMPH % 14.9 % (24.0-44.0); MEAN CORPUSCULAR HGB CONC 32.7 g/dl (32.0-36.5); MEAN CORPUSCULAR VOLUME 91.9 fl (80.0-96.0); MONO # 0.6 10^3/uL (0.0-0.8); MONO % 6.8 % (0.0-5.0); NEUTROPHILS # 6.2 10^3/uL (1.8-7.7); NEUTROPHILS % 72.5 % (36.0-66.0); PLATELET COUNT, AUTOMATED 124 10^3/uL (150-450); RED CELL DISTRIBUTION WIDTH 17.1 % (11.5-14.5); WHITE BLOOD COUNT 8.6 10^3/uL (4.0-10.0)
[2017-08-16 06:22] LABS: ANION GAP 7 MEQ/L (8-16); BLOOD UREA NITROGEN 43 MG/DL (7-18); CALCIUM LEVEL 7.8 MG/DL (8.8-10.2); CARBON DIOXIDE LEVEL 21 MEQ/L (21-32); CHLORIDE LEVEL 119 MEQ/L (98-107); CREATININE FOR GFR 0.81 MG/DL (0.55-1.30); GLOMERULAR FILTRATION RATE > 60.0 (>45); GLUCOSE, FASTING 88 MG/DL (70-100); POTASSIUM SERUM 3.6 MEQ/L (3.5-5.1); SODIUM LEVEL 147 MEQ/L (136-145)
[2017-08-16] MEDS: PANTOPRAZOLE 40MG INJ (PROTONIX) (C9113) IV ×3 (09:00→20:55)
[2017-08-16] MEDS: ATORVASTATIN 20 MG TAB PO (10:02)
[2017-08-16] MEDS: ASPIRIN 81 MG ENTERIC TAB PO (10:02)
[2017-08-16] MEDS: LABETALOL 200 MG TAB PO ×2 (10:03→20:56)
[2017-08-16] MEDS: cloNIDine 0.1 MG TAB PO ×3 (10:03→20:56)
[2017-08-16] MEDS: POLYVINYL ALCOHOL OPHTH SOLN 15 ML(LIQUITEARS) OU ×4 (10:04→20:57)
[2017-08-16] MEDS: MOM 30ML SUSPENSION UDC PO (10:04)
[2017-08-16 12:47] LABS: HEMATOCRIT 24.1 % (36.0-47.0); HEMOGLOBIN 7.9 g/dl (12.0-16.0)
[2017-08-16 15:38] LABS: IMMEDIATE SPIN CROSSMATCH 1 1
[2017-08-16] MEDS: ACETAMINOPHEN TAB 650MG DOSE (2X325MG) PO (20:56)
[2017-08-17 05:50] LABS: BASO % 0.1 % (0.0-1.0); EOS # 0.5 10^3/uL (0.0-0.50); EOS % 4.7 % (0.0-3.0); HEMOGLOBIN 8.1 g/dl (12.0-16.0); IMMATURE GRANULOCYTE % 0.5 % (0-3.0); LYMPH # 1.5 10^3/uL (1.5-4.5); LYMPH % 14.4 % (24.0-44.0); MEAN CORPUSCULAR HEMOGLOBIN 30.7 pg (27.0-33.0); MEAN CORPUSCULAR HGB CONC 32.4 g/dl (32.0-36.5); MEAN CORPUSCULAR VOLUME 94.7 fl (80.0-96.0); MONO # 0.7 10^3/uL (0.0-0.8); MONO % 6.8 % (0.0-5.0); NEUTROPHILS # 7.6 10^3/uL (1.8-7.7); NEUTROPHILS % 73.5 % (36.0-66.0); PLATELET COUNT, AUTOMATED 131 10^3/uL (150-450); RED BLOOD COUNT 2.64 10^6/uL (4.00-5.40); RED CELL DISTRIBUTION WIDTH 17.2 % (11.5-14.5); WHITE BLOOD COUNT 10.3 10^3/uL (4.0-10.0)
[2017-08-17 06:22] LABS: ANION GAP 8 MEQ/L (8-16); BLOOD UREA NITROGEN 44 MG/DL (7-18); CALCIUM LEVEL 7.9 MG/DL (8.8-10.2); CARBON DIOXIDE LEVEL 21 MEQ/L (21-32); CHLORIDE LEVEL 118 MEQ/L (98-107); CREATININE FOR GFR 0.92 MG/DL (0.55-1.30); GLOMERULAR FILTRATION RATE > 60.0 (>45); GLUCOSE, FASTING 96 MG/DL (70-100); POTASSIUM SERUM 3.4 MEQ/L (3.5-5.1); SODIUM LEVEL 147 MEQ/L (136-145)
[2017-08-17] MEDS: POTASSIUM CHLORIDE 10 MEQ SR TABLET PO ×2 (08:00→16:39)
[2017-08-17] MEDS: PANTOPRAZOLE 40MG INJ (PROTONIX) (C9113) IV ×2 (08:00→21:37)
[2017-08-17] MEDS: LABETALOL 200 MG TAB PO ×2 (08:01→21:37)
[2017-08-17] MEDS: ATORVASTATIN 20 MG TAB PO (08:01)
[2017-08-17] MEDS: cloNIDine 0.1 MG TAB PO ×3 (08:01→21:00)
[2017-08-17] MEDS: ASPIRIN 81 MG ENTERIC TAB PO (08:01)
[2017-08-17] MEDS: POLYVINYL ALCOHOL OPHTH SOLN 15 ML(LIQUITEARS) OU ×4 (08:01→21:37)
[2017-08-17] MEDS ORDERED: LIDOCAINE 2% INJ 100 MG/5 ML SDV (FOR ANES.) As Ordered (13:57)
[2017-08-17] MEDS ORDERED: PROPOFOL 200 MG/20 ML VIAL As Ordered (13:57)
[2017-08-17 16:00] LABS: MAGNESIUM LEVEL 2.2 MG/DL (1.8-2.4)
[2017-08-17 16:13] LABS: IMMEDIATE SPIN CROSSMATCH 1 1
[2017-08-17] MEDS: GOLYTELY SOLN 4000 ML BTL PO (16:39)
[2017-08-17 19:06] LABS: HEMATOCRIT 27.9 % (36.0-47.0); HEMOGLOBIN 8.9 g/dl (12.0-16.0)
[2017-08-18] MEDS: GOLYTELY SOLN 4000 ML BTL PO (05:01)
[2017-08-18 06:39] LABS: BASO % 0.3 % (0.0-1.0); EOS # 0.5 10^3/uL (0.0-0.50); EOS % 6.8 % (0.0-3.0); HEMATOCRIT 28.3 % (36.0-47.0); HEMOGLOBIN 9.1 g/dl (12.0-16.0); IMMATURE GRANULOCYTE % 0.4 % (0-3.0); LYMPH # 1.5 10^3/uL (1.5-4.5); LYMPH % 20.1 % (24.0-44.0); MEAN CORPUSCULAR HEMOGLOBIN 30.2 pg (27.0-33.0); MEAN CORPUSCULAR HGB CONC 32.2 g/dl (32.0-36.5); MONO # 0.6 10^3/uL (0.0-0.8); MONO % 7.8 % (0.0-5.0); NEUTROPHILS # 4.7 10^3/uL (1.8-7.7); NEUTROPHILS % 64.6 % (36.0-66.0); PLATELET COUNT, AUTOMATED 137 10^3/uL (150-450); RED BLOOD COUNT 3.01 10^6/uL (4.00-5.40); RED CELL DISTRIBUTION WIDTH 17.2 % (11.5-14.5); WHITE BLOOD COUNT 7.2 10^3/uL (4.0-10.0)
[2017-08-18 07:04] LABS: ANION GAP 10 MEQ/L (8-16); BLOOD UREA NITROGEN 26 MG/DL (7-18); CALCIUM LEVEL 8.2 MG/DL (8.8-10.2); CARBON DIOXIDE LEVEL 22 MEQ/L (21-32); CHLORIDE LEVEL 116 MEQ/L (98-107); CREATININE FOR GFR 0.91 MG/DL (0.55-1.30); GLOMERULAR FILTRATION RATE > 60.0 (>45); GLUCOSE, FASTING 82 MG/DL (70-100); POTASSIUM SERUM 3.9 MEQ/L (3.5-5.1); SODIUM LEVEL 148 MEQ/L (136-145)
[2017-08-18] MEDS: ATORVASTATIN 20 MG TAB PO (07:58)
[2017-08-18] MEDS: ASPIRIN 81 MG ENTERIC TAB PO (07:58)
[2017-08-18] MEDS: PANTOPRAZOLE 40MG INJ (PROTONIX) (C9113) IV ×2 (07:59→22:03)
[2017-08-18] MEDS: LABETALOL 200 MG TAB PO ×2 (07:59→22:06)
[2017-08-18] MEDS: cloNIDine 0.1 MG TAB PO ×3 (07:59→21:00)
[2017-08-18] MEDS: POLYVINYL ALCOHOL OPHTH SOLN 15 ML(LIQUITEARS) OU ×4 (07:59→22:06)
[2017-08-18 11:10] LABS: ALBUMIN 3.22 GM/DL (3.29-5.55); ALPHA-1-GLOBULIN % 7.9 % (2.9-4.9); ALPHA-2-GLOBULINS % 10.9 % (7.1-11.8); BETA-1-GLOBULINS % 5.7 % (4.7-7.2); BETA-2-GLOBULINS % 3.5 % (3.2-6.5)
[2017-08-18 11:11] LABS: ALPHA-1-GLOBULINS 0.41 GM/DL (0.17-0.41); ALPHA-2-GLOBULINS 0.57 GM/DL (0.42-0.99); BETA-2-GLOBULINS 0.18 GM/DL (0.19-0.55); GAMMA GLOBULINS 0.52 GM/DL (0.65-1.58)
[2017-08-18] MEDS ORDERED: PROPOFOL 200 MG/20 ML VIAL As Ordered (16:17)
[2017-08-18] MEDS: FAMOTIDINE 20 MG TAB PO (22:03)
[2017-08-18] MEDS: ACETAMINOPHEN TAB 650MG DOSE (2X325MG) PO (22:03)
[2017-08-19 06:26] LABS: BASO % 0.2 % (0.0-1.0); EOS # 0.3 10^3/uL (0.0-0.50); EOS % 4.8 % (0.0-3.0); HEMATOCRIT 23.2 % (36.0-47.0); HEMOGLOBIN 7.4 g/dl (12.0-16.0); IMMATURE GRANULOCYTE % 0.3 % (0-3.0); LYMPH # 1.3 10^3/uL (1.5-4.5); LYMPH % 19.6 % (24.0-44.0); MEAN CORPUSCULAR HEMOGLOBIN 29.8 pg (27.0-33.0); MEAN CORPUSCULAR HGB CONC 31.9 g/dl (32.0-36.5); MEAN CORPUSCULAR VOLUME 93.5 fl (80.0-96.0); MONO # 0.5 10^3/uL (0.0-0.8); NEUTROPHILS # 4.4 10^3/uL (1.8-7.7); NEUTROPHILS % 67.1 % (36.0-66.0); PLATELET COUNT, AUTOMATED 154 10^3/uL (150-450); RED BLOOD COUNT 2.48 10^6/uL (4.00-5.40); RED CELL DISTRIBUTION WIDTH 17.1 % (11.5-14.5); WHITE BLOOD COUNT 6.5 10^3/uL (4.0-10.0)
[2017-08-19 06:38] LABS: ANION GAP 8 MEQ/L (8-16); BLOOD UREA NITROGEN 20 MG/DL (7-18); CALCIUM LEVEL 7.7 MG/DL (8.8-10.2); CARBON DIOXIDE LEVEL 23 MEQ/L (21-32); CHLORIDE LEVEL 119 MEQ/L (98-107); CREATININE FOR GFR 0.81 MG/DL (0.55-1.30); GLOMERULAR FILTRATION RATE > 60.0 (>45); GLUCOSE, FASTING 73 MG/DL (70-100); POTASSIUM SERUM 3.4 MEQ/L (3.5-5.1); SODIUM LEVEL 150 MEQ/L (136-145)
[2017-08-19] MEDS: POLYVINYL ALCOHOL OPHTH SOLN 15 ML(LIQUITEARS) OU ×4 (09:33→22:02)
[2017-08-19] MEDS: PANTOPRAZOLE 40MG INJ (PROTONIX) (C9113) IV ×2 (09:33→22:01)
[2017-08-19] MEDS: ASPIRIN 81 MG ENTERIC TAB PO (09:33)
[2017-08-19] MEDS: ATORVASTATIN 20 MG TAB PO (09:33)
[2017-08-19] MEDS: LABETALOL 200 MG TAB PO ×2 (09:34→22:00)
[2017-08-19] MEDS: cloNIDine 0.1 MG TAB PO ×3 (09:34→21:00)
[2017-08-19 11:48] LABS: IMMEDIATE SPIN CROSSMATCH 1 1
[2017-08-19] MEDS: POTASSIUM CHLORIDE 10 MEQ SR TABLET PO (14:51)
[2017-08-19 17:47] LABS: HEMATOCRIT 27.5 % (36.0-47.0); HEMOGLOBIN 8.9 g/dl (12.0-16.0); MEAN CORPUSCULAR HGB CONC 32.4 g/dl (32.0-36.5); MEAN CORPUSCULAR VOLUME 92.6 fl (80.0-96.0); PLATELET COUNT, AUTOMATED 150 10^3/uL (150-450); RED BLOOD COUNT 2.97 10^6/uL (4.00-5.40); RED CELL DISTRIBUTION WIDTH 16.8 % (11.5-14.5); WHITE BLOOD COUNT 6.5 10^3/uL (4.0-10.0)
[2017-08-19 18:10] LABS: ANION GAP 9 MEQ/L (8-16); BLOOD UREA NITROGEN 15 MG/DL (7-18); CALCIUM LEVEL 7.5 MG/DL (8.8-10.2); CARBON DIOXIDE LEVEL 21 MEQ/L (21-32); CHLORIDE LEVEL 120 MEQ/L (98-107); CREATININE FOR GFR 0.84 MG/DL (0.55-1.30); GLOMERULAR FILTRATION RATE > 60.0 (>45); GLUCOSE, FASTING 136 MG/DL (70-100); POTASSIUM SERUM 3.5 MEQ/L (3.5-5.1); SODIUM LEVEL 150 MEQ/L (136-145)
[2017-08-20 06:20] LABS: BASO % 0.2 % (0.0-1.0); EOS # 0.4 10^3/uL (0.0-0.50); EOS % 5.7 % (0.0-3.0); HEMOGLOBIN 8.3 g/dl (12.0-16.0); IMMATURE GRANULOCYTE % 0.5 % (0-3.0); LYMPH # 1.3 10^3/uL (1.5-4.5); LYMPH % 21.6 % (24.0-44.0); MEAN CORPUSCULAR HEMOGLOBIN 30.2 pg (27.0-33.0); MEAN CORPUSCULAR HGB CONC 31.9 g/dl (32.0-36.5); MEAN CORPUSCULAR VOLUME 94.5 fl (80.0-96.0); MONO # 0.5 10^3/uL (0.0-0.8); MONO % 7.8 % (0.0-5.0); NEUTROPHILS % 64.2 % (36.0-66.0); PLATELET COUNT, AUTOMATED 127 10^3/uL (150-450); RED BLOOD COUNT 2.75 10^6/uL (4.00-5.40); RED CELL DISTRIBUTION WIDTH 17.3 % (11.5-14.5); WHITE BLOOD COUNT 6.2 10^3/uL (4.0-10.0)
[2017-08-20 06:37] LABS: ANION GAP 5 MEQ/L (8-16); BLOOD UREA NITROGEN 12 MG/DL (7-18); CALCIUM LEVEL 7.8 MG/DL (8.8-10.2); CARBON DIOXIDE LEVEL 24 MEQ/L (21-32); CHLORIDE LEVEL 122 MEQ/L (98-107); CREATININE FOR GFR 0.76 MG/DL (0.55-1.30); GLOMERULAR FILTRATION RATE > 60.0 (>45); GLUCOSE, FASTING 87 MG/DL (70-100); POTASSIUM SERUM 4.1 MEQ/L (3.5-5.1); SODIUM LEVEL 151 MEQ/L (136-145)
[2017-08-20] MEDS: POLYVINYL ALCOHOL OPHTH SOLN 15 ML(LIQUITEARS) OU ×4 (07:56→21:10)
[2017-08-20] MEDS: POTASSIUM CHLORIDE 10 MEQ SR TABLET PO (07:57)
[2017-08-20] MEDS: ASPIRIN 81 MG ENTERIC TAB PO (07:57)
[2017-08-20] MEDS: PANTOPRAZOLE 40MG INJ (PROTONIX) (C9113) IV ×2 (07:57→21:08)
[2017-08-20] MEDS: ATORVASTATIN 20 MG TAB PO (07:58)
[2017-08-20] MEDS: cloNIDine 0.1 MG TAB PO ×3 (07:59→21:09)
[2017-08-20] MEDS: LABETALOL 200 MG TAB PO ×2 (08:00→21:09)
[2017-08-20] MEDS: D5W 500 ML IV (16:09)
[2017-08-20] MEDS: CLOTRIMAZOLE 1% TOPICAL CREAM 30GM TOP (21:10)
[2017-08-21] MEDS: ASPIRIN 81 MG ENTERIC TAB PO (09:05)
[2017-08-21] MEDS: POTASSIUM CHLORIDE 10 MEQ SR TABLET PO (09:05)
[2017-08-21] MEDS: ATORVASTATIN 20 MG TAB PO (09:05)
[2017-08-21] MEDS: POLYVINYL ALCOHOL OPHTH SOLN 15 ML(LIQUITEARS) OU (09:06)
[2017-08-21] MEDS: CLOTRIMAZOLE 1% TOPICAL CREAM 30GM TOP (09:06)
[2017-08-21] MEDS: PANTOPRAZOLE 40MG INJ (PROTONIX) (C9113) IV (09:06)
[2017-08-21] MEDS: LABETALOL 200 MG TAB PO (09:08)
[2017-08-21] MEDS: cloNIDine 0.1 MG TAB PO (09:08)
[2017-08-21 10:33] LABS: HEMATOCRIT 27.3 % (36.0-47.0); HEMOGLOBIN 8.7 g/dl (12.0-16.0); MEAN CORPUSCULAR HEMOGLOBIN 30.1 pg (27.0-33.0); MEAN CORPUSCULAR HGB CONC 31.9 g/dl (32.0-36.5); MEAN CORPUSCULAR VOLUME 94.5 fl (80.0-96.0); PLATELET COUNT, AUTOMATED 149 10^3/uL (150-450); RED BLOOD COUNT 2.89 10^6/uL (4.00-5.40); RED CELL DISTRIBUTION WIDTH 17.1 % (11.5-14.5)
[2017-08-21 10:49] LABS: ANION GAP 6 MEQ/L (8-16); BLOOD UREA NITROGEN 8 MG/DL (7-18); CALCIUM LEVEL 7.5 MG/DL (8.8-10.2); CARBON DIOXIDE LEVEL 25 MEQ/L (21-32); CHLORIDE LEVEL 115 MEQ/L (98-107); CREATININE FOR GFR 0.75 MG/DL (0.55-1.30); GLOMERULAR FILTRATION RATE > 60.0 (>45); GLUCOSE, FASTING 112 MG/DL (70-100); SODIUM LEVEL 146 MEQ/L (136-145)
== END 2017-08-21 13:47 | disposition home or self-care (01) | DRG 378 ==
LOC: M MSPAV 08-13 14:19 → M ED 20:10 → M ED INP 22:32
PROVIDERS: Hospitalist
PROC: 0DJ08ZZ Inspection of Upper Intestinal Tract, Via Natural or Artificial Opening Endoscopic (ICD-10-PCS; 2017-08-17 13:30)
PROC: 0W3P8ZZ Control Bleeding in Gastrointestinal Tract, Via Natural or Artificial Opening Endoscopic (ICD-10-PCS; principal; 2017-08-17 13:45)
PROC: 30253N1 (ICD-10-PCS; 2017-08-17 13:45)
DX: K55.21 Angiodysplasia of colon with hemorrhage (principal); D62 Acute posthemorrhagic anemia; E87.0 Hyperosmolality and hypernatremia; I25.10 Atherosclerotic heart disease of native coronary artery without angina pectoris; I10 Essential (primary) hypertension; K44.9 Diaphragmatic hernia without obstruction or gangrene; K64.4 Residual hemorrhoidal skin tags; K29.50 Unspecified chronic gastritis without bleeding; K64.8 Other hemorrhoids; J44.9 Chronic obstructive pulmonary disease, unspecified; I71.6 Thoracoabdominal aortic aneurysm, without rupture; K57.30 Diverticulosis of large intestine without perforation or abscess without bleeding; Z92.3 Personal history of irradiation; Z95.5 Presence of coronary angioplasty implant and graft; Z79.02 Long term (current) use of antithrombotics/antiplatelets; Z79.899 Other long term (current) drug therapy; Z79.82 Long term (current) use of aspirin

== ENCOUNTER → 2018-02-01 | Outpatient (CLI) | payer MEDICARE, MEDICAID | LOC: M RAD 10:40 | DX: I77.71 Dissection of carotid artery (principal); I71.01 Dissection of thoracic aorta | CPT/HCPCS: 93880 ==

== ENCOUNTER → 2018-09-01 | Outpatient (CLI) | payer MEDICARE, MEDICAID ==
[~2018-09-01] MED LIST changes: +ARTI99.0 OU; +ASPI81TAEC PO; -ATOR40TA PO; +ATOR40TA75 PO; -CALC600T10 PO; +CALC600T31 PO; +CLOP75TA2; +CLOP75TA2 PO; +CORITAB6 PO; +CRAN400C PO; -DOCU100C PO; +DOCU100C16 PO; +FERR1TAB8 PO; -FERR325T PO; +GARL400T8 PO; -LOSA100T37 PO; +LOSA100T5 PO; +NITR4TASL SL; -[UNRECOGNIZED DRUG - CODE] PO
--- NOTE | 2018-09-01 11:53 | REP ---
Duplex carotid sonography: History: Occlusion and stenosis of bilateral carotid arteries. Findings: Retrograde flow is observed in the right vertebral artery consistent with subclavian steal phenomenon. Antegrade flow was observed in the left vertebral artery. Right carotid: The right common carotid artery shows diffuse intimal thickening. There is mild soft plaquing in the right carotid bulb and proximal ICA. Color flow and spectral Doppler interrogation are unremarkable on the right. Velocity chart right carotid: PSV EDV Right CCA 92.0 cm/s Right ICA 70.0 14.0 Right ECA 108.0 Right ICA/CCA ratio normal 0.8. 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 0-15% category narrowing in the right ICA. Left carotid: There is evidence of an intimal flap representing a dissection in the left common carotid artery. This is seen to extend into the external carotid artery, not the internal carotid artery. True and false lumens are patent. Color flow and spectral Doppler interrogation is unremarkable in the ICA on the left side by Doppler. Velocity chart left carotid: PSV EDV Left CCA 175.0 cm/s Left ICA 88.0 16.0 Left ECA 139.0 Left ICA/CCA ratio normal 0.5. 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 There is some soft plaquing in the left carotid bulb and proximal ICA, 16-49% category narrowing. Electronically Signed by Chaim Hernandez MD 09/01/2018 03:22 P
== END ==
LOC: M RAD 10:06
PROVIDERS: ATTEND Surgery Vascular Surgery
DX: I65.23 Occlusion and stenosis of bilateral carotid arteries (principal)

== ENCOUNTER → 2018-11-08 | Outpatient (CLI) | payer MEDICARE, MEDICAID ==
[~2018-11-08] MED LIST changes: -/LABE20TA OR; -/LABE20TA PO; +ASPI-1 PO; -ASPI325T PO; +LABE1TAB11 OR; +LABE1TAB11 PO
--- NOTE | 2018-11-08 12:31 | REP ---
CT CHEST WITHOUT CONTRAST: HISTORY: Aortic dissection. Comparison is made with prior chest CT studies, the two most recent of which are from July 08, 2016 and August 04, 2017. The patient is status post repair of thoracic aortic dissection. CT FINDINGS: Preliminary digital aircraft ordnance systems mechanic radiograph demonstrates a aneurysmal dilation of the transverse aorta. Median sternotomy wires are seen. On axial images, the maximum diameter of the posterior portion of the aortic arch measures 6.4 cm, previously 6.0 cm on August 04, 2017 by my measurement. 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 This is difficult to separate from the adjacent esophagus which is displaced and somewhat compressed. It appears essentially unchanged. The ascending aorta shows evidence of a graft in place with normal caliber unchanged. There is coronary artery vascular calcification. No pleural or pericardial effusion is seen. The descending aorta remains dilated and shows displaced intimal calcification as before consistent with dissection. No adrenal lesion is seen. The visualized upper abdominal structures shows a few scattered diverticula in the left colon. There is a vascular calcification in the right renal hilus measuring approximately 10 mm in overall dimension. 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 In any event, it is unchanged. Lung window settings show mild emphysematous changes in the upper lobes. There is mild linear fibrosis in the bases. No pulmonary nodule or mass lesion is seen. Bone window settings show no bony destructive lesion. 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 Transverse dimension of the posterior arch is slightly increased from August 04, 2017. Status post ascending aortic graft repair for dissection. 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 Electronically Signed by Chaim Hernandez MD 11/08/2018 02:33 P
== END ==
LOC: M RAD 10:19
PROVIDERS: ATTEND Thoracic Surgery (Cardiothoracic Vascular Surgery)
DX: I71.01 Dissection of thoracic aorta (principal)

== ENCOUNTER → 2019-08-03 | Outpatient (REF) | payer MEDICARE, MEDICAID ==
[~2019-08-03] MED LIST changes: -ARTI99.0 OU; +ARTIDRO2 OU
[2019-08-03 12:26] LABS: BASO % 0.3 % (0.0-1.0); EOS # 0.3 10^3/uL (0.0-0.5); EOS % 4.9 % (0.0-3.0); HEMATOCRIT 32.6 % (36.0-47.0); HEMOGLOBIN 10.4 g/dl (12.0-15.5); LYMPH # 1.4 10^3/uL (1.5-5.0); LYMPH % 24.5 % (24.0-44.0); MEAN CORPUSCULAR HEMOGLOBIN 30.7 pg (27.0-33.0); MEAN CORPUSCULAR HGB CONC 31.9 g/dl (32.0-36.5); MEAN CORPUSCULAR VOLUME 96.2 fl (80.0-96.0); MONO # 0.5 10^3/uL (0.0-0.8); MONO % 8.4 % (0.0-5.0); NEUTROPHILS # 3.5 10^3/uL (1.5-8.5); NEUTROPHILS % 61.6 % (36.0-66.0); PLATELET COUNT, AUTOMATED 163 10^3/uL (150-450); RED BLOOD COUNT 3.39 10^6/uL (4.00-5.40); WHITE BLOOD COUNT 5.7 10^3/uL (4.0-10.0)
[2019-08-03 12:39] LABS: ALBUMIN 3.8 GM/DL (3.2-5.2); BILIRUBIN,TOTAL 0.5 MG/DL (0.2-1.0); CALCIUM LEVEL 8.6 MG/DL (8.8-10.2); CHOLESTEROL RISK RATIO 1.909 (<5); CREATININE FOR GFR 0.99 MG/DL (0.55-1.30); FREE T4 0.92 NG/DL (0.76-1.46); GLOMERULAR FILTRATION RATE 59.2 (>45); POTASSIUM SERUM 4.1 MEQ/L (3.5-5.1); THYROID STIMULATING HORMONE 4.76 uIU/ML (0.358-3.740); TOTAL 25(OH) VITAMIN D 41.8 NG/ML (30.0-100.0); TOTAL PROTEIN 6.6 GM/DL (6.4-8.2)
[2019-08-03 12:54] LABS: HEMOGLOBIN A1c 4.9 %
== END ==
LOC: M LAB REF 11:23
PROVIDERS: ATTEND Nurse Practitioner Family
DX: Z00.00 Encounter for general adult medical examination without abnormal findings (principal); E07.9 Disorder of thyroid, unspecified; E78.00 Pure hypercholesterolemia, unspecified; D64.9 Anemia, unspecified

== ENCOUNTER 2020-12-12 12:20 | Observation (INO) | payer MEDICARE, MEDICAID ==
[~2020-12-12] VITALS: Ht 167.6 cm; Wt 54.1 kg
[~2020-12-12 12:20] MED LIST changes: -ARTIDRO2 OU; +ASPI-569 PO; -ASPI81TAEC PO; +POLYOPD OU
--- NOTE | 2020-12-12 13:26 | REP ---
INDICATION: ankle injury COMPARISON: None. TECHNIQUE: Four views left ankle. FINDINGS: There is a fracture of the distal end of the fibula with mild posterior displacement.There is a fracture of the posterior malleolus of the distal tibia which is essentially nondisplaced. The ankle mortise is anatomic. There is moderate soft tissue swelling. IMPRESSION: Fractures of the distal tibia and fibula as discussed above. <Electronically signed by Chin Baer > 12/12/20 [id number]
[2020-12-12] MEDS ORDERED: MORPHINE 2 MG/ML 1ML VIAL (J2270) IV ONE (15:05)
[2020-12-12] MEDS ORDERED: NORCO, ANEXSIA 5/325MG TABLET (HYDROcodone/ACETAMINOPHEN) PO ONE ×2 (15:20→16:55)
--- NOTE | 2020-12-12 18:41 | REP ---
INDICATION: fall. COMPARISON: 08/12/2017. TECHNIQUE: Single portable AP view of the chest was performed. FINDINGS: There is no acute infiltrate. The cardiac silhouette is slightly prominent unchanged. Dilated upper thoracic aorta is grossly unchanged. There are multiple sternal wires present.The visualized osseous structures appear intact. IMPRESSION: No acute pulmonary disease.Stable exam. <Electronically signed by Chin Baer > 12/12/20 [id number]
[2020-12-12 19:35] LABS: BASO % 0.2 % (0.0-1.0); EOS # 0.1 10^3/uL (0.0-0.5); EOS % 1.5 % (0.0-3.0); HEMATOCRIT 29.9 % (36.0-47.0); HEMOGLOBIN 9.6 g/dl (12.0-15.5); LYMPH # 1.4 10^3/uL (1.5-5.0); LYMPH % 15.6 % (24.0-44.0); MEAN CORPUSCULAR HEMOGLOBIN 30.6 pg (27.0-33.0); MEAN CORPUSCULAR HGB CONC 32.1 g/dl (32.0-36.5); MEAN CORPUSCULAR VOLUME 95.2 fl (80.0-96.0); MONO # 0.5 10^3/uL (0.0-0.8); MONO % 5.8 % (2.0-8.0); NEUTROPHILS # 7.1 10^3/uL (1.5-8.5); NEUTROPHILS % 76.5 % (36.0-66.0); PLATELET COUNT, AUTOMATED 129 10^3/uL (150-450); RED BLOOD COUNT 3.14 10^6/uL (4.00-5.40); WHITE BLOOD COUNT 9.2 10^3/uL (4.0-10.0)
--- NOTE | 2020-12-12 19:55 | ECGEPIP ---
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
[2020-12-12 20:02] LABS: ALBUMIN 3.8 GM/DL (3.2-5.2); ALT/SGPT 22 U/L (12-78); BILIRUBIN,DIRECT 0.2 MG/DL (0.0-0.2); BILIRUBIN,TOTAL 0.5 MG/DL (0.2-1.0); BLOOD UREA NITROGEN 27 MG/DL (7-18); CALCIUM LEVEL 9.1 MG/DL (8.8-10.2); CARBON DIOXIDE LEVEL 29 MEQ/L (21-32); CHLORIDE LEVEL 104 MEQ/L (98-107); CK-MB VALUE MASS 1.3 NG/ML (<3.6); CPK CREATINE PHOSPHOKINASE 105 U/L (26-192); CREATININE FOR GFR 1.08 MG/DL (0.55-1.30); GLOMERULAR FILTRATION RATE 53.2 (>39); GLUCOSE, FASTING 114 MG/DL (70-100); MB/CK RELATIVE INDEX 1.24 (< OR =4); POTASSIUM SERUM 4.1 MEQ/L (3.5-5.1); SODIUM LEVEL 138 MEQ/L (136-145); TOTAL PROTEIN 6.4 GM/DL (6.4-8.2); TROPONIN I < 0.02 NG/ML (< 0.10)
[2020-12-12 20:08] LABS: RSV AMPLIFICATION NEGATIVE (NEGATIVE)
[2020-12-12] MEDS ORDERED: MAALOX 30 ML SUSP *UDC PO PRN (20:45)
[2020-12-12] MEDS ORDERED: ACETAMINOPHEN TAB 650MG DOSE (2X325MG) PO PRN (20:45)
[2020-12-12] MEDS ORDERED: MOM 30ML SUSPENSION UDC PO PRN (20:45)
[2020-12-12] MEDS ORDERED: AMLO1TAB25 PO (20:49)
[2020-12-12] MEDS ORDERED: CALC-356 PO (20:49)
[2020-12-12] MEDS ORDERED: CHLO125TA PO (20:49)
[2020-12-12] MEDS ORDERED: ISOS1TAB36 PO (20:49)
[2020-12-12] MEDS ORDERED: GNP400TA10 PO (20:49)
[2020-12-12] MEDS ORDERED: D31000TA2 PO (20:49)
[2020-12-12] MEDS ORDERED: SM HTAB3 PO (20:49)
[2020-12-12] MEDS ORDERED: LOSA100T50 PO (20:49)
[2020-12-12] MEDS ORDERED: REFR0.5D8 OU (20:49)
[2020-12-12] MEDS ORDERED: NITROGLYCERIN 0.4 MG SUBL TABLET SL PRN (20:55)
[2020-12-12] MEDS ORDERED: POLYVINYL ALCOHOL OPHTH SOLN 15 ML(LIQUITEARS) OU PRN (20:55)
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
[2020-12-12] MEDS: NORCO, ANEXSIA 5/325MG TABLET (HYDROcodone/ACETAMINOPHEN) PO PRN (21:45)
[2020-12-12 22:30] VITALS: BP 144/72
[2020-12-12] MEDS: LABETALOL 200 MG TAB PO SCH (23:59)
[2020-12-12] MEDS: DOCUSATE SODIUM 100MG CAPSULE PO SCH (23:59)
[2020-12-12] MEDS: FERROUS SULFATE 325MG TAB PO SCH (23:59)
[2020-12-13 06:00] VITALS: BP 131/63
[2020-12-13] MEDS: NORCO, ANEXSIA 5/325MG TABLET (HYDROcodone/ACETAMINOPHEN) PO PRN ×2 (08:57→18:03)
[2020-12-13] MEDS: ATORVASTATIN 20 MG TAB PO SCH (08:58)
[2020-12-13] MEDS: VITAMIN D 1,000 INTERNATIONAL UNITS TABLET PO SCH (08:58)
[2020-12-13] MEDS: ASPIRIN 81MG ENTERIC TABLET PO SCH (08:58)
[2020-12-13] MEDS: MULTIVITAMINS/MINERALS THERAP 1 TAB PO SCH (08:58)
[2020-12-13] MEDS: LABETALOL 200 MG TAB PO SCH ×2 (08:58→21:37)
[2020-12-13] MEDS: LOSARTAN 50MG TABLET PO SCH (08:58)
[2020-12-13] MEDS: FERROUS SULFATE 325MG TAB PO SCH ×2 (08:59→21:36)
[2020-12-13] MEDS: CHLORTHALIDONE 12.5MG PER 1/2 TABLET PO SCH (08:59)
[2020-12-13] MEDS: ISOSORBIDE MON. (IMDUR) 60 MG XR TAB PO SCH (09:00)
[2020-12-13] MEDS: ENOXAPARIN 40MG/0.4ML SYRINGE (J1650 PER 10MG) SC SCH (09:00)
[2020-12-13] MEDS: DOCUSATE SODIUM 100MG CAPSULE PO SCH ×2 (09:02→21:36)
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
[2020-12-13 14:00] VITALS: BP 131/62
[2020-12-13] MEDS: traMADol 50 MG TAB PO PRN ×2 (14:12)
[2020-12-13 22:00] VITALS: BP 134/68
[2020-12-14 05:43] VITALS: BP 139/70
[2020-12-14] MEDS: VITAMIN D 1,000 INTERNATIONAL UNITS TABLET PO SCH (08:11)
[2020-12-14] MEDS: ENOXAPARIN 40MG/0.4ML SYRINGE (J1650 PER 10MG) SC SCH (08:11)
[2020-12-14] MEDS: DOCUSATE SODIUM 100MG CAPSULE PO SCH (08:11)
[2020-12-14] MEDS: ASPIRIN 81MG ENTERIC TABLET PO SCH (08:11)
[2020-12-14] MEDS: CHLORTHALIDONE 12.5MG PER 1/2 TABLET PO SCH (08:12)
[2020-12-14] MEDS: LOSARTAN 50MG TABLET PO SCH (08:12)
[2020-12-14] MEDS: MULTIVITAMINS/MINERALS THERAP 1 TAB PO SCH (08:13)
[2020-12-14] MEDS: FERROUS SULFATE 325MG TAB PO SCH (08:13)
[2020-12-14] MEDS: ATORVASTATIN 20 MG TAB PO SCH (08:13)
[2020-12-14] MEDS: NORCO, ANEXSIA 5/325MG TABLET (HYDROcodone/ACETAMINOPHEN) PO PRN (08:15)
[2020-12-14] MEDS: LABETALOL 200 MG TAB PO SCH (08:16)
[2020-12-14 08:17] VITALS: BP 139/70
[2020-12-14] MEDS: ISOSORBIDE MON. (IMDUR) 60 MG XR TAB PO SCH (08:17)
[2020-12-14] MEDS ORDERED: HYDR-3715 PO (08:58)
[2020-12-14] MEDS ORDERED: MOM30SS2 PO (08:59)
[2020-12-14] MEDS ORDERED: TRAM50TA2 PO (08:59)
[2020-12-14] MEDS ORDERED: NORCO, ANEXSIA 5/325MG TABLET (HYDROcodone/ACETAMINOPHEN) PO ONE (11:00)
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
[2020-12-14 14:00] VITALS: BP 107/51
[2020-12-14] MEDS: traMADol 50 MG TAB PO PRN (15:15)
== END 2020-12-14 16:28 | disposition other institution (70) ==
LOC: M ED 12:20 → M ED INP 12:21 → ENRESERV 21:16 → M MS5PR 22:25
PROVIDERS: ADMIT Internal Medicine; ATTEND Internal Medicine
DX: S82.62XA Displaced fracture of lateral malleolus of left fibula, initial encounter for closed fracture (principal); S82.55XA Nondisplaced fracture of medial malleolus of left tibia, initial encounter for closed fracture; V00.838A Other accident with motorized mobility scooter, initial encounter; Y92.410 Unspecified street and highway as the place of occurrence of the external cause; I10 Essential (primary) hypertension; E78.5 Hyperlipidemia, unspecified; I25.10 Atherosclerotic heart disease of native coronary artery without angina pectoris; Z95.5 Presence of coronary angioplasty implant and graft; Z79.899 Other long term (current) drug therapy; Z79.82 Long term (current) use of aspirin; Z88.5 Allergy status to narcotic agent; Z88.8 Allergy status to other drugs, medicaments and biological substances; Z91.018 Allergy to other foods; Z87.891 Personal history of nicotine dependence

== ENCOUNTER 2020-12-14 12:27 | Inpatient (IN) | payer MEDICARE, MEDICAID ==
[~2020-12-14] VITALS: Ht 167.6 cm; Wt 54.1 kg
[~2020-12-14 12:27] MED LIST changes: +AMLO1TAB25 PO; +CALC-356 PO; +CHLO125TA PO; +D31000TA2 PO; +GNP400TA10 PO; +HYDR-3715 PO; +ISOS1TAB36 PO; +LOSA100T50 PO; +MOM30SS2 PO; +REFR0.5D8 OU; +SM HTAB3 PO; +TRAM50TA2 PO
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
[2020-12-14 16:30] VITALS: BP 106/61
[2020-12-14] MEDS ORDERED: BISACODYL 10 MG SUPP PR PRN (17:10)
[2020-12-14] MEDS ORDERED: MIRALAX *UNIT DOSE* 17GM PACKET PO PRN (17:10)
[2020-12-14] MEDS ORDERED: POLYVINYL ALCOHOL OPHTH SOLN 15 ML(LIQUITEARS) OU PRN (17:10)
[2020-12-14] MEDS ORDERED: NITROGLYCERIN 0.4 MG SUBL TABLET SL PRN (17:10)
[2020-12-14 20:00] VITALS: BP 117/60
[2020-12-14] MEDS: SENNA 8.6 MG TAB (SENOKOT) PO SCH (21:05)
[2020-12-14] MEDS: oxyCODONE 5MG TAB PO PRN (21:06)
[2020-12-14] MEDS: ACETAMINOPHEN 500 MG TAB PO SCH (21:06)
[2020-12-14] MEDS: FERROUS SULFATE 325MG TAB PO SCH (21:07)
[2020-12-14] MEDS: DOCUSATE SODIUM 100MG CAPSULE PO SCH (21:07)
[2020-12-14] MEDS: LABETALOL 200 MG TAB PO SCH (21:07)
[2020-12-14] MEDS: REMEDY PHYTOPLEX Z-GUARD PASTE 113GM TUBE (FROM STOREROOM PRODUCT) TOP SCH (21:08)
[2020-12-15 06:14] VITALS: BP 100/54
[2020-12-15 08:08] LABS: BASO % 0.3 % (0.0-1.0); EOS # 0.3 10^3/uL (0.0-0.5); HEMATOCRIT 28.2 % (36.0-47.0); LYMPH # 1.2 10^3/uL (1.5-5.0); LYMPH % 15.7 % (24.0-44.0); MEAN CORPUSCULAR HEMOGLOBIN 30.7 pg (27.0-33.0); MEAN CORPUSCULAR HGB CONC 31.9 g/dl (32.0-36.5); MEAN CORPUSCULAR VOLUME 96.2 fl (80.0-96.0); MONO # 0.7 10^3/uL (0.0-0.8); MONO % 9.1 % (2.0-8.0); NEUTROPHILS # 5.6 10^3/uL (1.5-8.5); NEUTROPHILS % 70.4 % (36.0-66.0); PLATELET COUNT, AUTOMATED 143 10^3/uL (150-450); RED BLOOD COUNT 2.93 10^6/uL (4.00-5.40); WHITE BLOOD COUNT 7.9 10^3/uL (4.0-10.0)
[2020-12-15] MEDS: FERROUS SULFATE 325MG TAB PO SCH ×2 (08:21→21:18)
[2020-12-15] MEDS: MULTIVITAMINS/MINERALS THERAP 1 TAB PO SCH (08:22)
[2020-12-15] MEDS: PANTOPRAZOLE 40MG TAB (PROTONIX) PO SCH (08:22)
[2020-12-15] MEDS: oxyCODONE 5MG TAB PO PRN ×2 (08:22→12:19)
[2020-12-15] MEDS: DOCUSATE SODIUM 100MG CAPSULE PO SCH ×2 (08:22→21:18)
[2020-12-15] MEDS: ASPIRIN 81MG ENTERIC TABLET PO SCH (08:23)
[2020-12-15] MEDS: VITAMIN D 1,000 INTERNATIONAL UNITS TABLET PO SCH (08:23)
[2020-12-15] MEDS: ATORVASTATIN 20 MG TAB PO SCH (08:23)
[2020-12-15] MEDS: ACETAMINOPHEN 500 MG TAB PO SCH ×3 (08:23→21:18)
[2020-12-15] MEDS: REMEDY PHYTOPLEX Z-GUARD PASTE 113GM TUBE (FROM STOREROOM PRODUCT) TOP SCH ×3 (08:27→21:30)
[2020-12-15] MEDS: ISOSORBIDE MON. (IMDUR) 60 MG XR TAB PO SCH (08:27)
[2020-12-15] MEDS: LABETALOL 200 MG TAB PO SCH ×2 (08:27→21:18)
[2020-12-15 08:32] LABS: ALBUMIN 3.7 GM/DL (3.2-5.2); BILIRUBIN,TOTAL 0.4 MG/DL (0.2-1.0); CALCIUM LEVEL 9.5 MG/DL (8.8-10.2); CREATININE FOR GFR 1.41 MG/DL (0.55-1.30); GLOMERULAR FILTRATION RATE 39.1 (>39); POTASSIUM SERUM 3.7 MEQ/L (3.5-5.1); TOTAL PROTEIN 6.9 GM/DL (6.4-8.2)
[2020-12-15] MEDS: ENOXAPARIN 40MG/0.4ML SYRINGE (J1650 PER 10MG) SC SCH (08:32)
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
[2020-12-15] MEDS ORDERED: LOSARTAN 50MG TABLET PO SCH (09:00)
[2020-12-15] MEDS: LIDOCAINE 4% CREAM 5GM (LMX4) TOP SCH ×2 (09:00→21:30)
[2020-12-15] MEDS ORDERED: CHLORTHALIDONE 12.5MG PER 1/2 TABLET PO SCH (09:00)
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
[2020-12-15 14:00] VITALS: BP 136/66
[2020-12-15] MEDS: CHLORTHALIDONE 12.5MG PER 1/2 TABLET PO SCH (16:20)
[2020-12-15] MEDS: MAGNESIUM SULFATE GRANULES(EPSOM SALT) 1LB TOP SCH (16:49)
[2020-12-15 20:00] VITALS: BP 160/68
[2020-12-15] MEDS: SENNA 8.6 MG TAB (SENOKOT) PO SCH (21:18)
[2020-12-16 06:24] VITALS: BP 132/79
[2020-12-16] MEDS: ENOXAPARIN 40MG/0.4ML SYRINGE (J1650 PER 10MG) SC SCH (08:51)
[2020-12-16] MEDS: VITAMIN D 1,000 INTERNATIONAL UNITS TABLET PO SCH (08:52)
[2020-12-16] MEDS: DOCUSATE SODIUM 100MG CAPSULE PO SCH ×2 (08:52→22:18)
[2020-12-16] MEDS: MULTIVITAMINS/MINERALS THERAP 1 TAB PO SCH (08:53)
[2020-12-16] MEDS: ATORVASTATIN 20 MG TAB PO SCH (08:53)
[2020-12-16] MEDS: ACETAMINOPHEN 500 MG TAB PO SCH ×3 (08:53→22:17)
[2020-12-16] MEDS: ASPIRIN 81MG ENTERIC TABLET PO SCH (08:53)
[2020-12-16] MEDS: FERROUS SULFATE 325MG TAB PO SCH ×2 (08:53→22:16)
[2020-12-16] MEDS: PANTOPRAZOLE 40MG TAB (PROTONIX) PO SCH (08:53)
[2020-12-16] MEDS: LIDOCAINE 4% CREAM 5GM (LMX4) TOP SCH ×2 (08:54→22:18)
[2020-12-16] MEDS: REMEDY PHYTOPLEX Z-GUARD PASTE 113GM TUBE (FROM STOREROOM PRODUCT) TOP SCH ×3 (08:54→22:18)
[2020-12-16] MEDS: LABETALOL 200 MG TAB PO SCH ×2 (08:57→22:17)
[2020-12-16] MEDS: ISOSORBIDE MON. (IMDUR) 60 MG XR TAB PO SCH (08:57)
[2020-12-16] MEDS: CHLORTHALIDONE 12.5MG PER 1/2 TABLET PO SCH (12:23)
[2020-12-16 14:25] VITALS: BP 119/59
[2020-12-16] MEDS: MAGNESIUM SULFATE GRANULES(EPSOM SALT) 1LB TOP SCH (16:23)
[2020-12-16] MEDS: oxyCODONE 5MG TAB PO PRN (17:04)
[2020-12-16 22:00] VITALS: BP 114/67
[2020-12-16] MEDS: SENNA 8.6 MG TAB (SENOKOT) PO SCH (22:17)
[2020-12-17 06:56] VITALS: BP 120/67
[2020-12-17 07:07] LABS: BASO % 0.2 % (0.0-1.0); EOS # 0.2 10^3/uL (0.0-0.5); EOS % 2.9 % (0.0-3.0); HEMATOCRIT 27.7 % (36.0-47.0); HEMOGLOBIN 8.8 g/dl (12.0-15.5); LYMPH % 12.1 % (24.0-44.0); MEAN CORPUSCULAR HEMOGLOBIN 30.7 pg (27.0-33.0); MEAN CORPUSCULAR HGB CONC 31.8 g/dl (32.0-36.5); MEAN CORPUSCULAR VOLUME 96.5 fl (80.0-96.0); MONO # 0.7 10^3/uL (0.0-0.8); MONO % 8.6 % (2.0-8.0); NEUTROPHILS # 6.2 10^3/uL (1.5-8.5); NEUTROPHILS % 75.7 % (36.0-66.0); PLATELET COUNT, AUTOMATED 161 10^3/uL (150-450); RED BLOOD COUNT 2.87 10^6/uL (4.00-5.40); WHITE BLOOD COUNT 8.2 10^3/uL (4.0-10.0)
[2020-12-17 07:28] LABS: CALCIUM LEVEL 8.8 MG/DL (8.8-10.2); CREATININE FOR GFR 1.06 MG/DL (0.55-1.30); GLOMERULAR FILTRATION RATE 54.4 (>39); POTASSIUM SERUM 4.1 MEQ/L (3.5-5.1)
[2020-12-17] MEDS: MULTIVITAMINS/MINERALS THERAP 1 TAB PO SCH (08:45)
[2020-12-17] MEDS: FERROUS SULFATE 325MG TAB PO SCH ×2 (08:45→20:39)
[2020-12-17] MEDS: VITAMIN D 1,000 INTERNATIONAL UNITS TABLET PO SCH (08:45)
[2020-12-17] MEDS: DOCUSATE SODIUM 100MG CAPSULE PO SCH ×2 (08:46→20:39)
[2020-12-17] MEDS: ACETAMINOPHEN 500 MG TAB PO SCH ×3 (08:46→20:39)
[2020-12-17] MEDS: ASPIRIN 81MG ENTERIC TABLET PO SCH (08:46)
[2020-12-17] MEDS: ATORVASTATIN 20 MG TAB PO SCH (08:46)
[2020-12-17] MEDS: PANTOPRAZOLE 40MG TAB (PROTONIX) PO SCH (08:46)
[2020-12-17] MEDS: ENOXAPARIN 40MG/0.4ML SYRINGE (J1650 PER 10MG) SC SCH (08:47)
[2020-12-17] MEDS: LIDOCAINE 4% CREAM 5GM (LMX4) TOP SCH ×2 (08:49→20:40)
[2020-12-17] MEDS: REMEDY PHYTOPLEX Z-GUARD PASTE 113GM TUBE (FROM STOREROOM PRODUCT) TOP SCH ×3 (08:51→20:40)
[2020-12-17] MEDS: LABETALOL 200 MG TAB PO SCH ×2 (08:59→20:39)
[2020-12-17] MEDS: ISOSORBIDE MON. (IMDUR) 60 MG XR TAB PO SCH (09:00)
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
[2020-12-17] MEDS: oxyCODONE 5MG TAB PO PRN (12:43)
[2020-12-17] MEDS: CHLORTHALIDONE 12.5MG PER 1/2 TABLET PO SCH (12:48)
[2020-12-17] MEDS: SODIUM CHLORIDE NASAL 0.65% SPRAY BTL (OCEAN) SCH ×3 (12:48→20:38)
[2020-12-17] MEDS: FLUTICASONE PROP 0.05% NASAL SPRAY 16 GM (FLONASE) NARES SCH ×2 (12:49→20:38)
[2020-12-17 14:00] VITALS: BP 105/56
[2020-12-17 20:00] VITALS: BP 129/92
[2020-12-17] MEDS: SENNA 8.6 MG TAB (SENOKOT) PO SCH (20:39)
[2020-12-18] MEDS: oxyCODONE 5MG TAB PO PRN ×2 (03:43→08:24)
[2020-12-18 05:27] VITALS: BP 110/54
[2020-12-18] MEDS: ATORVASTATIN 20 MG TAB PO SCH (08:24)
[2020-12-18] MEDS: DOCUSATE SODIUM 100MG CAPSULE PO SCH ×2 (08:24→20:03)
[2020-12-18] MEDS: MULTIVITAMINS/MINERALS THERAP 1 TAB PO SCH (08:24)
[2020-12-18] MEDS: ASPIRIN 81MG ENTERIC TABLET PO SCH (08:24)
[2020-12-18] MEDS: FERROUS SULFATE 325MG TAB PO SCH ×2 (08:24→20:03)
[2020-12-18] MEDS: VITAMIN D 1,000 INTERNATIONAL UNITS TABLET PO SCH (08:24)
[2020-12-18] MEDS: PANTOPRAZOLE 40MG TAB (PROTONIX) PO SCH (08:24)
[2020-12-18] MEDS: ENOXAPARIN 40MG/0.4ML SYRINGE (J1650 PER 10MG) SC SCH (08:25)
[2020-12-18] MEDS: ACETAMINOPHEN 500 MG TAB PO SCH ×3 (08:25→20:02)
[2020-12-18] MEDS: LIDOCAINE 4% CREAM 5GM (LMX4) TOP SCH ×2 (08:26→20:04)
[2020-12-18] MEDS: FLUTICASONE PROP 0.05% NASAL SPRAY 16 GM (FLONASE) NARES SCH ×2 (08:26→20:03)
[2020-12-18] MEDS: REMEDY PHYTOPLEX Z-GUARD PASTE 113GM TUBE (FROM STOREROOM PRODUCT) TOP SCH ×3 (08:26→20:04)
[2020-12-18] MEDS: SODIUM CHLORIDE NASAL 0.65% SPRAY BTL (OCEAN) SCH ×3 (08:26→20:03)
[2020-12-18] MEDS: LABETALOL 200 MG TAB PO SCH ×2 (08:29→20:04)
[2020-12-18] MEDS: ISOSORBIDE MON. (IMDUR) 60 MG XR TAB PO SCH (08:29)
[2020-12-18] MEDS: CHLORTHALIDONE 12.5MG PER 1/2 TABLET PO SCH (12:00)
[2020-12-18 12:05] VITALS: BP 107/58
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
[2020-12-18 14:00] VITALS: BP 114/63
--- NOTE | 2020-12-18 14:32 | IPNPDOC ---
PM&R Progress Note DATE OF SERVICE: Dec 17, 2020 Remanufacturing Technician Progress Note Subjetive: PAtient reporting left ankle pain is well controlled and that the lidocaine gel is helping her toe. REVIEW OF SYSTEMS: The following is a completed review of systems and has been reviewed. Review of systems otherwise unremarkable. PAIN: Patient self reports left toe pain EYES: No recent vision changes EARS, NOSE, & THROAT: No throat pain, or dysphagia, or rhinorrhea CARDIOVASCULAR: Denies chest pain or palpitations PULMONARY: Denies shortness of breath GASTROINTESTINAL: Denies constipation/diarrhea GENITOURINARY: denies dysuria MUSCULOSKELETAL: left ankle fracture NEUROLOGICAL: denies paresthesias HEMATOLOGICAL: +anemia SKIN: left D1 ingrown toe PSYCHIATRIC: Unremarkable All other review of systems found to be negative. PHYSICAL EXAMINATION: VITAL SIGNS: Please see below. GENERAL:Pleasant and cooperative. No acute distress. HEENT: PERRL. Extraocular movements intact. Clear conjunctiva CARDIOVASCULAR: Regular rate and rhythm. No murmurs, rubs, or gallops LUNGS: Clear to auscultation bilaterally. No wheezes. No rhonchi ABDOMEN: Soft, nontender, nondistended. Positive bowel sounds. Normal active bowel sounds NEUROLOGICAL: Alert and oriented times three. Cranial nerves II through XII grossly intact. Sensation grossly intact EXTREMITIES: 5\\5 strength bilateral upper extremities. 5\\5 strength right lower extremity. 5/5 strength in left hip flexors/knee extensors, able to wiggle toes (limited due to ankle casting) left toes warm and well perfused, edematous SKIN: left D1 ingrown toenail ASSESSMENT:70-year-old F with past medical history of HTN and CAD who presents status post left ankle fracture PLAN: 1. Rehab- PT/OT advance mobility and ADLs, strengthen/stretch/maintain ROM all 4 limbs (except left ankle) 2. Ortho- s/p left ankle fracture, c/u cast and NWB, f/u ortho 3. CArdiac- hx of CAD c/u ASA -HLD c/u statin -HTN c/u BP meds, patient with low BPs, will adjust prn 4. Resp- monitor for infection 5. DVT ppx- lovenox 6. GI ppx- protonix 7. Derm- left D1 ingrown toenail, warm water bath and lidocaine gel for pain relief 8. Pain- tyleol and oxycodone orn 9. Heme- anemia due to iron deficiency c/u oral iron, consider transfusion if <Hgb <8 10. Dispo- TBD Allergies Coded Allergies: clopidogrel (Verified Allergy, Unknown, 12/12/20) "it makes me bleed" codeine (Verified Allergy, Unknown, 12/12/20) "it makes me fuzzy" [place] (Verified Adverse Reaction, Intermediate, UPSET STOMACH, 04/24/10) Vital Signs Vital Signs Date Time Temp Pulse Resp B/P (MAP) Pulse Ox O2 Delivery O2 Flow Rate FiO2 12/18/20 12:05 107/58 (74) 12/18/20 09:00 20 12/18/20 08:29 89 12/18/20 05:27 97.7 92 Room Air Current Medications Current Medications Current Medications Medications (Trade) Dose Ordered Sig/Ace Route PRN Reason Start Time Stop Time Status Last Admin Dose Admin Acetaminophen (Tylenol Tab) 1,000 mg TID PO 12/14/20 21:00 12/18/20 08:25 Amlodipine Besylate (Norvasc) 10 mg DAILY PO 12/15/20 09:00 12/15/20 10:26 DC Artificial Tears ([place]wa Tears) 2 drop QIDP PRN OU DRY EYES 12/14/20 17:10 Aspirin (Ecotrin) 81 mg DAILY PO 12/15/20 09:00 12/18/20 08:24 Atorvastatin Calcium (Lipitor) 40 mg DAILY PO 12/15/20 09:00 12/18/20 08:24 Bisacodyl (Dulcolax Suppository) 10 mg DAILYPRN PRN [place] CONSTIPATION 12/14/20 17:10 Chlorthalidone (Hygroton, Chlorthalidone) 12.5 mg DAILY PO 12/15/20 09:00 12/15/20 10:26 DC Chlorthalidone (Hygroton, Chlorthalidone) 12.5 mg DAILY@1200 PO 12/15/20 12:00 12/17/20 12:48 Docusate Sodium (Colace) 100 mg BID PO 12/14/20 21:00 12/18/20 08:24 Enoxaparin Sodium (Lovenox) 40 mg DAILY SC 12/15/20 09:00 12/18/20 08:25 Ferrous Sulfate (Ferrous Sulfate) 325 mg BID PO 12/14/20 21:00 12/18/20 08:24 Fluticasone Propionate (Flonase 0.05% Nasal [place]) 1 spray BID NARES 12/17/20 09:00 12/18/20 08:26 Isosorbide Mononitrate (Imdur) 60 mg DAILY PO 12/15/20 09:00 12/18/20 08:29 Labetalol HCl (Normodyne, Trandate) 200 mg BID PO 12/14/20 21:00 12/18/20 08:29 Lidocaine HCl (Lmx 4/Anecream) 1 dose BID TOP 12/15/20 09:00 12/18/20 08:26 Losartan Potassium (Cozaar) 100 mg DAILY PO 12/15/20 09:00 12/15/20 10:26 DC Magnesium Sulfate (Epsom Salt) soak left toes in [place]uke w... DAILY@1700 TOP 12/15/20 17:00 12/17/20 14:27 DC 12/16/20 16:23 Multivitamins (Theragram-M) 1 tab DAILY PO 12/15/20 09:00 12/18/20 08:24 Nitroglycerin (Nitrostat (1/ 150)) 0.4 mg Q5MP PRN SL CHEST PAIN 12/14/20 17:10 Oxycodone HCl (Roxicodone, Oxyir) 5 mg Q4HP PRN PO PAIN 12/14/20 17:10 12/18/20 08:24 Pantoprazole Sodium (Protonix) 40 mg DAILY PO 12/15/20 09:00 12/18/20 08:24 Polyethylene Glycol (Miralax) 1 pkt DAILY PRN PO CONSTIPATION 12/14/20 17:10 Senna (Senokot) 1 tab QHS PO 12/14/20 21:00 12/17/20 20:39 Sodium Chloride ([place] Nasal [place]) 2 spray TID NA 12/17/20 09:00 12/18/20 08:26 Vitamin D (Vitamin D) 5,000 units DAILY PO 12/15/20 09:00 12/18/20 08:24 APARNA COOPER MD Dec 18, 2020 14:32
--- NOTE | 2020-12-18 14:33 | IPNPDOC ---
PM&R Progress Note DATE OF SERVICE: Dec 18, 2020 Fiber Technologist Progress Note Subjetive: PAtient her left foot sometimes gets feelings of pins and needles and she is open to a trial of gabapentin. She denies new weakness in her toes. REVIEW OF SYSTEMS: The following is a completed review of systems and has been reviewed. Review of systems otherwise unremarkable. PAIN: Patient self reports left toe pain EYES: No recent vision changes EARS, NOSE, & THROAT: No throat pain, or dysphagia, or rhinorrhea CARDIOVASCULAR: Denies chest pain or palpitations PULMONARY: Denies shortness of breath GASTROINTESTINAL: Denies constipation/diarrhea GENITOURINARY: denies dysuria MUSCULOSKELETAL: left ankle fracture NEUROLOGICAL: denies paresthesias HEMATOLOGICAL: +anemia SKIN: left D1 ingrown toe PSYCHIATRIC: Unremarkable All other review of systems found to be negative. PHYSICAL EXAMINATION: VITAL SIGNS: Please see below. GENERAL:Pleasant and cooperative. No acute distress. HEENT: PERRL. Extraocular movements intact. Clear conjunctiva CARDIOVASCULAR: Regular rate and rhythm. No murmurs, rubs, or gallops LUNGS: Clear to auscultation bilaterally. No wheezes. No rhonchi ABDOMEN: Soft, nontender, nondistended. Positive bowel sounds. Normal active bowel sounds NEUROLOGICAL: Alert and oriented times three. Cranial nerves II through XII grossly intact. Sensation grossly intact EXTREMITIES: 5\\5 strength bilateral upper extremities. 5\\5 strength right lower extremity. 5/5 strength in left hip flexors/knee extensors, able to wiggle toes (limited due to ankle casting) left toes warm and well perfused, edematous (improving) SKIN: left D1 ingrown toenail ASSESSMENT:70-year-old F with past medical history of HTN and CAD who presents status post left ankle fracture PLAN: 1. Rehab- PT/OT advance mobility and ADLs, strengthen/stretch/maintain ROM all 4 limbs (except left ankle) 2. Ortho- s/p left ankle fracture, c/u cast and NWB, f/u ortho 3. CArdiac- hx of CAD c/u ASA -HLD c/u statin -HTN c/u BP meds, patient with low BPs, will adjust prn 4. Resp- monitor for infection 5. DVT ppx- lovenox 6. GI ppx- protonix 7. Derm- left D1 ingrown toenail, warm water bath and lidocaine gel for pain relief 8. Pain- tylenol and oxycodone prn -will start gabapentin for left foot paresthesias (no weakness on exam) 9. Heme- anemia due to iron deficiency c/u oral iron, consider transfusion if <Hgb <8 10. Dispo- 12-25-20 to home, progressing towards goals Allergies Coded Allergies: clopidogrel (Verified Allergy, Unknown, 12/12/20) "it makes me bleed" codeine (Verified Allergy, Unknown, 12/12/20) "it makes me fuzzy" [place] (Verified Adverse Reaction, Intermediate, UPSET STOMACH, 04/24/10) Vital Signs Vital Signs Date Time Temp Pulse Resp B/P (MAP) Pulse Ox O2 Delivery O2 Flow Rate FiO2 12/18/20 12:05 107/58 (74) 12/18/20 09:00 20 12/18/20 08:29 89 12/18/20 05:27 97.7 92 Room Air Current Medications Current Medications Current Medications Medications (Trade) Dose Ordered Sig/Ace Route PRN Reason Start Time Stop Time Status Last Admin Dose Admin Acetaminophen (Tylenol Tab) 1,000 mg TID PO 12/14/20 21:00 12/18/20 08:25 Amlodipine Besylate (Norvasc) 10 mg DAILY PO 12/15/20 09:00 12/15/20 10:26 DC Artificial Tears (Akwa Tears) 2 drop QIDP PRN OU DRY EYES 12/14/20 17:10 Aspirin (Ecotrin) 81 mg DAILY PO 12/15/20 09:00 12/18/20 08:24 Atorvastatin Calcium (Lipitor) 40 mg DAILY PO 12/15/20 09:00 12/18/20 08:24 Bisacodyl (Dulcolax Suppository) 10 mg DAILYPRN PRN [place] CONSTIPATION 12/14/20 17:10 Chlorthalidone (Hygroton, Chlorthalidone) 12.5 mg DAILY PO 12/15/20 09:00 12/15/20 10:26 DC Chlorthalidone (Hygroton, Chlorthalidone) 12.5 mg DAILY@1200 PO 12/15/20 12:00 12/17/20 12:48 Docusate Sodium (Colace) 100 mg BID PO 12/14/20 21:00 12/18/20 08:24 Enoxaparin Sodium (Lovenox) 40 mg DAILY SC 12/15/20 09:00 12/18/20 08:25 Ferrous Sulfate (Ferrous Sulfate) 325 mg BID PO 12/14/20 21:00 12/18/20 08:24 Fluticasone Propionate (Flonase 0.05% Nasal [place]) 1 spray BID NARES 12/17/20 09:00 12/18/20 08:26 Isosorbide Mononitrate (Imdur) 60 mg DAILY PO 12/15/20 09:00 12/18/20 08:29 Labetalol HCl (Normodyne, Trandate) 200 mg BID PO 12/14/20 21:00 12/18/20 08:29 Lidocaine HCl (Lmx 4/Anecream) 1 dose BID TOP 12/15/20 09:00 12/18/20 08:26 Losartan Potassium (Cozaar) 100 mg DAILY PO 12/15/20 09:00 12/15/20 10:26 DC Magnesium Sulfate (Epsom Salt) soak left toes in [place] w... DAILY@1700 TOP 12/15/20 17:00 12/17/20 14:27 DC 12/16/20 16:23 Multivitamins (Theragram-M) 1 tab DAILY PO 12/15/20 09:00 12/18/20 08:24 Nitroglycerin (Nitrostat (1/ 150)) 0.4 mg Q5MP PRN SL CHEST PAIN 12/14/20 17:10 Oxycodone HCl (Roxicodone, Oxyir) 5 mg Q4HP PRN PO PAIN 12/14/20 17:10 12/18/20 08:24 Pantoprazole Sodium (Protonix) 40 mg DAILY PO 12/15/20 09:00 12/18/20 08:24 Polyethylene Glycol (Miralax) 1 pkt DAILY PRN PO CONSTIPATION 12/14/20 17:10 Senna (Senokot) 1 tab QHS PO 12/14/20 21:00 12/17/20 20:39 Sodium Chloride ([place] Nasal [place]) 2 spray TID NA 12/17/20 09:00 12/18/20 08:26 Vitamin D (Vitamin D) 5,000 units DAILY PO 12/15/20 09:00 12/18/20 08:24 APARNA COOPER MD Dec 18, 2020 14:33
[2020-12-18] MEDS: GABAPENTIN 100 MG CAP PO SCH ×2 (15:17→20:03)
[2020-12-18 20:00] VITALS: BP 109/56
[2020-12-18] MEDS: SENNA 8.6 MG TAB (SENOKOT) PO SCH (20:03)
[2020-12-19 06:00] VITALS: BP 124/57
[2020-12-19 07:22] LABS: BASO % 0.2 % (0.0-1.0); EOS # 0.4 10^3/uL (0.0-0.5); EOS % 4.4 % (0.0-3.0); HEMATOCRIT 26.2 % (36.0-47.0); HEMOGLOBIN 8.3 g/dl (12.0-15.5); LYMPH # 1.3 10^3/uL (1.5-5.0); LYMPH % 15.7 % (24.0-44.0); MEAN CORPUSCULAR HEMOGLOBIN 30.6 pg (27.0-33.0); MEAN CORPUSCULAR HGB CONC 31.7 g/dl (32.0-36.5); MEAN CORPUSCULAR VOLUME 96.7 fl (80.0-96.0); MONO # 0.7 10^3/uL (0.0-0.8); NEUTROPHILS # 5.8 10^3/uL (1.5-8.5); NEUTROPHILS % 71.1 % (36.0-66.0); PLATELET COUNT, AUTOMATED 182 10^3/uL (150-450); RED BLOOD COUNT 2.71 10^6/uL (4.00-5.40); WHITE BLOOD COUNT 8.1 10^3/uL (4.0-10.0)
[2020-12-19 07:41] LABS: CALCIUM LEVEL 9.4 MG/DL (8.8-10.2); CREATININE FOR GFR 1.03 MG/DL (0.55-1.30); GLOMERULAR FILTRATION RATE 56.2 (>39); POTASSIUM SERUM 4.5 MEQ/L (3.5-5.1)
[2020-12-19] MEDS: LABETALOL 200 MG TAB PO SCH (08:09)
[2020-12-19] MEDS: ISOSORBIDE MON. (IMDUR) 60 MG XR TAB PO SCH (08:09)
[2020-12-19] MEDS: LIDOCAINE 4% CREAM 5GM (LMX4) TOP SCH ×2 (08:46→21:12)
[2020-12-19] MEDS: FLUTICASONE PROP 0.05% NASAL SPRAY 16 GM (FLONASE) NARES SCH ×2 (08:46→21:06)
[2020-12-19] MEDS: SODIUM CHLORIDE NASAL 0.65% SPRAY BTL (OCEAN) SCH ×3 (08:46→21:07)
[2020-12-19] MEDS: ENOXAPARIN 40MG/0.4ML SYRINGE (J1650 PER 10MG) SC SCH (08:47)
[2020-12-19] MEDS: ATORVASTATIN 20 MG TAB PO SCH (08:47)
[2020-12-19] MEDS: FERROUS SULFATE 325MG TAB PO SCH ×2 (08:47→21:08)
[2020-12-19] MEDS: GABAPENTIN 100 MG CAP PO SCH ×2 (08:47→21:07)
[2020-12-19] MEDS: VITAMIN D 1,000 INTERNATIONAL UNITS TABLET PO SCH (08:47)
[2020-12-19] MEDS: ASPIRIN 81MG ENTERIC TABLET PO SCH (08:47)
[2020-12-19] MEDS: MULTIVITAMINS/MINERALS THERAP 1 TAB PO SCH (08:47)
[2020-12-19] MEDS: REMEDY PHYTOPLEX Z-GUARD PASTE 113GM TUBE (FROM STOREROOM PRODUCT) TOP SCH ×3 (08:48→21:00)
[2020-12-19] MEDS: DOCUSATE SODIUM 100MG CAPSULE PO SCH ×2 (08:48→21:07)
[2020-12-19] MEDS: ACETAMINOPHEN 500 MG TAB PO SCH ×3 (08:48→21:09)
[2020-12-19] MEDS: PANTOPRAZOLE 40MG TAB (PROTONIX) PO SCH (08:48)
[2020-12-19 11:30] VITALS: BP 155/70
[2020-12-19] MEDS: CHLORTHALIDONE 12.5MG PER 1/2 TABLET PO SCH (11:32)
[2020-12-19] MEDS: oxyCODONE 5MG TAB PO PRN (11:33)
[2020-12-19 14:00] VITALS: BP 125/57
--- NOTE | 2020-12-19 15:02 | IPNPDOC ---
PM&R Progress Note DATE OF SERVICE: Dec 19, 2020 Animal Control Specialist Progress Note Subjective: PAtient seen in her room tearful stating she felt overwhelmed about going home, states she does not feel weaker, and reoprts a history of hemorrhiods which she has not noticed bleeding. REVIEW OF SYSTEMS: The following is a completed review of systems and has been reviewed. Review of systems otherwise unremarkable. PAIN: Patient self reports left toe pain EYES: No recent vision changes EARS, NOSE, & THROAT: No throat pain, or dysphagia, or rhinorrhea CARDIOVASCULAR: Denies chest pain or palpitations PULMONARY: Denies shortness of breath GASTROINTESTINAL: Denies constipation/diarrhea GENITOURINARY: denies dysuria MUSCULOSKELETAL: left ankle fracture NEUROLOGICAL: denies paresthesias HEMATOLOGICAL: +anemia SKIN: left D1 ingrown toe PSYCHIATRIC: Unremarkable All other review of systems found to be negative. PHYSICAL EXAMINATION: VITAL SIGNS: Please see below. GENERAL:Pleasant and cooperative. No acute distress. HEENT: PERRL. Extraocular movements intact. Clear conjunctiva CARDIOVASCULAR: Regular rate and rhythm. No murmurs, rubs, or gallops LUNGS: Clear to auscultation bilaterally. No wheezes. No rhonchi ABDOMEN: Soft, nontender, nondistended. Positive bowel sounds. Normal active bowel sounds NEUROLOGICAL: Alert and oriented times three. Cranial nerves II through XII grossly intact. Sensation grossly intact EXTREMITIES: 5\\5 strength bilateral upper extremities. 5\\5 strength right lower extremity. 5/5 strength in left hip flexors/knee extensors, able to wiggle toes (limited due to ankle casting) left toes warm and well perfused, edematous (improving) SKIN: left D1 ingrown toenail ASSESSMENT:70-year-old F with past medical history of HTN and CAD who presents status post left ankle fracture PLAN: 1. Rehab- PT/OT advance mobility and ADLs, strengthen/stretch/maintain ROM all 4 limbs (except left ankle) 2. Ortho- s/p left ankle fracture, c/u cast and NWB, f/u ortho 3. CArdiac- hx of CAD c/u ASA -HLD c/u statin -HTN c/u BP meds, patient with low BPs, will c/u to adjust prn 4. Resp- monitor for infection 5. DVT ppx- lovenox 6. GI ppx- protonix 7. Derm- left D1 ingrown toenail, warm water bath and lidocaine gel for pain relief 8. Pain- tylenol and oxycodone prn -c/u gabapentin for left foot paresthesias (no weakness on exam) 9. Heme- anemia due to iron deficiency c/u oral iron, consider transfusion if <Hgb <8 -patient with hx of GI bleed with +FOBT and drop in Hgb today to 8.3, she is asymptomatic, vitals stable, will repeat FOBT while here and consider GI consult if needed 10. Dispo- 12-25-20 to home, progressing towards goals Allergies Coded Allergies: clopidogrel (Verified Allergy, Unknown, 12/12/20) "it makes me bleed" codeine (Verified Allergy, Unknown, 12/12/20) "it makes me fuzzy" [place] (Verified Adverse Reaction, Intermediate, UPSET STOMACH, 04/24/10) Vital Signs Vital Signs Date Time Temp Pulse Resp B/P (MAP) Pulse Ox O2 Delivery O2 Flow Rate FiO2 12/19/20 14:00 98.4 92 18 125/57 (79) 98 Room Air Laboratory Data CBC/BMP Laboratory Tests 12/19/20 07:03 Labs 24H Laboratory Tests 2 12/19/20 07:03: Immature Granulocyte % (Auto) 0.6, Neutrophils (%) (Auto) 71.1H, Lymphocytes (%) (Auto) 15.7L, Monocytes (%) (Auto) 8.0, Eosinophils (%) (Auto) 4.4H, Basophils (%) (Auto) 0.2, Neutrophils # (Auto) 5.8, Lymphocytes # (Auto) 1.3L, Monocytes # (Auto) 0.7, Eosinophils # (Auto) 0.4, Basophils # (Auto) 0.0, Nucleated Red Blood Cells % (auto) 0.0, Anion Gap 5L, Glomerular Filtration Rate 56.2, Calcium Level 9.4 Current Medications Current Medications Current Medications Medications (Trade) Dose Ordered Sig/Ace Route PRN Reason Start Time Stop Time Status Last Admin Dose Admin Acetaminophen (Tylenol Tab) 1,000 mg TID PO 12/14/20 21:00 12/19/20 08:48 Amlodipine Besylate (Norvasc) 10 mg DAILY PO 12/15/20 09:00 12/15/20 10:26 DC Artificial Tears ([place] Tears) 2 drop QIDP PRN OU DRY EYES 12/14/20 17:10 Aspirin (Ecotrin) 81 mg DAILY PO 12/15/20 09:00 12/19/20 08:47 Atorvastatin Calcium (Lipitor) 40 mg DAILY PO 12/15/20 09:00 12/19/20 08:47 Bisacodyl (Dulcolax Suppository) 10 mg DAILYPRN PRN [place] CONSTIPATION 12/14/20 17:10 Chlorthalidone (Hygroton, Chlorthalidone) 12.5 mg DAILY PO 12/15/20 09:00 12/15/20 10:26 DC Chlorthalidone (Hygroton, Chlorthalidone) 12.5 mg DAILY@1200 PO 12/15/20 12:00 12/19/20 11:32 Docusate Sodium (Colace) 100 mg BID PO 12/14/20 21:00 12/19/20 08:48 Enoxaparin Sodium (Lovenox) 40 mg DAILY SC 12/15/20 09:00 12/19/20 08:47 Ferrous Sulfate (Ferrous Sulfate) 325 mg BID PO 12/14/20 21:00 12/19/20 08:47 Fluticasone Propionate (Flonase 0.05% Nasal [place]) 1 spray BID NARES 12/17/20 09:00 12/19/20 08:46 Gabapentin (Neurontin) 100 mg BID PO 12/18/20 09:00 12/19/20 08:47 Isosorbide Mononitrate (Imdur) 60 mg DAILY PO 12/15/20 09:00 12/18/20 08:29 Labetalol HCl (Normodyne, Trandate) 100 mg BID PO 12/19/20 21:00 Labetalol HCl (Normodyne, Trandate) 200 mg BID PO 12/14/20 21:00 12/19/20 10:28 DC 12/18/20 08:29 Lidocaine HCl (Lmx 4/Anecream) 1 dose BID TOP 12/15/20 09:00 12/19/20 08:46 Losartan Potassium (Cozaar) 100 mg DAILY PO 12/15/20 09:00 12/15/20 10:26 DC Magnesium Sulfate (Epsom Salt) soak left toes in [place]uke w... DAILY@1700 TOP 12/15/20 17:00 12/17/20 14:27 DC 12/16/20 16:23 Multivitamins (Theragram-M) 1 tab DAILY PO 12/15/20 09:00 12/19/20 08:47 Nitroglycerin (Nitrostat (1/ 150)) 0.4 mg Q5MP PRN SL CHEST PAIN 12/14/20 17:10 Oxycodone HCl (Roxicodone, Oxyir) 5 mg Q4HP PRN PO PAIN 12/14/20 17:10 12/19/20 11:33 Pantoprazole Sodium (Protonix) 40 mg DAILY PO 12/15/20 09:00 12/19/20 08:48 Polyethylene Glycol (Miralax) 1 pkt DAILY PRN PO CONSTIPATION 12/14/20 17:10 Senna (Senokot) 1 tab QHS PO 12/14/20 21:00 12/18/20 20:03 Sodium Chloride ([place] Nasal [place]) 2 spray TID NA 12/17/20 09:00 12/19/20 08:46 Vitamin D (Vitamin D) 5,000 units DAILY PO 12/15/20 09:00 12/19/20 08:47 APARNA COOPER MD Dec 19, 2020 15:02
[2020-12-19 20:00] VITALS: BP 123/61
[2020-12-19] MEDS: SENNA 8.6 MG TAB (SENOKOT) PO SCH (21:07)
[2020-12-19] MEDS: LABETALOL 100MG TAB PO SCH (21:08)
[2020-12-20 05:23] VITALS: BP 136/66
[2020-12-20] MEDS: oxyCODONE 5MG TAB PO PRN (05:32)
[2020-12-20 07:51] LABS: BASO % 0.3 % (0.0-1.0); EOS # 0.3 10^3/uL (0.0-0.5); EOS % 4.6 % (0.0-3.0); HEMATOCRIT 27.2 % (36.0-47.0); HEMOGLOBIN 8.4 g/dl (12.0-15.5); LYMPH # 1.1 10^3/uL (1.5-5.0); LYMPH % 14.6 % (24.0-44.0); MEAN CORPUSCULAR HEMOGLOBIN 30.1 pg (27.0-33.0); MEAN CORPUSCULAR HGB CONC 30.9 g/dl (32.0-36.5); MEAN CORPUSCULAR VOLUME 97.5 fl (80.0-96.0); MONO # 0.6 10^3/uL (0.0-0.8); MONO % 7.9 % (2.0-8.0); NEUTROPHILS # 5.3 10^3/uL (1.5-8.5); NEUTROPHILS % 72.2 % (36.0-66.0); PLATELET COUNT, AUTOMATED 191 10^3/uL (150-450); RED BLOOD COUNT 2.79 10^6/uL (4.00-5.40); WHITE BLOOD COUNT 7.3 10^3/uL (4.0-10.0)
[2020-12-20] MEDS: PANTOPRAZOLE 40MG TAB (PROTONIX) PO SCH (08:12)
[2020-12-20] MEDS: DOCUSATE SODIUM 100MG CAPSULE PO SCH ×2 (08:13→21:12)
[2020-12-20] MEDS: ISOSORBIDE MON. (IMDUR) 60 MG XR TAB PO SCH (08:13)
[2020-12-20] MEDS: VITAMIN D 1,000 INTERNATIONAL UNITS TABLET PO SCH (08:13)
[2020-12-20] MEDS: ASPIRIN 81MG ENTERIC TABLET PO SCH (08:13)
[2020-12-20] MEDS: GABAPENTIN 100 MG CAP PO SCH ×2 (08:13→21:12)
[2020-12-20] MEDS: LABETALOL 100MG TAB PO SCH ×2 (08:13→21:11)
[2020-12-20] MEDS: ACETAMINOPHEN 500 MG TAB PO SCH ×3 (08:14→21:14)
[2020-12-20] MEDS: MULTIVITAMINS/MINERALS THERAP 1 TAB PO SCH (08:14)
[2020-12-20] MEDS: ATORVASTATIN 20 MG TAB PO SCH (08:14)
[2020-12-20] MEDS: FERROUS SULFATE 325MG TAB PO SCH ×2 (08:14→21:12)
[2020-12-20] MEDS: SODIUM CHLORIDE NASAL 0.65% SPRAY BTL (OCEAN) SCH ×3 (08:15→21:15)
[2020-12-20] MEDS: ENOXAPARIN 40MG/0.4ML SYRINGE (J1650 PER 10MG) SC SCH (08:15)
[2020-12-20] MEDS: REMEDY PHYTOPLEX Z-GUARD PASTE 113GM TUBE (FROM STOREROOM PRODUCT) TOP SCH ×3 (08:15→21:00)
[2020-12-20] MEDS: FLUTICASONE PROP 0.05% NASAL SPRAY 16 GM (FLONASE) NARES SCH ×2 (08:15→21:15)
[2020-12-20] MEDS: LIDOCAINE 4% CREAM 5GM (LMX4) TOP SCH ×2 (08:16→21:16)
[2020-12-20] MEDS: CHLORTHALIDONE 12.5MG PER 1/2 TABLET PO SCH (12:40)
[2020-12-20 14:00] VITALS: BP 125/60
[2020-12-20 21:04] VITALS: BP 131/73
[2020-12-20] MEDS: SENNA 8.6 MG TAB (SENOKOT) PO SCH (21:11)
[2020-12-21] MEDS: oxyCODONE 5MG TAB PO PRN ×2 (03:04→22:04)
[2020-12-21 05:28] VITALS: BP 125/58
[2020-12-21 08:08] LABS: BASO % 0.3 % (0.0-1.0); EOS # 0.3 10^3/uL (0.0-0.5); EOS % 5.4 % (0.0-3.0); HEMATOCRIT 27.2 % (36.0-47.0); HEMOGLOBIN 8.3 g/dl (12.0-15.5); LYMPH # 1.1 10^3/uL (1.5-5.0); LYMPH % 17.6 % (24.0-44.0); MEAN CORPUSCULAR HEMOGLOBIN 30.2 pg (27.0-33.0); MEAN CORPUSCULAR HGB CONC 30.5 g/dl (32.0-36.5); MEAN CORPUSCULAR VOLUME 98.9 fl (80.0-96.0); MONO # 0.6 10^3/uL (0.0-0.8); MONO % 8.9 % (2.0-8.0); NEUTROPHILS # 4.2 10^3/uL (1.5-8.5); NEUTROPHILS % 67.3 % (36.0-66.0); PLATELET COUNT, AUTOMATED 213 10^3/uL (150-450); RED BLOOD COUNT 2.75 10^6/uL (4.00-5.40); WHITE BLOOD COUNT 6.3 10^3/uL (4.0-10.0)
[2020-12-21 08:37] LABS: CALCIUM LEVEL 8.7 MG/DL (8.8-10.2); GLOMERULAR FILTRATION RATE 58.2 (>39); POTASSIUM SERUM 4.5 MEQ/L (3.5-5.1)
[2020-12-21] MEDS: ATORVASTATIN 20 MG TAB PO SCH (09:34)
[2020-12-21] MEDS: VITAMIN D 1,000 INTERNATIONAL UNITS TABLET PO SCH (09:34)
[2020-12-21] MEDS: GABAPENTIN 100 MG CAP PO SCH ×2 (09:34→20:18)
[2020-12-21] MEDS: DOCUSATE SODIUM 100MG CAPSULE PO SCH ×2 (09:34→20:17)
[2020-12-21] MEDS: MULTIVITAMINS/MINERALS THERAP 1 TAB PO SCH (09:34)
[2020-12-21] MEDS: FERROUS SULFATE 325MG TAB PO SCH ×2 (09:34→20:18)
[2020-12-21] MEDS: ASPIRIN 81MG ENTERIC TABLET PO SCH (09:34)
[2020-12-21] MEDS: PANTOPRAZOLE 40MG TAB (PROTONIX) PO SCH (09:34)
[2020-12-21] MEDS: ENOXAPARIN 40MG/0.4ML SYRINGE (J1650 PER 10MG) SC SCH (09:35)
[2020-12-21] MEDS: FLUTICASONE PROP 0.05% NASAL SPRAY 16 GM (FLONASE) NARES SCH ×2 (09:35→20:19)
[2020-12-21] MEDS: SODIUM CHLORIDE NASAL 0.65% SPRAY BTL (OCEAN) SCH ×3 (09:35→20:19)
[2020-12-21] MEDS: ACETAMINOPHEN 500 MG TAB PO SCH ×3 (09:35→20:18)
[2020-12-21] MEDS: REMEDY PHYTOPLEX Z-GUARD PASTE 113GM TUBE (FROM STOREROOM PRODUCT) TOP SCH ×3 (09:36→20:19)
[2020-12-21] MEDS: LIDOCAINE 4% CREAM 5GM (LMX4) TOP SCH ×2 (09:36→20:19)
[2020-12-21] MEDS: LABETALOL 100MG TAB PO SCH ×2 (09:38→20:18)
[2020-12-21] MEDS: ISOSORBIDE MON. (IMDUR) 60 MG XR TAB PO SCH (09:39)
[2020-12-21] MEDS: CHLORTHALIDONE 12.5MG PER 1/2 TABLET PO SCH (12:00)
[2020-12-21 14:00] VITALS: BP 123/57
[2020-12-21 20:00] VITALS: BP 121/60
[2020-12-21] MEDS: SENNA 8.6 MG TAB (SENOKOT) PO SCH (20:17)
[2020-12-22] MEDS: oxyCODONE 5MG TAB PO PRN (05:47)
[2020-12-22 06:00] VITALS: BP 143/63
[2020-12-22] MEDS: ATORVASTATIN 20 MG TAB PO SCH (08:32)
[2020-12-22] MEDS: GABAPENTIN 100 MG CAP PO SCH ×2 (08:32→20:35)
[2020-12-22] MEDS: MULTIVITAMINS/MINERALS THERAP 1 TAB PO SCH (08:32)
[2020-12-22] MEDS: DOCUSATE SODIUM 100MG CAPSULE PO SCH ×2 (08:32→20:35)
[2020-12-22] MEDS: VITAMIN D 1,000 INTERNATIONAL UNITS TABLET PO SCH (08:32)
[2020-12-22] MEDS: FERROUS SULFATE 325MG TAB PO SCH ×2 (08:32→20:35)
[2020-12-22] MEDS: ASPIRIN 81MG ENTERIC TABLET PO SCH (08:32)
[2020-12-22] MEDS: ISOSORBIDE MON. (IMDUR) 60 MG XR TAB PO SCH (08:32)
[2020-12-22] MEDS: PANTOPRAZOLE 40MG TAB (PROTONIX) PO SCH (08:32)
[2020-12-22] MEDS: ENOXAPARIN 40MG/0.4ML SYRINGE (J1650 PER 10MG) SC SCH (08:33)
[2020-12-22] MEDS: LABETALOL 100MG TAB PO SCH ×2 (08:33→20:36)
[2020-12-22] MEDS: ACETAMINOPHEN 500 MG TAB PO SCH ×3 (08:33→20:36)
[2020-12-22] MEDS: LIDOCAINE 4% CREAM 5GM (LMX4) TOP SCH ×2 (08:34→20:38)
[2020-12-22] MEDS: FLUTICASONE PROP 0.05% NASAL SPRAY 16 GM (FLONASE) NARES SCH ×2 (08:34→20:37)
[2020-12-22] MEDS: SODIUM CHLORIDE NASAL 0.65% SPRAY BTL (OCEAN) SCH ×3 (08:34→20:37)
[2020-12-22] MEDS: REMEDY PHYTOPLEX Z-GUARD PASTE 113GM TUBE (FROM STOREROOM PRODUCT) TOP SCH ×3 (08:35→20:38)
[2020-12-22 11:17] VITALS: BP 129/61
[2020-12-22] MEDS: CHLORTHALIDONE 12.5MG PER 1/2 TABLET PO SCH (11:18)
[2020-12-22 14:00] VITALS: BP 124/62
[2020-12-22 20:00] VITALS: BP 137/65
[2020-12-22] MEDS: SENNA 8.6 MG TAB (SENOKOT) PO SCH (20:35)
[2020-12-23] MEDS: oxyCODONE 5MG TAB PO PRN ×2 (05:52→11:05)
[2020-12-23 06:00] VITALS: BP 123/58
[2020-12-23] MEDS: ENOXAPARIN 40MG/0.4ML SYRINGE (J1650 PER 10MG) SC SCH (07:48)
[2020-12-23] MEDS: ISOSORBIDE MON. (IMDUR) 60 MG XR TAB PO SCH (07:49)
[2020-12-23] MEDS: ASPIRIN 81MG ENTERIC TABLET PO SCH (07:49)
[2020-12-23] MEDS: LABETALOL 100MG TAB PO SCH ×2 (07:49→20:21)
[2020-12-23] MEDS: PANTOPRAZOLE 40MG TAB (PROTONIX) PO SCH (07:49)
[2020-12-23] MEDS: ACETAMINOPHEN 500 MG TAB PO SCH ×3 (07:50→20:21)
[2020-12-23] MEDS: FERROUS SULFATE 325MG TAB PO SCH ×2 (07:50→20:20)
[2020-12-23] MEDS: GABAPENTIN 100 MG CAP PO SCH ×2 (07:50→20:20)
[2020-12-23] MEDS: VITAMIN D 1,000 INTERNATIONAL UNITS TABLET PO SCH (07:50)
[2020-12-23] MEDS: ATORVASTATIN 20 MG TAB PO SCH (07:50)
[2020-12-23] MEDS: DOCUSATE SODIUM 100MG CAPSULE PO SCH ×2 (07:51→20:20)
[2020-12-23] MEDS: SODIUM CHLORIDE NASAL 0.65% SPRAY BTL (OCEAN) SCH ×3 (07:51→20:21)
[2020-12-23] MEDS: REMEDY PHYTOPLEX Z-GUARD PASTE 113GM TUBE (FROM STOREROOM PRODUCT) TOP SCH ×3 (07:51→20:22)
[2020-12-23] MEDS: LIDOCAINE 4% CREAM 5GM (LMX4) TOP SCH ×2 (07:51→20:22)
[2020-12-23] MEDS: MULTIVITAMINS/MINERALS THERAP 1 TAB PO SCH (07:51)
[2020-12-23] MEDS: FLUTICASONE PROP 0.05% NASAL SPRAY 16 GM (FLONASE) NARES SCH ×2 (07:51→20:21)
[2020-12-23 11:02] VITALS: BP 144/66
[2020-12-23] MEDS: CHLORTHALIDONE 12.5MG PER 1/2 TABLET PO SCH (11:05)
[2020-12-23 14:00] VITALS: BP 146/65
[2020-12-23 20:00] VITALS: BP 131/54
[2020-12-23] MEDS: SENNA 8.6 MG TAB (SENOKOT) PO SCH (20:20)
[2020-12-24] MEDS: oxyCODONE 5MG TAB PO PRN (05:45)
[2020-12-24 06:00] VITALS: BP 125/65
[2020-12-24 07:04] LABS: BASO % 0.4 % (0.0-1.0); EOS # 0.3 10^3/uL (0.0-0.5); EOS % 5.7 % (0.0-3.0); HEMATOCRIT 27.5 % (36.0-47.0); HEMOGLOBIN 8.3 g/dl (12.0-15.5); LYMPH % 18.9 % (24.0-44.0); MEAN CORPUSCULAR HEMOGLOBIN 30.2 pg (27.0-33.0); MEAN CORPUSCULAR HGB CONC 30.2 g/dl (32.0-36.5); MONO # 0.5 10^3/uL (0.0-0.8); MONO % 9.6 % (2.0-8.0); NEUTROPHILS # 3.4 10^3/uL (1.5-8.5); NEUTROPHILS % 64.8 % (36.0-66.0); PLATELET COUNT, AUTOMATED 245 10^3/uL (150-450); RED BLOOD COUNT 2.75 10^6/uL (4.00-5.40); WHITE BLOOD COUNT 5.3 10^3/uL (4.0-10.0)
[2020-12-24 07:26] LABS: BLOOD UREA NITROGEN 29 MG/DL (7-18); CALCIUM LEVEL 9.1 MG/DL (8.8-10.2); CARBON DIOXIDE LEVEL 30 MEQ/L (21-32); CHLORIDE LEVEL 107 MEQ/L (98-107); CREATININE FOR GFR 0.85 MG/DL (0.55-1.30); GLOMERULAR FILTRATION RATE > 60.0 (>39); GLUCOSE, FASTING 86 MG/DL (70-100); POTASSIUM SERUM 4.4 MEQ/L (3.5-5.1); SODIUM LEVEL 139 MEQ/L (136-145)
[2020-12-24] MEDS: ISOSORBIDE MON. (IMDUR) 60 MG XR TAB PO SCH (09:00)
[2020-12-24] MEDS: REMEDY PHYTOPLEX Z-GUARD PASTE 113GM TUBE (FROM STOREROOM PRODUCT) TOP SCH ×3 (09:00→20:27)
[2020-12-24] MEDS: DOCUSATE SODIUM 100MG CAPSULE PO SCH ×2 (09:16→20:25)
[2020-12-24] MEDS: MULTIVITAMINS/MINERALS THERAP 1 TAB PO SCH (09:16)
[2020-12-24] MEDS: PANTOPRAZOLE 40MG TAB (PROTONIX) PO SCH (09:16)
[2020-12-24] MEDS: ATORVASTATIN 20 MG TAB PO SCH (09:17)
[2020-12-24] MEDS: ASPIRIN 81MG ENTERIC TABLET PO SCH (09:17)
[2020-12-24] MEDS: FERROUS SULFATE 325MG TAB PO SCH ×2 (09:17→20:25)
[2020-12-24] MEDS: GABAPENTIN 100 MG CAP PO SCH ×2 (09:17→20:25)
[2020-12-24] MEDS: ACETAMINOPHEN 500 MG TAB PO SCH ×3 (09:17→20:25)
[2020-12-24] MEDS: VITAMIN D 1,000 INTERNATIONAL UNITS TABLET PO SCH (09:17)
[2020-12-24] MEDS: LABETALOL 100MG TAB PO SCH ×2 (09:18→20:25)
[2020-12-24] MEDS: FLUTICASONE PROP 0.05% NASAL SPRAY 16 GM (FLONASE) NARES SCH ×2 (09:19→20:26)
[2020-12-24] MEDS: ENOXAPARIN 40MG/0.4ML SYRINGE (J1650 PER 10MG) SC SCH (09:19)
[2020-12-24] MEDS: SODIUM CHLORIDE NASAL 0.65% SPRAY BTL (OCEAN) SCH ×3 (09:19→20:26)
[2020-12-24] MEDS: LIDOCAINE 4% CREAM 5GM (LMX4) TOP SCH ×2 (09:20→20:26)
[2020-12-24] MEDS: CHLORTHALIDONE 12.5MG PER 1/2 TABLET PO SCH (12:35)
[2020-12-24 14:00] VITALS: BP 138/65
--- NOTE | 2020-12-24 15:48 | IPNPDOC ---
PM&R Progress Note DATE OF SERVICE: Dec 24, 2020 Negative Restorer Progress Note Subjective: Patient reporting she feels well and is ready to go home tomorrow. REVIEW OF SYSTEMS: The following is a completed review of systems and has been reviewed. Review of systems otherwise unremarkable. PAIN: Patient self reports left toe pain EYES: No recent vision changes EARS, NOSE, & THROAT: No throat pain, or dysphagia, or rhinorrhea CARDIOVASCULAR: Denies chest pain or palpitations PULMONARY: Denies shortness of breath GASTROINTESTINAL: Denies constipation/diarrhea GENITOURINARY: denies dysuria MUSCULOSKELETAL: left ankle fracture NEUROLOGICAL: denies paresthesias HEMATOLOGICAL: +anemia SKIN: left D1 ingrown toe PSYCHIATRIC: Unremarkable All other review of systems found to be negative. PHYSICAL EXAMINATION: VITAL SIGNS: Please see below. GENERAL:Pleasant and cooperative. No acute distress. HEENT: PERRL. Extraocular movements intact. Clear conjunctiva CARDIOVASCULAR: Regular rate and rhythm. No murmurs, rubs, or gallops LUNGS: Clear to auscultation bilaterally. No wheezes. No rhonchi ABDOMEN: Soft, nontender, nondistended. Positive bowel sounds. Normal active bowel sounds NEUROLOGICAL: Alert and oriented times three. Cranial nerves II through XII grossly intact. Sensation grossly intact EXTREMITIES: 5\\5 strength bilateral upper extremities. 5\\5 strength right lower extremity. 5/5 strength in left hip flexors/knee extensors, able to wiggle toes (limited due to ankle casting) left toes warm and well perfused, edematous (improving) SKIN: left D1 ingrown toenail ASSESSMENT:70-year-old F with past medical history of HTN and CAD who presents status post left ankle fracture PLAN: 1. Rehab- PT/OT advance mobility and ADLs, strengthen/stretch/maintain ROM all 4 limbs (except left ankle) 2. Ortho- s/p left ankle fracture, c/u cast and NWB, f/u ortho 3. CArdiac- hx of CAD c/u ASA -HLD c/u statin -HTN c/u BP meds, patient with low BPs, will c/u to adjust prn 4. Resp- monitor for infection 5. DVT ppx- lovenox- will switch to ASA BID on d/c until caste is removed and she is cleared to bear weight, and increase protonix to BID 6. GI ppx- protonix 7. Derm- left D1 ingrown toenail, warm water bath and lidocaine gel for pain relief 8. Pain- tylenol and oxycodone prn -c/u gabapentin for left foot paresthesias (no weakness on exam) 9. Heme- anemia due to iron deficiency c/u oral iron, consider transfusion if <Hgb <8 -patient with hx of GI bleed with previous +FOBT, Hgb on ARU relatively, stable, no signs of active bleed, repeat FOBT negative 10. Dispo- 12-25-20 to home, progressing towards goals Allergies Coded Allergies: clopidogrel (Verified Allergy, Unknown, 12/12/20) "it makes me bleed" codeine (Verified Allergy, Unknown, 12/12/20) "it makes me fuzzy" [place] (Verified Adverse Reaction, Intermediate, UPSET STOMACH, 04/24/10) Vital Signs Vital Signs Date Time Temp Pulse Resp B/P (MAP) Pulse Ox O2 Delivery O2 Flow Rate FiO2 12/24/20 14:00 98.2 79 18 138/65 (89) 95 Room Air Laboratory Data CBC/BMP Laboratory Tests 12/24/20 06:33 Labs 24H Laboratory Tests 2 12/24/20 06:33: Immature Granulocyte % (Auto) 0.6, Neutrophils (%) (Auto) 64.8, Lymphocytes (%) (Auto) 18.9L, Monocytes (%) (Auto) 9.6H, Eosinophils (%) (Auto) 5.7H, Basophils (%) (Auto) 0.4, Neutrophils # (Auto) 3.4, Lymphocytes # (Auto) 1.0L, Monocytes # (Auto) 0.5, Eosinophils # (Auto) 0.3, Basophils # (Auto) 0.0, Nucleated Red Blood Cells % (auto) 0.0, Anion Gap 2L, Glomerular Filtration Rate > 60.0, Calcium Level 9.1 Microbiology Microbiology 12/22/20 Stool Occult Blood ([place]) - Final, Complete Current Medications Current Medications Current Medications Medications (Trade) Dose Ordered Sig/Ace Route PRN Reason Start Time Stop Time Status Last Admin Dose Admin Acetaminophen (Tylenol Tab) 1,000 mg TID PO 12/14/20 21:00 12/24/20 09:17 Amlodipine Besylate (Norvasc) 10 mg DAILY PO 12/15/20 09:00 12/15/20 10:26 DC Artificial Tears ([place] Tears) 2 drop QIDP PRN OU DRY EYES 12/14/20 17:10 Aspirin (Ecotrin) 81 mg DAILY PO 12/15/20 09:00 12/24/20 09:17 Atorvastatin Calcium (Lipitor) 40 mg DAILY PO 12/15/20 09:00 12/24/20 09:17 Bisacodyl (Dulcolax Suppository) 10 mg DAILYPRN PRN [place] CONSTIPATION 12/14/20 17:10 Chlorthalidone (Hygroton, Chlorthalidone) 12.5 mg DAILY PO 12/15/20 09:00 12/15/20 10:26 DC Chlorthalidone (Hygroton, Chlorthalidone) 12.5 mg DAILY@1200 PO 12/15/20 12:00 12/24/20 12:35 Docusate Sodium (Colace) 100 mg BID PO 12/14/20 21:00 12/24/20 09:16 Enoxaparin Sodium (Lovenox) 40 mg DAILY SC 12/15/20 09:00 12/24/20 09:19 Ferrous Sulfate (Ferrous Sulfate) 325 mg BID PO 12/14/20 21:00 12/24/20 09:17 Fluticasone Propionate (Flonase 0.05% Nasal [place]) 1 spray BID NARES 12/17/20 09:00 12/24/20 09:19 Gabapentin (Neurontin) 100 mg BID PO 12/18/20 09:00 12/24/20 09:17 Isosorbide Mononitrate (Imdur) 60 mg DAILY PO 12/15/20 09:00 12/22/20 08:32 Labetalol HCl (Normodyne, Trandate) 100 mg BID PO 12/19/20 21:00 12/24/20 09:18 Labetalol HCl (Normodyne, Trandate) 200 mg BID PO 12/14/20 21:00 12/19/20 10:28 DC 12/18/20 08:29 Lidocaine HCl (Lmx 4/Anecream) 1 dose BID TOP 12/15/20 09:00 12/24/20 09:20 Losartan Potassium (Cozaar) 100 mg DAILY PO 12/15/20 09:00 12/15/20 10:26 DC Magnesium Sulfate (Epsom Salt) soak left toes in [place] w... DAILY@1700 TOP 12/15/20 17:00 12/17/20 14:27 DC 12/16/20 16:23 Multivitamins (Theragram-M) 1 tab DAILY PO 12/15/20 09:00 12/24/20 09:16 Nitroglycerin (Nitrostat (1/ 150)) 0.4 mg Q5MP PRN SL CHEST PAIN 12/14/20 17:10 Oxycodone HCl (Roxicodone, Oxyir) 5 mg Q4HP PRN PO PAIN 12/14/20 17:10 12/24/20 05:45 Pantoprazole Sodium (Protonix) 40 mg DAILY PO 12/15/20 09:00 12/24/20 09:16 Polyethylene Glycol (Miralax) 1 pkt DAILY PRN PO CONSTIPATION 12/14/20 17:10 Senna (Senokot) 1 tab QHS PO 12/14/20 21:00 12/23/20 20:20 Sodium Chloride ([place] Nasal [place]) 2 spray TID NA 12/17/20 09:00 12/24/20 09:19 Vitamin D (Vitamin D) 5,000 units DAILY PO 12/15/20 09:00 12/24/20 09:17 APARNA COOPER MD Dec 24, 2020 15:48
[2020-12-24 19:56] VITALS: BP 155/70
[2020-12-24] MEDS: SENNA 8.6 MG TAB (SENOKOT) PO SCH (20:25)
[2020-12-25] MEDS: oxyCODONE 5MG TAB PO PRN ×2 (04:22→11:57)
[2020-12-25 05:00] VITALS: BP 153/65
[2020-12-25] MEDS: ASPIRIN 81MG ENTERIC TABLET PO SCH (08:27)
[2020-12-25] MEDS: PANTOPRAZOLE 40MG TAB (PROTONIX) PO SCH (08:27)
[2020-12-25] MEDS: GABAPENTIN 100 MG CAP PO SCH (08:27)
[2020-12-25] MEDS: ATORVASTATIN 20 MG TAB PO SCH (08:27)
[2020-12-25] MEDS: DOCUSATE SODIUM 100MG CAPSULE PO SCH (08:27)
[2020-12-25] MEDS: MULTIVITAMINS/MINERALS THERAP 1 TAB PO SCH (08:27)
[2020-12-25 08:28] VITALS: BP 155/70
[2020-12-25] MEDS: ACETAMINOPHEN 500 MG TAB PO SCH (08:28)
[2020-12-25] MEDS: LABETALOL 100MG TAB PO SCH (08:28)
[2020-12-25] MEDS: FERROUS SULFATE 325MG TAB PO SCH (08:28)
[2020-12-25] MEDS: ENOXAPARIN 40MG/0.4ML SYRINGE (J1650 PER 10MG) SC SCH (08:28)
[2020-12-25] MEDS: VITAMIN D 1,000 INTERNATIONAL UNITS TABLET PO SCH (08:28)
[2020-12-25] MEDS: SODIUM CHLORIDE NASAL 0.65% SPRAY BTL (OCEAN) SCH (08:31)
[2020-12-25] MEDS: ISOSORBIDE MON. (IMDUR) 60 MG XR TAB PO SCH (08:31)
[2020-12-25] MEDS: REMEDY PHYTOPLEX Z-GUARD PASTE 113GM TUBE (FROM STOREROOM PRODUCT) TOP SCH (08:32)
[2020-12-25] MEDS: LIDOCAINE 4% CREAM 5GM (LMX4) TOP SCH (08:32)
[2020-12-25] MEDS: FLUTICASONE PROP 0.05% NASAL SPRAY 16 GM (FLONASE) NARES SCH (08:32)
[2020-12-25] MEDS ORDERED: FERR1TAB8 PO (10:12)
[2020-12-25] MEDS ORDERED: AMLO1TAB25 PO (10:12)
[2020-12-25] MEDS ORDERED: CHLO125TA PO (10:12)
[2020-12-25] MEDS ORDERED: ISOS1TAB36 PO (10:12)
[2020-12-25] MEDS ORDERED: FLUTISP NARES (10:12)
[2020-12-25] MEDS ORDERED: LABE100T4 PO (10:12)
[2020-12-25] MEDS ORDERED: ASPI-551 PO (10:12)
[2020-12-25] MEDS ORDERED: ATOR40TA75 PO (10:12)
[2020-12-25] MEDS ORDERED: GABA-1171 PO (10:12)
[2020-12-25] MEDS ORDERED: NITR4TASL SL (10:12)
[2020-12-25] MEDS ORDERED: PANT40TA29 PO (10:12)
[2020-12-25] MEDS ORDERED: OXYC-517 PO (10:15)
[2020-12-25] MEDS: CHLORTHALIDONE 12.5MG PER 1/2 TABLET PO SCH (11:57)
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
== END 2020-12-25 12:15 | disposition home health service (06) | DRG 561 ==
LOC: M PM&R 16:30
PROVIDERS: ADMIT Physical Medicine & Rehabilitation; ATTEND Physical Medicine & Rehabilitation
DX: S82.832D Other fracture of upper and lower end of left fibula, subsequent encounter for closed fracture with routine healing (principal); S82.392D Other fracture of lower end of left tibia, subsequent encounter for closed fracture with routine healing; I10 Essential (primary) hypertension; E78.5 Hyperlipidemia, unspecified; I25.10 Atherosclerotic heart disease of native coronary artery without angina pectoris; V09.1XXA Pedestrian injured in unspecified nontraffic accident, initial encounter; Y92.89 Other specified places as the place of occurrence of the external cause; D64.9 Anemia, unspecified; L60.0 Ingrowing nail; D50.9 Iron deficiency anemia, unspecified; Z74.09 Other reduced mobility; Z74.1 Need for assistance with personal care; Z79.82 Long term (current) use of aspirin; Z79.899 Other long term (current) drug therapy; Z88.5 Allergy status to narcotic agent; Z95.5 Presence of coronary angioplasty implant and graft; Z88.8 Allergy status to other drugs, medicaments and biological substances; Z91.018 Allergy to other foods

== ENCOUNTER → 2021-01-02 | Outpatient (CLI) | payer MEDICARE, MEDICAID ==
[~2021-01-02] MED LIST changes: +ASPI-551 PO; +FLUTISP NARES; +GABA-1171 PO; +LABE100T4 PO; +OXYC-517 PO; +PANT40TA29 PO
--- NOTE | 2021-01-02 15:48 | REP ---
INDICATION: ENCOUNTER FOR OTHER ORTHOPEDIC AFTERCARE. COMPARISON: 12/12/2020 TECHNIQUE: AP, lateral, bilateral oblique views of the left ankle FINDINGS: Satisfactory reduction of the distal fibular fracture noted. Overlying soft tissue swelling is decreased. Further evaluation is limited due to overlying cast material. IMPRESSION: Satisfactory reduction and decreased soft tissue swelling. <Electronically signed by Agustin Chaves > 01/02/21 [id number]
== END ==
LOC: M SOG 14:07
PROVIDERS: ATTEND Orthopaedic Surgery Adult Reconstructive Orthopaedic Surgery
DX: Z47.89 Encounter for other orthopedic aftercare (principal)

== ENCOUNTER → 2021-01-23 | Outpatient (CLI) | payer MEDICARE, MEDICAID ==
--- NOTE | 2021-01-23 10:37 | REP ---
INDICATION: UNSP FX OF [facility] LOWER LEG UNIT FOR CLOS FX. COMPARISON: Comparison radiographs December 12, 2020.. TECHNIQUE: Four views. FINDINGS: Four views of the left ankle demonstrate persistent moderate degree of diffuse soft tissue swelling the in the distal calf and about the ankle. Ankle mortise is intact. There is periosteal reaction along the medial malleolus. The distal fibular fracture is again seen. There appears to be periosteal reaction at this fracture is well laterally. There is diffuse osteopenia. IMPRESSION: Healing distal fibular and medial malleolar fractures. <Electronically signed by Peter Hernandez > 01/23/21 [id number]
== END ==
LOC: M SOG 08:04
PROVIDERS: ATTEND Orthopaedic Surgery Adult Reconstructive Orthopaedic Surgery
DX: S82.90XA Unspecified fracture of unspecified lower leg, initial encounter for closed fracture (principal); W18.30XA Fall on same level, unspecified, initial encounter; Y92.009 Unspecified place in unspecified non-institutional (private) residence as the place of occurrence of the external cause

== ENCOUNTER → 2021-02-20 | Outpatient (CLI) | payer MEDICARE, MEDICAID ==
--- NOTE | 2021-02-20 11:33 | REP ---
INDICATION: FX FOLLOW-UP LEFT ANKLE. COMPARISON: 01/23/2021 the latest prior TECHNIQUE: Four views FINDINGS: Diffuse soft tissue swelling persists. The previously described healing distal fibular and tibial fractures are again noted no significant change in appearance compared to the 01/23/2021 exam. There is an area of possible cortical irregularity involving the lateral talar base. IMPRESSION: 1. Healing fractures as described above. 2. Lateral talar base finding as described above. Consider CT for further evaluation if clinically relevant. <Electronically signed by Jimy Card > 02/20/21 [id number]
== END ==
LOC: M SOG 10:50
PROVIDERS: ATTEND Orthopaedic Surgery Adult Reconstructive Orthopaedic Surgery
DX: S82.90XA Unspecified fracture of unspecified lower leg, initial encounter for closed fracture (principal); W18.30XA Fall on same level, unspecified, initial encounter; Y92.009 Unspecified place in unspecified non-institutional (private) residence as the place of occurrence of the external cause

== ENCOUNTER → 2021-04-24 | Outpatient (CLI) | payer MEDICARE, MEDICAID ==
--- NOTE | 2021-04-24 15:40 | REP ---
INDICATION: LT ANKLE FX. COMPARISON: 02/20/2021 TECHNIQUE: Three views FINDINGS: The previously described fractures are unchanged. Suspected soft tissue swelling seen previously is no longer evident. The bones are demineralized. Exam is otherwise essentially unchanged. IMPRESSION: As above <Electronically signed by Jimy Card > 04/24/21 [id number]
== END ==
LOC: M SOG 08:14
PROVIDERS: ATTEND Orthopaedic Surgery Adult Reconstructive Orthopaedic Surgery
DX: S82.90XA Unspecified fracture of unspecified lower leg, initial encounter for closed fracture (principal); Y92.9 Unspecified place or not applicable; Y93.9 Activity, unspecified; Y99.9 Unspecified external cause status

== ENCOUNTER 2021-08-10 18:43 | Emergency (ER) | payer MEDICARE, MEDICAID ==
[~2021-08-10] VITALS: Ht 170.2 cm; Wt 52.3 kg
[~2021-08-10 18:43] MED LIST changes: +LOSA100T45 PO; -LOSA100T50 PO
[2021-08-10] MEDS ORDERED: PERCOCET 5MG/325MG TAB PO ONE (19:10)
[2021-08-10 23:13] VITALS: BP 132/68
== END 2021-08-10 23:14 | disposition home or self-care (01) ==
LOC: EDBD 18:43 → M ED 18:43
DX: S50.01XA Contusion of right elbow, initial encounter (principal); W01.0XXA Fall on same level from slipping, tripping and stumbling without subsequent striking against object, initial encounter; Y92.9 Unspecified place or not applicable; Y93.9 Activity, unspecified; Y99.9 Unspecified external cause status; M81.0 Age-related osteoporosis without current pathological fracture; I25.2 Old myocardial infarction; I10 Essential (primary) hypertension; Z79.82 Long term (current) use of aspirin; Z79.899 Other long term (current) drug therapy

== ENCOUNTER 2022-05-20 05:41 | Inpatient (IN) | payer MEDICARE, MEDICAID ==
[~2022-05-20] VITALS: Ht 167.6 cm; Wt 62.8 kg
[~2022-05-20 05:41] MED LIST changes: -D31000TA2 PO; -LABE100T4 PO; +LABE100T6 PO; +VITA100093 PO
[2022-05-20] MEDS ORDERED: MIDAZOLAM INJ 2MG/2ML VIAL (J2250 PER 1MG) IV STA ×2 (05:52)
[2022-05-20] MEDS ORDERED: ONDANSETRON 4MG 2ML VIAL IV ONE (05:55)
[2022-05-20] MEDS ORDERED: MORPHINE 4 MG/ML 1ML VIAL IV ONE (06:00)
[2022-05-20 06:45] LABS: BASO % 0.2 % (0.0-1.0); EOS # 0.3 10^3/uL (0.0-0.5); EOS % 4.4 % (0.0-3.0); HEMOGLOBIN 11.2 g/dl (12.0-15.5); LYMPH # 1.7 10^3/uL (1.5-5.0); LYMPH % 27.8 % (24.0-44.0); MEAN CORPUSCULAR HEMOGLOBIN 30.7 pg (27.0-33.0); MEAN CORPUSCULAR HGB CONC 31.1 g/dl (32.0-36.5); MEAN CORPUSCULAR VOLUME 98.6 fl (80.0-96.0); MONO # 0.5 10^3/uL (0.0-0.8); MONO % 7.9 % (2.0-8.0); NEUTROPHILS # 3.5 10^3/uL (1.5-8.5); PLATELET COUNT, AUTOMATED 144 10^3/uL (150-450); RED BLOOD COUNT 3.65 10^6/uL (4.00-5.40); WHITE BLOOD COUNT 5.9 10^3/uL (4.0-10.0)
[2022-05-20 07:10] LABS: BLOOD UREA NITROGEN 27 MG/DL (7-18); CARBON DIOXIDE LEVEL 31 MEQ/L (21-32); CHLORIDE LEVEL 107 MEQ/L (98-107); CREATININE FOR GFR 0.94 MG/DL (0.55-1.30); GLOMERULAR FILTRATION RATE > 60.0 (>39); GLUCOSE, FASTING 94 MG/DL (70-100); POTASSIUM SERUM 4.2 MEQ/L (3.5-5.1); SODIUM LEVEL 141 MEQ/L (136-145)
[2022-05-20 07:11] LABS: INR 1.13; PROTHROMBIN TIME 14.7 SECONDS (12.5-14.5)
[2022-05-20 07:16] LABS: RSV AMPLIFICATION NEGATIVE (NEGATIVE)
[2022-05-20] MEDS ORDERED: MORPHINE 2 MG/ML 1ML VIAL IV PRN (08:45)
[2022-05-20] MEDS ORDERED: CHLORTHALIDONE 12.5MG PER 1/2 TABLET PO SCH (09:00)
[2022-05-20] MEDS ORDERED: FLON1SPR (09:29)
[2022-05-20] MEDS ORDERED: DOCU100C16 PO (09:29)
[2022-05-20] MEDS ORDERED: LOSA100T45 PO (09:29)
[2022-05-20] MEDS ORDERED: ATOR40TA75 PO (09:29)
[2022-05-20] MEDS ORDERED: LABE100T71 PO (09:29)
[2022-05-20] MEDS ORDERED: AMLO1TAB25 PO (09:29)
[2022-05-20] MEDS ORDERED: ASPI81TA26 PO (09:29)
[2022-05-20] MEDS ORDERED: GABA-1171 PO (09:29)
[2022-05-20] MEDS ORDERED: HOME MED LIST COMPLETE! XX SCH ×2 (09:30→13:30)
[2022-05-20 11:43] LABS: CK-MB VALUE MASS 1.8 NG/ML (<3.6); MB/CK RELATIVE INDEX 2.9 (< OR =4)
[2022-05-20] MEDS ORDERED: NITROGLYCERIN 0.4 MG SUBL TABLET SL PRN (12:45)
[2022-05-20] MEDS ORDERED: MOM 30ML SUSPENSION UDC PO PRN (12:45)
[2022-05-20] MEDS ORDERED: HEPARIN SOD (PORCINE) 5000UNITS/ML 1ML VIAL/SYRINGE SC SCH (12:45)
[2022-05-20] MEDS ORDERED: ISOVUE-370 76% 100ML VIAL As Ordered ONE (13:13)
[2022-05-20] MEDS ORDERED: LABE200T5 PO (13:28)
[2022-05-20 14:08] VITALS: BP 193/88
[2022-05-20] MEDS: ACETAMINOPHEN TAB 650MG DOSE (2X325MG) PO PRN (14:15)
[2022-05-20] MEDS: MORPHINE 2 MG/ML 1ML VIAL IV PRN ×2 (14:15→19:21)
[2022-05-20] MEDS: ASPIRIN 81MG ENTERIC TABLET PO SCH (14:28)
[2022-05-20] MEDS: ATORVASTATIN 20 MG TAB PO SCH (14:29)
[2022-05-20] MEDS: MULTIVITAMINS/MINERALS THERAP 1 TAB PO SCH (14:29)
[2022-05-20] MEDS: ISOSORBIDE MON. (IMDUR) 60MG XR TAB PO SCH (14:29)
[2022-05-20] MEDS ORDERED: MIDAZOLAM INJ 2MG/2ML VIAL (J2250 PER 1MG) As Ordered ONE (16:15)
[2022-05-20] MEDS ORDERED: fentaNYL 100 MCG/2 ML INJECTION As Ordered ONE (16:15)
[2022-05-20] MEDS ORDERED: LIDOCAINE 2% 100MG/5ML SDV (FOR ANES.) As Ordered ONE (16:16)
[2022-05-20] MEDS ORDERED: propofoL 200 MG/20 ML VIAL As Ordered ONE (16:16)
[2022-05-20] MEDS ORDERED: ROCURONIUM BROMIDE 50 MG/5 ML VIAL As Ordered ONE (16:16)
[2022-05-20] MEDS ORDERED: dexameTHASONE 4 MG/ML 1ML VIAL (J1100 PER 1MG) As Ordered ONE (16:58)
[2022-05-20] MEDS ORDERED: METOPROLOL 5 MG/5 ML VIAL IV STA ×3 (17:31→18:28)
[2022-05-20] MEDS ORDERED: DIGOXIN INJ 0.5 MG/2 ML AMP IV STA (17:31)
[2022-05-20] MEDS ORDERED: NS 1,000 ML IV STA (17:32)
[2022-05-20] MEDS ORDERED: HEPARIN SOD (PORCINE) 5000UNITS/ML 1ML VIAL/SYRINGE IV PRN (17:50)
[2022-05-20] MEDS ORDERED: HEPARIN DRIP 25,000 UNITS in IV 1 EA IV SCH (17:50)
[2022-05-20] MEDS: METOPROLOL TART 25 MG TABLET PO SCH (18:02)
[2022-05-20 18:41] LABS: CK-MB VALUE MASS 1.7 NG/ML (<3.6); MB/CK RELATIVE INDEX 2.32 (< OR =4)
[2022-05-20 20:00] VITALS: BP 147/68
[2022-05-20] MEDS ORDERED: LABETALOL 200 MG TAB PO SCH (21:00)
[2022-05-20] MEDS ORDERED: LOSARTAN 50MG TABLET PO SCH (21:00)
[2022-05-20] MEDS: DOCUSATE SODIUM 100MG CAPSULE PO SCH (21:25)
[2022-05-20] MEDS: GABAPENTIN 100 MG CAP PO SCH (21:26)
[2022-05-20] MEDS: FLUTICASONE PROP 0.05% NASAL SPRAY 16 GM (FLONASE) SCH (21:26)
[2022-05-20] MEDS: FERROUS SULFATE 325MG TAB PO SCH (21:26)
[2022-05-20 22:00] VITALS: BP 120/72
[2022-05-20 22:46] LABS: CK-MB VALUE MASS 1.6 NG/ML (<3.6); MB/CK RELATIVE INDEX 2.07 (< OR =4)
[2022-05-20 22:47] LABS: FREE T4 1.09 NG/DL (0.89-1.76); THYROID STIMULATING HORMONE 5.316 uIU/ML (0.55-4.78)
[2022-05-21] VITALS (14 sets, daily range): BP systolic 96–168; BP diastolic 54–72
[2022-05-21] MEDS ORDERED: DIGOXIN INJ 0.5 MG/2 ML AMP IV SCH
[2022-05-21] MEDS: METOPROLOL TART 25 MG TABLET PO SCH ×2 (00:02→06:15)
[2022-05-21] MEDS: MORPHINE 2 MG/ML 1ML VIAL IV PRN ×3 (00:03→18:21)
[2022-05-21 00:59] LABS: CK-MB VALUE MASS 1.6 NG/ML (<3.6); MB/CK RELATIVE INDEX 2.1 (< OR =4)
[2022-05-21 06:31] LABS: BASO % 0.2 % (0.0-1.0); EOS # 0.1 10^3/uL (0.0-0.5); EOS % 1.5 % (0.0-3.0); HEMATOCRIT 32.6 % (36.0-47.0); HEMOGLOBIN 10.2 g/dl (12.0-15.5); LYMPH % 11.2 % (24.0-44.0); MEAN CORPUSCULAR HEMOGLOBIN 30.6 pg (27.0-33.0); MEAN CORPUSCULAR HGB CONC 31.3 g/dl (32.0-36.5); MEAN CORPUSCULAR VOLUME 97.9 fl (80.0-96.0); MONO # 0.8 10^3/uL (0.0-0.8); NEUTROPHILS # 6.7 10^3/uL (1.5-8.5); NEUTROPHILS % 77.6 % (36.0-66.0); PLATELET COUNT, AUTOMATED 124 10^3/uL (150-450); RED BLOOD COUNT 3.33 10^6/uL (4.00-5.40); WHITE BLOOD COUNT 8.6 10^3/uL (4.0-10.0)
[2022-05-21 07:05] LABS: BLOOD UREA NITROGEN 18 MG/DL (9-23); CALCIUM LEVEL 9.1 MG/DL (8.3-10.6); CARBON DIOXIDE LEVEL 28 MMOL/L (20-31); CHLORIDE LEVEL 104 MMOL/L (98-107); CREATININE FOR GFR 0.89 MG/DL (0.55-1.30); GLOMERULAR FILTRATION RATE > 60.0 (>39); GLUCOSE, FASTING 89 MG/DL (74-106); MAGNESIUM LEVEL 1.8 MG/DL (1.8-2.4); POTASSIUM SERUM 4.4 MMOL/L (3.5-5.1); SODIUM LEVEL 141 MMOL/L (136-145)
[2022-05-21] MEDS ORDERED: METOPROLOL TART 25 MG TABLET PO ONE (07:50)
[2022-05-21] MEDS ORDERED: DIGOXIN INJ 0.5 MG/2 ML AMP IV ONE (09:15)
[2022-05-21] MEDS: VITAMIN D 1,000 INTERNATIONAL UNITS TABLET PO SCH (09:47)
[2022-05-21] MEDS: DOCUSATE SODIUM 100MG CAPSULE PO SCH ×2 (09:47→20:30)
[2022-05-21] MEDS: ASPIRIN 81MG ENTERIC TABLET PO SCH (09:47)
[2022-05-21] MEDS: GABAPENTIN 100 MG CAP PO SCH ×2 (09:48→20:30)
[2022-05-21] MEDS: ATORVASTATIN 20 MG TAB PO SCH (09:48)
[2022-05-21] MEDS: FERROUS SULFATE 325MG TAB PO SCH ×2 (09:48→20:30)
[2022-05-21] MEDS: MULTIVITAMINS/MINERALS THERAP 1 TAB PO SCH (09:49)
[2022-05-21] MEDS: FLUTICASONE PROP 0.05% NASAL SPRAY 16 GM (FLONASE) SCH ×2 (09:49→20:30)
[2022-05-21] MEDS: ISOSORBIDE MON. (IMDUR) 60MG XR TAB PO SCH (09:49)
[2022-05-21] MEDS: PANTOPRAZOLE 40MG TAB (PROTONIX) PO SCH (10:52)
[2022-05-21] MEDS: METOPROLOL TART 50 MG TAB PO SCH ×2 (12:16→18:00)
[2022-05-21] MEDS ORDERED: fentaNYL 100 MCG/2 ML INJECTION As Ordered ONE (13:09)
[2022-05-21] MEDS ORDERED: MIDAZOLAM INJ 2MG/2ML VIAL (J2250 PER 1MG) As Ordered ONE (13:10)
[2022-05-21] MEDS ORDERED: LIDOCAINE 2% 100MG/5ML SDV (FOR ANES.) As Ordered ONE (13:11)
[2022-05-21] MEDS ORDERED: ROCURONIUM BROMIDE 50 MG/5 ML VIAL As Ordered ONE (13:11)
[2022-05-21] MEDS ORDERED: propofoL 200 MG/20 ML VIAL As Ordered ONE (13:15)
[2022-05-21] MEDS ORDERED: ceFAZolin 1GM VIAL (J0690 PER 500MG) As Ordered ONE (13:15)
[2022-05-21] MEDS ORDERED: CLINDAMYCIN 600MG/50ML PREMIX BAG As Ordered ONE (13:16)
[2022-05-21] MEDS ORDERED: ceFAZolin 2 GM/D5W 50 ML IV BAG (J0690 PER 500MG) As Ordered ONE (14:47)
[2022-05-21] MEDS ORDERED: ONDANSETRON 4MG 2ML VIAL IV PRN ×2 (15:40→17:40)
[2022-05-21] MEDS ORDERED: MORPHINE 2 MG/ML 1ML VIAL IV PRN (15:40)
[2022-05-21] MEDS ORDERED: fentaNYL 100 MCG/2 ML INJECTION IV PRN (15:40)
[2022-05-21] MEDS ORDERED: LR 1,000 ML IV SCH (15:40)
[2022-05-21] MEDS ORDERED: NS 1,000 ML IV ONE (17:50)
[2022-05-21] MEDS: NS 1,000 ML IV SCH (18:00)
[2022-05-21 19:03] LABS: AMYLASE 37 U/L (30-118); LIPASE 23 U/L (12-53)
[2022-05-21 19:05] LABS: CK-MB VALUE MASS 2.3 NG/ML (<3.6); MB/CK RELATIVE INDEX 2.11 (< OR =4)
[2022-05-21 21:42] LABS: MB/CK RELATIVE INDEX 2.63 (< OR =4)
[2022-05-21] MEDS: ceFAZolin SOD 2 GM in IV 1 EA IV SCH (22:00)
[2022-05-22] VITALS (14 sets, daily range): BP systolic 0–131; BP diastolic 0–81
[2022-05-22] MEDS: NS 1,000 ML IV SCH (02:59)
[2022-05-22 06:25] LABS: BASO % 0.1 % (0.0-1.0); EOS % 0.1 % (0.0-3.0); HEMATOCRIT 23.2 % (36.0-47.0); MEAN CORPUSCULAR HEMOGLOBIN 31.2 pg (27.0-33.0); MEAN CORPUSCULAR VOLUME 100.4 fl (80.0-96.0); MONO # 0.9 10^3/uL (0.0-0.8); MONO % 7.6 % (2.0-8.0); NEUTROPHILS # 9.2 10^3/uL (1.5-8.5); NEUTROPHILS % 82.7 % (36.0-66.0); PLATELET COUNT, AUTOMATED 102 10^3/uL (150-450); RED BLOOD COUNT 2.31 10^6/uL (4.00-5.40); WHITE BLOOD COUNT 11.2 10^3/uL (4.0-10.0)
[2022-05-22 06:32] LABS: HEMOGLOBIN 7.2 g/dl (12.0-15.5)
[2022-05-22] MEDS: METOPROLOL TART 50 MG TAB PO SCH ×5 (06:46→23:34)
[2022-05-22] MEDS: ceFAZolin SOD 2 GM in IV 1 EA IV SCH (06:47)
[2022-05-22 07:31] LABS: CALCIUM LEVEL 8.8 MG/DL (8.3-10.6); CREATININE FOR GFR 1.15 MG/DL (0.55-1.30); GLOMERULAR FILTRATION RATE 49.4 (>39); MAGNESIUM LEVEL 1.8 MG/DL (1.8-2.4); POTASSIUM SERUM 4.7 MMOL/L (3.5-5.1)
[2022-05-22] MEDS: FLUTICASONE PROP 0.05% NASAL SPRAY 16 GM (FLONASE) SCH ×2 (09:00→21:04)
[2022-05-22] MEDS: PANTOPRAZOLE 40MG TAB (PROTONIX) PO SCH (09:11)
[2022-05-22] MEDS: FERROUS SULFATE 325MG TAB PO SCH ×2 (09:11→21:04)
[2022-05-22] MEDS: MULTIVITAMINS/MINERALS THERAP 1 TAB PO SCH (09:11)
[2022-05-22] MEDS: GABAPENTIN 100 MG CAP PO SCH ×2 (09:11→21:04)
[2022-05-22] MEDS: DOCUSATE SODIUM 100MG CAPSULE PO SCH ×2 (09:11→21:04)
[2022-05-22] MEDS: ATORVASTATIN 20 MG TAB PO SCH (09:11)
[2022-05-22] MEDS: VITAMIN D 1,000 INTERNATIONAL UNITS TABLET PO SCH (09:12)
[2022-05-22] MEDS: ACETAMINOPHEN TAB 650MG DOSE (2X325MG) PO PRN (09:12)
[2022-05-22] MEDS: ISOSORBIDE MON. (IMDUR) 60MG XR TAB PO SCH (09:12)
[2022-05-22] MEDS: ASPIRIN 81MG ENTERIC TABLET PO SCH (09:13)
[2022-05-22] MEDS: ENOXAPARIN 40MG/0.4ML SYRINGE (J1650 PER 10MG) SC SCH (09:13)
[2022-05-22] MEDS: DIGOXIN 0.125 MG TAB PO SCH (09:13)
[2022-05-22 20:23] LABS: BASO % 0.3 % (0.0-1.0); EOS # 0.2 10^3/uL (0.0-0.5); EOS % 1.5 % (0.0-3.0); HEMATOCRIT 30.1 % (36.0-47.0); LYMPH # 1.3 10^3/uL (1.5-5.0); LYMPH % 11.1 % (24.0-44.0); MEAN CORPUSCULAR HEMOGLOBIN 29.9 pg (27.0-33.0); MEAN CORPUSCULAR HGB CONC 31.6 g/dl (32.0-36.5); MEAN CORPUSCULAR VOLUME 94.7 fl (80.0-96.0); MONO # 1.1 10^3/uL (0.0-0.8); MONO % 9.5 % (2.0-8.0); NEUTROPHILS # 9.2 10^3/uL (1.5-8.5); NEUTROPHILS % 77.2 % (36.0-66.0); PLATELET COUNT, AUTOMATED 102 10^3/uL (150-450); RED BLOOD COUNT 3.18 10^6/uL (4.00-5.40); WHITE BLOOD COUNT 11.9 10^3/uL (4.0-10.0)
[2022-05-22 20:24] LABS: HEMOGLOBIN 9.5 g/dl (12.0-15.5)
[2022-05-23] VITALS: BP 142/61
[2022-05-23 04:00] VITALS: BP 136/63
[2022-05-23] MEDS: METOPROLOL TART 50 MG TAB PO SCH ×4 (06:14→23:14)
[2022-05-23 07:30] LABS: BASO % 0.1 % (0.0-1.0); EOS # 0.3 10^3/uL (0.0-0.5); EOS % 2.3 % (0.0-3.0); HEMATOCRIT 27.8 % (36.0-47.0); HEMOGLOBIN 8.9 g/dl (12.0-15.5); LYMPH # 1.1 10^3/uL (1.5-5.0); MEAN CORPUSCULAR HEMOGLOBIN 30.2 pg (27.0-33.0); MEAN CORPUSCULAR VOLUME 94.2 fl (80.0-96.0); MONO # 0.9 10^3/uL (0.0-0.8); NEUTROPHILS # 8.9 10^3/uL (1.5-8.5); PLATELET COUNT, AUTOMATED 101 10^3/uL (150-450); RED BLOOD COUNT 2.95 10^6/uL (4.00-5.40); WHITE BLOOD COUNT 11.2 10^3/uL (4.0-10.0)
[2022-05-23 08:11] LABS: CALCIUM LEVEL 8.9 MG/DL (8.3-10.6); CREATININE FOR GFR 1.38 MG/DL (0.55-1.30); MAGNESIUM LEVEL 1.9 MG/DL (1.8-2.4); POTASSIUM SERUM 4.5 MMOL/L (3.5-5.1)
[2022-05-23 08:23] VITALS: BP 139/65
[2022-05-23] MEDS: MULTIVITAMINS/MINERALS THERAP 1 TAB PO SCH (08:54)
[2022-05-23] MEDS: DOCUSATE SODIUM 100MG CAPSULE PO SCH ×2 (08:55→20:18)
[2022-05-23] MEDS: VITAMIN D 1,000 INTERNATIONAL UNITS TABLET PO SCH (08:55)
[2022-05-23] MEDS: ASPIRIN 81MG ENTERIC TABLET PO SCH (08:55)
[2022-05-23] MEDS: DIGOXIN 0.125 MG TAB PO SCH (08:55)
[2022-05-23] MEDS: FERROUS SULFATE 325MG TAB PO SCH ×2 (08:56→20:18)
[2022-05-23] MEDS: ATORVASTATIN 20 MG TAB PO SCH (08:56)
[2022-05-23] MEDS: GABAPENTIN 100 MG CAP PO SCH ×2 (08:56→20:18)
[2022-05-23] MEDS: PANTOPRAZOLE 40MG TAB (PROTONIX) PO SCH (08:56)
[2022-05-23] MEDS: ENOXAPARIN 40MG/0.4ML SYRINGE (J1650 PER 10MG) SC SCH (08:57)
[2022-05-23] MEDS: FLUTICASONE PROP 0.05% NASAL SPRAY 16 GM (FLONASE) SCH ×2 (08:57→20:18)
[2022-05-23] MEDS: NS 1,000 ML IV SCH ×2 (09:06→18:20)
[2022-05-23] MEDS: SIMETHICONE 80MG CHEW TAB PO SCH ×3 (09:49→20:18)
[2022-05-23] MEDS: ACETAMINOPHEN TAB 650MG DOSE (2X325MG) PO PRN (09:49)
[2022-05-23 12:12] VITALS: BP 139/64
[2022-05-23 13:13] LABS: HEMOGLOBIN 8.5 g/dl (12.0-15.5)
[2022-05-23 15:11] LABS: BASO % 0.1 % (0.0-1.0); EOS # 0.2 10^3/uL (0.0-0.5); EOS % 1.7 % (0.0-3.0); HEMATOCRIT 27.7 % (36.0-47.0); HEMOGLOBIN 8.8 g/dl (12.0-15.5); LYMPH # 1.2 10^3/uL (1.5-5.0); LYMPH % 11.3 % (24.0-44.0); MEAN CORPUSCULAR HEMOGLOBIN 29.9 pg (27.0-33.0); MEAN CORPUSCULAR HGB CONC 31.8 g/dl (32.0-36.5); MEAN CORPUSCULAR VOLUME 94.2 fl (80.0-96.0); MONO # 0.8 10^3/uL (0.0-0.8); MONO % 7.9 % (2.0-8.0); NEUTROPHILS # 8.3 10^3/uL (1.5-8.5); NEUTROPHILS % 78.4 % (36.0-66.0); PLATELET COUNT, AUTOMATED 111 10^3/uL (150-450); RED BLOOD COUNT 2.94 10^6/uL (4.00-5.40); WHITE BLOOD COUNT 10.6 10^3/uL (4.0-10.0)
[2022-05-23 15:50] LABS: CALCIUM LEVEL 8.8 MG/DL (8.3-10.6); CREATININE FOR GFR 1.2 MG/DL (0.55-1.30); POTASSIUM SERUM 4.5 MMOL/L (3.5-5.1)
[2022-05-23 16:02] VITALS: BP 117/56
[2022-05-23 19:31] VITALS: BP 136/63
[2022-05-24] VITALS (13 sets, daily range): BP systolic 107–155; BP diastolic 55–83
[2022-05-24] MEDS: NS 1,000 ML IV SCH (03:40)
[2022-05-24] MEDS: MORPHINE 2 MG/ML 1ML VIAL IV PRN (04:22)
[2022-05-24] MEDS: METOPROLOL TART 50 MG TAB PO SCH ×3 (05:35→18:16)
[2022-05-24] MEDS: ACETAMINOPHEN TAB 650MG DOSE (2X325MG) PO PRN (05:38)
[2022-05-24 05:53] LABS: BASO % 0.1 % (0.0-1.0); EOS # 0.3 10^3/uL (0.0-0.5); EOS % 3.5 % (0.0-3.0); HEMATOCRIT 25.1 % (36.0-47.0); HEMOGLOBIN 7.9 g/dl (12.0-15.5); LYMPH # 0.9 10^3/uL (1.5-5.0); LYMPH % 10.8 % (24.0-44.0); MEAN CORPUSCULAR HEMOGLOBIN 29.9 pg (27.0-33.0); MEAN CORPUSCULAR HGB CONC 31.5 g/dl (32.0-36.5); MEAN CORPUSCULAR VOLUME 95.1 fl (80.0-96.0); MONO # 0.7 10^3/uL (0.0-0.8); MONO % 8.7 % (2.0-8.0); NEUTROPHILS # 6.3 10^3/uL (1.5-8.5); NEUTROPHILS % 76.2 % (36.0-66.0); PLATELET COUNT, AUTOMATED 110 10^3/uL (150-450); RED BLOOD COUNT 2.64 10^6/uL (4.00-5.40); WHITE BLOOD COUNT 8.2 10^3/uL (4.0-10.0)
[2022-05-24 06:23] LABS: BLOOD UREA NITROGEN 34 MG/DL (9-23); CALCIUM LEVEL 8.8 MG/DL (8.3-10.6); CARBON DIOXIDE LEVEL 25 MMOL/L (20-31); CHLORIDE LEVEL 110 MMOL/L (98-107); CREATININE FOR GFR 0.93 MG/DL (0.55-1.30); GLOMERULAR FILTRATION RATE > 60.0 (>39); GLUCOSE, FASTING 108 MG/DL (74-106); MAGNESIUM LEVEL 1.8 MG/DL (1.8-2.4); POTASSIUM SERUM 4.4 MMOL/L (3.5-5.1); SODIUM LEVEL 142 MMOL/L (136-145)
[2022-05-24] MEDS: SIMETHICONE 80MG CHEW TAB PO SCH ×3 (08:37→21:15)
[2022-05-24] MEDS: ATORVASTATIN 20 MG TAB PO SCH (08:38)
[2022-05-24] MEDS: PANTOPRAZOLE 40MG TAB (PROTONIX) PO SCH (08:38)
[2022-05-24] MEDS: DOCUSATE SODIUM 100MG CAPSULE PO SCH ×2 (08:38→21:15)
[2022-05-24] MEDS: FERROUS SULFATE 325MG TAB PO SCH ×2 (08:38→21:15)
[2022-05-24] MEDS: ASPIRIN 81MG ENTERIC TABLET PO SCH (08:38)
[2022-05-24] MEDS: DIGOXIN 0.125 MG TAB PO SCH (08:38)
[2022-05-24] MEDS: GABAPENTIN 100 MG CAP PO SCH ×2 (08:39→21:16)
[2022-05-24] MEDS: VITAMIN D 1,000 INTERNATIONAL UNITS TABLET PO SCH (08:39)
[2022-05-24] MEDS: MULTIVITAMINS/MINERALS THERAP 1 TAB PO SCH (08:39)
[2022-05-24] MEDS: ENOXAPARIN 40MG/0.4ML SYRINGE (J1650 PER 10MG) SC SCH (08:39)
[2022-05-24] MEDS: FLUTICASONE PROP 0.05% NASAL SPRAY 16 GM (FLONASE) SCH ×2 (08:40→21:16)
[2022-05-24] MEDS: MAALOX 30 ML SUSP *UDC PO PRN (08:43)
[2022-05-24 12:44] LABS: HEMATOCRIT 23.7 % (36.0-47.0); HEMOGLOBIN 7.5 g/dl (12.0-15.5)
[2022-05-24] MEDS ORDERED: BISACODYL 10 MG SUPP PR ONE (14:30)
[2022-05-24] MEDS ORDERED: LACTULOSE 20 GM/30 ML SYRUP UD PO PRN (14:30)
[2022-05-24] MEDS ORDERED: FLEET ENEMA PR ONE (18:15)
[2022-05-24 18:46] LABS: HEMOGLOBIN 7.9 g/dl (12.0-15.5)
[2022-05-24] MEDS: PERCOCET 5MG/325MG TAB PO PRN (18:50)
[2022-05-25] MEDS: METOPROLOL TART 50 MG TAB PO SCH ×4 (00:08→17:42)
[2022-05-25 01:31] LABS: HEMATOCRIT 29.6 % (36.0-47.0); HEMOGLOBIN 9.3 g/dl (12.0-15.5)
[2022-05-25 04:00] VITALS: BP 132/60
[2022-05-25 06:28] LABS: BASO % 0.1 % (0.0-1.0); EOS # 0.3 10^3/uL (0.0-0.5); EOS % 4.1 % (0.0-3.0); HEMATOCRIT 30.8 % (36.0-47.0); HEMOGLOBIN 9.7 g/dl (12.0-15.5); LYMPH # 0.9 10^3/uL (1.5-5.0); LYMPH % 10.9 % (24.0-44.0); MEAN CORPUSCULAR HEMOGLOBIN 29.6 pg (27.0-33.0); MEAN CORPUSCULAR HGB CONC 31.5 g/dl (32.0-36.5); MEAN CORPUSCULAR VOLUME 93.9 fl (80.0-96.0); MONO # 0.7 10^3/uL (0.0-0.8); NEUTROPHILS # 6.1 10^3/uL (1.5-8.5); NEUTROPHILS % 75.3 % (36.0-66.0); PLATELET COUNT, AUTOMATED 112 10^3/uL (150-450); RED BLOOD COUNT 3.28 10^6/uL (4.00-5.40); WHITE BLOOD COUNT 8.1 10^3/uL (4.0-10.0)
[2022-05-25 07:12] LABS: BLOOD UREA NITROGEN 30 MG/DL (9-23); CALCIUM LEVEL 8.6 MG/DL (8.3-10.6); CARBON DIOXIDE LEVEL 27 MMOL/L (20-31); CHLORIDE LEVEL 109 MMOL/L (98-107); CREATININE FOR GFR 0.86 MG/DL (0.55-1.30); GLOMERULAR FILTRATION RATE > 60.0 (>39); GLUCOSE, FASTING 102 MG/DL (74-106); MAGNESIUM LEVEL 1.9 MG/DL (1.8-2.4); POTASSIUM SERUM 4.6 MMOL/L (3.5-5.1); SODIUM LEVEL 144 MMOL/L (136-145)
[2022-05-25 08:00] VITALS: BP 131/63
[2022-05-25] MEDS: ASPIRIN 81MG ENTERIC TABLET PO SCH (09:26)
[2022-05-25] MEDS: DIGOXIN 0.125 MG TAB PO SCH (09:26)
[2022-05-25] MEDS: FERROUS SULFATE 325MG TAB PO SCH ×2 (09:26→21:45)
[2022-05-25] MEDS: DOCUSATE SODIUM 100MG CAPSULE PO SCH ×2 (09:26→21:45)
[2022-05-25] MEDS: MULTIVITAMINS/MINERALS THERAP 1 TAB PO SCH (09:27)
[2022-05-25] MEDS: GABAPENTIN 100 MG CAP PO SCH ×2 (09:27→21:45)
[2022-05-25] MEDS: ATORVASTATIN 20 MG TAB PO SCH (09:27)
[2022-05-25] MEDS: SIMETHICONE 80MG CHEW TAB PO SCH ×3 (09:27→21:45)
[2022-05-25] MEDS: PANTOPRAZOLE 40MG TAB (PROTONIX) PO SCH (09:27)
[2022-05-25] MEDS: VITAMIN D 1,000 INTERNATIONAL UNITS TABLET PO SCH (09:27)
[2022-05-25] MEDS: FLUTICASONE PROP 0.05% NASAL SPRAY 16 GM (FLONASE) SCH ×2 (09:28→21:46)
[2022-05-25] MEDS: ENOXAPARIN 40MG/0.4ML SYRINGE (J1650 PER 10MG) SC SCH (09:28)
[2022-05-25] MEDS: FLEET ENEMA PR ONE ×2 (09:50→11:56)
[2022-05-25 11:52] VITALS: BP 154/63
[2022-05-25] MEDS: LACTULOSE 20 GM/30 ML SYRUP UD PO SCH ×4 (11:57→17:46)
[2022-05-25] MEDS: PERCOCET 5MG/325MG TAB PO PRN ×2 (13:44→21:49)
[2022-05-25 16:00] VITALS: BP 126/60
[2022-05-25 20:00] VITALS: BP 157/69
[2022-05-26] VITALS (11 sets, daily range): BP systolic 113–170; BP diastolic 54–77; O2SAT 95–96
[2022-05-26 06:15] LABS: BASO % 0.1 % (0.0-1.0); EOS # 0.3 10^3/uL (0.0-0.5); EOS % 4.4 % (0.0-3.0); HEMATOCRIT 29.4 % (36.0-47.0); HEMOGLOBIN 9.1 g/dl (12.0-15.5); LYMPH # 0.8 10^3/uL (1.5-5.0); LYMPH % 11.8 % (24.0-44.0); MEAN CORPUSCULAR HEMOGLOBIN 29.4 pg (27.0-33.0); MEAN CORPUSCULAR VOLUME 94.8 fl (80.0-96.0); MONO # 0.6 10^3/uL (0.0-0.8); MONO % 9.2 % (2.0-8.0); NEUTROPHILS % 74.1 % (36.0-66.0); PLATELET COUNT, AUTOMATED 122 10^3/uL (150-450); WHITE BLOOD COUNT 6.8 10^3/uL (4.0-10.0)
[2022-05-26] MEDS: LACTULOSE 20 GM/30 ML SYRUP UD PO SCH ×4 (06:20→17:02)
[2022-05-26] MEDS: METOPROLOL TART 50 MG TAB PO SCH ×4 (06:20→17:01)
[2022-05-26 06:57] LABS: BLOOD UREA NITROGEN 29 MG/DL (9-23); CALCIUM LEVEL 8.6 MG/DL (8.3-10.6); CARBON DIOXIDE LEVEL 28 MMOL/L (20-31); CHLORIDE LEVEL 110 MMOL/L (98-107); CREATININE FOR GFR 0.85 MG/DL (0.55-1.30); GLOMERULAR FILTRATION RATE > 60.0 (>39); GLUCOSE, FASTING 92 MG/DL (74-106); MAGNESIUM LEVEL 1.9 MG/DL (1.8-2.4); POTASSIUM SERUM 4.5 MMOL/L (3.5-5.1); SODIUM LEVEL 145 MMOL/L (136-145)
[2022-05-26] MEDS: VITAMIN D 1,000 INTERNATIONAL UNITS TABLET PO SCH (08:26)
[2022-05-26] MEDS: ATORVASTATIN 20 MG TAB PO SCH (08:26)
[2022-05-26] MEDS: SIMETHICONE 80MG CHEW TAB PO SCH ×3 (08:26→21:21)
[2022-05-26] MEDS: ENOXAPARIN 40MG/0.4ML SYRINGE (J1650 PER 10MG) SC SCH (08:26)
[2022-05-26] MEDS: MULTIVITAMINS/MINERALS THERAP 1 TAB PO SCH (08:27)
[2022-05-26] MEDS: DOCUSATE SODIUM 100MG CAPSULE PO SCH ×2 (08:27→21:21)
[2022-05-26] MEDS: GABAPENTIN 100 MG CAP PO SCH ×2 (08:27→21:21)
[2022-05-26] MEDS: PANTOPRAZOLE 40MG TAB (PROTONIX) PO SCH (08:27)
[2022-05-26] MEDS: FERROUS SULFATE 325MG TAB PO SCH ×2 (08:27→21:21)
[2022-05-26] MEDS: ASPIRIN 81MG ENTERIC TABLET PO SCH (08:27)
[2022-05-26] MEDS: DIGOXIN 0.125 MG TAB PO SCH (08:27)
[2022-05-26] MEDS: ISOSORBIDE MON. (IMDUR) 60MG XR TAB PO SCH (08:28)
[2022-05-26] MEDS: FLUTICASONE PROP 0.05% NASAL SPRAY 16 GM (FLONASE) SCH ×2 (08:29→21:22)
[2022-05-26] MEDS: PERCOCET 5MG/325MG TAB PO PRN ×2 (10:47→16:57)
[2022-05-26] MEDS ORDERED: FUROSEMIDE 20 MG TAB PO ONE (12:45)
[2022-05-26] MEDS: MAALOX 30 ML SUSP *UDC PO PRN (16:58)
[2022-05-26 18:21] LABS: HEMATOCRIT 27.3 % (36.0-47.0); HEMOGLOBIN 8.5 g/dl (12.0-15.5)
[2022-05-27] VITALS (14 sets, daily range): BP systolic 119–164; BP diastolic 58–70; O2SAT 95–98
[2022-05-27 00:29] LABS: HEMATOCRIT 28.8 % (36.0-47.0); HEMOGLOBIN 9.1 g/dl (12.0-15.5)
[2022-05-27 04:20] LABS: BASO % 0.2 % (0.0-1.0); EOS # 0.3 10^3/uL (0.0-0.5); EOS % 3.6 % (0.0-3.0); HEMATOCRIT 28.7 % (36.0-47.0); HEMOGLOBIN 8.9 g/dl (12.0-15.5); LYMPH # 0.9 10^3/uL (1.5-5.0); LYMPH % 10.3 % (24.0-44.0); MEAN CORPUSCULAR HEMOGLOBIN 29.8 pg (27.0-33.0); MONO # 0.7 10^3/uL (0.0-0.8); MONO % 8.8 % (2.0-8.0); NEUTROPHILS # 6.4 10^3/uL (1.5-8.5); NEUTROPHILS % 76.4 % (36.0-66.0); PLATELET COUNT, AUTOMATED 146 10^3/uL (150-450); RED BLOOD COUNT 2.99 10^6/uL (4.00-5.40); WHITE BLOOD COUNT 8.4 10^3/uL (4.0-10.0)
[2022-05-27 04:45] LABS: BLOOD UREA NITROGEN 30 MG/DL (9-23); CALCIUM LEVEL 8.9 MG/DL (8.3-10.6); CARBON DIOXIDE LEVEL 28 MMOL/L (20-31); CHLORIDE LEVEL 107 MMOL/L (98-107); GLOMERULAR FILTRATION RATE > 60.0 (>39); GLUCOSE, FASTING 104 MG/DL (74-106); MAGNESIUM LEVEL 1.9 MG/DL (1.8-2.4); POTASSIUM SERUM 4.4 MMOL/L (3.5-5.1); SODIUM LEVEL 142 MMOL/L (136-145)
[2022-05-27] MEDS: METOPROLOL TART 50 MG TAB PO SCH ×3 (05:46→11:25)
[2022-05-27] MEDS: LACTULOSE 20 GM/30 ML SYRUP UD PO SCH ×3 (05:47→11:25)
[2022-05-27] MEDS ORDERED: ASPIRIN 81MG ENTERIC TABLET PO SCH ×2 (09:00→21:00)
[2022-05-27] MEDS: FERROUS SULFATE 325MG TAB PO SCH (09:06)
[2022-05-27] MEDS: MULTIVITAMINS/MINERALS THERAP 1 TAB PO SCH (09:06)
[2022-05-27] MEDS: VITAMIN D 1,000 INTERNATIONAL UNITS TABLET PO SCH (09:06)
[2022-05-27] MEDS: GABAPENTIN 100 MG CAP PO SCH (09:06)
[2022-05-27] MEDS: DIGOXIN 0.125 MG TAB PO SCH (09:06)
[2022-05-27] MEDS: SIMETHICONE 80MG CHEW TAB PO SCH ×2 (09:06→16:54)
[2022-05-27] MEDS: DOCUSATE SODIUM 100MG CAPSULE PO SCH (09:06)
[2022-05-27] MEDS: ISOSORBIDE MON. (IMDUR) 60MG XR TAB PO SCH (09:07)
[2022-05-27] MEDS: ATORVASTATIN 20 MG TAB PO SCH (09:07)
[2022-05-27] MEDS: PANTOPRAZOLE 40MG TAB (PROTONIX) PO SCH (09:07)
[2022-05-27] MEDS: FLUTICASONE PROP 0.05% NASAL SPRAY 16 GM (FLONASE) SCH (09:12)
[2022-05-27] MEDS: PERCOCET 5MG/325MG TAB PO PRN (09:48)
[2022-05-27 12:04] LABS: HEMATOCRIT 27.5 % (36.0-47.0); HEMOGLOBIN 8.5 g/dl (12.0-15.5)
[2022-05-27] MEDS ORDERED: VITMTA PO (15:05)
[2022-05-27] MEDS ORDERED: MYLASSUD PO (15:05)
[2022-05-27] MEDS ORDERED: ASPI81TAEC PO (15:05)
[2022-05-27] MEDS ORDERED: LOPR1TAB6 PO (15:05)
[2022-05-27] MEDS ORDERED: DIGO0.123 PO (15:05)
[2022-05-27] MEDS ORDERED: LOSARTAN 50MG TABLET PO SCH (21:00)
== END 2022-05-27 17:21 | DRG 481 ==
LOC: M ED 05:41 → M ED INP 11:58 → ENRESERV 12:21 → M PCU 14:00
PROVIDERS: ADMIT Internal Medicine; ATTEND Internal Medicine
PROC: 0QS706Z Reposition Left Upper Femur with Intramedullary Internal Fixation Device, Open Approach (ICD-10-PCS; principal; 2022-05-21 15:00)
PROC: 30233N1 Transfusion of Nonautologous Red Blood Cells into Peripheral Vein, Percutaneous Approach (ICD-10-PCS; 2022-05-22)
DX: S72.142A Displaced intertrochanteric fracture of left femur, initial encounter for closed fracture (principal); J98.11 Atelectasis; I25.10 Atherosclerotic heart disease of native coronary artery without angina pectoris; I10 Essential (primary) hypertension; E78.5 Hyperlipidemia, unspecified; K21.9 Gastro-esophageal reflux disease without esophagitis; Y92.018 Other place in single-family (private) house as the place of occurrence of the external cause; W18.30XA Fall on same level, unspecified, initial encounter; Y93.89 Activity, other specified; Y99.8 Other external cause status; J30.9 Allergic rhinitis, unspecified; K59.00 Constipation, unspecified; I48.0 Paroxysmal atrial fibrillation; I95.1 Orthostatic hypotension; D50.0 Iron deficiency anemia secondary to blood loss (chronic); I27.20 Pulmonary hypertension, unspecified; Z95.5 Presence of coronary angioplasty implant and graft; E55.9 Vitamin D deficiency, unspecified; G62.9 Polyneuropathy, unspecified; R33.9 Retention of urine, unspecified; R09.02 Hypoxemia; Z95.3 Presence of xenogenic heart valve; Z79.82 Long term (current) use of aspirin; Z88.5 Allergy status to narcotic agent; Z87.891 Personal history of nicotine dependence; Z88.8 Allergy status to other drugs, medicaments and biological substances; Z79.899 Other long term (current) drug therapy; Z91.018 Allergy to other foods

== ENCOUNTER 2022-05-23 09:50 | Inpatient (IN) | payer MEDICARE, MEDICAID ==
[~2022-05-23] VITALS: Ht 167.6 cm; Wt 62.8 kg
[~2022-05-23 09:50] MED LIST changes: +ASPI81TA26 PO; +FLON1SPR; +LABE100T71 PO; +LABE200T5 PO
[2022-05-27] MEDS ORDERED: oxyCODONE 5MG TAB PO PRN (15:00)
[2022-05-27] MEDS ORDERED: NITROGLYCERIN 0.4MG SUBL TABLET SL PRN (15:00)
[2022-05-27] MEDS ORDERED: ONDANSETRON 4MG ORAL DISINTEGRATING TAB PO PRN (15:00)
[2022-05-27] MEDS ORDERED: VITMTA PO (15:05)
[2022-05-27] MEDS ORDERED: DIGO0.123 PO (15:05)
[2022-05-27] MEDS ORDERED: ASPI81TAEC PO (15:05)
[2022-05-27] MEDS ORDERED: LOPR1TAB6 PO (15:05)
[2022-05-27] MEDS ORDERED: MYLASSUD PO (15:05)
[2022-05-27 17:30] VITALS: BP 148/67
[2022-05-27] MEDS: ACETAMINOPHEN 500 MG TAB PO SCH ×2 (18:15→22:03)
[2022-05-27] MEDS: METOPROLOL TART 50 MG TAB PO SCH ×2 (18:16→23:40)
[2022-05-27 20:00] VITALS: BP 176/79
[2022-05-27] MEDS: FLUTICASONE PROP 0.05% NASAL SPRAY 16 GM (FLONASE) NARES SCH (21:00)
[2022-05-27] MEDS: FERROUS SULFATE 325MG TAB PO SCH (21:58)
[2022-05-27] MEDS: SENNA 8.6 MG TAB (SENOKOT) PO SCH (22:01)
[2022-05-27] MEDS: GABAPENTIN 100 MG CAP PO SCH (22:02)
[2022-05-27] MEDS: DOCUSATE SODIUM 100MG CAPSULE PO SCH (22:02)
[2022-05-27] MEDS: LACTULOSE 20 GM/30 ML SYRUP UD PO SCH (22:02)
[2022-05-27] MEDS: LOSARTAN 50MG TABLET PO SCH (22:02)
[2022-05-27] MEDS: SIMETHICONE 80MG CHEW TAB PO SCH (22:02)
[2022-05-27 23:30] VITALS: BP 150/65
[2022-05-28] MEDS: METOPROLOL TART 50 MG TAB PO SCH ×3 (05:18→18:03)
[2022-05-28 06:00] VITALS: BP 165/58
[2022-05-28 06:39] LABS: BASO % 0.1 % (0.0-1.0); EOS # 0.3 10^3/uL (0.0-0.5); EOS % 3.9 % (0.0-3.0); HEMATOCRIT 27.2 % (36.0-47.0); HEMOGLOBIN 8.5 g/dl (12.0-15.5); LYMPH # 0.8 10^3/uL (1.5-5.0); LYMPH % 9.5 % (24.0-44.0); MEAN CORPUSCULAR HEMOGLOBIN 29.7 pg (27.0-33.0); MEAN CORPUSCULAR HGB CONC 31.3 g/dl (32.0-36.5); MEAN CORPUSCULAR VOLUME 95.1 fl (80.0-96.0); MONO # 0.7 10^3/uL (0.0-0.8); MONO % 7.6 % (2.0-8.0); NEUTROPHILS # 6.7 10^3/uL (1.5-8.5); NEUTROPHILS % 78.3 % (36.0-66.0); PLATELET COUNT, AUTOMATED 163 10^3/uL (150-450); RED BLOOD COUNT 2.86 10^6/uL (4.00-5.40); WHITE BLOOD COUNT 8.6 10^3/uL (4.0-10.0)
[2022-05-28 07:41] LABS: ALBUMIN 2.6 G/DL (3.2-5.2); ALKALINE PHOSPHATASE 56 U/L (46-116); AST/SGOT 26 U/L (<34); BILIRUBIN,TOTAL 1.1 MG/DL (0.3-1.2); BLOOD UREA NITROGEN 27 MG/DL (9-23); CALCIUM LEVEL 9.5 MG/DL (8.3-10.6); CARBON DIOXIDE LEVEL 28 MMOL/L (20-31); CHLORIDE LEVEL 106 MMOL/L (98-107); CREATININE FOR GFR 0.72 MG/DL (0.55-1.30); GLOMERULAR FILTRATION RATE > 60.0 (>39); GLUCOSE, FASTING 89 MG/DL (74-106); POTASSIUM SERUM 4.3 MMOL/L (3.5-5.1); SODIUM LEVEL 142 MMOL/L (136-145); TOTAL PROTEIN 5.1 G/DL (5.7-8.2)
[2022-05-28] MEDS ORDERED: ASPIRIN 81MG ENTERIC TABLET PO SCH (09:00)
[2022-05-28] MEDS: SIMETHICONE 80MG CHEW TAB PO SCH ×5 (09:00→21:00)
[2022-05-28] MEDS: FERROUS SULFATE 325MG TAB PO SCH ×3 (09:00→21:00)
[2022-05-28] MEDS: MULTIVITAMINS/MINERALS THERAP 1 TAB PO SCH ×2 (09:00→09:38)
[2022-05-28] MEDS: VITAMIN D 1,000 INTERNATIONAL UNITS TABLET PO SCH ×2 (09:00→09:39)
[2022-05-28] MEDS: LACTULOSE 20 GM/30 ML SYRUP UD PO SCH ×2 (09:00→21:00)
[2022-05-28] MEDS: PANTOPRAZOLE 40MG TAB (PROTONIX) PO SCH (09:38)
[2022-05-28] MEDS: DOCUSATE SODIUM 100MG CAPSULE PO SCH ×2 (09:38→21:00)
[2022-05-28] MEDS: GABAPENTIN 100 MG CAP PO SCH ×3 (09:38→21:00)
[2022-05-28] MEDS: FLUTICASONE PROP 0.05% NASAL SPRAY 16 GM (FLONASE) NARES SCH ×2 (09:39→21:00)
[2022-05-28] MEDS: ATORVASTATIN 20 MG TAB PO SCH (09:39)
[2022-05-28] MEDS: ACETAMINOPHEN 500 MG TAB PO SCH ×3 (09:40→21:00)
[2022-05-28] MEDS: DIGOXIN 0.125 MG TAB PO SCH (09:42)
[2022-05-28] MEDS: ISOSORBIDE MON. (IMDUR) 60MG XR TAB PO SCH (09:43)
[2022-05-28] MEDS ORDERED: PILL CUTTER 1 EACH XX PRN (11:00)
[2022-05-28] MEDS ORDERED: FLEET ENEMA PR ONE (11:00)
[2022-05-28] MEDS: DICLOFENAC EPOLAMINE 1.3 % PATCH TOP SCH ×2 (12:18→21:00)
[2022-05-28 13:02] LABS: ALT/SGPT 14 U/L (7.0-40)
[2022-05-28] MEDS ORDERED: LevoFLOXacin 250 MG TABLET PO SCH (13:10)
[2022-05-28 14:00] VITALS: BP 147/67
[2022-05-28] MEDS: oxyCODONE 5MG TAB PO PRN (15:34)
[2022-05-28 18:01] VITALS: BP 156/70
[2022-05-28] MEDS: LACTOBACILLUS ACIDOPHILUS CAP (BACID) PO SCH ×2 (18:03→21:00)
[2022-05-28] MEDS: **hydrALAZINE HCL** 25 MG TAB PO SCH (18:03)
[2022-05-28 20:00] VITALS: BP 142/62
[2022-05-28] MEDS: ASPIRIN 81MG ENTERIC TABLET PO SCH (20:34)
[2022-05-28] MEDS: CEFDINIR 300 MG CAP (OMNICEF) PO SCH (20:34)
[2022-05-28] MEDS: LOSARTAN 50MG TABLET PO SCH (20:35)
[2022-05-28] MEDS: MIRALAX *UNIT DOSE* 17GM PACKET PO SCH (21:00)
[2022-05-28] MEDS: SENNA 8.6 MG TAB (SENOKOT) PO SCH (21:00)
[2022-05-29] MEDS: METOPROLOL TART 50 MG TAB PO SCH ×4 (05:13→18:03)
[2022-05-29] MEDS: **hydrALAZINE HCL** 25 MG TAB PO SCH ×5 (05:14→23:59)
[2022-05-29 05:51] VITALS: BP 184/78
[2022-05-29 06:19] VITALS: BP 146/72
[2022-05-29 06:21] LABS: BASO % 0.3 % (0.0-1.0); EOS # 0.3 10^3/uL (0.0-0.5); EOS % 3.4 % (0.0-3.0); HEMOGLOBIN 8.7 g/dl (12.0-15.5); LYMPH # 0.9 10^3/uL (1.5-5.0); LYMPH % 11.1 % (24.0-44.0); MEAN CORPUSCULAR HGB CONC 32.2 g/dl (32.0-36.5); MEAN CORPUSCULAR VOLUME 93.1 fl (80.0-96.0); MONO # 0.5 10^3/uL (0.0-0.8); MONO % 6.1 % (2.0-8.0); NEUTROPHILS # 6.2 10^3/uL (1.5-8.5); NEUTROPHILS % 78.2 % (36.0-66.0); PLATELET COUNT, AUTOMATED 182 10^3/uL (150-450); WHITE BLOOD COUNT 7.9 10^3/uL (4.0-10.0)
[2022-05-29] MEDS: ACETAMINOPHEN 500 MG TAB PO SCH ×2 (07:46→18:07)
[2022-05-29] MEDS: GABAPENTIN 100 MG CAP PO SCH ×3 (07:46→23:59)
[2022-05-29] MEDS: DIGOXIN 0.125 MG TAB PO SCH (07:47)
[2022-05-29] MEDS: LACTOBACILLUS ACIDOPHILUS CAP (BACID) PO SCH ×4 (08:00→20:44)
[2022-05-29] MEDS: SIMETHICONE 80MG CHEW TAB PO SCH ×3 (08:48→20:19)
[2022-05-29] MEDS: CEFDINIR 300 MG CAP (OMNICEF) PO SCH ×2 (08:49→20:43)
[2022-05-29] MEDS: ISOSORBIDE MON. (IMDUR) 60MG XR TAB PO SCH (08:49)
[2022-05-29] MEDS: DICLOFENAC EPOLAMINE 1.3 % PATCH TOP SCH ×2 (09:00→21:00)
[2022-05-29] MEDS: FLUTICASONE PROP 0.05% NASAL SPRAY 16 GM (FLONASE) NARES SCH ×2 (09:00→20:44)
[2022-05-29] MEDS: VITAMIN D 1,000 INTERNATIONAL UNITS TABLET PO SCH (09:00)
[2022-05-29] MEDS: FERROUS SULFATE 325MG TAB PO SCH ×2 (09:00→20:43)
[2022-05-29] MEDS: MIRALAX *UNIT DOSE* 17GM PACKET PO SCH ×2 (09:00→20:19)
[2022-05-29] MEDS: LACTULOSE 20 GM/30 ML SYRUP UD PO SCH ×2 (09:00→20:19)
[2022-05-29] MEDS: MULTIVITAMINS/MINERALS THERAP 1 TAB PO SCH (09:00)
[2022-05-29] MEDS: DOCUSATE SODIUM 100MG CAPSULE PO SCH ×2 (11:40→23:59)
[2022-05-29] MEDS: ASPIRIN 81MG ENTERIC TABLET PO SCH ×2 (11:40→20:43)
[2022-05-29 12:00] VITALS: BP 158/69
[2022-05-29 18:00] VITALS: BP 139/64
[2022-05-29] MEDS: PANTOPRAZOLE 40MG TAB (PROTONIX) PO SCH (18:02)
[2022-05-29] MEDS: SENNA 8.6 MG TAB (SENOKOT) PO SCH (18:03)
[2022-05-29 20:00] VITALS: BP 171/70
[2022-05-29] MEDS: ATORVASTATIN 20 MG TAB PO SCH (20:43)
[2022-05-29] MEDS: LOSARTAN 50MG TABLET PO SCH (20:44)
[2022-05-30] VITALS: BP 180/77
[2022-05-30 01:08] VITALS: BP 142/68
[2022-05-30] MEDS: METOPROLOL TART 50 MG TAB PO SCH ×4 (05:05→17:25)
[2022-05-30] MEDS: **hydrALAZINE HCL** 25 MG TAB PO SCH (05:06)
[2022-05-30 06:00] VITALS: BP 172/66
[2022-05-30 07:14] VITALS: BP 177/64
[2022-05-30 07:17] LABS: BASO % 0.4 % (0.0-1.0); EOS # 0.3 10^3/uL (0.0-0.5); EOS % 4.3 % (0.0-3.0); HEMATOCRIT 29.2 % (36.0-47.0); HEMOGLOBIN 9.3 g/dl (12.0-15.5); LYMPH % 13.7 % (24.0-44.0); MEAN CORPUSCULAR HGB CONC 31.8 g/dl (32.0-36.5); MEAN CORPUSCULAR VOLUME 94.2 fl (80.0-96.0); MONO # 0.6 10^3/uL (0.0-0.8); MONO % 8.5 % (2.0-8.0); NEUTROPHILS # 5.2 10^3/uL (1.5-8.5); PLATELET COUNT, AUTOMATED 201 10^3/uL (150-450); WHITE BLOOD COUNT 7.2 10^3/uL (4.0-10.0)
[2022-05-30 07:46] LABS: BLOOD UREA NITROGEN 30 MG/DL (9-23); CALCIUM LEVEL 9.2 MG/DL (8.3-10.6); CARBON DIOXIDE LEVEL 30 MMOL/L (20-31); CHLORIDE LEVEL 104 MMOL/L (98-107); CREATININE FOR GFR 0.75 MG/DL (0.55-1.30); GLOMERULAR FILTRATION RATE > 60.0 (>39); GLUCOSE, FASTING 96 MG/DL (74-106); POTASSIUM SERUM 4.4 MMOL/L (3.5-5.1); SODIUM LEVEL 140 MMOL/L (136-145)
[2022-05-30] MEDS: GABAPENTIN 100 MG CAP PO SCH ×3 (08:56→22:00)
[2022-05-30] MEDS: DOCUSATE SODIUM 100MG CAPSULE PO SCH ×2 (08:56→22:07)
[2022-05-30] MEDS: VITAMIN D 1,000 INTERNATIONAL UNITS TABLET PO SCH (08:57)
[2022-05-30] MEDS: DIGOXIN 0.125 MG TAB PO SCH (08:57)
[2022-05-30] MEDS: ISOSORBIDE MON. (IMDUR) 60MG XR TAB PO SCH (08:57)
[2022-05-30] MEDS: PANTOPRAZOLE 40MG TAB (PROTONIX) PO SCH (08:57)
[2022-05-30] MEDS: CEFDINIR 300 MG CAP (OMNICEF) PO SCH ×2 (08:57→22:00)
[2022-05-30] MEDS: ASPIRIN 81MG ENTERIC TABLET PO SCH ×2 (08:57→22:05)
[2022-05-30] MEDS: LACTOBACILLUS ACIDOPHILUS CAP (BACID) PO SCH ×4 (08:58→22:07)
[2022-05-30] MEDS: ACETAMINOPHEN 500 MG TAB PO SCH ×4 (08:58→22:04)
[2022-05-30] MEDS: ATORVASTATIN 20 MG TAB PO SCH (08:58)
[2022-05-30] MEDS: MULTIVITAMINS/MINERALS THERAP 1 TAB PO SCH (08:58)
[2022-05-30] MEDS: DICLOFENAC EPOLAMINE 1.3 % PATCH TOP SCH ×2 (08:59→22:07)
[2022-05-30] MEDS: MIRALAX *UNIT DOSE* 17GM PACKET PO SCH ×2 (08:59→22:02)
[2022-05-30] MEDS: SIMETHICONE 80MG CHEW TAB PO SCH ×3 (08:59→22:07)
[2022-05-30] MEDS: FLUTICASONE PROP 0.05% NASAL SPRAY 16 GM (FLONASE) NARES SCH ×2 (08:59→22:05)
[2022-05-30] MEDS: LACTULOSE 20 GM/30 ML SYRUP UD PO SCH ×2 (09:00→22:07)
[2022-05-30] MEDS: FERROUS SULFATE 325MG TAB PO SCH ×2 (12:48→22:01)
[2022-05-30] MEDS: oxyCODONE 5MG TAB PO PRN (12:55)
[2022-05-30] MEDS: **hydrALAZINE** 50 MG TAB PO SCH ×2 (12:56→22:01)
[2022-05-30 14:00] VITALS: BP 115/56
[2022-05-30 20:00] VITALS: BP 140/73
[2022-05-30] MEDS: LOSARTAN 50MG TABLET PO SCH (22:01)
[2022-05-30] MEDS: SENNA 8.6 MG TAB (SENOKOT) PO SCH (22:04)
[2022-05-31] VITALS: BP 152/64
[2022-05-31] MEDS: METOPROLOL TART 50 MG TAB PO SCH ×5 (00:33→23:11)
[2022-05-31 06:00] VITALS: BP 142/73
[2022-05-31] MEDS: **hydrALAZINE** 50 MG TAB PO SCH ×3 (06:16→23:10)
[2022-05-31] MEDS: oxyCODONE 5MG TAB PO PRN ×2 (06:22→13:13)
[2022-05-31 07:15] LABS: BASO % 0.4 % (0.0-1.0); EOS # 0.3 10^3/uL (0.0-0.5); EOS % 3.6 % (0.0-3.0); HEMATOCRIT 33.4 % (36.0-47.0); HEMOGLOBIN 10.3 g/dl (12.0-15.5); LYMPH # 1.4 10^3/uL (1.5-5.0); LYMPH % 15.2 % (24.0-44.0); MEAN CORPUSCULAR HEMOGLOBIN 29.4 pg (27.0-33.0); MEAN CORPUSCULAR HGB CONC 30.8 g/dl (32.0-36.5); MEAN CORPUSCULAR VOLUME 95.4 fl (80.0-96.0); MONO # 0.7 10^3/uL (0.0-0.8); MONO % 7.3 % (2.0-8.0); NEUTROPHILS # 6.9 10^3/uL (1.5-8.5); NEUTROPHILS % 72.5 % (36.0-66.0); PLATELET COUNT, AUTOMATED 263 10^3/uL (150-450); WHITE BLOOD COUNT 9.5 10^3/uL (4.0-10.0)
[2022-05-31] MEDS: MULTIVITAMINS/MINERALS THERAP 1 TAB PO SCH (08:21)
[2022-05-31] MEDS: CEFDINIR 300 MG CAP (OMNICEF) PO SCH ×2 (08:21→20:33)
[2022-05-31] MEDS: ATORVASTATIN 20 MG TAB PO SCH (08:21)
[2022-05-31] MEDS: LACTULOSE 20 GM/30 ML SYRUP UD PO SCH ×3 (08:21→20:41)
[2022-05-31] MEDS: LACTOBACILLUS ACIDOPHILUS CAP (BACID) PO SCH ×4 (08:22→20:33)
[2022-05-31] MEDS: GABAPENTIN 100 MG CAP PO SCH ×3 (08:22→20:34)
[2022-05-31] MEDS: FERROUS SULFATE 325MG TAB PO SCH ×2 (08:22→20:33)
[2022-05-31] MEDS: VITAMIN D 1,000 INTERNATIONAL UNITS TABLET PO SCH (08:22)
[2022-05-31] MEDS: PANTOPRAZOLE 40MG TAB (PROTONIX) PO SCH (08:22)
[2022-05-31] MEDS: ASPIRIN 81MG ENTERIC TABLET PO SCH ×2 (08:22→20:32)
[2022-05-31] MEDS: ACETAMINOPHEN 500 MG TAB PO SCH ×3 (08:22→20:32)
[2022-05-31] MEDS: SIMETHICONE 80MG CHEW TAB PO SCH ×3 (08:22→20:33)
[2022-05-31] MEDS: DOCUSATE SODIUM 100MG CAPSULE PO SCH ×2 (08:22→20:33)
[2022-05-31] MEDS: DIGOXIN 0.125 MG TAB PO SCH (08:23)
[2022-05-31] MEDS: ISOSORBIDE MON. (IMDUR) 60MG XR TAB PO SCH (08:23)
[2022-05-31] MEDS: DICLOFENAC EPOLAMINE 1.3 % PATCH TOP SCH ×2 (08:23→20:32)
[2022-05-31] MEDS: MIRALAX *UNIT DOSE* 17GM PACKET PO SCH ×3 (08:23→20:41)
[2022-05-31] MEDS: FLUTICASONE PROP 0.05% NASAL SPRAY 16 GM (FLONASE) NARES SCH ×3 (08:24→20:42)
[2022-05-31 14:00] VITALS: BP 127/70
[2022-05-31 20:00] VITALS: BP 144/67
[2022-05-31] MEDS: SENNA 8.6 MG TAB (SENOKOT) PO SCH (20:33)
[2022-05-31] MEDS: LOSARTAN 50MG TABLET PO SCH (20:33)
[2022-06-01] MEDS: oxyCODONE 5MG TAB PO PRN (02:23)
[2022-06-01 06:00] VITALS: BP 155/71
[2022-06-01] MEDS: **hydrALAZINE** 50 MG TAB PO SCH ×3 (06:25→21:56)
[2022-06-01] MEDS: METOPROLOL TART 50 MG TAB PO SCH ×2 (06:26→21:55)
[2022-06-01 06:56] LABS: BASO % 0.4 % (0.0-1.0); EOS # 0.3 10^3/uL (0.0-0.5); EOS % 3.1 % (0.0-3.0); HEMATOCRIT 32.7 % (36.0-47.0); LYMPH # 1.3 10^3/uL (1.5-5.0); LYMPH % 14.9 % (24.0-44.0); MEAN CORPUSCULAR HEMOGLOBIN 29.4 pg (27.0-33.0); MEAN CORPUSCULAR HGB CONC 30.6 g/dl (32.0-36.5); MEAN CORPUSCULAR VOLUME 96.2 fl (80.0-96.0); MONO # 0.6 10^3/uL (0.0-0.8); MONO % 6.9 % (2.0-8.0); NEUTROPHILS # 6.2 10^3/uL (1.5-8.5); NEUTROPHILS % 73.9 % (36.0-66.0); PLATELET COUNT, AUTOMATED 247 10^3/uL (150-450); WHITE BLOOD COUNT 8.4 10^3/uL (4.0-10.0)
[2022-06-01] MEDS: FERROUS SULFATE 325MG TAB PO SCH ×2 (08:16→21:57)
[2022-06-01] MEDS: MULTIVITAMINS/MINERALS THERAP 1 TAB PO SCH (08:16)
[2022-06-01] MEDS: ACETAMINOPHEN 500 MG TAB PO SCH ×3 (08:16→21:55)
[2022-06-01] MEDS: LACTOBACILLUS ACIDOPHILUS CAP (BACID) PO SCH ×4 (08:16→21:56)
[2022-06-01] MEDS: VITAMIN D 1,000 INTERNATIONAL UNITS TABLET PO SCH (08:17)
[2022-06-01] MEDS: ASPIRIN 81MG ENTERIC TABLET PO SCH ×2 (08:17→21:56)
[2022-06-01] MEDS: SIMETHICONE 80MG CHEW TAB PO SCH ×3 (08:17→21:56)
[2022-06-01] MEDS: PANTOPRAZOLE 40MG TAB (PROTONIX) PO SCH (08:17)
[2022-06-01] MEDS: CEFDINIR 300 MG CAP (OMNICEF) PO SCH (08:17)
[2022-06-01] MEDS: GABAPENTIN 100 MG CAP PO SCH ×3 (08:18→21:56)
[2022-06-01] MEDS: LACTULOSE 20 GM/30 ML SYRUP UD PO SCH ×2 (08:18→21:00)
[2022-06-01] MEDS: DIGOXIN 0.125 MG TAB PO SCH (08:18)
[2022-06-01] MEDS: DOCUSATE SODIUM 100MG CAPSULE PO SCH ×2 (08:18→21:56)
[2022-06-01] MEDS: ATORVASTATIN 20 MG TAB PO SCH (08:18)
[2022-06-01] MEDS: DICLOFENAC EPOLAMINE 1.3 % PATCH TOP SCH ×2 (08:18→21:54)
[2022-06-01] MEDS: FLUTICASONE PROP 0.05% NASAL SPRAY 16 GM (FLONASE) NARES SCH ×2 (08:19→21:57)
[2022-06-01] MEDS: ISOSORBIDE MON. (IMDUR) 60MG XR TAB PO SCH (08:19)
[2022-06-01] MEDS: MIRALAX *UNIT DOSE* 17GM PACKET PO SCH ×2 (08:19→21:00)
[2022-06-01 14:00] VITALS: BP 124/66
[2022-06-01 19:38] VITALS: BP 146/72
[2022-06-01] MEDS: SENNA 8.6 MG TAB (SENOKOT) PO SCH (21:54)
[2022-06-01] MEDS: LOSARTAN 50MG TABLET PO SCH (21:56)
[2022-06-02] MEDS: oxyCODONE 5MG TAB PO PRN (04:12)
[2022-06-02 05:27] VITALS: BP 167/71
[2022-06-02] MEDS: **hydrALAZINE** 50 MG TAB PO SCH ×4 (05:34→23:57)
[2022-06-02 07:08] LABS: BASO % 0.5 % (0.0-1.0); EOS # 0.3 10^3/uL (0.0-0.5); EOS % 3.6 % (0.0-3.0); HEMATOCRIT 32.1 % (36.0-47.0); HEMOGLOBIN 9.9 g/dl (12.0-15.5); LYMPH # 1.3 10^3/uL (1.5-5.0); LYMPH % 17.4 % (24.0-44.0); MEAN CORPUSCULAR HEMOGLOBIN 29.7 pg (27.0-33.0); MEAN CORPUSCULAR HGB CONC 30.8 g/dl (32.0-36.5); MEAN CORPUSCULAR VOLUME 96.4 fl (80.0-96.0); MONO # 0.6 10^3/uL (0.0-0.8); MONO % 7.2 % (2.0-8.0); NEUTROPHILS # 5.4 10^3/uL (1.5-8.5); NEUTROPHILS % 70.5 % (36.0-66.0); PLATELET COUNT, AUTOMATED 267 10^3/uL (150-450); RED BLOOD COUNT 3.33 10^6/uL (4.00-5.40); WHITE BLOOD COUNT 7.7 10^3/uL (4.0-10.0)
[2022-06-02 07:28] VITALS: BP 150/80
[2022-06-02] MEDS: GABAPENTIN 100 MG CAP PO SCH ×3 (08:46→20:16)
[2022-06-02] MEDS: METOPROLOL TART 50 MG TAB PO SCH ×2 (08:46→20:17)
[2022-06-02] MEDS: ACETAMINOPHEN 500 MG TAB PO SCH ×3 (08:46→20:16)
[2022-06-02] MEDS: DOCUSATE SODIUM 100MG CAPSULE PO SCH ×2 (08:46→20:16)
[2022-06-02] MEDS: FERROUS SULFATE 325MG TAB PO SCH ×2 (08:46→20:17)
[2022-06-02] MEDS: MULTIVITAMINS/MINERALS THERAP 1 TAB PO SCH (08:46)
[2022-06-02] MEDS: ATORVASTATIN 20 MG TAB PO SCH (08:46)
[2022-06-02] MEDS: LACTOBACILLUS ACIDOPHILUS CAP (BACID) PO SCH ×4 (08:46→20:16)
[2022-06-02] MEDS: SIMETHICONE 80MG CHEW TAB PO SCH ×3 (08:46→20:16)
[2022-06-02] MEDS: DICLOFENAC EPOLAMINE 1.3 % PATCH TOP SCH ×2 (08:46→20:16)
[2022-06-02] MEDS: PANTOPRAZOLE 40MG TAB (PROTONIX) PO SCH (08:46)
[2022-06-02] MEDS: ASPIRIN 81MG ENTERIC TABLET PO SCH ×2 (08:47→20:16)
[2022-06-02] MEDS: DIGOXIN 0.125 MG TAB PO SCH (08:47)
[2022-06-02] MEDS: VITAMIN D 1,000 INTERNATIONAL UNITS TABLET PO SCH (08:47)
[2022-06-02] MEDS: ISOSORBIDE MON. (IMDUR) 30MG XR TAB PO SCH (08:47)
[2022-06-02] MEDS: FLUTICASONE PROP 0.05% NASAL SPRAY 16 GM (FLONASE) NARES SCH ×2 (08:47→20:18)
[2022-06-02] MEDS: LACTULOSE 20 GM/30 ML SYRUP UD PO SCH ×2 (08:48→19:07)
[2022-06-02] MEDS: MIRALAX *UNIT DOSE* 17GM PACKET PO SCH ×2 (08:48→19:08)
[2022-06-02 11:37] VITALS: BP 165/60
[2022-06-02 11:38] LABS: CARBON DIOXIDE LEVEL 30 MMOL/L (20-31); CHLORIDE LEVEL 102 MMOL/L (98-107)
[2022-06-02 11:39] LABS: POTASSIUM SERUM 4.4 MMOL/L (3.5-5.1); SODIUM LEVEL 140 MMOL/L (136-145)
[2022-06-02 11:43] LABS: BLOOD UREA NITROGEN 26 MG/DL (9-23)
[2022-06-02 11:45] LABS: GLUCOSE, FASTING 85 MG/DL (74-106)
[2022-06-02 11:47] LABS: CREATININE FOR GFR 0.84 MG/DL (0.55-1.30); GLOMERULAR FILTRATION RATE > 60.0 (>39)
[2022-06-02 14:13] VITALS: BP 154/68
[2022-06-02] MEDS: POLYVINYL ALCOHOL OPHTH SOLN 15ML (LIQUITEARS) OU SCH ×2 (15:17→20:15)
[2022-06-02 17:18] VITALS: BP 129/65
[2022-06-02 20:00] VITALS: BP 136/63
[2022-06-02] MEDS: SENNA 8.6 MG TAB (SENOKOT) PO SCH (20:16)
[2022-06-02] MEDS: LOSARTAN 50MG TABLET PO SCH (20:17)
[2022-06-03] MEDS: oxyCODONE 5MG TAB PO PRN ×2 (00:07→06:11)
[2022-06-03] MEDS: **hydrALAZINE** 50 MG TAB PO SCH ×3 (05:27→17:28)
[2022-06-03 05:44] LABS: BASO % 0.3 % (0.0-1.0); EOS # 0.4 10^3/uL (0.0-0.5); EOS % 4.7 % (0.0-3.0); HEMATOCRIT 32.3 % (36.0-47.0); HEMOGLOBIN 10.1 g/dl (12.0-15.5); LYMPH # 1.6 10^3/uL (1.5-5.0); LYMPH % 20.7 % (24.0-44.0); MEAN CORPUSCULAR HEMOGLOBIN 29.8 pg (27.0-33.0); MEAN CORPUSCULAR HGB CONC 31.3 g/dl (32.0-36.5); MEAN CORPUSCULAR VOLUME 95.3 fl (80.0-96.0); MONO # 0.7 10^3/uL (0.0-0.8); NEUTROPHILS % 64.8 % (36.0-66.0); PLATELET COUNT, AUTOMATED 288 10^3/uL (150-450); RED BLOOD COUNT 3.39 10^6/uL (4.00-5.40); WHITE BLOOD COUNT 7.7 10^3/uL (4.0-10.0)
[2022-06-03 06:03] VITALS: BP 150/60
[2022-06-03] MEDS: GABAPENTIN 100 MG CAP PO SCH ×3 (07:37→19:59)
[2022-06-03] MEDS: DOCUSATE SODIUM 100MG CAPSULE PO SCH ×2 (07:37→19:58)
[2022-06-03] MEDS: MULTIVITAMINS/MINERALS THERAP 1 TAB PO SCH (07:37)
[2022-06-03] MEDS: VITAMIN D 1,000 INTERNATIONAL UNITS TABLET PO SCH (07:37)
[2022-06-03] MEDS: LACTOBACILLUS ACIDOPHILUS CAP (BACID) PO SCH ×4 (07:37→19:58)
[2022-06-03] MEDS: FERROUS SULFATE 325MG TAB PO SCH ×2 (07:37→19:59)
[2022-06-03] MEDS: DICLOFENAC EPOLAMINE 1.3 % PATCH TOP SCH ×2 (07:37→19:57)
[2022-06-03] MEDS: ATORVASTATIN 20 MG TAB PO SCH (07:37)
[2022-06-03] MEDS: METOPROLOL TART 50 MG TAB PO SCH ×2 (07:38→19:59)
[2022-06-03] MEDS: DIGOXIN 0.125 MG TAB PO SCH (07:38)
[2022-06-03] MEDS: ACETAMINOPHEN 500 MG TAB PO SCH ×3 (07:38→19:59)
[2022-06-03] MEDS: PANTOPRAZOLE 40MG TAB (PROTONIX) PO SCH (07:38)
[2022-06-03] MEDS: SIMETHICONE 80MG CHEW TAB PO SCH ×3 (07:38→20:00)
[2022-06-03] MEDS: POLYVINYL ALCOHOL OPHTH SOLN 15ML (LIQUITEARS) OU SCH ×3 (07:39→20:00)
[2022-06-03] MEDS: ISOSORBIDE MON. (IMDUR) 30MG XR TAB PO SCH (07:39)
[2022-06-03] MEDS: CHLORTHALIDONE 12.5MG PER 1/2 TABLET PO SCH (07:39)
[2022-06-03] MEDS: MIRALAX *UNIT DOSE* 17GM PACKET PO SCH ×2 (07:39→19:47)
[2022-06-03] MEDS: ASPIRIN 81MG ENTERIC TABLET PO SCH ×2 (07:39→19:58)
[2022-06-03] MEDS: LACTULOSE 20 GM/30 ML SYRUP UD PO SCH ×2 (07:40→19:47)
[2022-06-03] MEDS: FLUTICASONE PROP 0.05% NASAL SPRAY 16 GM (FLONASE) NARES SCH ×2 (07:40→20:00)
[2022-06-03 12:00] VITALS: BP 143/67
[2022-06-03 14:00] VITALS: BP 154/68
[2022-06-03] MEDS: oxyCODONE 5MG TAB PO SCH (17:00)
[2022-06-03 17:08] VITALS: BP 124/62
[2022-06-03] MEDS: SENNA 8.6 MG TAB (SENOKOT) PO SCH (19:59)
[2022-06-03 20:00] VITALS: BP 158/76
[2022-06-03] MEDS: LOSARTAN 50MG TABLET PO SCH (20:00)
[2022-06-04] MEDS: **hydrALAZINE** 50 MG TAB PO SCH ×4 (00:01→18:06)
[2022-06-04 06:00] VITALS: BP 164/76
[2022-06-04] MEDS: oxyCODONE 5MG TAB PO SCH ×3 (06:01→18:06)
[2022-06-04 06:32] LABS: BASO % 0.5 % (0.0-1.0); EOS # 0.4 10^3/uL (0.0-0.5); EOS % 4.7 % (0.0-3.0); HEMATOCRIT 33.4 % (36.0-47.0); HEMOGLOBIN 10.2 g/dl (12.0-15.5); LYMPH # 1.6 10^3/uL (1.5-5.0); LYMPH % 20.5 % (24.0-44.0); MEAN CORPUSCULAR HEMOGLOBIN 29.4 pg (27.0-33.0); MEAN CORPUSCULAR HGB CONC 30.5 g/dl (32.0-36.5); MEAN CORPUSCULAR VOLUME 96.3 fl (80.0-96.0); MONO # 0.6 10^3/uL (0.0-0.8); MONO % 7.3 % (2.0-8.0); NEUTROPHILS # 5.1 10^3/uL (1.5-8.5); NEUTROPHILS % 66.3 % (36.0-66.0); PLATELET COUNT, AUTOMATED 297 10^3/uL (150-450); RED BLOOD COUNT 3.47 10^6/uL (4.00-5.40); WHITE BLOOD COUNT 7.7 10^3/uL (4.0-10.0)
[2022-06-04 06:44] LABS: CHLORIDE LEVEL 102 MMOL/L (98-107); SODIUM LEVEL 141 MMOL/L (136-145)
[2022-06-04 06:45] LABS: CARBON DIOXIDE LEVEL 31 MMOL/L (20-31)
[2022-06-04 06:50] LABS: BLOOD UREA NITROGEN 24 MG/DL (9-23); CALCIUM LEVEL 9.2 MG/DL (8.3-10.6); GLUCOSE, FASTING 85 MG/DL (74-106)
[2022-06-04 06:52] LABS: CREATININE FOR GFR 0.86 MG/DL (0.55-1.30); GLOMERULAR FILTRATION RATE > 60.0 (>39)
[2022-06-04 07:05] LABS: POTASSIUM SERUM 4.5 MMOL/L (3.5-5.1)
[2022-06-04] MEDS: MIRALAX *UNIT DOSE* 17GM PACKET PO SCH ×2 (09:00→22:09)
[2022-06-04] MEDS: LACTULOSE 20 GM/30 ML SYRUP UD PO SCH ×2 (09:44→22:15)
[2022-06-04] MEDS: ISOSORBIDE MON. (IMDUR) 30MG XR TAB PO SCH (09:44)
[2022-06-04] MEDS: ASPIRIN 81MG ENTERIC TABLET PO SCH ×2 (09:45→22:10)
[2022-06-04] MEDS: SIMETHICONE 80MG CHEW TAB PO SCH ×3 (09:45→22:10)
[2022-06-04] MEDS: GABAPENTIN 100 MG CAP PO SCH ×3 (09:45→22:13)
[2022-06-04] MEDS: DOCUSATE SODIUM 100MG CAPSULE PO SCH ×2 (09:45→22:14)
[2022-06-04] MEDS: VITAMIN D 1,000 INTERNATIONAL UNITS TABLET PO SCH (09:46)
[2022-06-04] MEDS: METOPROLOL TART 50 MG TAB PO SCH ×3 (09:46→22:12)
[2022-06-04] MEDS: MULTIVITAMINS/MINERALS THERAP 1 TAB PO SCH (09:46)
[2022-06-04] MEDS: PANTOPRAZOLE 40MG TAB (PROTONIX) PO SCH (09:46)
[2022-06-04] MEDS: LACTOBACILLUS ACIDOPHILUS CAP (BACID) PO SCH ×4 (09:46→22:14)
[2022-06-04] MEDS: CHLORTHALIDONE 12.5MG PER 1/2 TABLET PO SCH (09:46)
[2022-06-04] MEDS: FERROUS SULFATE 325MG TAB PO SCH ×2 (09:47→22:10)
[2022-06-04] MEDS: ATORVASTATIN 20 MG TAB PO SCH (09:47)
[2022-06-04] MEDS: DIGOXIN 0.125 MG TAB PO SCH (09:47)
[2022-06-04] MEDS: POLYVINYL ALCOHOL OPHTH SOLN 15ML (LIQUITEARS) OU SCH ×3 (09:48→22:15)
[2022-06-04] MEDS: ACETAMINOPHEN 500 MG TAB PO SCH ×3 (09:48→22:12)
[2022-06-04] MEDS: FLUTICASONE PROP 0.05% NASAL SPRAY 16 GM (FLONASE) NARES SCH ×2 (09:48→22:14)
[2022-06-04] MEDS: DICLOFENAC EPOLAMINE 1.3 % PATCH TOP SCH ×2 (09:49→22:10)
[2022-06-04 14:00] VITALS: BP 138/64
[2022-06-04 18:00] VITALS: BP 151/62
[2022-06-04] MEDS: SENNA 8.6 MG TAB (SENOKOT) PO SCH (22:10)
[2022-06-04] MEDS: LOSARTAN 50MG TABLET PO SCH (22:13)
[2022-06-04 23:58] VITALS: BP 144/62
[2022-06-05] MEDS: **hydrALAZINE** 50 MG TAB PO SCH ×5 (00:14→21:40)
[2022-06-05 05:50] VITALS: BP 156/60
[2022-06-05] MEDS: METOPROLOL TART 50 MG TAB PO SCH ×3 (06:15→21:37)
[2022-06-05] MEDS: oxyCODONE 5MG TAB PO SCH ×3 (06:17→16:50)
[2022-06-05 06:44] LABS: BASO # 0.1 10^3/uL (0.0-0.2); BASO % 0.6 % (0.0-1.0); EOS # 0.4 10^3/uL (0.0-0.5); EOS % 4.7 % (0.0-3.0); HEMATOCRIT 32.9 % (36.0-47.0); HEMOGLOBIN 10.1 g/dl (12.0-15.5); LYMPH # 1.6 10^3/uL (1.5-5.0); LYMPH % 19.7 % (24.0-44.0); MEAN CORPUSCULAR HEMOGLOBIN 29.6 pg (27.0-33.0); MEAN CORPUSCULAR HGB CONC 30.7 g/dl (32.0-36.5); MEAN CORPUSCULAR VOLUME 96.5 fl (80.0-96.0); MONO # 0.6 10^3/uL (0.0-0.8); MONO % 7.5 % (2.0-8.0); NEUTROPHILS # 5.3 10^3/uL (1.5-8.5); NEUTROPHILS % 66.9 % (36.0-66.0); PLATELET COUNT, AUTOMATED 283 10^3/uL (150-450); RED BLOOD COUNT 3.41 10^6/uL (4.00-5.40); WHITE BLOOD COUNT 7.9 10^3/uL (4.0-10.0)
[2022-06-05] MEDS: LACTULOSE 20 GM/30 ML SYRUP UD PO SCH (09:00)
[2022-06-05] MEDS: FLUTICASONE PROP 0.05% NASAL SPRAY 16 GM (FLONASE) NARES SCH ×2 (09:00→21:00)
[2022-06-05] MEDS: DOCUSATE SODIUM 100MG CAPSULE PO SCH ×2 (09:00→21:38)
[2022-06-05] MEDS: MIRALAX *UNIT DOSE* 17GM PACKET PO SCH (09:00)
[2022-06-05] MEDS: SIMETHICONE 80MG CHEW TAB PO SCH ×3 (09:25→21:38)
[2022-06-05] MEDS: LACTOBACILLUS ACIDOPHILUS CAP (BACID) PO SCH ×4 (09:25→21:38)
[2022-06-05] MEDS: ASPIRIN 81MG ENTERIC TABLET PO SCH ×2 (09:25→21:44)
[2022-06-05] MEDS: CHLORTHALIDONE 25 MG TAB PO SCH (09:26)
[2022-06-05] MEDS: PANTOPRAZOLE 40MG TAB (PROTONIX) PO SCH (09:26)
[2022-06-05] MEDS: VITAMIN D 1,000 INTERNATIONAL UNITS TABLET PO SCH (09:26)
[2022-06-05] MEDS: MULTIVITAMINS/MINERALS THERAP 1 TAB PO SCH (09:26)
[2022-06-05] MEDS: DICLOFENAC EPOLAMINE 1.3 % PATCH TOP SCH ×2 (09:27→21:36)
[2022-06-05] MEDS: POLYVINYL ALCOHOL OPHTH SOLN 15ML (LIQUITEARS) OU SCH ×3 (09:27→21:36)
[2022-06-05] MEDS: ACETAMINOPHEN 500 MG TAB PO SCH ×3 (09:27→21:39)
[2022-06-05] MEDS: ATORVASTATIN 20 MG TAB PO SCH (09:27)
[2022-06-05] MEDS: DIGOXIN 0.125 MG TAB PO SCH (09:29)
[2022-06-05] MEDS: ISOSORBIDE MON. (IMDUR) 30MG XR TAB PO SCH (09:29)
[2022-06-05] MEDS: FERROUS SULFATE 325MG TAB PO SCH ×2 (09:34→21:37)
[2022-06-05] MEDS: GABAPENTIN 100 MG CAP PO SCH ×3 (09:34→21:40)
[2022-06-05 12:10] VITALS: BP 136/60
[2022-06-05 14:00] VITALS: BP 135/71
[2022-06-05 20:53] VITALS: BP 131/64
[2022-06-05] MEDS ORDERED: MIRALAX *UNIT DOSE* 17GM PACKET PO PRN (21:00)
[2022-06-05] MEDS ORDERED: LACTULOSE 20 GM/30 ML SYRUP UD PO PRN (21:00)
[2022-06-05] MEDS: SENNA 8.6 MG TAB (SENOKOT) PO SCH (21:00)
[2022-06-05] MEDS: LOSARTAN 50MG TABLET PO SCH (21:38)
[2022-06-06 05:22] VITALS: BP 134/81
[2022-06-06] MEDS: **hydrALAZINE** 50 MG TAB PO SCH ×4 (06:24→22:59)
[2022-06-06] MEDS: oxyCODONE 5MG TAB PO SCH ×3 (06:24→16:58)
[2022-06-06] MEDS: METOPROLOL TART 50 MG TAB PO SCH ×3 (06:24→23:00)
[2022-06-06 06:35] LABS: BASO % 0.2 % (0.0-1.0); EOS # 0.3 10^3/uL (0.0-0.5); EOS % 1.4 % (0.0-3.0); HEMATOCRIT 30.1 % (36.0-47.0); HEMOGLOBIN 9.2 g/dl (12.0-15.5); LYMPH % 5.6 % (24.0-44.0); MEAN CORPUSCULAR HEMOGLOBIN 29.7 pg (27.0-33.0); MEAN CORPUSCULAR HGB CONC 30.6 g/dl (32.0-36.5); MEAN CORPUSCULAR VOLUME 97.1 fl (80.0-96.0); MONO # 0.7 10^3/uL (0.0-0.8); MONO % 4.1 % (2.0-8.0); NEUTROPHILS # 15.6 10^3/uL (1.5-8.5); NEUTROPHILS % 88.1 % (36.0-66.0); PLATELET COUNT, AUTOMATED 261 10^3/uL (150-450); WHITE BLOOD COUNT 17.7 10^3/uL (4.0-10.0)
[2022-06-06] MEDS: FLUTICASONE PROP 0.05% NASAL SPRAY 16 GM (FLONASE) NARES SCH ×2 (09:00→20:42)
[2022-06-06] MEDS: GABAPENTIN 100 MG CAP PO SCH ×3 (09:03→20:40)
[2022-06-06] MEDS: ATORVASTATIN 20 MG TAB PO SCH (09:03)
[2022-06-06] MEDS: DIGOXIN 0.125 MG TAB PO SCH (09:03)
[2022-06-06] MEDS: FERROUS SULFATE 325MG TAB PO SCH ×2 (09:03→20:39)
[2022-06-06] MEDS: CHLORTHALIDONE 25 MG TAB PO SCH (09:03)
[2022-06-06] MEDS: PANTOPRAZOLE 40MG TAB (PROTONIX) PO SCH (09:03)
[2022-06-06] MEDS: VITAMIN D 1,000 INTERNATIONAL UNITS TABLET PO SCH (09:03)
[2022-06-06] MEDS: MULTIVITAMINS/MINERALS THERAP 1 TAB PO SCH (09:03)
[2022-06-06] MEDS: DOCUSATE SODIUM 100MG CAPSULE PO SCH ×2 (09:04→20:40)
[2022-06-06] MEDS: SIMETHICONE 80MG CHEW TAB PO SCH ×3 (09:04→20:41)
[2022-06-06] MEDS: LACTOBACILLUS ACIDOPHILUS CAP (BACID) PO SCH ×4 (09:04→20:42)
[2022-06-06] MEDS: ACETAMINOPHEN 500 MG TAB PO SCH ×3 (09:04→20:42)
[2022-06-06] MEDS: ASPIRIN 81MG ENTERIC TABLET PO SCH ×2 (09:04→20:42)
[2022-06-06] MEDS: DICLOFENAC EPOLAMINE 1.3 % PATCH TOP SCH ×2 (09:05→20:51)
[2022-06-06] MEDS: ISOSORBIDE MON. (IMDUR) 30MG XR TAB PO SCH (09:05)
[2022-06-06] MEDS: POLYVINYL ALCOHOL OPHTH SOLN 15ML (LIQUITEARS) OU SCH ×3 (09:06→20:43)
[2022-06-06 14:00] VITALS: BP 122/58
[2022-06-06 17:40] LABS: CALCIUM LEVEL 8.8 MG/DL (8.3-10.6); CREATININE FOR GFR 1.01 MG/DL (0.55-1.30); GLOMERULAR FILTRATION RATE 57.4 (>39); POTASSIUM SERUM 4.8 MMOL/L (3.5-5.1)
[2022-06-06 20:00] VITALS: BP 160/72
[2022-06-06] MEDS: SENNA 8.6 MG TAB (SENOKOT) PO SCH (20:40)
[2022-06-06] MEDS: LOSARTAN 50MG TABLET PO SCH (20:41)
[2022-06-06 22:59] VITALS: BP 144/52
[2022-06-07] MEDS ORDERED: oxyCODONE 5MG TAB PO ONE (04:00)
[2022-06-07 06:00] VITALS: BP 152/78
[2022-06-07] MEDS: METOPROLOL TART 50 MG TAB PO SCH ×3 (06:00→21:07)
[2022-06-07] MEDS: **hydrALAZINE** 50 MG TAB PO SCH ×4 (06:27→21:08)
[2022-06-07 06:36] LABS: BASO % 0.4 % (0.0-1.0); EOS # 0.4 10^3/uL (0.0-0.5); EOS % 4.5 % (0.0-3.0); HEMOGLOBIN 9.4 g/dl (12.0-15.5); LYMPH # 1.1 10^3/uL (1.5-5.0); MEAN CORPUSCULAR HEMOGLOBIN 30.2 pg (27.0-33.0); MEAN CORPUSCULAR HGB CONC 30.3 g/dl (32.0-36.5); MEAN CORPUSCULAR VOLUME 99.7 fl (80.0-96.0); MONO # 0.4 10^3/uL (0.0-0.8); MONO % 5.2 % (2.0-8.0); NEUTROPHILS # 6.3 10^3/uL (1.5-8.5); NEUTROPHILS % 76.5 % (36.0-66.0); PLATELET COUNT, AUTOMATED 255 10^3/uL (150-450); RED BLOOD COUNT 3.11 10^6/uL (4.00-5.40); WHITE BLOOD COUNT 8.2 10^3/uL (4.0-10.0)
[2022-06-07 06:51] LABS: CALCIUM LEVEL 9.4 MG/DL (8.3-10.6); POTASSIUM SERUM 4.9 MMOL/L (3.5-5.1)
[2022-06-07] MEDS: LACTOBACILLUS ACIDOPHILUS CAP (BACID) PO SCH ×4 (08:45→21:07)
[2022-06-07] MEDS: oxyCODONE 5MG TAB PO SCH ×3 (08:45→16:45)
[2022-06-07] MEDS: FERROUS SULFATE 325MG TAB PO SCH ×2 (08:46→21:07)
[2022-06-07] MEDS: CHLORTHALIDONE 25 MG TAB PO SCH (08:46)
[2022-06-07] MEDS: DICLOFENAC EPOLAMINE 1.3 % PATCH TOP SCH ×2 (08:46→21:09)
[2022-06-07] MEDS: ASPIRIN 81MG ENTERIC TABLET PO SCH ×2 (08:46→21:08)
[2022-06-07] MEDS: DOCUSATE SODIUM 100MG CAPSULE PO SCH ×2 (08:46→21:00)
[2022-06-07] MEDS: ISOSORBIDE MON. (IMDUR) 30MG XR TAB PO SCH (08:47)
[2022-06-07] MEDS: DIGOXIN 0.125 MG TAB PO SCH (08:48)
[2022-06-07] MEDS: SIMETHICONE 80MG CHEW TAB PO SCH ×3 (08:48→21:08)
[2022-06-07] MEDS: ATORVASTATIN 20 MG TAB PO SCH (08:48)
[2022-06-07] MEDS: GABAPENTIN 100 MG CAP PO SCH ×3 (08:49→21:07)
[2022-06-07] MEDS: MULTIVITAMINS/MINERALS THERAP 1 TAB PO SCH (08:49)
[2022-06-07] MEDS: ACETAMINOPHEN 500 MG TAB PO SCH ×3 (08:49→21:08)
[2022-06-07] MEDS: PANTOPRAZOLE 40MG TAB (PROTONIX) PO SCH (08:49)
[2022-06-07] MEDS: FLUTICASONE PROP 0.05% NASAL SPRAY 16 GM (FLONASE) NARES SCH ×2 (08:49→21:09)
[2022-06-07] MEDS: VITAMIN D 1,000 INTERNATIONAL UNITS TABLET PO SCH (08:49)
[2022-06-07] MEDS: POLYVINYL ALCOHOL OPHTH SOLN 15ML (LIQUITEARS) OU SCH ×3 (08:50→21:09)
[2022-06-07 14:00] VITALS: BP 118/56
[2022-06-07 20:00] VITALS: BP 151/63
[2022-06-07] MEDS: SENNA 8.6 MG TAB (SENOKOT) PO SCH (21:00)
[2022-06-07] MEDS: LOSARTAN 50MG TABLET PO SCH (21:08)
[2022-06-08 06:00] VITALS: BP 164/76
[2022-06-08] MEDS: **hydrALAZINE** 50 MG TAB PO SCH ×4 (06:17→20:06)
[2022-06-08] MEDS: oxyCODONE 5MG TAB PO SCH ×3 (06:18→17:09)
[2022-06-08] MEDS: METOPROLOL TART 50 MG TAB PO SCH (06:18)
[2022-06-08 06:29] LABS: BASO % 0.5 % (0.0-1.0); EOS # 0.4 10^3/uL (0.0-0.5); EOS % 5.6 % (0.0-3.0); HEMATOCRIT 30.4 % (36.0-47.0); HEMOGLOBIN 9.3 g/dl (12.0-15.5); LYMPH # 1.1 10^3/uL (1.5-5.0); LYMPH % 15.8 % (24.0-44.0); MEAN CORPUSCULAR HEMOGLOBIN 30.1 pg (27.0-33.0); MEAN CORPUSCULAR HGB CONC 30.6 g/dl (32.0-36.5); MEAN CORPUSCULAR VOLUME 98.4 fl (80.0-96.0); MONO # 0.6 10^3/uL (0.0-0.8); MONO % 8.7 % (2.0-8.0); NEUTROPHILS # 4.6 10^3/uL (1.5-8.5); NEUTROPHILS % 68.9 % (36.0-66.0); PLATELET COUNT, AUTOMATED 282 10^3/uL (150-450); RED BLOOD COUNT 3.09 10^6/uL (4.00-5.40); WHITE BLOOD COUNT 6.6 10^3/uL (4.0-10.0)
[2022-06-08] MEDS: DOCUSATE SODIUM 100MG CAPSULE PO SCH ×2 (09:44→19:57)
[2022-06-08] MEDS: LACTOBACILLUS ACIDOPHILUS CAP (BACID) PO SCH ×4 (09:44→19:57)
[2022-06-08] MEDS: ASPIRIN 81MG ENTERIC TABLET PO SCH ×2 (09:44→19:57)
[2022-06-08] MEDS: FERROUS SULFATE 325MG TAB PO SCH ×2 (09:44→19:57)
[2022-06-08] MEDS: POLYVINYL ALCOHOL OPHTH SOLN 15ML (LIQUITEARS) OU SCH ×3 (09:45→19:59)
[2022-06-08] MEDS: VITAMIN D 1,000 INTERNATIONAL UNITS TABLET PO SCH (09:45)
[2022-06-08] MEDS: FLUTICASONE PROP 0.05% NASAL SPRAY 16 GM (FLONASE) NARES SCH ×2 (09:45→19:59)
[2022-06-08] MEDS: DICLOFENAC EPOLAMINE 1.3 % PATCH TOP SCH ×2 (09:45→19:59)
[2022-06-08] MEDS: ACETAMINOPHEN 500 MG TAB PO SCH ×3 (09:46→19:57)
[2022-06-08] MEDS: GABAPENTIN 100 MG CAP PO SCH ×3 (09:46→19:58)
[2022-06-08] MEDS: MULTIVITAMINS/MINERALS THERAP 1 TAB PO SCH (09:46)
[2022-06-08] MEDS: SIMETHICONE 80MG CHEW TAB PO SCH ×3 (09:46→19:57)
[2022-06-08] MEDS: PANTOPRAZOLE 40MG TAB (PROTONIX) PO SCH (09:46)
[2022-06-08] MEDS: DIGOXIN 0.125 MG TAB PO SCH (09:47)
[2022-06-08] MEDS: ISOSORBIDE MON. (IMDUR) 30MG XR TAB PO SCH (09:47)
[2022-06-08] MEDS: ATORVASTATIN 20 MG TAB PO SCH (09:47)
[2022-06-08] MEDS: CHLORTHALIDONE 25 MG TAB PO SCH (09:48)
[2022-06-08 14:00] VITALS: BP 128/64
[2022-06-08] MEDS: METOPROLOL TART 25 MG TABLET PO SCH ×2 (15:05→20:06)
[2022-06-08] MEDS: SENNA 8.6 MG TAB (SENOKOT) PO SCH (19:57)
[2022-06-08] MEDS: LOSARTAN 50MG TABLET PO SCH (20:07)
[2022-06-08 20:14] VITALS: BP 126/56
[2022-06-09] MEDS ORDERED: RAMELTEON 8 MG TAB (ROZEREM) PO PRN (03:00)
[2022-06-09] MEDS: METOPROLOL TART 25 MG TABLET PO SCH ×3 (05:54→23:24)
[2022-06-09] MEDS: **hydrALAZINE** 50 MG TAB PO SCH ×4 (05:55→23:23)
[2022-06-09] MEDS: oxyCODONE 5MG TAB PO SCH ×3 (06:00→17:00)
[2022-06-09 06:45] LABS: BASO % 0.2 % (0.0-1.0); EOS # 0.2 10^3/uL (0.0-0.5); EOS % 1.6 % (0.0-3.0); HEMATOCRIT 30.7 % (36.0-47.0); HEMOGLOBIN 9.1 g/dl (12.0-15.5); LYMPH # 0.4 10^3/uL (1.5-5.0); LYMPH % 4.1 % (24.0-44.0); MEAN CORPUSCULAR HEMOGLOBIN 29.6 pg (27.0-33.0); MEAN CORPUSCULAR HGB CONC 29.6 g/dl (32.0-36.5); MONO # 0.3 10^3/uL (0.0-0.8); MONO % 3.3 % (2.0-8.0); NEUTROPHILS # 9.3 10^3/uL (1.5-8.5); NEUTROPHILS % 89.8 % (36.0-66.0); PLATELET COUNT, AUTOMATED 276 10^3/uL (150-450); RED BLOOD COUNT 3.07 10^6/uL (4.00-5.40); WHITE BLOOD COUNT 10.3 10^3/uL (4.0-10.0)
[2022-06-09 07:05] LABS: CALCIUM LEVEL 9.1 MG/DL (8.3-10.6); CREATININE FOR GFR 0.98 MG/DL (0.55-1.30); GLOMERULAR FILTRATION RATE 59.4 (>39); POTASSIUM SERUM 5.3 MMOL/L (3.5-5.1)
[2022-06-09] MEDS: LACTOBACILLUS ACIDOPHILUS CAP (BACID) PO SCH ×4 (08:00→23:19)
[2022-06-09] MEDS: FLUTICASONE PROP 0.05% NASAL SPRAY 16 GM (FLONASE) NARES SCH ×2 (09:00→23:26)
[2022-06-09] MEDS: DOCUSATE SODIUM 100MG CAPSULE PO SCH ×2 (09:00→23:19)
[2022-06-09] MEDS: POLYVINYL ALCOHOL OPHTH SOLN 15ML (LIQUITEARS) OU SCH ×3 (09:00→23:27)
[2022-06-09] MEDS: FERROUS SULFATE 325MG TAB PO SCH ×2 (09:00→23:18)
[2022-06-09] MEDS: MULTIVITAMINS/MINERALS THERAP 1 TAB PO SCH (09:00)
[2022-06-09] MEDS: VITAMIN D 1,000 INTERNATIONAL UNITS TABLET PO SCH (09:00)
[2022-06-09] MEDS: SIMETHICONE 80MG CHEW TAB PO SCH ×3 (09:00→23:19)
[2022-06-09] MEDS: GABAPENTIN 100 MG CAP PO SCH ×3 (09:11→23:18)
[2022-06-09] MEDS: ACETAMINOPHEN 500 MG TAB PO SCH ×3 (09:12→23:25)
[2022-06-09 09:13] LABS: CALCIUM LEVEL 9.6 MG/DL (8.3-10.6); CREATININE FOR GFR 0.99 MG/DL (0.55-1.30); GLOMERULAR FILTRATION RATE 58.7 (>39); POTASSIUM SERUM 5.5 MMOL/L (3.5-5.1)
[2022-06-09 09:35] VITALS: BP 149/77
[2022-06-09] MEDS ORDERED: PATIROMER SORBITEX CALCIUM 8.4 GM POWDER PACKET (VELTASSA) PO ONE (10:00)
[2022-06-09] MEDS ORDERED: ISOVUE-370 76% 100ML VIAL As Ordered ONE (10:14)
[2022-06-09] MEDS: ASPIRIN 81MG ENTERIC TABLET PO SCH ×2 (11:29→23:19)
[2022-06-09] MEDS: CHLORTHALIDONE 25 MG TAB PO SCH (11:29)
[2022-06-09] MEDS: DICLOFENAC EPOLAMINE 1.3 % PATCH TOP SCH ×3 (11:29→23:16)
[2022-06-09] MEDS: DIGOXIN 0.125 MG TAB PO SCH (11:30)
[2022-06-09] MEDS: ATORVASTATIN 20 MG TAB PO SCH (11:31)
[2022-06-09] MEDS: ISOSORBIDE MON. (IMDUR) 30MG XR TAB PO SCH (11:31)
[2022-06-09] MEDS: guaiFENesin 200 MG TAB PO SCH ×2 (16:00→23:18)
[2022-06-09] MEDS: PANTOPRAZOLE 40MG TAB (PROTONIX) PO SCH (17:00)
[2022-06-09 19:57] VITALS: BP 138/58
[2022-06-09] MEDS: COMBIVENT RESPIMAT 100-20MCG INHALER 4GM INH SCH (20:11)
[2022-06-09] MEDS ORDERED: CEFDINIR 300 MG CAP (OMNICEF) PO SCH (21:00)
[2022-06-09] MEDS: SENNA 8.6 MG TAB (SENOKOT) PO SCH (23:25)
[2022-06-09] MEDS: LOSARTAN 50MG TABLET PO SCH (23:25)
[2022-06-09] MEDS: CEFDINIR 300 MG CAP (OMNICEF) PO SCH (23:29)
[2022-06-10] VITALS (7 sets, daily range): BP systolic 110–155; BP diastolic 55–70
[2022-06-10] MEDS: **hydrALAZINE** 50 MG TAB PO SCH ×4 (05:46→21:29)
[2022-06-10] MEDS: METOPROLOL TART 25 MG TABLET PO SCH ×3 (05:46→21:31)
[2022-06-10] MEDS: oxyCODONE 5MG TAB PO SCH (06:30)
[2022-06-10 06:50] LABS: BASO % 0.2 % (0.0-1.0); EOS # 0.2 10^3/uL (0.0-0.5); EOS % 2.4 % (0.0-3.0); HEMATOCRIT 28.4 % (36.0-47.0); HEMOGLOBIN 8.4 g/dl (12.0-15.5); LYMPH # 0.3 10^3/uL (1.5-5.0); LYMPH % 5.3 % (24.0-44.0); MEAN CORPUSCULAR HEMOGLOBIN 29.6 pg (27.0-33.0); MEAN CORPUSCULAR HGB CONC 29.6 g/dl (32.0-36.5); MONO # 0.5 10^3/uL (0.0-0.8); MONO % 7.6 % (2.0-8.0); NEUTROPHILS # 5.2 10^3/uL (1.5-8.5); PLATELET COUNT, AUTOMATED 240 10^3/uL (150-450); RED BLOOD COUNT 2.84 10^6/uL (4.00-5.40); WHITE BLOOD COUNT 6.2 10^3/uL (4.0-10.0)
[2022-06-10] MEDS: COMBIVENT RESPIMAT 100-20MCG INHALER 4GM INH SCH ×3 (07:00→20:52)
[2022-06-10 07:21] LABS: CALCIUM LEVEL 8.7 MG/DL (8.3-10.6); CREATININE FOR GFR 1.07 MG/DL (0.55-1.30); GLOMERULAR FILTRATION RATE 53.7 (>39); POTASSIUM SERUM 5.4 MMOL/L (3.5-5.1)
[2022-06-10] MEDS: ASPIRIN 81MG ENTERIC TABLET PO SCH ×2 (09:29→21:30)
[2022-06-10] MEDS: CHLORTHALIDONE 25 MG TAB PO SCH (09:29)
[2022-06-10] MEDS: DOCUSATE SODIUM 100MG CAPSULE PO SCH ×2 (09:29→21:00)
[2022-06-10] MEDS: FERROUS SULFATE 325MG TAB PO SCH ×2 (09:29→21:29)
[2022-06-10] MEDS: LACTOBACILLUS ACIDOPHILUS CAP (BACID) PO SCH ×4 (09:29→21:00)
[2022-06-10] MEDS: MULTIVITAMINS/MINERALS THERAP 1 TAB PO SCH (09:30)
[2022-06-10] MEDS: ATORVASTATIN 20 MG TAB PO SCH (09:30)
[2022-06-10] MEDS: guaiFENesin 200 MG TAB PO SCH ×3 (09:30→21:31)
[2022-06-10] MEDS: DIGOXIN 0.125 MG TAB PO SCH (09:30)
[2022-06-10] MEDS: ISOSORBIDE MON. (IMDUR) 30MG XR TAB PO SCH (09:30)
[2022-06-10] MEDS: CEFDINIR 300 MG CAP (OMNICEF) PO SCH (09:30)
[2022-06-10] MEDS: PANTOPRAZOLE 40MG TAB (PROTONIX) PO SCH (09:30)
[2022-06-10] MEDS: GABAPENTIN 100 MG CAP PO SCH ×3 (09:30→21:00)
[2022-06-10] MEDS: VITAMIN D 1,000 INTERNATIONAL UNITS TABLET PO SCH (09:31)
[2022-06-10] MEDS: POLYVINYL ALCOHOL OPHTH SOLN 15ML (LIQUITEARS) OU SCH ×3 (09:31→21:00)
[2022-06-10] MEDS: FLUTICASONE PROP 0.05% NASAL SPRAY 16 GM (FLONASE) NARES SCH ×2 (09:31→21:00)
[2022-06-10] MEDS: SIMETHICONE 80MG CHEW TAB PO SCH ×3 (09:32→21:00)
[2022-06-10] MEDS: ACETAMINOPHEN 500 MG TAB PO SCH ×3 (09:32→21:00)
[2022-06-10] MEDS ORDERED: NS 500 ML IV ONE (10:00)
[2022-06-10] MEDS: PIPERACILLIN/TAZOBACTAM SOD 3.375 GM in D5W MINI-BAG PLUS 50 ML IV SCH ×3 (10:20→21:41)
[2022-06-10] MEDS: amLODIPine 5 MG TAB PO SCH ×2 (10:33→21:30)
[2022-06-10] MEDS ORDERED: PATIROMER SORBITEX CALCIUM 8.4 GM POWDER PACKET (VELTASSA) PO ONE (12:00)
[2022-06-10] MEDS ORDERED: oxyCODONE 5MG TAB PO PRN (12:20)
[2022-06-10 15:38] LABS: ABG BASE EXCESS 1.3 (-2.0-2.0); ABG HCO3 26.6 MEQ/L (22.0-26.0); ABG O2 SATURATION 92.7 % (95.0-99.0); ABG PARTIAL PRESSURE O2 63.6 mmHg (75.0-100.0); ABG STANDARD HCO3 25.6 MEQ/L (22.0-26.0); ABG TOTAL CO2 27.9 MEQ/L (23.0-31.0); ABG pH (ARTERIAL) 7.389 UNITS (7.350-7.450)
[2022-06-10] MEDS: SENNA 8.6 MG TAB (SENOKOT) PO SCH (21:00)
[2022-06-10] MEDS: DICLOFENAC EPOLAMINE 1.3 % PATCH TOP SCH (21:42)
[2022-06-10 22:40] LABS: ABG BASE EXCESS 2.4 (-2.0-2.0); ABG HCO3 28.1 MEQ/L (22.0-26.0); ABG O2 SATURATION 93.9 % (95.0-99.0); ABG STANDARD HCO3 26.5 MEQ/L (22.0-26.0); ABG TOTAL CO2 29.6 MEQ/L (23.0-31.0); ABG pH (ARTERIAL) 7.376 UNITS (7.350-7.450)
[2022-06-10] MEDS ORDERED: OSELTAMIVIR PHOSPHATE 75 MG CAP (TAMIFLU) PO ONE (23:00)
[2022-06-11] MEDS ORDERED: CHLO25TA PO (02:25)
[2022-06-11] MEDS ORDERED: ASPI-161 PO (02:25)
[2022-06-11] MEDS ORDERED: SIME80CH5 PO (02:25)
[2022-06-11] MEDS ORDERED: HYDR50TA PO (02:25)
[2022-06-11] MEDS ORDERED: DICL1PAT6 TD (02:25)
[2022-06-11] MEDS ORDERED: METO75TA PO (02:25)
[2022-06-11] MEDS ORDERED: SENN8.6T28 PO (02:25)
[2022-06-11] MEDS ORDERED: ALBU8.5H INH (02:25)
[2022-06-11] MEDS ORDERED: RISATAB3 PO (02:25)
[2022-06-11] MEDS ORDERED: ISOS1TAB35 PO (02:25)
[2022-06-11] MEDS ORDERED: OXYC-517 PO (02:25)
[2022-06-11] MEDS ORDERED: VITMTA PO (02:25)
[2022-06-11] MEDS ORDERED: LACT20EL PO (02:25)
[2022-06-11] MEDS ORDERED: ZOSY1SOL5 IV (02:25)
[2022-06-11] MEDS ORDERED: ONDA4TAB6 PO (02:25)
[2022-06-11] MEDS ORDERED: DIGO0.123 PO (02:25)
[2022-06-11] MEDS ORDERED: GUAI200T6 PO (02:25)
[2022-06-11] MEDS ORDERED: AMLO1TAB24 PO (02:25)
[2022-06-11] MEDS ORDERED: GABA-1171 PO (02:25)
[2022-06-11] MEDS ORDERED: CALC1TAB63 PO (02:25)
[2022-06-11] MEDS ORDERED: ROZE8TAB16 PO (02:25)
[2022-06-11] MEDS ORDERED: PANT-23 PO (02:25)
[2022-06-11] MEDS ORDERED: TAMI30CA PO (02:25)
[2022-06-11] MEDS ORDERED: COMBAER6 INH (02:28)
[2022-06-11] MEDS ORDERED: OSELTAMIVIR PHOSPHATE 30MG CAPSULE PO SCH (09:00)
== END 2022-06-11 01:18 | disposition short-term general hospital (02) | DRG 560 ==
LOC: M PM&R 05-27 17:26
PROVIDERS: ADMIT Physical Medicine & Rehabilitation; ATTEND Physical Medicine & Rehabilitation
DX: S72.142D Displaced intertrochanteric fracture of left femur, subsequent encounter for closed fracture with routine healing (principal); D62 Acute posthemorrhagic anemia; M96.840 Postprocedural hematoma of a musculoskeletal structure following a musculoskeletal system procedure; M48.54XA Collapsed vertebra, not elsewhere classified, thoracic region, initial encounter for fracture; J98.11 Atelectasis; I10 Essential (primary) hypertension; I25.10 Atherosclerotic heart disease of native coronary artery without angina pectoris; E78.5 Hyperlipidemia, unspecified; K21.9 Gastro-esophageal reflux disease without esophagitis; I48.91 Unspecified atrial fibrillation; R13.10 Dysphagia, unspecified; K59.00 Constipation, unspecified; R33.9 Retention of urine, unspecified; R26.89 Other abnormalities of gait and mobility; R41.0 Disorientation, unspecified; R47.81 Slurred speech; R41.89 Other symptoms and signs involving cognitive functions and awareness; E55.9 Vitamin D deficiency, unspecified; I71.60 Thoracoabdominal aortic aneurysm, without rupture, unspecified; R09.02 Hypoxemia; E87.5 Hyperkalemia; E87.70 Fluid overload, unspecified; N32.9 Bladder disorder, unspecified; J10.1 Influenza due to other identified influenza virus with other respiratory manifestations; I27.20 Pulmonary hypertension, unspecified; Z74.1 Need for assistance with personal care; Z74.09 Other reduced mobility; Z95.3 Presence of xenogenic heart valve; Z95.5 Presence of coronary angioplasty implant and graft; Z79.82 Long term (current) use of aspirin; Z79.899 Other long term (current) drug therapy; Z88.5 Allergy status to narcotic agent; Z87.891 Personal history of nicotine dependence; Z87.19 Personal history of other diseases of the digestive system; Z92.3 Personal history of irradiation; Z88.8 Allergy status to other drugs, medicaments and biological substances; Z91.018 Allergy to other foods; Z86.011 Personal history of benign neoplasm of the brain

== ENCOUNTER 2022-06-11 01:08 | Inpatient (IN) | payer MEDICARE, MEDICAID ==
[2022-06-11] VITALS (18 sets, daily range): BP systolic 108–147; BP diastolic 55–67; O2SAT 82–93
[~2022-06-11] VITALS: Ht 167.6 cm; Wt 55.4 kg
[~2022-06-11 01:08] MED LIST changes: +ASPI81TAEC PO; +DIGO0.123 PO; +LOPR1TAB6 PO; +MYLASSUD PO
[2022-06-11 02:12] LABS: HEMATOCRIT 28.1 % (36.0-47.0); HEMOGLOBIN 8.5 g/dl (12.0-15.5); MEAN CORPUSCULAR HEMOGLOBIN 29.8 pg (27.0-33.0); MEAN CORPUSCULAR HGB CONC 30.2 g/dl (32.0-36.5); MEAN CORPUSCULAR VOLUME 98.6 fl (80.0-96.0); PLATELET COUNT, AUTOMATED 237 10^3/uL (150-450); RED BLOOD COUNT 2.85 10^6/uL (4.00-5.40); WHITE BLOOD COUNT 8.7 10^3/uL (4.0-10.0)
[2022-06-11 02:25] LABS: INR 1.05; PROTHROMBIN TIME 13.9 SECONDS (12.5-14.5)
[2022-06-11] MEDS ORDERED: PANT-23 PO (02:25)
[2022-06-11] MEDS ORDERED: DICL1PAT6 TD (02:25)
[2022-06-11] MEDS ORDERED: ZOSY1SOL5 IV (02:25)
[2022-06-11] MEDS ORDERED: ROZE8TAB16 PO (02:25)
[2022-06-11] MEDS ORDERED: ALBU8.5H INH (02:25)
[2022-06-11] MEDS ORDERED: LACT20EL PO (02:25)
[2022-06-11] MEDS ORDERED: RISATAB3 PO (02:25)
[2022-06-11] MEDS ORDERED: CALC1TAB63 PO (02:25)
[2022-06-11] MEDS ORDERED: METO75TA PO (02:25)
[2022-06-11] MEDS ORDERED: OXYC-517 PO (02:25)
[2022-06-11] MEDS ORDERED: ONDA4TAB6 PO (02:25)
[2022-06-11] MEDS ORDERED: SIME80CH5 PO (02:25)
[2022-06-11] MEDS ORDERED: ISOS1TAB35 PO (02:25)
[2022-06-11] MEDS ORDERED: CHLO25TA PO (02:25)
[2022-06-11] MEDS ORDERED: VITMTA PO (02:25)
[2022-06-11] MEDS ORDERED: TAMI30CA PO (02:25)
[2022-06-11] MEDS ORDERED: HYDR50TA PO (02:25)
[2022-06-11] MEDS ORDERED: GUAI200T6 PO (02:25)
[2022-06-11] MEDS ORDERED: GABA-1171 PO (02:25)
[2022-06-11] MEDS ORDERED: DIGO0.123 PO (02:25)
[2022-06-11] MEDS ORDERED: ASPI-161 PO (02:25)
[2022-06-11] MEDS ORDERED: SENN8.6T28 PO (02:25)
[2022-06-11] MEDS ORDERED: AMLO1TAB24 PO (02:25)
[2022-06-11] MEDS ORDERED: COMBAER6 INH (02:28)
[2022-06-11] MEDS ORDERED: HOME MED LIST COMPLETE! XX SCH (02:30)
[2022-06-11] MEDS ORDERED: RAMELTEON 8 MG TAB (ROZEREM) PO PRN (02:35)
[2022-06-11] MEDS ORDERED: LACTULOSE 20 GM/30 ML SYRUP UD PO PRN (02:35)
[2022-06-11] MEDS ORDERED: ONDANSETRON 4MG ORAL DISINTEGRATING TAB PO PRN (02:35)
[2022-06-11] MEDS ORDERED: oxyCODONE 5MG TAB PO PRN (02:35)
[2022-06-11 02:48] LABS: ALBUMIN 2.8 G/DL (3.2-5.2); BILIRUBIN,TOTAL 0.5 MG/DL (0.3-1.2); CALCIUM LEVEL 8.7 MG/DL (8.3-10.6); CREATININE FOR GFR 1.14 MG/DL (0.55-1.30); GLOMERULAR FILTRATION RATE 49.9 (>39); POTASSIUM SERUM 4.5 MMOL/L (3.5-5.1); TOTAL PROTEIN 5.5 G/DL (5.7-8.2)
[2022-06-11] MEDS ORDERED: PILL CUTTER 1 EACH XX PRN (03:30)
[2022-06-11] MEDS: PIPERACILLIN/TAZOBACTAM SOD 3.375 GM in D5W MINI-BAG PLUS 50 ML IV SCH ×4 (04:45→22:02)
[2022-06-11] MEDS ORDERED: METOPROLOL TART 25 MG TABLET PO SCH (06:00)
[2022-06-11] MEDS: IPRATROPIUM 0.5MG/ALBUTEROL 2.5MG INH SOL UD 3ML (DUONEB) NEB SCH ×3 (08:00→19:08)
[2022-06-11] MEDS ORDERED: CHLORTHALIDONE 25 MG TAB PO SCH (09:00)
[2022-06-11] MEDS ORDERED: amLODIPine 5 MG TAB PO SCH (09:00)
[2022-06-11] MEDS ORDERED: GABAPENTIN 100 MG CAP PO SCH (09:00)
[2022-06-11] MEDS ORDERED: FERROUS SULFATE 325MG TAB PO SCH (09:00)
[2022-06-11] MEDS: ENOXAPARIN 40MG/0.4ML SYRINGE (J1650 PER 10MG) SC SCH (10:01)
[2022-06-11] MEDS: ISOSORBIDE MON. (IMDUR) 30MG XR TAB PO SCH (10:02)
[2022-06-11] MEDS: FLUTICASONE PROP 0.05% NASAL SPRAY 16 GM (FLONASE) SCH ×2 (10:02→21:26)
[2022-06-11] MEDS: ATORVASTATIN 20 MG TAB PO SCH (10:02)
[2022-06-11] MEDS: DOCUSATE SODIUM 100MG CAPSULE PO SCH ×2 (10:02→21:25)
[2022-06-11] MEDS: **hydrALAZINE** 50 MG TAB PO SCH ×2 (10:03→13:10)
[2022-06-11] MEDS: ASPIRIN 81MG ENTERIC TABLET PO SCH ×2 (10:03→21:25)
[2022-06-11] MEDS: guaiFENesin ER 600 MG TAB PO SCH ×2 (10:03→21:25)
[2022-06-11] MEDS: DIGOXIN 0.125 MG TAB PO SCH (10:04)
[2022-06-11] MEDS: DICLOFENAC EPOLAMINE 1.3% PATCH TD SCH ×2 (10:04→21:27)
[2022-06-11] MEDS: PANTOPRAZOLE 40MG TAB (PROTONIX) PO SCH (10:10)
[2022-06-11] MEDS: OSELTAMIVIR PHOSPHATE 30MG CAPSULE PO SCH ×2 (10:10→21:26)
[2022-06-11] MEDS: LACTOBACILLUS ACIDOPHILUS CAP (BACID) PO SCH ×5 (10:10→21:25)
[2022-06-11] MEDS ORDERED: cefTRIAXone SOD 1 GM in D5W MINI-BAG PLUS 50 ML IV SCH (11:10)
[2022-06-11 11:58] LABS: ABG BASE EXCESS 3.1 (-2.0-2.0); ABG HCO3 28.4 MEQ/L (22.0-26.0); ABG O2 SATURATION 87.1 % (95.0-99.0); ABG PARTIAL PRESSURE CO2 46.8 mmHg (35.0-45.0); ABG PARTIAL PRESSURE O2 50.1 mmHg (75.0-100.0); ABG STANDARD HCO3 27.1 MEQ/L (22.0-26.0); ABG TOTAL CO2 29.8 MEQ/L (23.0-31.0); ABG pH (ARTERIAL) 7.401 UNITS (7.350-7.450)
[2022-06-11] MEDS: ACETAMINOPHEN TAB 650MG DOSE (2X325MG) PO PRN (13:10)
[2022-06-11 14:22] LABS: ABG HCO3 28.3 MEQ/L (22.0-26.0); ABG O2 SATURATION 89.8 % (95.0-99.0); ABG PARTIAL PRESSURE CO2 46.8 mmHg (35.0-45.0); ABG PARTIAL PRESSURE O2 56.6 mmHg (75.0-100.0); ABG TOTAL CO2 29.7 MEQ/L (23.0-31.0); ABG pH (ARTERIAL) 7.399 UNITS (7.350-7.450)
[2022-06-11] MEDS ORDERED: methylPREDNISolone 40MG 1ML VIAL IV ONE (16:35)
[2022-06-11] MEDS ORDERED: VANCOMYCIN HCL IV SCH (16:35)
[2022-06-11] MEDS ORDERED: FLUID PLACE HOLDER IV SCH (16:35)
[2022-06-11] MEDS ORDERED: FUROSEMIDE 20MG/2ML VIAL IV ONE (16:40)
[2022-06-11] MEDS ORDERED: VANCOMYCIN HCL 750 MG, VIAL MATE ADAPTER 1 EACH in D5W 250 ML IV ONE (18:00)
[2022-06-11] MEDS ORDERED: VANCOMYCIN HCL 500 MG in D5W MINI-BAG PLUS 100 ML IV ONE (19:00)
[2022-06-11] MEDS ORDERED: LEVALBUTEROL 1.25MG 0.5ML CONCENTRATE NEB INH SCH (20:00)
[2022-06-11] MEDS ORDERED: LOSARTAN 50MG TABLET PO SCH (21:00)
[2022-06-11] MEDS: SENNA 8.6 MG TAB (SENOKOT) PO SCH (21:26)
[2022-06-11] MEDS ORDERED: RAMELTEON 8 MG TAB (ROZEREM) PO ONE (23:05)
[2022-06-12 00:29] VITALS: BP 136/70
[2022-06-12] MEDS: IPRATROPIUM 0.5MG/ALBUTEROL 2.5MG INH SOL UD 3ML (DUONEB) NEB SCH ×4 (01:16→19:15)
[2022-06-12 03:51] VITALS: BP 163/70
[2022-06-12] MEDS: PIPERACILLIN/TAZOBACTAM SOD 3.375 GM in D5W MINI-BAG PLUS 50 ML IV SCH ×4 (04:07→21:38)
[2022-06-12] MEDS: methylPREDNISolone 40MG 1ML VIAL IV SCH ×2 (04:07→16:14)
[2022-06-12 05:14] LABS: HEMATOCRIT 29.5 % (36.0-47.0); MEAN CORPUSCULAR HEMOGLOBIN 29.8 pg (27.0-33.0); MEAN CORPUSCULAR HGB CONC 30.5 g/dl (32.0-36.5); MEAN CORPUSCULAR VOLUME 97.7 fl (80.0-96.0); PLATELET COUNT, AUTOMATED 247 10^3/uL (150-450); RED BLOOD COUNT 3.02 10^6/uL (4.00-5.40)
[2022-06-12 05:42] LABS: CALCIUM LEVEL 8.8 MG/DL (8.3-10.6); CREATININE FOR GFR 1.11 MG/DL (0.55-1.30); GLOMERULAR FILTRATION RATE 51.4 (>39); POTASSIUM SERUM 4.2 MMOL/L (3.5-5.1)
[2022-06-12 06:19] LABS: ABG BASE EXCESS 1.5 (-2.0-2.0); ABG HCO3 26.9 MEQ/L (22.0-26.0); ABG PARTIAL PRESSURE CO2 45.9 mmHg (35.0-45.0); ABG PARTIAL PRESSURE O2 103.3 mmHg (75.0-100.0); ABG STANDARD HCO3 25.8 MEQ/L (22.0-26.0); ABG TOTAL CO2 28.3 MEQ/L (23.0-31.0); ABG pH (ARTERIAL) 7.385 UNITS (7.350-7.450)
[2022-06-12 07:39] LABS: VANCOMYCIN RANDOM 16.7 UG/ML
[2022-06-12] MEDS: ENOXAPARIN 40MG/0.4ML SYRINGE (J1650 PER 10MG) SC SCH (08:37)
[2022-06-12] MEDS: ISOSORBIDE MON. (IMDUR) 30MG XR TAB PO SCH (08:37)
[2022-06-12] MEDS: DICLOFENAC EPOLAMINE 1.3% PATCH TD SCH ×2 (08:37→20:26)
[2022-06-12] MEDS: guaiFENesin ER 600 MG TAB PO SCH ×2 (08:38→20:27)
[2022-06-12] MEDS: ATORVASTATIN 20 MG TAB PO SCH (08:38)
[2022-06-12] MEDS: OSELTAMIVIR PHOSPHATE 30MG CAPSULE PO SCH ×2 (08:38→20:27)
[2022-06-12] MEDS: LACTOBACILLUS ACIDOPHILUS CAP (BACID) PO SCH ×4 (08:38→20:27)
[2022-06-12] MEDS: ASPIRIN 81MG ENTERIC TABLET PO SCH ×2 (08:38→20:27)
[2022-06-12] MEDS: DIGOXIN 0.125 MG TAB PO SCH (08:38)
[2022-06-12] MEDS: PANTOPRAZOLE 40MG TAB (PROTONIX) PO SCH (08:38)
[2022-06-12] MEDS: DOCUSATE SODIUM 100MG CAPSULE PO SCH ×2 (08:38→20:27)
[2022-06-12] MEDS: FLUTICASONE PROP 0.05% NASAL SPRAY 16 GM (FLONASE) SCH ×2 (08:39→20:28)
[2022-06-12 12:00] VITALS: BP 129/59
[2022-06-12] MEDS ORDERED: VANCOMYCIN HCL 1,000 MG, VIAL MATE ADAPTER 1 EACH in D5W 250 ML IV SCH (12:00)
[2022-06-12] MEDS ORDERED: FUROSEMIDE 20MG/2ML VIAL IV ONE (12:00)
[2022-06-12] MEDS: POLYVINYL ALCOHOL OPHTH SOLN 15ML (LIQUITEARS) OU PRN ×2 (15:13→20:41)
[2022-06-12 16:00] VITALS: BP 136/67
[2022-06-12 20:00] VITALS: BP 153/71
[2022-06-12] MEDS: SENNA 8.6 MG TAB (SENOKOT) PO SCH (20:27)
[2022-06-12] MEDS ORDERED: RAMELTEON 8 MG TAB (ROZEREM) PO ONE (21:55)
[2022-06-13] VITALS (8 sets, daily range): BP systolic 140–175; BP diastolic 65–75; O2SAT 90
[2022-06-13] MEDS: IPRATROPIUM 0.5MG/ALBUTEROL 2.5MG INH SOL UD 3ML (DUONEB) NEB SCH ×4 (02:11→20:00)
[2022-06-13] MEDS: ACETAMINOPHEN TAB 650MG DOSE (2X325MG) PO PRN ×2 (03:40→20:30)
[2022-06-13] MEDS: POLYVINYL ALCOHOL OPHTH SOLN 15ML (LIQUITEARS) OU PRN ×2 (03:42→08:12)
[2022-06-13] MEDS: methylPREDNISolone 40MG 1ML VIAL IV SCH ×2 (04:33→15:24)
[2022-06-13] MEDS: PIPERACILLIN/TAZOBACTAM SOD 3.375 GM in D5W MINI-BAG PLUS 50 ML IV SCH ×4 (04:33→22:05)
[2022-06-13] MEDS ORDERED: NITROGLYCERIN 0.3MG SUBL TAB SL PRN (04:40)
[2022-06-13 04:42] LABS: HEMATOCRIT 28.4 % (36.0-47.0); HEMOGLOBIN 8.8 g/dl (12.0-15.5); MEAN CORPUSCULAR HEMOGLOBIN 29.8 pg (27.0-33.0); MEAN CORPUSCULAR VOLUME 96.3 fl (80.0-96.0); PLATELET COUNT, AUTOMATED 255 10^3/uL (150-450); RED BLOOD COUNT 2.95 10^6/uL (4.00-5.40); WHITE BLOOD COUNT 10.7 10^3/uL (4.0-10.0)
[2022-06-13] MEDS: NITROGLYCERIN 0.4MG SUBL TABLET SL PRN ×3 (04:50→05:04)
[2022-06-13 05:13] LABS: CALCIUM LEVEL 8.7 MG/DL (8.3-10.6); CREATININE FOR GFR 1.12 MG/DL (0.55-1.30); GLOMERULAR FILTRATION RATE 50.9 (>39); POTASSIUM SERUM 4.3 MMOL/L (3.5-5.1)
[2022-06-13 05:18] LABS: CK-MB VALUE MASS < 1.0 NG/ML (<3.6); CPK CREATINE PHOSPHOKINASE 30 U/L (34-145); MB/CK RELATIVE INDEX 3.33 (< OR =4)
[2022-06-13] MEDS: DOCUSATE SODIUM 100MG CAPSULE PO SCH ×2 (07:46→20:30)
[2022-06-13] MEDS: FLUTICASONE PROP 0.05% NASAL SPRAY 16 GM (FLONASE) SCH ×2 (08:12→20:31)
[2022-06-13] MEDS: DICLOFENAC EPOLAMINE 1.3% PATCH TD SCH ×2 (08:13→20:31)
[2022-06-13] MEDS: OSELTAMIVIR PHOSPHATE 30MG CAPSULE PO SCH ×2 (08:13→20:31)
[2022-06-13] MEDS: ASPIRIN 81MG ENTERIC TABLET PO SCH ×2 (08:13→20:30)
[2022-06-13] MEDS: LACTOBACILLUS ACIDOPHILUS CAP (BACID) PO SCH ×4 (08:13→20:30)
[2022-06-13] MEDS: ENOXAPARIN 40MG/0.4ML SYRINGE (J1650 PER 10MG) SC SCH (08:13)
[2022-06-13] MEDS: guaiFENesin ER 600 MG TAB PO SCH ×2 (08:13→20:30)
[2022-06-13] MEDS: DIGOXIN 0.125 MG TAB PO SCH (08:14)
[2022-06-13] MEDS: ISOSORBIDE MON. (IMDUR) 30MG XR TAB PO SCH (08:14)
[2022-06-13] MEDS: PANTOPRAZOLE 40MG TAB (PROTONIX) PO SCH (08:14)
[2022-06-13] MEDS: ATORVASTATIN 20 MG TAB PO SCH (08:14)
[2022-06-13] MEDS: RAMELTEON 8 MG TAB (ROZEREM) PO PRN (20:30)
[2022-06-13] MEDS: SENNA 8.6 MG TAB (SENOKOT) PO SCH (20:31)
[2022-06-14] VITALS (9 sets, daily range): BP systolic 160–172; BP diastolic 65–77; O2SAT 90–93
[2022-06-14] MEDS: IPRATROPIUM 0.5MG/ALBUTEROL 2.5MG INH SOL UD 3ML (DUONEB) NEB SCH ×4 (02:00→19:55)
[2022-06-14] MEDS: PIPERACILLIN/TAZOBACTAM SOD 3.375 GM in D5W MINI-BAG PLUS 50 ML IV SCH (04:33)
[2022-06-14] MEDS: methylPREDNISolone 40MG 1ML VIAL IV SCH (04:33)
[2022-06-14 06:40] LABS: HEMATOCRIT 31.2 % (36.0-47.0); HEMOGLOBIN 9.4 g/dl (12.0-15.5); MEAN CORPUSCULAR HEMOGLOBIN 29.6 pg (27.0-33.0); MEAN CORPUSCULAR HGB CONC 30.1 g/dl (32.0-36.5); MEAN CORPUSCULAR VOLUME 98.1 fl (80.0-96.0); PLATELET COUNT, AUTOMATED 246 10^3/uL (150-450); RED BLOOD COUNT 3.18 10^6/uL (4.00-5.40)
[2022-06-14 07:03] LABS: CALCIUM LEVEL 9.6 MG/DL (8.3-10.6); CREATININE FOR GFR 0.98 MG/DL (0.55-1.30); GLOMERULAR FILTRATION RATE 59.4 (>39); POTASSIUM SERUM 3.9 MMOL/L (3.5-5.1)
[2022-06-14] MEDS: OSELTAMIVIR PHOSPHATE 30MG CAPSULE PO SCH ×2 (08:35→20:10)
[2022-06-14] MEDS: DIGOXIN 0.125 MG TAB PO SCH (08:35)
[2022-06-14] MEDS: ISOSORBIDE MON. (IMDUR) 30MG XR TAB PO SCH (08:36)
[2022-06-14] MEDS: ATORVASTATIN 20 MG TAB PO SCH (08:36)
[2022-06-14] MEDS: PANTOPRAZOLE 40MG TAB (PROTONIX) PO SCH (08:36)
[2022-06-14] MEDS: guaiFENesin ER 600 MG TAB PO SCH ×2 (08:36→20:10)
[2022-06-14] MEDS: LevoFLOXacin 750 MG TABLET PO SCH (08:37)
[2022-06-14] MEDS: DOCUSATE SODIUM 100MG CAPSULE PO SCH ×2 (08:37→20:10)
[2022-06-14] MEDS: ENOXAPARIN 40MG/0.4ML SYRINGE (J1650 PER 10MG) SC SCH (08:37)
[2022-06-14] MEDS: LACTOBACILLUS ACIDOPHILUS CAP (BACID) PO SCH ×4 (08:37→20:10)
[2022-06-14] MEDS: FLUTICASONE PROP 0.05% NASAL SPRAY 16 GM (FLONASE) SCH ×2 (08:37→20:11)
[2022-06-14] MEDS: ASPIRIN 81MG ENTERIC TABLET PO SCH ×2 (08:37→20:09)
[2022-06-14] MEDS: DICLOFENAC EPOLAMINE 1.3% PATCH TD SCH ×3 (08:38→20:19)
[2022-06-14] MEDS: ACETAMINOPHEN TAB 650MG DOSE (2X325MG) PO PRN ×2 (14:53→20:11)
[2022-06-14] MEDS: RAMELTEON 8 MG TAB (ROZEREM) PO PRN (20:10)
[2022-06-14] MEDS: SENNA 8.6 MG TAB (SENOKOT) PO SCH (20:10)
[2022-06-14] MEDS: POLYVINYL ALCOHOL OPHTH SOLN 15ML (LIQUITEARS) OU PRN (20:20)
[2022-06-15] VITALS (10 sets, daily range): BP systolic 125–170; BP diastolic 64–93; O2SAT 91–97
[2022-06-15] MEDS: ACETAMINOPHEN TAB 650MG DOSE (2X325MG) PO PRN ×2 (01:46→20:46)
[2022-06-15] MEDS: IPRATROPIUM 0.5MG/ALBUTEROL 2.5MG INH SOL UD 3ML (DUONEB) NEB SCH ×4 (02:00→20:36)
[2022-06-15 08:33] LABS: HEMATOCRIT 29.8 % (36.0-47.0); HEMOGLOBIN 9.2 g/dl (12.0-15.5); MEAN CORPUSCULAR HEMOGLOBIN 29.9 pg (27.0-33.0); MEAN CORPUSCULAR HGB CONC 30.9 g/dl (32.0-36.5); MEAN CORPUSCULAR VOLUME 96.8 fl (80.0-96.0); PLATELET COUNT, AUTOMATED 195 10^3/uL (150-450); RED BLOOD COUNT 3.08 10^6/uL (4.00-5.40)
[2022-06-15] MEDS: DOCUSATE SODIUM 100MG CAPSULE PO SCH (08:58)
[2022-06-15] MEDS: LACTOBACILLUS ACIDOPHILUS CAP (BACID) PO SCH ×3 (08:58→20:47)
[2022-06-15] MEDS: predniSONE 50 MG TAB PO SCH (08:58)
[2022-06-15] MEDS: FLUTICASONE PROP 0.05% NASAL SPRAY 16 GM (FLONASE) SCH ×2 (08:59→20:47)
[2022-06-15] MEDS: PANTOPRAZOLE 40MG TAB (PROTONIX) PO SCH (08:59)
[2022-06-15] MEDS: guaiFENesin ER 600 MG TAB PO SCH ×2 (08:59→20:47)
[2022-06-15] MEDS: ATORVASTATIN 20 MG TAB PO SCH (08:59)
[2022-06-15] MEDS: POLYVINYL ALCOHOL OPHTH SOLN 15ML (LIQUITEARS) OU PRN (08:59)
[2022-06-15] MEDS: OSELTAMIVIR PHOSPHATE 30MG CAPSULE PO SCH ×2 (09:00→20:47)
[2022-06-15] MEDS: ENOXAPARIN 40MG/0.4ML SYRINGE (J1650 PER 10MG) SC SCH (09:00)
[2022-06-15] MEDS: DICLOFENAC EPOLAMINE 1.3% PATCH TD SCH ×2 (09:00→20:47)
[2022-06-15] MEDS: ASPIRIN 81MG ENTERIC TABLET PO SCH ×2 (09:05→20:46)
[2022-06-15] MEDS: ISOSORBIDE MON. (IMDUR) 30MG XR TAB PO SCH (09:06)
[2022-06-15] MEDS: DIGOXIN 0.125 MG TAB PO SCH (09:06)
[2022-06-15 09:07] LABS: BLOOD UREA NITROGEN 21 MG/DL (9-23); CALCIUM LEVEL 9.4 MG/DL (8.3-10.6); CARBON DIOXIDE LEVEL 28 MMOL/L (20-31); CHLORIDE LEVEL 106 MMOL/L (98-107); CREATININE FOR GFR 0.82 MG/DL (0.55-1.30); GLOMERULAR FILTRATION RATE > 60.0 (>39); GLUCOSE, FASTING 77 MG/DL (74-106); SODIUM LEVEL 145 MMOL/L (136-145)
[2022-06-15] MEDS: RAMELTEON 8 MG TAB (ROZEREM) PO PRN (20:46)
[2022-06-15] MEDS: LOSARTAN 50MG TABLET PO SCH (20:47)
[2022-06-16] VITALS (14 sets, daily range): BP systolic 140–180; BP diastolic 60–90; O2SAT 92–99
[2022-06-16] MEDS: IPRATROPIUM 0.5MG/ALBUTEROL 2.5MG INH SOL UD 3ML (DUONEB) NEB SCH ×4 (02:03→20:00)
[2022-06-16] MEDS ORDERED: **hydrALAZINE** 50 MG TAB PO ONE (04:40)
[2022-06-16 05:44] LABS: HEMATOCRIT 29.9 % (36.0-47.0); HEMOGLOBIN 9.3 g/dl (12.0-15.5); MEAN CORPUSCULAR HEMOGLOBIN 29.7 pg (27.0-33.0); MEAN CORPUSCULAR HGB CONC 31.1 g/dl (32.0-36.5); MEAN CORPUSCULAR VOLUME 95.5 fl (80.0-96.0); PLATELET COUNT, AUTOMATED 204 10^3/uL (150-450); RED BLOOD COUNT 3.13 10^6/uL (4.00-5.40); WHITE BLOOD COUNT 10.6 10^3/uL (4.0-10.0)
[2022-06-16 06:13] LABS: BLOOD UREA NITROGEN 21 MG/DL (9-23); CALCIUM LEVEL 9.2 MG/DL (8.3-10.6); CARBON DIOXIDE LEVEL 27 MMOL/L (20-31); CHLORIDE LEVEL 105 MMOL/L (98-107); CREATININE FOR GFR 0.78 MG/DL (0.55-1.30); GLOMERULAR FILTRATION RATE > 60.0 (>39); GLUCOSE, FASTING 74 MG/DL (74-106); POTASSIUM SERUM 3.8 MMOL/L (3.5-5.1); SODIUM LEVEL 143 MMOL/L (136-145)
[2022-06-16] MEDS: DICLOFENAC EPOLAMINE 1.3% PATCH TD SCH ×2 (09:00→20:31)
[2022-06-16 09:49] LABS: ABG BASE EXCESS 4.3 (-2.0-2.0); ABG HCO3 27.9 MEQ/L (22.0-26.0); ABG O2 SATURATION 86.1 % (95.0-99.0); ABG PARTIAL PRESSURE CO2 37.7 mmHg (35.0-45.0); ABG STANDARD HCO3 28.1 MEQ/L (22.0-26.0); ABG pH (ARTERIAL) 7.487 UNITS (7.350-7.450)
[2022-06-16] MEDS: ISOSORBIDE MON. (IMDUR) 30MG XR TAB PO SCH (09:50)
[2022-06-16] MEDS: ATORVASTATIN 20 MG TAB PO SCH (09:50)
[2022-06-16] MEDS: guaiFENesin ER 600 MG TAB PO SCH ×2 (09:50→20:31)
[2022-06-16] MEDS: ASPIRIN 81MG ENTERIC TABLET PO SCH ×2 (09:51→20:30)
[2022-06-16] MEDS: LACTOBACILLUS ACIDOPHILUS CAP (BACID) PO SCH ×3 (09:51→20:30)
[2022-06-16] MEDS: predniSONE 50 MG TAB PO SCH (09:51)
[2022-06-16] MEDS: ENOXAPARIN 40MG/0.4ML SYRINGE (J1650 PER 10MG) SC SCH (09:51)
[2022-06-16] MEDS: LevoFLOXacin 750 MG TABLET PO SCH (09:51)
[2022-06-16] MEDS: DIGOXIN 0.125 MG TAB PO SCH (09:51)
[2022-06-16] MEDS: PANTOPRAZOLE 40MG TAB (PROTONIX) PO SCH (09:51)
[2022-06-16] MEDS: amLODIPine 5 MG TAB PO SCH ×2 (09:52→20:35)
[2022-06-16] MEDS: FLUTICASONE PROP 0.05% NASAL SPRAY 16 GM (FLONASE) SCH ×2 (09:52→23:07)
[2022-06-16] MEDS: POLYVINYL ALCOHOL OPHTH SOLN 15ML (LIQUITEARS) OU PRN (09:52)
[2022-06-16 09:53] LABS: ABG PARTIAL PRESSURE O2 46.6 mmHg (75.0-100.0)
[2022-06-16] MEDS ORDERED: ISOVUE-370 76% 100ML VIAL As Ordered ONE (11:25)
[2022-06-16] MEDS ORDERED: PIPERACILLIN/TAZOBACTAM SOD 3.375 GM in D5W MINI-BAG PLUS 50 ML IV SCH (12:00)
[2022-06-16] MEDS: PIPERACILLIN/TAZOBACTAM SOD 4.5 GM in D5W MINI-BAG PLUS 50 ML IV SCH ×2 (12:39→17:46)
[2022-06-16 15:16] LABS: ABG BASE EXCESS 1.3 (-2.0-2.0); ABG HCO3 24.4 MEQ/L (22.0-26.0); ABG O2 SATURATION 96.7 % (95.0-99.0); ABG PARTIAL PRESSURE CO2 33.1 mmHg (35.0-45.0); ABG PARTIAL PRESSURE O2 81.2 mmHg (75.0-100.0); ABG STANDARD HCO3 25.6 MEQ/L (22.0-26.0); ABG TOTAL CO2 25.4 MEQ/L (23.0-31.0); ABG pH (ARTERIAL) 7.485 UNITS (7.350-7.450)
[2022-06-16 16:50] LABS: RSV AMPLIFICATION NEGATIVE (NEGATIVE)
[2022-06-16] MEDS: RAMELTEON 8 MG TAB (ROZEREM) PO PRN (20:30)
[2022-06-16] MEDS: LOSARTAN 50MG TABLET PO SCH (20:35)
[2022-06-17] VITALS (11 sets, daily range): BP systolic 140–165; BP diastolic 65–78; O2SAT 90–98
[2022-06-17] MEDS: PIPERACILLIN/TAZOBACTAM SOD 4.5 GM in D5W MINI-BAG PLUS 50 ML IV SCH ×4 (00:29→17:32)
[2022-06-17] MEDS: IPRATROPIUM 0.5MG/ALBUTEROL 2.5MG INH SOL UD 3ML (DUONEB) NEB SCH (02:07)
[2022-06-17 05:25] LABS: HEMOGLOBIN 9.1 g/dl (12.0-15.5); MEAN CORPUSCULAR HEMOGLOBIN 29.6 pg (27.0-33.0); MEAN CORPUSCULAR HGB CONC 31.4 g/dl (32.0-36.5); MEAN CORPUSCULAR VOLUME 94.5 fl (80.0-96.0); PLATELET COUNT, AUTOMATED 181 10^3/uL (150-450); RED BLOOD COUNT 3.07 10^6/uL (4.00-5.40); WHITE BLOOD COUNT 11.3 10^3/uL (4.0-10.0)
[2022-06-17 05:42] LABS: ABG BASE EXCESS 5.3 (-2.0-2.0); ABG HCO3 29.8 MEQ/L (22.0-26.0); ABG O2 SATURATION 95.6 % (95.0-99.0); ABG PARTIAL PRESSURE CO2 43.6 mmHg (35.0-45.0); ABG PARTIAL PRESSURE O2 74.3 mmHg (75.0-100.0); ABG STANDARD HCO3 29.2 MEQ/L (22.0-26.0); ABG TOTAL CO2 31.2 MEQ/L (23.0-31.0); ABG pH (ARTERIAL) 7.453 UNITS (7.350-7.450)
[2022-06-17 06:02] LABS: BLOOD UREA NITROGEN 18 MG/DL (9-23); CALCIUM LEVEL 9.1 MG/DL (8.3-10.6); CARBON DIOXIDE LEVEL 31 MMOL/L (20-31); CHLORIDE LEVEL 102 MMOL/L (98-107); CREATININE FOR GFR 0.83 MG/DL (0.55-1.30); GLOMERULAR FILTRATION RATE > 60.0 (>39); GLUCOSE, FASTING 65 MG/DL (74-106); POTASSIUM SERUM 3.7 MMOL/L (3.5-5.1); SODIUM LEVEL 141 MMOL/L (136-145)
[2022-06-17] MEDS ORDERED: IPRATROPIUM 0.5MG/ALBUTEROL 2.5MG INH SOL UD 3ML (DUONEB) NEB PRN (07:40)
[2022-06-17] MEDS: ALBUTEROL SULFATE 2.5 MG/0.5 ML INH NEB SOLN NEB SCH ×5 (08:00→23:46)
[2022-06-17] MEDS: TIOTROPIUM INHALER/CAPSULE (SPIRIVA) INH SCH (08:38)
[2022-06-17] MEDS: SYMBICORT 160/4.5MCG INHALER 6GM INH SCH ×2 (08:38→20:17)
[2022-06-17] MEDS: DICLOFENAC EPOLAMINE 1.3% PATCH TD SCH ×3 (09:00→21:17)
[2022-06-17] MEDS: LACTOBACILLUS ACIDOPHILUS CAP (BACID) PO SCH ×3 (09:10→20:58)
[2022-06-17] MEDS: ISOSORBIDE MON. (IMDUR) 30MG XR TAB PO SCH (09:11)
[2022-06-17] MEDS: DIGOXIN 0.125 MG TAB PO SCH (09:11)
[2022-06-17] MEDS: predniSONE 50 MG TAB PO SCH (09:11)
[2022-06-17] MEDS: ATORVASTATIN 20 MG TAB PO SCH (09:11)
[2022-06-17] MEDS: ASPIRIN 81MG ENTERIC TABLET PO SCH ×2 (09:11→20:55)
[2022-06-17] MEDS: PANTOPRAZOLE 40MG TAB (PROTONIX) PO SCH (09:11)
[2022-06-17] MEDS: guaiFENesin ER 600 MG TAB PO SCH ×2 (09:12→20:59)
[2022-06-17] MEDS: ENOXAPARIN 40MG/0.4ML SYRINGE (J1650 PER 10MG) SC SCH (09:12)
[2022-06-17] MEDS: FLUTICASONE PROP 0.05% NASAL SPRAY 16 GM (FLONASE) SCH ×2 (09:12→20:55)
[2022-06-17] MEDS: amLODIPine 5 MG TAB PO SCH ×2 (09:13→20:59)
[2022-06-17] MEDS: LOSARTAN 50MG TABLET PO SCH (20:58)
[2022-06-17] MEDS: RAMELTEON 8 MG TAB (ROZEREM) PO PRN (21:02)
[2022-06-18] VITALS (21 sets, daily range): BP systolic 123–180; BP diastolic 63–86; O2SAT 86–96
[2022-06-18 05:47] LABS: HEMATOCRIT 32.4 % (36.0-47.0); HEMOGLOBIN 10.1 g/dl (12.0-15.5); MEAN CORPUSCULAR HGB CONC 31.2 g/dl (32.0-36.5); MEAN CORPUSCULAR VOLUME 96.1 fl (80.0-96.0); PLATELET COUNT, AUTOMATED 201 10^3/uL (150-450); RED BLOOD COUNT 3.37 10^6/uL (4.00-5.40); WHITE BLOOD COUNT 9.9 10^3/uL (4.0-10.0)
[2022-06-18 06:20] LABS: BLOOD UREA NITROGEN 12 MG/DL (9-23); CALCIUM LEVEL 9.5 MG/DL (8.3-10.6); CARBON DIOXIDE LEVEL 30 MMOL/L (20-31); CHLORIDE LEVEL 102 MMOL/L (98-107); CREATININE FOR GFR 0.82 MG/DL (0.55-1.30); GLOMERULAR FILTRATION RATE > 60.0 (>39); GLUCOSE, FASTING 67 MG/DL (74-106); POTASSIUM SERUM 3.3 MMOL/L (3.5-5.1); SODIUM LEVEL 140 MMOL/L (136-145)
[2022-06-18] MEDS: ALBUTEROL SULFATE 2.5 MG/0.5 ML INH NEB SOLN NEB SCH ×4 (08:00→20:00)
[2022-06-18] MEDS ORDERED: POTASSIUM CHLORIDE 10MEQ SR TABLET PO ONE (08:00)
[2022-06-18] MEDS: TIOTROPIUM INHALER/CAPSULE (SPIRIVA) INH SCH (08:40)
[2022-06-18] MEDS: SYMBICORT 160/4.5MCG INHALER 6GM INH SCH ×2 (08:40→20:31)
[2022-06-18] MEDS: LACTOBACILLUS ACIDOPHILUS CAP (BACID) PO SCH ×3 (09:19→20:42)
[2022-06-18] MEDS: guaiFENesin ER 600 MG TAB PO SCH ×2 (09:20→20:42)
[2022-06-18] MEDS: ISOSORBIDE MON. (IMDUR) 30MG XR TAB PO SCH (09:20)
[2022-06-18] MEDS: ASPIRIN 81MG ENTERIC TABLET PO SCH ×2 (09:20→20:42)
[2022-06-18] MEDS: predniSONE 20 MG TAB PO SCH (09:21)
[2022-06-18] MEDS: PANTOPRAZOLE 40MG TAB (PROTONIX) PO SCH (09:21)
[2022-06-18] MEDS: amLODIPine 5 MG TAB PO SCH ×2 (09:21→20:43)
[2022-06-18] MEDS: ATORVASTATIN 20 MG TAB PO SCH (09:21)
[2022-06-18] MEDS: ENOXAPARIN 40MG/0.4ML SYRINGE (J1650 PER 10MG) SC SCH (09:22)
[2022-06-18] MEDS: DICLOFENAC EPOLAMINE 1.3% PATCH TD SCH ×2 (09:22→20:42)
[2022-06-18] MEDS: FLUTICASONE PROP 0.05% NASAL SPRAY 16 GM (FLONASE) SCH ×2 (09:22→20:41)
[2022-06-18] MEDS: DIGOXIN 0.125 MG TAB PO SCH (09:25)
[2022-06-18] MEDS: LOSARTAN 50MG TABLET PO SCH (20:43)
[2022-06-18] MEDS: RAMELTEON 8 MG TAB (ROZEREM) PO PRN (20:45)
[2022-06-19] VITALS (10 sets, daily range): BP systolic 135–167; BP diastolic 66–74; O2SAT 87–95
[2022-06-19] MEDS: ALBUTEROL SULFATE 2.5 MG/0.5 ML INH NEB SOLN NEB SCH ×4 (00:45→11:10)
[2022-06-19] MEDS: SYMBICORT 160/4.5MCG INHALER 6GM INH SCH (07:04)
[2022-06-19] MEDS: TIOTROPIUM INHALER/CAPSULE (SPIRIVA) INH SCH (07:04)
[2022-06-19] MEDS: DIGOXIN 0.125 MG TAB PO SCH (08:56)
[2022-06-19] MEDS: LACTOBACILLUS ACIDOPHILUS CAP (BACID) PO SCH (08:58)
[2022-06-19] MEDS: ISOSORBIDE MON. (IMDUR) 30MG XR TAB PO SCH (08:58)
[2022-06-19] MEDS: ATORVASTATIN 20 MG TAB PO SCH (08:58)
[2022-06-19] MEDS: PANTOPRAZOLE 40MG TAB (PROTONIX) PO SCH (08:59)
[2022-06-19] MEDS: ASPIRIN 81MG ENTERIC TABLET PO SCH (08:59)
[2022-06-19] MEDS ORDERED: LABETALOL 200 MG TAB PO SCH (09:00)
[2022-06-19] MEDS: DICLOFENAC EPOLAMINE 1.3% PATCH TD SCH (09:00)
[2022-06-19] MEDS: amLODIPine 5 MG TAB PO SCH (09:00)
[2022-06-19] MEDS: guaiFENesin ER 600 MG TAB PO SCH (09:00)
[2022-06-19] MEDS: FLUTICASONE PROP 0.05% NASAL SPRAY 16 GM (FLONASE) SCH (09:00)
[2022-06-19] MEDS: predniSONE 20 MG TAB PO SCH (09:01)
[2022-06-19] MEDS: ENOXAPARIN 40MG/0.4ML SYRINGE (J1650 PER 10MG) SC SCH (09:03)
[2022-06-19] MEDS ORDERED: LABE20TAB PO (09:22)
[2022-06-19] MEDS ORDERED: GABA-1171 PO (09:22)
[2022-06-19] MEDS ORDERED: DICL1PAT6 TD (09:22)
[2022-06-19] MEDS ORDERED: PANT-23 PO (09:22)
[2022-06-19] MEDS ORDERED: SYMB16INH INH (09:22)
[2022-06-19] MEDS ORDERED: ALBU8.5H INH (09:22)
[2022-06-19] MEDS ORDERED: ASPI-161 PO (09:22)
[2022-06-19] MEDS ORDERED: MUCI600T31 PO (09:22)
[2022-06-19] MEDS ORDERED: ISOS1TAB36 PO (09:22)
[2022-06-19] MEDS ORDERED: PRED10TA2 PO (09:22)
[2022-06-19] MEDS ORDERED: CHLO25TA PO (09:22)
[2022-06-19] MEDS ORDERED: AMLO1TAB25 PO (09:22)
[2022-06-19] MEDS ORDERED: TIOT18INH INH (10:22)
[2022-06-19] MEDS ORDERED: INCR1INH INH (10:42)
[2022-06-19 16:08] LABS: BODY FLUID CULTURE Not indicated. (.); LEGIONELLA ANTIGEN URINE Negative (Negative); ORGANISM ID Not indicated. (.); SPECIMEN SOURCE Urine (.); URINE STREP PNEUMONIAE ANTIGEN Negative (Negative)
[2022-06-20] MEDS ORDERED: ASPIRIN 81MG ENTERIC TABLET PO SCH (09:00)
== END 2022-06-19 13:21 | disposition home health service (06) | DRG 193 ==
LOC: M ED INP 01:11 → M PCU 01:49
PROVIDERS: ADMIT Internal Medicine; ATTEND Internal Medicine Nephrology
DX: J10.08 Influenza due to other identified influenza virus with other specified pneumonia (principal); J96.01 Acute respiratory failure with hypoxia; G93.41 Metabolic encephalopathy; I71.019 Dissection of thoracic aorta, unspecified; I77.72 Dissection of iliac artery; J98.11 Atelectasis; K52.1 Toxic gastroenteritis and colitis; J81.1 Chronic pulmonary edema; I25.119 Atherosclerotic heart disease of native coronary artery with unspecified angina pectoris; I10 Essential (primary) hypertension; E78.5 Hyperlipidemia, unspecified; K21.9 Gastro-esophageal reflux disease without esophagitis; I27.20 Pulmonary hypertension, unspecified; I48.0 Paroxysmal atrial fibrillation; G89.18 Other acute postprocedural pain; I71.22 Aneurysm of the aortic arch, without rupture; J12.9 Viral pneumonia, unspecified; S72.142D Displaced intertrochanteric fracture of left femur, subsequent encounter for closed fracture with routine healing; T36.0X5A Adverse effect of penicillins, initial encounter; H91.93 Unspecified hearing loss, bilateral; Y95 Nosocomial condition; K55.20 Angiodysplasia of colon without hemorrhage; J44.1 Chronic obstructive pulmonary disease with (acute) exacerbation; K64.9 Unspecified hemorrhoids; I35.1 Nonrheumatic aortic (valve) insufficiency; Z79.82 Long term (current) use of aspirin; Z79.899 Other long term (current) drug therapy; Z88.5 Allergy status to narcotic agent; Z88.8 Allergy status to other drugs, medicaments and biological substances; Z91.018 Allergy to other foods; Z87.891 Personal history of nicotine dependence; Z97.4 Presence of external hearing-aid; Z95.5 Presence of coronary angioplasty implant and graft; Z95.3 Presence of xenogenic heart valve

== ENCOUNTER → 2022-06-25 | Outpatient (REF) | payer MEDICARE, MEDICAID ==
[~2022-06-25] MED LIST changes: +ALBU8.5H INH; +AMLO1TAB24 PO; +ASPI-161 PO; +CALC1TAB63 PO; +CHLO25TA PO; +COMBAER6 INH; +DICL1PAT6 TD; +GUAI200T6 PO; +HYDR50TA PO; +INCR1INH INH; +ISOS1TAB35 PO; +LACT20EL PO; +METO75TA PO; +MUCI600T31 PO; +ONDA4TAB6 PO; +PANT-23 PO; +PRED10TA2 PO; +RISATAB3 PO; +ROZE8TAB16 PO; +SENN8.6T28 PO; +SIME80CH5 PO; +SYMB16INH INH; +TAMI30CA PO; +TIOT18INH INH; +ZOSY1SOL5 IV
[2022-06-25 17:49] LABS: BASO % 0.1 % (0.0-1.0); EOS % 0.3 % (0.0-3.0); HEMATOCRIT 33.5 % (36.0-47.0); HEMOGLOBIN 10.1 g/dl (12.0-15.5); LYMPH # 0.8 10^3/uL (1.5-5.0); LYMPH % 5.5 % (24.0-44.0); MEAN CORPUSCULAR HEMOGLOBIN 29.9 pg (27.0-33.0); MEAN CORPUSCULAR HGB CONC 30.1 g/dl (32.0-36.5); MEAN CORPUSCULAR VOLUME 99.1 fl (80.0-96.0); MONO # 0.6 10^3/uL (0.0-0.8); MONO % 4.4 % (2.0-8.0); NEUTROPHILS # 12.9 10^3/uL (1.5-8.5); PLATELET COUNT, AUTOMATED 156 10^3/uL (150-450); RED BLOOD COUNT 3.38 10^6/uL (4.00-5.40); WHITE BLOOD COUNT 14.5 10^3/uL (4.0-10.0)
== END ==
LOC: M LAB REF 16:22
PROVIDERS: ATTEND Family Medicine Addiction Medicine
DX: D64.9 Anemia, unspecified (principal)

== ENCOUNTER → 2022-09-25 | Outpatient (CLI) | payer MEDICARE, MEDICAID ==
[2022-09-25 11:29] LABS: BLOOD UREA NITROGEN 22 MG/DL (9-23); CREATININE FOR GFR 0.86 MG/DL (0.55-1.30); GLOMERULAR FILTRATION RATE > 60.0 (>39)
== END ==
LOC: M LAB 10:36
PROVIDERS: ATTEND Physician Assistant
DX: I71.03 Dissection of thoracoabdominal aorta (principal)

== ENCOUNTER 2022-11-23 15:42 | Inpatient (IN) | payer MEDICARE, MEDICAID ==
[~2022-11-23] VITALS: Ht 167.6 cm; Wt 49.2 kg
[~2022-11-23 15:42] MED LIST changes: +ARTIDRO4 OU; +FLUT50SP17 NARES; -FLUTISP NARES; -LOSA100T45 PO; +LOSA100T46 PO; -POLYOPD OU; +UNRESOLVED CLARIFICATION ENTRY XX SCH
[2022-11-23] MEDS ORDERED: FUROSEMIDE 100MG/10ML VIAL IV ONE (15:50)
[2022-11-23] MEDS ORDERED: NS 1,000 ML IV ONE ×2 (16:00→16:40)
[2022-11-23 16:11] LABS: HEMATOCRIT 28.2 % (36.0-47.0); HEMOGLOBIN 8.9 g/dl (12.0-15.5); MEAN CORPUSCULAR HEMOGLOBIN 30.7 pg (27.0-33.0); MEAN CORPUSCULAR HGB CONC 31.6 g/dl (32.0-36.5); MEAN CORPUSCULAR VOLUME 97.2 fl (80.0-96.0); PLATELET COUNT, AUTOMATED 140 10^3/uL (150-450); WHITE BLOOD COUNT 7.9 10^3/uL (4.0-10.0)
[2022-11-23 16:21] LABS: ABG BASE EXCESS -3.4 (-2.0-2.0); ABG HCO3 23.1 MMOL/L (22.0-26.0); ABG O2 SATURATION 98.6 % (95.0-99.0); ABG PARTIAL PRESSURE CO2 48.5 mmHg (35.0-45.0); ABG PARTIAL PRESSURE O2 143.2 mmHg (75.0-100.0); ABG STANDARD HCO3 21.6 MMOL/L. (22.0-26.0); ABG TOTAL CO2 24.6 MMOL/L (23.0-31.0); ABG pH (ARTERIAL) 7.296 UNITS (7.350-7.450)
[2022-11-23 16:36] LABS: BILIRUBIN,DIRECT 0.2 MG/DL (<0.4); BILIRUBIN,TOTAL 0.4 MG/DL (0.3-1.2); CALCIUM LEVEL 9.9 MG/DL (8.3-10.6); CREATININE FOR GFR 2.61 MG/DL (0.55-1.30); GLOMERULAR FILTRATION RATE 19.2 (>39); POTASSIUM SERUM 4.3 MMOL/L (3.5-5.1); TOTAL PROTEIN 5.9 G/DL (5.7-8.2)
[2022-11-23] MEDS ORDERED: CEFEPIME HCL 2 GM in D5W MINI-BAG PLUS 50 ML IV ONE (16:40)
[2022-11-23 16:43] LABS: LYMPHOCYTES 10 % (16-44); MONOCYTES 7 % (0-5); NEUTROPHILS 79 % (28-66); PLATELET ESTIMATE DECREASED (NORMAL)
[2022-11-23 16:44] LABS: OVALOCYTES 2+; POIKILOCYTOSIS 2+
[2022-11-23] MEDS: IPRATROPIUM 0.5MG/ALBUTEROL 2.5MG INH SOL UD 3ML (DUONEB) NEB PRN ×3 (16:53→17:25)
[2022-11-23] MEDS ORDERED: IPRATROPIUM 0.5MG/ALBUTEROL 2.5MG INH SOL UD 3ML (DUONEB) NEB PRN (17:55)
[2022-11-23] MEDS ORDERED: MAALOX 30 ML SUSP *UDC PO PRN (17:55)
[2022-11-23] MEDS ORDERED: MOM 30ML SUSPENSION UDC PO PRN (17:55)
[2022-11-23] MEDS ORDERED: ACETAMINOPHEN TAB 650MG DOSE (2X325MG) PO PRN (17:55)
[2022-11-23 19:31] LABS: CK-MB VALUE MASS 2.7 NG/ML (<3.6)
[2022-11-23 19:32] LABS: MB/CK RELATIVE INDEX 3.91 (< OR =4)
[2022-11-23] MEDS ORDERED: NITROGLYCERIN 0.4MG SUBL TABLET SL PRN (19:55)
[2022-11-23 19:58] LABS: APPEARANCE, URINE CLEAR (CLEAR); BACTERIA, URINE AUTO NEGATIVE (NEGATIVE); BILIRUBIN, URINE AUTO NEGATIVE (NEGATIVE); BLOOD, URINE BLOOD NEGATIVE (NEGATIVE); COLOR, URINE YELLOW (YELLOW); GLUCOSE, URINE (UA) AUTO NEGATIVE (NEGATIVE); KETONE, URINE AUTO NEGATIVE (NEGATIVE); LEUKOCYTE ESTERASE, URINE AUTO 1+ (NEGATIVE); NITRITE, URINE AUTO NEGATIVE (NEGATIVE); PROTEIN, URINE AUTO NEGATIVE (NEGATIVE); RBC, URINE AUTO 0 /HPF (0-3); SPECIFIC GRAVITY URINE AUTO 1.013 (1.002-1.035); SQUAMOUS EPITHELIAL CELL UR AU 0 /HPF (0-6); UROBILINOGEN, URINE AUTO 0.2 mg/dL (0.0-2.0); WBC, URINE AUTO 10 /HPF (0-3)
[2022-11-23] MEDS ORDERED: LevoFLOXacin IV 750 MG in IV 1 EA IV ONE (20:00)
[2022-11-23] MEDS ORDERED: GABA-1171 PO (20:04)
[2022-11-23] MEDS ORDERED: CHLO125TA PO (20:04)
[2022-11-23] MEDS ORDERED: AMLO1TAB25 PO (20:04)
[2022-11-23] MEDS ORDERED: GUAI600T54 PO (20:04)
[2022-11-23] MEDS ORDERED: LABE20TAB PO (20:04)
[2022-11-23] MEDS ORDERED: ISOS1TAB36 PO (20:04)
[2022-11-23] MEDS ORDERED: ASPI-161 PO (20:04)
[2022-11-23] MEDS ORDERED: med rec comment (20:05)
[2022-11-23] MEDS ORDERED: HOME MED LIST COMPLETE! XX SCH (20:10)
[2022-11-23 20:22] LABS: CREATININE,RANDOM URINE 58.1 MG/DL
[2022-11-23] MEDS: IPRATROPIUM 0.5MG/ALBUTEROL 2.5MG INH SOL UD 3ML (DUONEB) NEB SCH (20:48)
[2022-11-23 21:04] VITALS: BP 103/67
[2022-11-23] MEDS: NS 1,000 ML IV SCH (21:46)
[2022-11-23] MEDS: DOCUSATE SODIUM 100MG CAPSULE PO SCH (22:00)
[2022-11-23] MEDS: ASPIRIN 81MG ENTERIC TABLET PO SCH (22:01)
[2022-11-23] MEDS: FERROUS SULFATE 325MG TAB PO SCH (22:01)
[2022-11-23] MEDS: guaiFENesin ER 600 MG TAB PO SCH (22:02)
[2022-11-23] MEDS: ATORVASTATIN 20 MG TAB PO SCH (22:02)
[2022-11-23 22:05] LABS: CK-MB VALUE MASS 2.9 NG/ML (<3.6)
[2022-11-23 22:06] LABS: MB/CK RELATIVE INDEX 4.14 (< OR =4)
[2022-11-24] VITALS (21 sets, daily range): BP systolic 78–154; BP diastolic 50–82
[2022-11-24] MEDS ORDERED: NS 500 ML IV ONE ×3 (00:20→04:10)
[2022-11-24] MEDS: methylPREDNISolone 125MG 2ML VIAL IV SCH ×3 (00:37→17:56)
[2022-11-24] MEDS: IPRATROPIUM 0.5MG/ALBUTEROL 2.5MG INH SOL UD 3ML (DUONEB) NEB SCH ×4 (01:12→19:15)
[2022-11-24 01:19] LABS: MB/CK RELATIVE INDEX 5.97 (< OR =4)
[2022-11-24] MEDS ORDERED: NOREPINEPHRINE 4MG IN D5 250ML 4 MG in IV 1 EA IV SCH ×2 (04:15)
[2022-11-24] MEDS: NS 1,000 ML IV SCH ×3 (04:48→22:47)
[2022-11-24] MEDS: HEPARIN SOD (PORCINE) 5000UNITS/ML 1ML VIAL/SYRINGE SC SCH ×3 (04:48→21:11)
[2022-11-24 04:59] LABS: HEMATOCRIT 32.4 % (36.0-47.0); MEAN CORPUSCULAR HEMOGLOBIN 30.2 pg (27.0-33.0); MEAN CORPUSCULAR HGB CONC 30.9 g/dl (32.0-36.5); MEAN CORPUSCULAR VOLUME 97.9 fl (80.0-96.0); PLATELET COUNT, AUTOMATED 130 10^3/uL (150-450); RED BLOOD COUNT 3.31 10^6/uL (4.00-5.40); WHITE BLOOD COUNT 6.7 10^3/uL (4.0-10.0)
[2022-11-24 05:16] LABS: LYMPHOCYTES 7 % (16-44); MONOCYTES 4 % (0-5); NEUTROPHILS 86 % (28-66); PLATELET ESTIMATE DECREASED (NORMAL)
[2022-11-24 05:17] LABS: ANISOCYTOSIS 1+; OVALOCYTES 1+; POIKILOCYTOSIS 2+
[2022-11-24 05:18] LABS: POLYCHROMASIA 1+
[2022-11-24 05:22] LABS: ALBUMIN 2.7 G/DL (3.2-5.2); BILIRUBIN,TOTAL 0.4 MG/DL (0.3-1.2); CALCIUM LEVEL 8.7 MG/DL (8.3-10.6); CREATININE FOR GFR 2.01 MG/DL (0.55-1.30); GLOMERULAR FILTRATION RATE 25.9 (>39); POTASSIUM SERUM 4.5 MMOL/L (3.5-5.1); TOTAL PROTEIN 5.7 G/DL (5.7-8.2)
[2022-11-24] MEDS: DOCUSATE SODIUM 100MG CAPSULE PO SCH ×2 (09:19→20:19)
[2022-11-24] MEDS: VITAMIN D 1,000 INTERNATIONAL UNITS TABLET PO SCH (09:19)
[2022-11-24] MEDS: MULTIVITAMINS/MINERALS THERAP 1 TAB PO SCH (09:19)
[2022-11-24] MEDS: PANTOPRAZOLE 40MG TAB (PROTONIX) PO SCH (09:20)
[2022-11-24] MEDS: guaiFENesin ER 600 MG TAB PO SCH ×2 (09:20→20:19)
[2022-11-24] MEDS: FERROUS SULFATE 325MG TAB PO SCH ×2 (09:20→20:19)
[2022-11-24] MEDS ORDERED: METOPROLOL TART 12.5 MG PER 1/2 TAB PO SCH (12:00)
[2022-11-24] MEDS ORDERED: DIGOXIN INJ 0.5 MG/2 ML AMP IV ONE (17:40)
[2022-11-24] MEDS: METOPROLOL TART 25 MG TABLET PO SCH (17:56)
[2022-11-24] MEDS: ASPIRIN 81MG ENTERIC TABLET PO SCH (20:18)
[2022-11-24] MEDS: ATORVASTATIN 20 MG TAB PO SCH (20:19)
[2022-11-25] VITALS (9 sets, daily range): BP systolic 132–162; BP diastolic 68–85
[2022-11-25] MEDS: methylPREDNISolone 125MG 2ML VIAL IV SCH (00:37)
[2022-11-25] MEDS: METOPROLOL TART 25 MG TABLET PO SCH ×4 (00:38→17:09)
[2022-11-25] MEDS: IPRATROPIUM 0.5MG/ALBUTEROL 2.5MG INH SOL UD 3ML (DUONEB) NEB SCH ×4 (01:08→19:15)
[2022-11-25 06:16] LABS: BASO % 0.2 % (0.0-1.0); HEMATOCRIT 32.6 % (36.0-47.0); HEMOGLOBIN 10.3 g/dl (12.0-15.5); LYMPH # 0.5 10^3/uL (1.5-5.0); LYMPH % 5.5 % (24.0-44.0); MEAN CORPUSCULAR HEMOGLOBIN 30.2 pg (27.0-33.0); MEAN CORPUSCULAR HGB CONC 31.6 g/dl (32.0-36.5); MEAN CORPUSCULAR VOLUME 95.6 fl (80.0-96.0); MONO # 0.3 10^3/uL (0.0-0.8); NEUTROPHILS # 7.3 10^3/uL (1.5-8.5); NEUTROPHILS % 87.1 % (36.0-66.0); PLATELET COUNT, AUTOMATED 139 10^3/uL (150-450); RED BLOOD COUNT 3.41 10^6/uL (4.00-5.40); WHITE BLOOD COUNT 8.4 10^3/uL (4.0-10.0)
[2022-11-25] MEDS: HEPARIN SOD (PORCINE) 5000UNITS/ML 1ML VIAL/SYRINGE SC SCH ×3 (06:28→22:11)
[2022-11-25 06:53] LABS: ALBUMIN 2.7 G/DL (3.2-5.2); BILIRUBIN,TOTAL 0.3 MG/DL (0.3-1.2); CALCIUM LEVEL 9.4 MG/DL (8.3-10.6); CREATININE FOR GFR 1.29 MG/DL (0.55-1.30); GLOMERULAR FILTRATION RATE 43.2 (>39); MAGNESIUM LEVEL 1.9 MG/DL (1.8-2.4); POTASSIUM SERUM 4.4 MMOL/L (3.5-5.1); TOTAL PROTEIN 5.6 G/DL (5.7-8.2)
[2022-11-25] MEDS: DOCUSATE SODIUM 100MG CAPSULE PO SCH ×2 (08:12→20:42)
[2022-11-25] MEDS: PANTOPRAZOLE 40MG TAB (PROTONIX) PO SCH (08:12)
[2022-11-25] MEDS: MULTIVITAMINS/MINERALS THERAP 1 TAB PO SCH (08:12)
[2022-11-25] MEDS: FERROUS SULFATE 325MG TAB PO SCH ×2 (08:12→20:42)
[2022-11-25] MEDS: guaiFENesin ER 600 MG TAB PO SCH ×2 (08:13→20:42)
[2022-11-25] MEDS: VITAMIN D 1,000 INTERNATIONAL UNITS TABLET PO SCH (08:13)
[2022-11-25] MEDS ORDERED: SENNA 8.6 MG TAB (SENOKOT) PO PRN (09:45)
[2022-11-25] MEDS ORDERED: MIRALAX *UNIT DOSE* 17GM PACKET PO PRN (09:45)
[2022-11-25] MEDS: METOPROLOL TART 12.5 MG PER 1/2 TAB PO SCH ×2 (11:54→17:09)
[2022-11-25] MEDS: methylPREDNISolone 40MG 1ML VIAL IV SCH (13:59)
[2022-11-25 17:11] LABS: MYCOPLASMA PNEUMONIAE IgG 461 U/mL (0-99); MYCOPLASMA PNEUMONIAE IgM <770 U/mL (0-769)
[2022-11-25] MEDS ORDERED: DIGOXIN INJ 0.5 MG/2 ML AMP IV STA (17:22)
[2022-11-25] MEDS ORDERED: LevoFLOXacin IV 500 MG in IV 1 EA IV SCH (20:00)
[2022-11-25] MEDS: ATORVASTATIN 20 MG TAB PO SCH (20:42)
[2022-11-25] MEDS: ASPIRIN 81MG ENTERIC TABLET PO SCH (20:42)
[2022-11-25] MEDS ORDERED: LABETALOL 100MG/20ML VIAL IV STA (22:09)
[2022-11-26] VITALS (25 sets, daily range): BP systolic 114–172; BP diastolic 63–86; O2SAT 90–94
[2022-11-26] MEDS ORDERED: RAMELTEON 8 MG TAB (ROZEREM) PO ONE (00:15)
[2022-11-26] MEDS: methylPREDNISolone 40MG 1ML VIAL IV SCH (00:25)
[2022-11-26] MEDS: METOPROLOL TART 50 MG TAB PO SCH ×4 (00:27→17:52)
[2022-11-26] MEDS: IPRATROPIUM 0.5MG/ALBUTEROL 2.5MG INH SOL UD 3ML (DUONEB) NEB SCH ×3 (01:07→13:56)
[2022-11-26] MEDS ORDERED: LABETALOL 100MG/20ML VIAL IV ONE ×2 (05:10→19:20)
[2022-11-26] MEDS: HEPARIN SOD (PORCINE) 5000UNITS/ML 1ML VIAL/SYRINGE SC SCH ×2 (05:42→14:15)
[2022-11-26 05:55] LABS: BASO # 0.1 10^3/uL (0.0-0.2); BASO % 0.4 % (0.0-1.0); HEMATOCRIT 36.2 % (36.0-47.0); HEMOGLOBIN 11.1 g/dl (12.0-15.5); LYMPH # 0.9 10^3/uL (1.5-5.0); LYMPH % 6.5 % (24.0-44.0); MEAN CORPUSCULAR HEMOGLOBIN 30.1 pg (27.0-33.0); MEAN CORPUSCULAR HGB CONC 30.7 g/dl (32.0-36.5); MEAN CORPUSCULAR VOLUME 98.1 fl (80.0-96.0); MONO # 0.6 10^3/uL (0.0-0.8); MONO % 4.3 % (2.0-8.0); NEUTROPHILS # 11.3 10^3/uL (1.5-8.5); NEUTROPHILS % 86.7 % (36.0-66.0); PLATELET COUNT, AUTOMATED 157 10^3/uL (150-450); RED BLOOD COUNT 3.69 10^6/uL (4.00-5.40)
[2022-11-26 06:24] LABS: ALBUMIN 2.8 G/DL (3.2-5.2); BILIRUBIN,TOTAL 0.3 MG/DL (0.3-1.2); CALCIUM LEVEL 9.4 MG/DL (8.3-10.6); CREATININE FOR GFR 1.1 MG/DL (0.55-1.30); MAGNESIUM LEVEL 2.2 MG/DL (1.8-2.4); POTASSIUM SERUM 4.9 MMOL/L (3.5-5.1); TOTAL PROTEIN 5.9 G/DL (5.7-8.2)
[2022-11-26] MEDS ORDERED: LABETALOL 100MG/20ML VIAL IV STA ×2 (07:39→09:16)
[2022-11-26] MEDS ORDERED: predniSONE 20 MG TAB PO SCH (09:00)
[2022-11-26] MEDS ORDERED: ISOSORBIDE MON. (IMDUR) 60MG XR TAB PO SCH (09:00)
[2022-11-26] MEDS: MULTIVITAMINS/MINERALS THERAP 1 TAB PO SCH (09:04)
[2022-11-26] MEDS: PANTOPRAZOLE 40MG TAB (PROTONIX) PO SCH (09:04)
[2022-11-26] MEDS: FERROUS SULFATE 325MG TAB PO SCH ×2 (09:04→20:39)
[2022-11-26] MEDS: VITAMIN D 1,000 INTERNATIONAL UNITS TABLET PO SCH (09:04)
[2022-11-26] MEDS: DOCUSATE SODIUM 100MG CAPSULE PO SCH ×2 (09:04→20:40)
[2022-11-26] MEDS: guaiFENesin ER 600 MG TAB PO SCH ×2 (09:05→20:39)
[2022-11-26] MEDS ORDERED: ISOVUE-370 76% 100ML VIAL As Ordered ONE (11:11)
[2022-11-26] MEDS ORDERED: PREVNAR-20 VACCINE 0.5ML SYRINGE IM.IMMUN ONE (12:00)
[2022-11-26] MEDS ORDERED: LABETALOL HCL 200 MG in D5W 160 ML IV SCH (20:00)
[2022-11-26] MEDS ORDERED: LevoFLOXacin 500 MG TABLET PO SCH (20:00)
[2022-11-26] MEDS: ATORVASTATIN 20 MG TAB PO SCH (20:39)
[2022-11-28 14:08] LABS: BODY FLUID CULTURE Not indicated. (.); LEGIONELLA ANTIGEN URINE Negative (Negative); ORGANISM ID Not indicated. (.); SPECIMEN SOURCE Urine (.); URINE STREP PNEUMONIAE ANTIGEN Negative (Negative)
== END 2022-11-26 21:00 | disposition short-term general hospital (02) | DRG 189 ==
LOC: M ED 15:42 → M ED INP 17:53 → ENRESERV 19:31 → M ICU 20:57 → M PCU 11-24 18:14 → M ICU 11-26 18:17
PROVIDERS: ADMIT Internal Medicine; ATTEND Internal Medicine
DX: J96.01 Acute respiratory failure with hypoxia (principal); J15.6 Pneumonia due to other Gram-negative bacteria; J69.0 Pneumonitis due to inhalation of food and vomit; A41.9 Sepsis, unspecified organism; J12.2 Parainfluenza virus pneumonia; I71.011 Dissection of aortic arch; I71.012 Dissection of descending thoracic aorta; J45.901 Unspecified asthma with (acute) exacerbation; N17.9 Acute kidney failure, unspecified; J44.1 Chronic obstructive pulmonary disease with (acute) exacerbation; J44.0 Chronic obstructive pulmonary disease with (acute) lower respiratory infection; K59.00 Constipation, unspecified; E78.5 Hyperlipidemia, unspecified; J84.10 Pulmonary fibrosis, unspecified; I27.20 Pulmonary hypertension, unspecified; I10 Essential (primary) hypertension; G62.9 Polyneuropathy, unspecified; I71.40 Abdominal aortic aneurysm, without rupture, unspecified; I48.0 Paroxysmal atrial fibrillation; I25.10 Atherosclerotic heart disease of native coronary artery without angina pectoris; Z95.5 Presence of coronary angioplasty implant and graft; K21.9 Gastro-esophageal reflux disease without esophagitis; Z87.891 Personal history of nicotine dependence; Z79.899 Other long term (current) drug therapy; Z88.5 Allergy status to narcotic agent; Z88.8 Allergy status to other drugs, medicaments and biological substances; Z91.018 Allergy to other foods

== ENCOUNTER → 2023-07-28 | Outpatient (CLI) | payer MEDICARE, MEDICAID ==
[~2023-07-28] MED LIST changes: -FLUT50SP17 NARES; +FLUTISP NARES; +GUAI600T54 PO; -HYDR50TA PO; +HYDR50TA47 PO; -UNRESOLVED CLARIFICATION ENTRY XX SCH; +med rec comment
== END ==
LOC: M PLAIMG 13:58
PROVIDERS: ATTEND Internal Medicine Pulmonary Disease
DX: R91.8 Other nonspecific abnormal finding of lung field (principal)

== ENCOUNTER 2023-09-18 22:01 | Emergency (ER) | payer MEDICARE, MEDICAID ==
[~2023-09-18] VITALS: Ht 167.6 cm; Wt 54.5 kg
[~2023-09-18 22:01] MED LIST changes: -ASPI-161 PO; +ASPI-615 PO; +LABE100T40 PO; -LABE100T71 PO
[2023-09-18] MEDS ORDERED: FURO40TA2 PO (22:54)
[2023-09-19] MEDS: IPRATROPIUM 0.5MG/ALBUTEROL 2.5MG INH SOL UD 3ML (DUONEB) NEB ONE (00:25)
[2023-09-19] MEDS: IPRATROPIUM 0.5MG/ALBUTEROL 2.5MG INH SOL UD 3ML (DUONEB) NEB PRN (00:26)
[2023-09-19 00:43] LABS: BASO % 0.2 % (0.0-1.0); EOS # 0.2 10^3/uL (0.0-0.5); EOS % 1.6 % (0.0-3.0); HEMATOCRIT 31.5 % (36.0-47.0); LYMPH # 0.9 10^3/uL (1.5-5.0); LYMPH % 8.3 % (24.0-44.0); MEAN CORPUSCULAR HEMOGLOBIN 31.7 pg (27.0-33.0); MEAN CORPUSCULAR HGB CONC 31.7 g/dl (32.0-36.5); MONO # 0.4 10^3/uL (0.0-0.8); MONO % 3.8 % (2.0-8.0); NEUTROPHILS # 9.7 10^3/uL (1.5-8.5); NEUTROPHILS % 85.8 % (36.0-66.0); PLATELET COUNT, AUTOMATED 124 10^3/uL (150-450); RED BLOOD COUNT 3.15 10^6/uL (4.00-5.40); WHITE BLOOD COUNT 11.2 10^3/uL (4.0-10.0)
[2023-09-19 01:24] LABS: CALCIUM LEVEL 9.6 MG/DL (8.3-10.6); CK-MB VALUE MASS 1.3 NG/ML (<3.6); CREATININE FOR GFR 1.13 MG/DL (0.55-1.30); GLOMERULAR FILTRATION RATE 50.2 (>39); POTASSIUM SERUM 4.2 MMOL/L (3.5-5.1)
[2023-09-19 01:28] LABS: MB/CK RELATIVE INDEX 5.41 (< OR =4)
[2023-09-19] MEDS ORDERED: CEFU50TA PO (01:35)
[2023-09-19] MEDS ORDERED: PRED20TA PO (01:35)
[2023-09-19 01:54] VITALS: BP 144/65; O2SAT 97
[2023-09-19 02:13] VITALS: TEMP 98.1
[2023-09-19] MEDS: CEFUROXIME 500 MG TAB PO STA (02:20)
[2023-09-19] MEDS: methylPREDNISolone 125MG 2ML VIAL IV ONE (02:20)
== END 2023-09-19 02:27 | disposition home or self-care (01) ==
LOC: EDBD 22:01 → M ED 22:01
DX: J44.1 Chronic obstructive pulmonary disease with (acute) exacerbation (principal); I25.119 Atherosclerotic heart disease of native coronary artery with unspecified angina pectoris; I25.2 Old myocardial infarction; I10 Essential (primary) hypertension; E78.5 Hyperlipidemia, unspecified; Z88.8 Allergy status to other drugs, medicaments and biological substances; Z91.018 Allergy to other foods; Z79.1 Long term (current) use of non-steroidal anti-inflammatories (NSAID); Z79.810 Long term (current) use of selective estrogen receptor modulators (SERMs); Z79.899 Other long term (current) drug therapy
CPT/HCPCS: 71046; 80048; 82550; 82553; 83605; 83880; 84484; 85025; 87040; 87486; 87581; 87633; 87798; 93005; 93041; 94640; 94760; 96374; 99285; J2930

== ENCOUNTER → 2023-11-10 | Outpatient (CLI) | payer MEDICARE, MEDICAID ==
[~2023-11-10] MED LIST changes: +CEFU50TA PO; +FURO40TA2 PO; +PRED20TA PO
[2023-11-10 15:41] LABS: CALCIUM LEVEL 9.2 MG/DL (8.3-10.6); CREATININE FOR GFR 1.06 MG/DL (0.55-1.30); GLOMERULAR FILTRATION RATE 54.1 (>39); POTASSIUM SERUM 4.6 MMOL/L (3.5-5.1)
== END ==
LOC: M PLALAB 11:57
PROVIDERS: ATTEND Thoracic Surgery (Cardiothoracic Vascular Surgery)
DX: I71.20 Thoracic aortic aneurysm, without rupture, unspecified (principal)

== ENCOUNTER 2023-12-02 10:59 | Day surgery (SDC) | payer MEDICARE, MEDICAID ==
[~2023-12-02] VITALS: Ht 167.6 cm; Wt 50.7 kg
[~2023-12-02 10:59] MED LIST changes: +DILT30TA PO; +ELIQ2.5T PO; +FERR325T19 PO; +MULT-90 PO; +PHENYLEPHRINE 10% OPHTH SOL 5ML OD PRN; +QUET1TAB17 PO
[2023-12-02] MEDS: BSS IRRIG/VANCO(10MG)/TOBRA(5MG)/EPINEPH(1:1000-0.5CC)500ML BAG-ORONLY As Ordered ONE (11:20)
[2023-12-02] MEDS: PHENYLEPHRINE 2.5% OPHTH SOL 2ML OD SCH (13:19)
[2023-12-02] MEDS: TROPICAMIDE 1% OPHTH SOLN 15ML OD SCH (13:19)
[2023-12-02] MEDS: LIDOCAINE 3.5 % 1ML OPHTH TOPICAL GEL OU ONE (13:20)
[2023-12-02] MEDS: ATROPINE SULFATE 1% OPHTH SOLN 2ML BTL OD SCH (13:20)
[2023-12-02] MEDS: OFLOXACIN 0.3 % (OCUFLOX) OPTH SOL 5ML OD ONE (13:20)
[2023-12-02] MEDS ORDERED: MIDAZOLAM INJ 2MG/2ML VIAL As Ordered ONE (13:37)
[2023-12-02] MEDS ORDERED: fentaNYL 100 MCG/2 ML INJECTION As Ordered ONE (13:38)
[2023-12-02] MEDS: LIDOCAINE 1% SDV 5ML VIAL As Ordered ONE (14:28)
[2023-12-02] MEDS: CEFUROXIME 1MG/0.1ML INTRACAMERAL INJ As Ordered ONE (14:28)
[2023-12-02 14:40] VITALS: BP 123/62; TEMP 98.2; O2SAT 95
[2023-12-04] MEDS ORDERED: CVS-161 PO (08:17)
[2023-12-04] MEDS ORDERED: GARL500C6 PO (08:17)
[2023-12-04] MEDS ORDERED: [UNRECOGNIZED DRUG - OTHER] PO (08:17)
== END 2023-12-02 15:15 | disposition home or self-care (01) ==
LOC: M SDC 10:59
PROVIDERS: ATTEND Ophthalmology
DX: H25.11 Age-related nuclear cataract, right eye (principal); I25.10 Atherosclerotic heart disease of native coronary artery without angina pectoris; I25.2 Old myocardial infarction; Z95.5 Presence of coronary angioplasty implant and graft; I10 Essential (primary) hypertension; Z88.8 Allergy status to other drugs, medicaments and biological substances; Z88.5 Allergy status to narcotic agent; Z91.018 Allergy to other foods; Z79.899 Other long term (current) drug therapy; Z79.01 Long term (current) use of anticoagulants; Z87.891 Personal history of nicotine dependence
CPT/HCPCS: 66984; J0697; J2250; J3010; V2632

== ENCOUNTER 2023-12-09 09:45 | Day surgery (SDC) | payer MEDICARE, MEDICAID ==
[~2023-12-09] VITALS: Ht 167.6 cm; Wt 50.4 kg
[~2023-12-09 09:45] MED LIST changes: -CRAN400C PO; +CRANBERRY400 MG PO; +CVS-161 PO; +GARL500C6 PO; +ONDA-282 PO; -ONDA4TAB6 PO; -PHENYLEPHRINE 10% OPHTH SOL 5ML OD PRN; +PHENYLEPHRINE 10% OPHTH SOL 5ML OS PRN; +[UNRECOGNIZED DRUG - OTHER] PO
[2023-12-09] MEDS ORDERED: MIDAZOLAM INJ 2MG/2ML VIAL As Ordered ONE (11:14)
[2023-12-09] MEDS ORDERED: fentaNYL 100 MCG/2 ML INJECTION As Ordered ONE (11:15)
[2023-12-09] MEDS: OFLOXACIN 0.3 % (OCUFLOX) OPTH SOL 5ML OS ONE (11:40)
[2023-12-09] MEDS: PHENYLEPHRINE 2.5% OPHTH SOL 2ML OS SCH (11:41)
[2023-12-09] MEDS: TROPICAMIDE 1% OPHTH SOLN 15ML OS SCH (11:41)
[2023-12-09] MEDS: LIDOCAINE 3.5 % 1ML OPHTH TOPICAL GEL OU ONE (11:41)
[2023-12-09] MEDS: ATROPINE SULFATE 1% OPHTH SOLN 2ML BTL OS SCH (11:41)
[2023-12-09] MEDS: BSS IRRIG/VANCO(10MG)/TOBRA(5MG)/EPINEPH(1:1000-0.5CC)500ML BAG-ORONLY As Ordered ONE (12:01)
[2023-12-09] MEDS: LIDOCAINE 1% SDV 5ML VIAL As Ordered ONE (12:01)
[2023-12-09] MEDS: CEFUROXIME 1MG/0.1ML INTRACAMERAL INJ As Ordered ONE (12:01)
[2023-12-09 12:07] VITALS: BP 133/60; TEMP 98.1; O2SAT 93
== END 2023-12-09 12:25 | disposition home or self-care (01) ==
LOC: M SDC 09:45
PROVIDERS: ATTEND Ophthalmology
DX: H25.12 Age-related nuclear cataract, left eye (principal); I25.10 Atherosclerotic heart disease of native coronary artery without angina pectoris; I10 Essential (primary) hypertension; I25.2 Old myocardial infarction; E78.00 Pure hypercholesterolemia, unspecified; Z95.5 Presence of coronary angioplasty implant and graft; Z79.899 Other long term (current) drug therapy; Z79.01 Long term (current) use of anticoagulants; Z92.3 Personal history of irradiation; Z88.5 Allergy status to narcotic agent; Z88.8 Allergy status to other drugs, medicaments and biological substances; Z87.891 Personal history of nicotine dependence
CPT/HCPCS: 66984; J0697; J2250; J3010; V2632

== ENCOUNTER → 2025-04-13 | Outpatient (REF) | payer MEDICARE, MEDICAID ==
[~2025-04-13] MED LIST changes: +ECHI400C19 PO; -ECHI400C2 PO; +MAG30ORA18 PO; -MYLASSUD PO; -PHENYLEPHRINE 10% OPHTH SOL 5ML OS PRN; +PIPE3.3729 IV; -ZOSY1SOL5 IV
[2025-04-13 17:14] LABS: BASO # 0.0 10^3/uL (0.0-0.2); BASO % 0.2 % (0.0-1.0); EOS # 0.2 10^3/uL (0.0-0.5); EOS % 2.6 % (0.0-3.0); LYMPH # 1.2 10^3/uL (1.5-5.0); LYMPH % 14.2 % (24.0-44.0); MONO # 0.5 10^3/uL (0.0-0.8); MONO % 6.0 % (2.0-8.0); NEUTROPHILS # 6.4 10^3/uL (1.5-8.5); NEUTROPHILS % 76.5 % (36.0-66.0); PLATELET COUNT, AUTOMATED 115 10^3/uL (150-450)
[2025-04-13 17:46] LABS: ALT/SGPT 18.0 U/L (7.0-40); AST/SGOT 20.0 U/L (<34); CALCIUM LEVEL 10.1 MG/DL (8.3-10.6); CARBON DIOXIDE LEVEL 40.0 MMOL/L (20-31); CHLORIDE LEVEL 98.0 MMOL/L (98-107); CHOLESTEROL LEVEL 109.0 MG/DL (<200); CHOLESTEROL RISK RATIO 2.02 (<5); CREATININE FOR GFR 1.17 MG/DL (0.55-1.30); GLOMERULAR FILTRATION RATE 48.7 (>39); LDL CHOLESTEROL 39.1 MG/DL (<100); NON-HDL-C 55.3 MG/DL; POTASSIUM SERUM 4.9 MMOL/L (3.5-5.1); SODIUM LEVEL 142.0 MMOL/L (136-145); TRIGLYCERIDES LEVEL 81.0 MG/DL (<150)
[2025-04-13 17:47] LABS: FREE T4 1.19 NG/DL (0.89-1.76)
[2025-04-13 18:19] LABS: ESTIMATED AVERAGE GLUCOSE 100.0 MG/DL (60-110)
== END ==
LOC: M LAB REF 16:22
PROVIDERS: ATTEND Family Medicine Addiction Medicine
DX: I10 Essential (primary) hypertension (principal); Z79.899 Other long term (current) drug therapy

== ENCOUNTER 2025-04-20 08:54 | Inpatient (IN) | payer MEDICARE, MEDICAID ==
[~2025-04-20] VITALS: Ht 165.1 cm; Wt 53.9 kg
[2025-04-20] MEDS: FERROUS SULFATE 300 MG/5 ML UDC LIQUID PO SCH (09:00)
[2025-04-20] MEDS: PERCOCET 5MG/325MG TAB PO ONE (12:36)
[2025-04-20 13:01] LABS: BASO # 0.0 10^3/uL (0.0-0.2); BASO % 0.1 % (0.0-1.0); EOS # 0.1 10^3/uL (0.0-0.5); EOS % 0.3 % (0.0-3.0); LYMPH # 1.2 10^3/uL (1.5-5.0); LYMPH % 8.3 % (24.0-44.0); MONO # 0.6 10^3/uL (0.0-0.8); MONO % 4.1 % (2.0-8.0); NEUTROPHILS # 12.8 10^3/uL (1.5-8.5); NEUTROPHILS % 86.4 % (36.0-66.0); PLATELET COUNT, AUTOMATED 119 10^3/uL (150-450)
[2025-04-20 13:33] LABS: CALCIUM LEVEL 10.0 MG/DL (8.3-10.6); CARBON DIOXIDE LEVEL 38.0 MMOL/L (20-31); CHLORIDE LEVEL 99.0 MMOL/L (98-107); CREATININE FOR GFR 1.12 MG/DL (0.55-1.30); GLOMERULAR FILTRATION RATE 51.3 (>39); MAGNESIUM LEVEL 2.1 MG/DL (1.8-2.4); POTASSIUM SERUM 4.7 MMOL/L (3.5-5.1); SODIUM LEVEL 144.0 MMOL/L (136-145)
[2025-04-20 13:36] LABS: FREE T4 1.11 NG/DL (0.89-1.76)
[2025-04-20] MEDS: AZITHROMYCIN 250 MG TABLET PO ONE (13:50)
[2025-04-20] MEDS: cefTRIAXone SOD 1 GM in DEXTROSE 5% (D5W) ADV/MINI-BAG 50 ML IV ONE ×2 (13:50→16:49)
[2025-04-20] MEDS ORDERED: IPRATROPIUM 0.5 MG/2.5 ML (0.02%) SOLN NEB INH PRN (14:35)
[2025-04-20] MEDS ORDERED: LEVALBUTEROL 1.25 MG 0.5ML CONCENTRATE NEB INH PRN (14:35)
[2025-04-20] MEDS ORDERED: HOME MED LIST COMPLETE! XX SCH (14:40)
[2025-04-20] MEDS ORDERED: traMADol 50 MG TAB PO PRN (14:40)
[2025-04-20 15:45] VITALS: BP 103/72; TEMP 97.3; O2SAT 94
[2025-04-20] MEDS: ISOSORBIDE MONONITRATE 60 MG XR TAB PO SCH (16:19)
[2025-04-20] MEDS: MULTIVITAMINS/MINERALS THERAP 1 TAB PO SCH (16:48)
[2025-04-20] MEDS: PANTOPRAZOLE 40MG TAB PO SCH (16:49)
[2025-04-20] MEDS: LIDOCAINE 5% PATCH TD SCH (16:50)
[2025-04-20] MEDS: POLYVINYL ALCOHOL OPHTH SOLN 15ML (LIQUITEARS) OU SCH (17:00)
[2025-04-20] MEDS: ACETAMINOPHEN 500 MG TAB PO SCH (17:09)
[2025-04-20] MEDS: LABETALOL 200 MG TAB PO SCH (21:00)
[2025-04-20] MEDS: GABAPENTIN 100 MG CAP PO SCH (21:10)
[2025-04-20] MEDS: DOCUSATE SODIUM 100 MG CAPSULE PO SCH (21:10)
[2025-04-20] MEDS: ATORVASTATIN 20 MG TAB PO SCH (21:10)
[2025-04-20] MEDS: APIXABAN 2.5 MG TAB PO SCH (21:11)
[2025-04-20 21:17] VITALS: BP 120/68; TEMP 97.2
[2025-04-21 05:53] VITALS: BP 122/74; TEMP 97.2; O2SAT 96
[2025-04-21 06:57] LABS: BASO # 0.0 10^3/uL (0.0-0.2); BASO % 0.1 % (0.0-1.0); EOS # 0.2 10^3/uL (0.0-0.5); EOS % 2.4 % (0.0-3.0); LYMPH # 0.9 10^3/uL (1.5-5.0); LYMPH % 11.2 % (24.0-44.0); MONO # 0.4 10^3/uL (0.0-0.8); MONO % 5.4 % (2.0-8.0); NEUTROPHILS # 6.1 10^3/uL (1.5-8.5); NEUTROPHILS % 80.5 % (36.0-66.0); PLATELET COUNT, AUTOMATED 103 10^3/uL (150-450)
[2025-04-21 07:22] LABS: CALCIUM LEVEL 9.9 MG/DL (8.3-10.6); CARBON DIOXIDE LEVEL 38.0 MMOL/L (20-31); CHLORIDE LEVEL 101.0 MMOL/L (98-107); CREATININE FOR GFR 1.18 MG/DL (0.55-1.30); GLOMERULAR FILTRATION RATE 48.2 (>39); POTASSIUM SERUM 4.2 MMOL/L (3.5-5.1); SODIUM LEVEL 146.0 MMOL/L (136-145)
[2025-04-21 08:14] VITALS: BP 122/64
[2025-04-21] MEDS: AZITHROMYCIN 250 MG TABLET PO SCH (08:16)
[2025-04-21] MEDS: FUROSEMIDE 40 MG TAB PO SCH (08:17)
[2025-04-21] MEDS: traMADol 50 MG TAB PO PRN (10:18)
[2025-04-21 11:22] LABS: KETONE, URINE AUTO RFX NEGATIVE (NEGATIVE); NITRITE, URINE AUTO RFX NEGATIVE (NEGATIVE); RBC, URINE AUTO RFX 10 /HPF (0-3); SQUAM EPITHELIAL CELL UR AURFX 0 /HPF (0-6); YEAST LIKE CELL URINE AUTO RFX SMALL
[2025-04-21 11:24] LABS: LEUKOCYTE ESTERASE UR AUTO RFX 3+ (NEGATIVE); WBC, URINE AUTO RFX TNTC /HPF (0-3)
[2025-04-21] MEDS ORDERED: CEFD1CAP9 PO (12:33)
[2025-04-21] MEDS ORDERED: AZIT-12 PO (12:33)
[2025-04-21 14:00] VITALS: TEMP 97.3; O2SAT 96
[2025-04-21] MEDS: cefTRIAXone SOD 2 GM in DEXTROSE 5% (D5W) ADV/MINI-BAG 50 ML IV SCH (14:43)
== END 2025-04-21 15:45 | DRG 871 ==
LOC: M ED 08:54 → EDBD 08:54 → M ED INP 14:02 → M MS5PR 15:15
PROVIDERS: ADMIT General Practice; ATTEND General Practice
DX: A41.9 Sepsis, unspecified organism (principal); J18.9 Pneumonia, unspecified organism; J44.0 Chronic obstructive pulmonary disease with (acute) lower respiratory infection; J96.11 Chronic respiratory failure with hypoxia; J84.10 Pulmonary fibrosis, unspecified; I27.20 Pulmonary hypertension, unspecified; I48.0 Paroxysmal atrial fibrillation; I08.0 Rheumatic disorders of both mitral and aortic valves; M85.88 Other specified disorders of bone density and structure, other site; I25.10 Atherosclerotic heart disease of native coronary artery without angina pectoris; K21.9 Gastro-esophageal reflux disease without esophagitis; M25.551 Pain in right hip; M54.50 Low back pain, unspecified; I10 Essential (primary) hypertension; I72.2 Aneurysm of renal artery; I71.22 Aneurysm of the aortic arch, without rupture; I72.3 Aneurysm of iliac artery; E78.5 Hyperlipidemia, unspecified; M48.54XD Collapsed vertebra, not elsewhere classified, thoracic region, subsequent encounter for fracture with routine healing; Z99.81 Dependence on supplemental oxygen; Z95.5 Presence of coronary angioplasty implant and graft; Z79.01 Long term (current) use of anticoagulants; Z79.899 Other long term (current) drug therapy; Z91.018 Allergy to other foods; Z88.5 Allergy status to narcotic agent; Z88.8 Allergy status to other drugs, medicaments and biological substances

== ENCOUNTER 2025-04-21 13:54 | Inpatient (IN) | payer MEDICARE, MEDICAID ==
[~2025-04-21] VITALS: Ht 165.1 cm; Wt 53.9 kg
[~2025-04-21 13:54] MED LIST changes: +AZIT-12 PO; +CEFD1CAP9 PO
[2025-04-21] MEDS ORDERED: NITROGLYCERIN 0.4 MG SUBL TABLET SL PRN (15:20)
[2025-04-21] MEDS ORDERED: ONDANSETRON 4MG ORAL DISINTEGRATING TAB PO PRN (15:20)
[2025-04-21] MEDS ORDERED: MOM 30 ML SUSPENSION UDC PO PRN (15:20)
[2025-04-21] MEDS ORDERED: LEVALBUTEROL 1.25 MG 0.5ML CONCENTRATE NEB INH PRN (15:20)
[2025-04-21] MEDS ORDERED: BISACODYL 10 MG SUPP PR PRN (15:20)
[2025-04-21] MEDS ORDERED: SIMETHICONE 80MG CHEW TAB PO PRN (15:20)
[2025-04-21] MEDS ORDERED: BISACODYL 5 MG TAB PO PRN (15:20)
[2025-04-21 16:20] VITALS: BP 143/69; TEMP 96; O2SAT 92
[2025-04-21] MEDS: ACETAMINOPHEN 500 MG TAB PO SCH (18:13)
[2025-04-21] MEDS: POLYVINYL ALCOHOL OPHTH SOLN 15ML (LIQUITEARS) OU SCH (18:14)
[2025-04-21 20:00] VITALS: BP 137/61; TEMP 97; O2SAT 91
[2025-04-21] MEDS: dilTIAZem 30 MG TAB PO SCH (21:10)
[2025-04-21] MEDS: DOCUSATE SODIUM 100 MG CAPSULE PO SCH (21:10)
[2025-04-21] MEDS: APIXABAN 2.5 MG TAB PO SCH (21:10)
[2025-04-21] MEDS: SENNA 8.6 MG TAB PO SCH (21:10)
[2025-04-21] MEDS: LABETALOL 200 MG TAB PO SCH (21:13)
[2025-04-21] MEDS: ATORVASTATIN 20 MG TAB PO SCH (21:14)
[2025-04-21] MEDS: GABAPENTIN 100 MG CAP PO SCH (21:14)
[2025-04-22 04:00] VITALS: BP 110/52; TEMP 97.1; O2SAT 91
[2025-04-22 08:18] LABS: BASO # 0.0 10^3/uL (0.0-0.2); BASO % 0.3 % (0.0-1.0); EOS # 0.3 10^3/uL (0.0-0.5); EOS % 4.0 % (0.0-3.0); LYMPH # 0.9 10^3/uL (1.5-5.0); LYMPH % 12.7 % (24.0-44.0); MONO # 0.4 10^3/uL (0.0-0.8); MONO % 5.1 % (2.0-8.0); NEUTROPHILS # 5.4 10^3/uL (1.5-8.5); NEUTROPHILS % 77.3 % (36.0-66.0); PLATELET COUNT, AUTOMATED 112 10^3/uL (150-450)
[2025-04-22] MEDS: MULTIVITAMINS/MINERALS THERAP 1 TAB PO SCH (08:20)
[2025-04-22] MEDS: AZITHROMYCIN 250 MG TABLET PO SCH (08:21)
[2025-04-22] MEDS: PANTOPRAZOLE 40MG TAB PO SCH (08:21)
[2025-04-22] MEDS: CEFDINIR 300 MG CAP PO SCH (08:22)
[2025-04-22] MEDS: FUROSEMIDE 40 MG TAB PO SCH (08:24)
[2025-04-22] MEDS: ISOSORBIDE MONONITRATE 60 MG XR TAB PO SCH (08:24)
[2025-04-22] MEDS: LIDOCAINE 5% PATCH TD SCH (08:25)
[2025-04-22 08:41] LABS: ALT/SGPT 16.0 U/L (7.0-40); AST/SGOT 18.0 U/L (<34); CALCIUM LEVEL 9.6 MG/DL (8.3-10.6); CARBON DIOXIDE LEVEL 36.0 MMOL/L (20-31); CHLORIDE LEVEL 100.0 MMOL/L (98-107); CREATININE FOR GFR 1.17 MG/DL (0.55-1.30); GLOMERULAR FILTRATION RATE 48.7 (>39); POTASSIUM SERUM 4.3 MMOL/L (3.5-5.1); SODIUM LEVEL 143.0 MMOL/L (136-145)
[2025-04-22] MEDS: traMADol 50 MG TAB PO PRN (08:41)
[2025-04-22 12:00] VITALS: BP 119/57; TEMP 97.8; O2SAT 92
[2025-04-22 20:27] VITALS: BP 127/76; TEMP 98.1; O2SAT 91
[2025-04-22] MEDS: ALPRAZolam 0.25 MG TAB PO PRN (21:32)
[2025-04-23 04:29] VITALS: BP 118/73; TEMP 97; O2SAT 94
[2025-04-23] MEDS: FERROUS SULFATE 325 MG TAB PO SCH (08:27)
[2025-04-23 12:00] VITALS: BP 88/55; TEMP 97.6; O2SAT 93
[2025-04-23 20:31] VITALS: BP 113/74; TEMP 97; O2SAT 93
[2025-04-24 03:47] VITALS: BP 146/68; TEMP 97.3; O2SAT 90
[2025-04-24] MEDS: traMADol 50 MG TAB PO PRN (07:12)
[2025-04-24] MEDS: guaiFENesin ER TABLET 600 MG TAB PO SCH (11:49)
[2025-04-24 12:00] VITALS: BP 101/57; TEMP 97.6; O2SAT 95
[2025-04-24 20:00] VITALS: BP 152/72; TEMP 97.9; O2SAT 96
[2025-04-25 04:00] VITALS: BP 151/64; TEMP 97; O2SAT 99
[2025-04-25] MEDS: MAALOX 30 ML SUSP *UDC PO PRN (07:55)
[2025-04-25 08:04] VITALS: BP 150/70; O2SAT 90
[2025-04-25 08:23] LABS: BASO # 0.0 10^3/uL (0.0-0.2); BASO % 0.3 % (0.0-1.0); EOS # 0.3 10^3/uL (0.0-0.5); EOS % 3.9 % (0.0-3.0); LYMPH # 0.9 10^3/uL (1.5-5.0); LYMPH % 12.5 % (24.0-44.0); MONO # 0.5 10^3/uL (0.0-0.8); MONO % 6.5 % (2.0-8.0); NEUTROPHILS # 5.4 10^3/uL (1.5-8.5); NEUTROPHILS % 76.4 % (36.0-66.0); PLATELET COUNT, AUTOMATED 115 10^3/uL (150-450)
[2025-04-25 08:52] LABS: ALT/SGPT 16.0 U/L (7.0-40); AST/SGOT 19.0 U/L (<34); CALCIUM LEVEL 9.9 MG/DL (8.3-10.6); CARBON DIOXIDE LEVEL 36.0 MMOL/L (20-31); CHLORIDE LEVEL 101.0 MMOL/L (98-107); CREATININE FOR GFR 1.06 MG/DL (0.55-1.30); GLOMERULAR FILTRATION RATE 54.8 (>39); POTASSIUM SERUM 5.0 MMOL/L (3.5-5.1); SODIUM LEVEL 145.0 MMOL/L (136-145)
[2025-04-25 11:57] VITALS: BP 127/68; TEMP 98; O2SAT 93
[2025-04-25 20:00] VITALS: BP 158/72; TEMP 98.3; O2SAT 95
[2025-04-26 04:00] VITALS: BP 167/76; TEMP 97.9; O2SAT 95
[2025-04-26 12:00] VITALS: BP 134/61; TEMP 96.2; O2SAT 91
[2025-04-26 20:00] VITALS: BP 166/73; TEMP 97.6; O2SAT 90
[2025-04-27 04:00] VITALS: BP_SYST 129; BP_SYST 167; BP_DIAS 67; BP_DIAS 76; TEMP 97.6; TEMP 97.9; O2SAT 92; O2SAT 95
[2025-04-27 07:42] VITALS: BP 136/60
[2025-04-27 08:25] LABS: CALCIUM LEVEL 9.9 MG/DL (8.3-10.6); CARBON DIOXIDE LEVEL 34.0 MMOL/L (20-31); CHLORIDE LEVEL 102.0 MMOL/L (98-107); CREATININE FOR GFR 1.16 MG/DL (0.55-1.30); GLOMERULAR FILTRATION RATE 49.2 (>39); POTASSIUM SERUM 5.1 MMOL/L (3.5-5.1); SODIUM LEVEL 145.0 MMOL/L (136-145)
[2025-04-27 12:00] VITALS: BP 121/57; TEMP 98.5; O2SAT 92
[2025-04-27 20:00] VITALS: BP 129/67; TEMP 97.9; O2SAT 93
[2025-04-28 04:00] VITALS: BP 140/69; TEMP 96.9; O2SAT 96
[2025-04-28 07:43] VITALS: BP 134/64
[2025-04-28] MEDS ORDERED: DILT30TA PO (11:19)
[2025-04-28] MEDS ORDERED: ELIQ2.5T PO (11:19)
[2025-04-28] MEDS ORDERED: LABE20TAB PO (11:19)
[2025-04-28] MEDS ORDERED: PANT40TA29 PO (11:19)
[2025-04-28] MEDS ORDERED: HYDR-3363 PO (11:19)
[2025-04-28] MEDS ORDERED: ATOR40TA75 PO (11:19)
[2025-04-28] MEDS ORDERED: QUET1TAB17 PO (11:19)
[2025-04-28] MEDS ORDERED: FURO40TA2 PO (11:19)
[2025-04-28] MEDS ORDERED: TRAM50TA2 PO (11:22)
[2025-04-28] MEDS ORDERED: CEFD1CAP9 PO (11:36)
[2025-04-28 12:00] VITALS: BP 129/60; TEMP 97.1; O2SAT 96
[2025-04-28 20:00] VITALS: BP 159/69; TEMP 97; O2SAT 96
[2025-04-29 04:00] VITALS: BP 124/71; TEMP 97; O2SAT 98
[2025-04-29 08:39] VITALS: BP 169/76
[2025-04-29 12:00] VITALS: BP 154/76; TEMP 97; O2SAT 93
== END 2025-04-29 13:55 | disposition home health service (06) | DRG 194 ==
LOC: M PM&R 16:15
PROVIDERS: ADMIT Physical Medicine & Rehabilitation; ATTEND Physical Medicine & Rehabilitation
DX: J18.9 Pneumonia, unspecified organism (principal); J96.11 Chronic respiratory failure with hypoxia; M48.56XA Collapsed vertebra, not elsewhere classified, lumbar region, initial encounter for fracture; I48.0 Paroxysmal atrial fibrillation; I25.10 Atherosclerotic heart disease of native coronary artery without angina pectoris; I27.20 Pulmonary hypertension, unspecified; J44.9 Chronic obstructive pulmonary disease, unspecified; M54.50 Low back pain, unspecified; R05.3 Chronic cough; M25.551 Pain in right hip; D50.9 Iron deficiency anemia, unspecified; I08.2 Rheumatic disorders of both aortic and tricuspid valves; J84.10 Pulmonary fibrosis, unspecified; E87.5 Hyperkalemia; K21.9 Gastro-esophageal reflux disease without esophagitis; I71.40 Abdominal aortic aneurysm, without rupture, unspecified; K59.00 Constipation, unspecified; M85.80 Other specified disorders of bone density and structure, unspecified site; Z99.81 Dependence on supplemental oxygen; Z98.41 Cataract extraction status, right eye; Z98.42 Cataract extraction status, left eye; Z87.891 Personal history of nicotine dependence; Z95.5 Presence of coronary angioplasty implant and graft; Z79.01 Long term (current) use of anticoagulants; Z79.2 Long term (current) use of antibiotics; Z79.899 Other long term (current) drug therapy; Z88.5 Allergy status to narcotic agent; Z88.8 Allergy status to other drugs, medicaments and biological substances; Z91.018 Allergy to other foods

== ENCOUNTER → 2025-05-02 | Outpatient (CLI) | payer MEDICARE, MEDICAID ==
[~2025-05-02] MED LIST changes: +HYDR-3363 PO; +ISOVUE-370 76% 100 ML VIAL ONE
== END ==
LOC: M PLAIMG 11:11
PROVIDERS: ATTEND Thoracic Surgery (Cardiothoracic Vascular Surgery)
DX: I71.012 Dissection of descending thoracic aorta (principal); K57.90 Diverticulosis of intestine, part unspecified, without perforation or abscess without bleeding; N26.1 Atrophy of kidney (terminal)
CPT/HCPCS: 71275; 74174; Q9967

== ENCOUNTER 2025-06-25 19:03 | Inpatient (IN) | payer MEDICARE, MEDICAID ==
[~2025-06-25] VITALS: Ht 160 cm; Wt 50.0 kg
[~2025-06-25 19:03] MED LIST changes: -ISOVUE-370 76% 100 ML VIAL ONE; -LABE100T6 PO; +LABE100T91 PO; -LABE200T5 PO; +LABE200T86 PO
[2025-06-25] MEDS ORDERED: IPRATROPIUM 0.5 MG/ALBUTEROL 2.5 MG INH SOL UD 3 ML As Ordered ONE (19:16)
[2025-06-25 19:32] LABS: VENOUS BASE EXCESS 10.3 (-2.0-2.0); VENOUS HCO3 35.9 MMOL/L (23.0-27.0); VENOUS O2 SATURATION 98.6 % (60.0-80.0); VENOUS PARTIAL PRESSURE CO2 51.9 mmHg (38.0-50.0); VENOUS PARTIAL PRESSURE O2 124.0 mmHg (30.0-50.0); VENOUS PH 7.458 UNITS (7.330-7.430); VENOUS STANDARD HCO3 34.1 MMOL/L; VENOUS TOTAL CO2 37.5 MMOL/L (24.0-28.0)
[2025-06-25 19:39] LABS: BASO # 0.0 10^3/uL (0.0-0.2); BASO % 0.1 % (0.0-1.0); EOS # 0.1 10^3/uL (0.0-0.5); EOS % 0.5 % (0.0-3.0); LYMPH # 0.7 10^3/uL (1.5-5.0); LYMPH % 7.1 % (24.0-44.0); MONO # 0.4 10^3/uL (0.0-0.8); MONO % 4.3 % (2.0-8.0); NEUTROPHILS # 8.8 10^3/uL (1.5-8.5); NEUTROPHILS % 87.6 % (36.0-66.0); PLATELET COUNT, AUTOMATED 121 10^3/uL (150-450)
[2025-06-25] MEDS: IPRATROPIUM 0.5 MG/ALBUTEROL 2.5 MG INH SOL UD 3 ML NEB PRN (19:41)
[2025-06-25 19:42] LABS: ABG BASE EXCESS 9.9 (-2.0-2.0); ABG HCO3 36.8 MMOL/L (22.0-26.0); ABG O2 SATURATION 94.4 % (95.0-99.0); ABG PARTIAL PRESSURE O2 74.3 mmHg (75.0-100.0); ABG STANDARD HCO3 33.6 MMOL/L. (22.0-26.0); ABG TOTAL CO2 38.6 MMOL/L (23.0-31.0); ABG pH (ARTERIAL) 7.403 UNITS (7.350-7.450)
[2025-06-25 19:44] LABS: ABG PARTIAL PRESSURE CO2 60.3 mmHg (35.0-45.0)
[2025-06-25] MEDS: ACETAMINOPHEN *IV* 1,000 MG in IV 1 EA IV ONE (19:55)
[2025-06-25 20:13] LABS: ALT/SGPT 20.0 U/L (7.0-40); AST/SGOT 48.0 U/L (<34); CK-MB VALUE MASS 1.3 NG/ML (<3.6); CPK CREATINE PHOSPHOKINASE 53.0 U/L (34-145); MB/CK RELATIVE INDEX 2.45 (< OR =4); THYROXINE (T4) 6.3 UG/DL (4.5-10.9)
[2025-06-25 22:44] LABS: CALCIUM LEVEL 10.6 MG/DL (8.3-10.6); CARBON DIOXIDE LEVEL 39 MMOL/L (20-31); CHLORIDE LEVEL 99 MMOL/L (98-107); CK-MB VALUE MASS < 1.0 NG/ML (<3.6); CPK CREATINE PHOSPHOKINASE 36 U/L (34-145); CREATININE FOR GFR 1.14 MG/DL (0.55-1.30); GLOMERULAR FILTRATION RATE 50.2 (>39); POTASSIUM SERUM 4.6 MMOL/L (3.5-5.1); SODIUM LEVEL 143 MMOL/L (136-145)
[2025-06-25] MEDS ORDERED: ISOVUE-370 76% 100 ML VIAL As Ordered ONE (22:53)
[2025-06-26] VITALS (7 sets, daily range): BP systolic 129–168; BP diastolic 63–75; TEMP 97.9–98.1; O2SAT 83–92
[2025-06-26] MEDS ORDERED: **PLEASE UPDATE HEIGHT/WEIGHT XX SCH
[2025-06-26] MEDS: PIPERACILLIN/TAZOBACTAM SOD 4.5 GM in DEXTROSE 5% (D5W) ADV/MINI-BAG 50 ML IV ONE (00:07)
[2025-06-26] MEDS ORDERED: PIPERACILLIN/TAZOBACTAM SOD 4.5 GM in DEXTROSE 5% (D5W) ADV/MINI-BAG 50 ML IV SCH (00:35)
[2025-06-26] MEDS ORDERED: ALBUTEROL SULFATE 2.5 MG/0.5 ML INH CONCENTRATE NEB SOLN INH PRN (05:20)
[2025-06-26] MEDS: PIPERACILLIN/TAZOBACTAM SOD 3.375 GM in DEXTROSE 5% (D5W) ADV/MINI-BAG 50 ML IV SCH (05:31)
[2025-06-26 06:47] LABS: PLATELET COUNT, AUTOMATED 108 10^3/uL (150-450)
[2025-06-26 07:19] LABS: CALCIUM LEVEL 10.1 MG/DL (8.3-10.6); CARBON DIOXIDE LEVEL 36.0 MMOL/L (20-31); CHLORIDE LEVEL 96.0 MMOL/L (98-107); CREATININE FOR GFR 1.14 MG/DL (0.55-1.30); GLOMERULAR FILTRATION RATE 50.2 (>39); MAGNESIUM LEVEL 2.0 MG/DL (1.8-2.4); PHOSPHORUS LEVEL 4.3 MG/DL (2.4-5.1); POTASSIUM SERUM 4.4 MMOL/L (3.5-5.1); SODIUM LEVEL 140.0 MMOL/L (136-145)
[2025-06-26] MEDS: DOCUSATE SODIUM 100 MG CAPSULE PO SCH (08:41)
[2025-06-26] MEDS: PANTOPRAZOLE 40MG TAB PO SCH (08:41)
[2025-06-26] MEDS: predniSONE 20 MG TAB PO SCH (08:41)
[2025-06-26] MEDS: IPRATROPIUM 0.5 MG/ALBUTEROL 2.5 MG INH SOL UD 3 ML NEB SCH (09:02)
[2025-06-26] MEDS ORDERED: HYDR-3363 PO (11:51)
[2025-06-26] MEDS ORDERED: QUET1TAB17 PO (11:51)
[2025-06-26] MEDS ORDERED: TRAM50TA2 PO (11:51)
[2025-06-26] MEDS ORDERED: HOME MED LIST COMPLETE! XX SCH (11:55)
[2025-06-26] MEDS: APIXABAN 2.5 MG TAB PO SCH (13:12)
[2025-06-26] MEDS: ACETAMINOPHEN 325 MG TAB PO PRN (20:55)
[2025-06-27 04:20] VITALS: BP 144/66; TEMP 98; O2SAT 93
[2025-06-27 06:24] LABS: PLATELET COUNT, AUTOMATED 105 10^3/uL (150-450)
[2025-06-27 06:47] LABS: ALT/SGPT 13.0 U/L (7.0-40); AST/SGOT 23.0 U/L (<34); CALCIUM LEVEL 10.0 MG/DL (8.3-10.6); CARBON DIOXIDE LEVEL 37.0 MMOL/L (20-31); CHLORIDE LEVEL 99.0 MMOL/L (98-107); CREATININE FOR GFR 1.2 MG/DL (0.55-1.30); GLOMERULAR FILTRATION RATE 47.2 (>39); MAGNESIUM LEVEL 2.3 MG/DL (1.8-2.4); POTASSIUM SERUM 4.1 MMOL/L (3.5-5.1); SODIUM LEVEL 144.0 MMOL/L (136-145)
[2025-06-27 11:43] VITALS: BP 139/82; TEMP 98.1; O2SAT 90
[2025-06-27] MEDS ORDERED: PRED20TA PO (14:35)
[2025-06-27] MEDS ORDERED: LEVO1TAB40 PO (14:36)
[2025-06-27] MEDS ORDERED: SYMB16INH INH (14:37)
== END 2025-06-27 16:34 | disposition home health service (06) | DRG 189 ==
LOC: EDBD 19:03 → M ED 19:03 → M ED INP 06-26 00:33 → OBSVTOIN 06-26 00:33 → M MS4PR 06-26 01:45
PROVIDERS: ADMIT Student in an Organized Health Care Education/Training Program; ATTEND Student in an Organized Health Care Education/Training Program
PROC: B246ZZZ Ultrasonography of Right and Left Heart (ICD-10-PCS; principal; 2025-06-27)
DX: J96.21 Acute and chronic respiratory failure with hypoxia (principal); J15.69 Pneumonia due to other Gram-negative bacteria; J44.1 Chronic obstructive pulmonary disease with (acute) exacerbation; I24.89 Other forms of acute ischemic heart disease; J84.10 Pulmonary fibrosis, unspecified; I27.20 Pulmonary hypertension, unspecified; I48.0 Paroxysmal atrial fibrillation; I25.10 Atherosclerotic heart disease of native coronary artery without angina pectoris; I72.2 Aneurysm of renal artery; I08.2 Rheumatic disorders of both aortic and tricuspid valves; I71.20 Thoracic aortic aneurysm, without rupture, unspecified; I10 Essential (primary) hypertension; E78.5 Hyperlipidemia, unspecified; K21.9 Gastro-esophageal reflux disease without esophagitis; I72.3 Aneurysm of iliac artery; F41.9 Anxiety disorder, unspecified; Z99.81 Dependence on supplemental oxygen; Z95.5 Presence of coronary angioplasty implant and graft; Z98.41 Cataract extraction status, right eye; Z98.42 Cataract extraction status, left eye; Z87.891 Personal history of nicotine dependence; Z79.01 Long term (current) use of anticoagulants; Z79.899 Other long term (current) drug therapy; Z88.5 Allergy status to narcotic agent; Z88.8 Allergy status to other drugs, medicaments and biological substances; Z91.018 Allergy to other foods